=== PATIENT | male | born 1940 | race Caucasian/White ===

== ENCOUNTER 2020-07-05 12:16 | Outpatient (REF) | payer MEDICARE, SELFPAY ==
[2020-07-05 14:53] LABS: Blood Urea Nitrogen 12 mg/dL (9-16); Estimated Glomerular Filt Rate > 60
== END 2020-07-05 12:17 | disposition home or self-care (01) ==
LOC: HO.LNP 12:16
PROVIDERS: Visit Provider Internal Medicine
DX: Z01.812 Encounter for preprocedural laboratory examination (principal)
CPT/HCPCS: 82565; 84520

== ENCOUNTER 2020-07-15 07:58 | Outpatient (REF) | payer MEDICARE, SELFPAY ==
--- NOTE | ~2020-07-15 | CT_ITS ---
EXAMINATION: CT ABDOMEN AND PELVIS WITH CONTRAST CLINICAL INFORMATION: Mesenteric adenitis. COMPARISON: CT abdomen and pelvis with contrast 08/28/2018. TECHNIQUE: Multidetector volumetric images were obtained from the superior aspect of the liver through the pubic symphysis following administration 85 mL of Omnipaque 350 intravenous contrast. Sagittal and coronal reformatted images were obtained on the technologist's workstation. Oral Contrast: No. This CT examination was performed using dose optimization techniques as appropriate, variously including the following: *Automated exposure control. *Adjustment of mA and/or kV according to patient size (this includes techniques or standardized protocols for targeted exams where dose is matched to indication/reason for exam; i.e. extremities or head). *Use of iterative reconstruction technique. DLP: 487 mGy-cm FINDINGS: LUNG BASES: The visualized lung bases are unremarkable. LIVER, GALLBLADDER, AND BILIARY TREE: The liver is normal in size, shape, and attenuation. No focal hepatic lesion or biliary ductal dilatation is present. The gallbladder is unremarkable with no evidence of radiopaque gallstones, gallbladder wall thickening, or obvious pericholecystic inflammatory changes. PANCREAS: Unremarkable. SPLEEN: Unremarkable. ADRENAL GLANDS: Unremarkable. KIDNEYS AND URETERS: The kidneys are normal in size, shape, and attenuation. No hydronephrosis, hydroureter, or calculi seen. No perinephric stranding. There is a small scar and perinephric fat stranding from previous treatment along the right posterior cortex lower pole of right kidney. BLADDER: The bladder is nondistended with mild bladder wall thickening, nonspecific. GASTROINTESTINAL TRACT: There is scattered stool, diverticuli and oral contrast seen throughout the colon without any significant distention. The small bowel loops are normal caliber. Appendix is normal caliber. There is diffuse mesenteric stranding in the upper and mid abdomen, nonspecific mesenteritis. Few scattered small lymph nodes are seen in the mesentery. ABDOMINAL WALL: No significant hernia is appreciated. LYMPH NODES: A few scattered mesenteric lymph nodes are seen. VASCULAR: There is atherosclerotic calcification of the abdominal aorta without aneurysmal dilatation. PELVIC VISCERA: The prostate gland is mildly enlarged. OSSEOUS STRUCTURES: No lytic or sclerotic process seen. There are degenerative disc changes and ventral spondylosis in the lower dorsal spine. There are endplate Schmorl's node from L2 through L5 vertebra. CT/CT abdomen pelvis w con IMPRESSION: Diffuse mesenteric stranding in scattered lymph nodes likely mesenteric adenitis. Colonic diverticulosis but no suggestion for diverticulitis.
== END 2020-07-15 07:59 | disposition home or self-care (01) ==
LOC: HO.CT 07:58
PROVIDERS: PCP Internal Medicine; Visit Provider Internal Medicine
DX: I88.0 Nonspecific mesenteric lymphadenitis (principal)
CPT/HCPCS: 74177; Q9967

== ENCOUNTER 2020-07-26 11:05 | Outpatient (REF) | payer MEDICARE, SELFPAY ==
[2020-07-26 12:17] LABS: Alanine Aminotransferase 25 U/L (0-40); Albumin Level 4.3 g/dL (3.5-5.0); Alkaline Phosphatase 88 U/L (39-117); Aspartate Amino Transferase 24 U/L (5-37); Bilirubin Direct 0.2 mg/dL (0.0-0.5); Bilirubin Total 0.6 mg/dL (0.0-1.0); Cholesterol 167 mg/dL; HDL Cholesterol 53 mg/dL; LDL Cholesterol Calculated 90 mg/dl; Total Protein 6.5 g/dL (6.5-8.0); Triglycerides 124 mg/dL
[2020-07-26 12:37] LABS: Reflex LDLD? No
== END 2020-07-26 11:06 | disposition home or self-care (01) ==
LOC: HO.LNP 11:05
PROVIDERS: PCP Internal Medicine; Visit Provider Internal Medicine
DX: E78.00 Pure hypercholesterolemia, unspecified (principal)
CPT/HCPCS: 80061; 80076

== ENCOUNTER → 2020-09-13 08:36 | Outpatient (BNVA) | payer MEDICARE, SELFPAY | PROVIDERS: PCP Internal Medicine; Referring Provider Internal Medicine; Visit Provider Internal Medicine Cardiovascular Disease | DX: I35.0 Nonrheumatic aortic (valve) stenosis (principal); I45.2 Bifascicular block; I10 Essential (primary) hypertension | CPT/HCPCS: 93005; 99212 ==

== ENCOUNTER 2020-11-05 11:03 | Outpatient (REF) | payer MEDICARE, SELFPAY ==
--- NOTE | ~2020-11-05 | XR_ITS ---
EXAMINATION: BILATERAL HAND SERIES CLINICAL INFORMATION: Pain in right hand COMPARISON: X-ray the left wrist October 2018 TECHNIQUE: 3 views of each hand FINDINGS: Right hand: Radiocarpal compartment mild osteoarthritis with small subchondral cystic change on the radial side of the joint scaphoid radial articulation. First carpal metacarpal joint mild osteoarthritis manifested by marginal osteophytes and subchondral cystic change. Interphalangeal joints: Scattered mild osteoarthritis manifested by marginal osteophytes and cystic change involving primarily the DIP joints and IP joint of the thumb. Left hand: Mild osteoarthritis scattered about the interphalangeal joints manifested by small subchondral cysts and/or marginal osteophytes. Remaining bones joints and soft tissues unremarkable. XR/XR hand RT min 3V IMPRESSION: Right hand: Mild osteoarthritis. Left hand: Mild osteoarthritis
--- NOTE | ~2020-11-05 | XR_ITS ---
EXAMINATION: BILATERAL HAND SERIES CLINICAL INFORMATION: Pain in right hand COMPARISON: X-ray the left wrist October 2018 TECHNIQUE: 3 views of each hand FINDINGS: Right hand: Radiocarpal compartment mild osteoarthritis with small subchondral cystic change on the radial side of the joint scaphoid radial articulation. First carpal metacarpal joint mild osteoarthritis manifested by marginal osteophytes and subchondral cystic change. Interphalangeal joints: Scattered mild osteoarthritis manifested by marginal osteophytes and cystic change involving primarily the DIP joints and IP joint of the thumb. Left hand: Mild osteoarthritis scattered about the interphalangeal joints manifested by small subchondral cysts and/or marginal osteophytes. Remaining bones joints and soft tissues unremarkable. XR/XR hand LT min 3V IMPRESSION: Right hand: Mild osteoarthritis. Left hand: Mild osteoarthritis
[2020-11-05 12:36] LABS: MANUAL DIFF FLAG NO
[2020-11-05 12:46] LABS: Basophils Percent Auto 0.5 % (0-2); Eosinophils Absolute Auto 0.2 X10*3/uL (0.0-0.4); Eosinophils Percent Auto 2.5 % (0-4); Hematocrit 43.6 % (42-52); Imm Gran Abs Auto 0.02 X10*3/uL (0.00-0.03); Imm Gran Pct Auto 0.3 % (0.0-0.4); Lymphocytes Absolute Auto 1.3 X10*3/uL (1.2-4.9); Lymphocytes Percent Auto 20.9 % (20-40); Mean Corpuscular HGB Conc 32.1 g/dl (31.0-36.0); Mean Corpuscular Hemoglobin 29.7 pg (27.0-33.0); Mean Corpuscular Volume 92.4 fL (80-98); Mean Platelet Volume 11.1 fL (9.4-12.4); Monocytes Absolute Auto 0.6 X10*3/uL (0.1-1.2); Monocytes Percent Auto 9.7 % (2-11); Neutrophils Percent Auto 66.1 % (45-73); Platelet Count 199 X10*3/uL (160-400); Red Blood Count 4.72 X10*6/uL (4.60-5.80); Red Cell Distribution Width 13.8 % (11.0-16.0)
[2020-11-05 12:57] LABS: Alanine Aminotransferase 22 U/L (0-40); Albumin Level 4.4 g/dL (3.5-5.0); Alkaline Phosphatase 95 U/L (39-117); Anion Gap 13 (12-20); Aspartate Amino Transferase 22 U/L (5-37); Bilirubin Total 0.6 mg/dL (0.0-1.0); Blood Urea Nitrogen 10 mg/dL (9-16); C Reactive Protein 0.52 mg/dL (< or = 0.50); Calcium 9.9 mg/dL (8.4-10.2); Carbon Dioxide 33 mmol/L (22-29); Chloride 99 mmol/L (96-108); Estimated Glomerular Filt Rate > 60; Glucose Random 102 mg/dL (60-115); Potassium 4.3 mmol/L (3.3-5.1); Rheumatoid Factor 18.7 IU/mL (<15.0); Sodium 141 mmol/L (135-145); Total Protein 6.9 g/dL (6.5-8.0)
[2020-11-05 13:55] LABS: Erythrocyte Sedimentation Rate 3 MM/HR (0-15)
[2020-11-13 15:57] LABS: Cyclic Citrullinated Peptide <16 UNITS
== END 2020-11-05 11:04 | disposition home or self-care (01) ==
LOC: HO.XRAY 11:03
PROVIDERS: PCP Internal Medicine; Visit Provider Student in an Organized Health Care Education/Training Program
DX: M79.641 Pain in right hand (principal); M79.642 Pain in left hand; M19.042 Primary osteoarthritis, left hand; M19.041 Primary osteoarthritis, right hand
CPT/HCPCS: 36415; 73130; 80053; 85025; 85652; 86140; 86200; 86431; 99202

== ENCOUNTER → 2020-12-09 13:52 | Outpatient (BNVA) | payer MEDICARE, SELFPAY | PROVIDERS: PCP Internal Medicine; Visit Provider Student in an Organized Health Care Education/Training Program | DX: M79.641 Pain in right hand (principal); M79.642 Pain in left hand | CPT/HCPCS: 99212 ==

== ENCOUNTER 2020-12-30 08:05 | Outpatient (REF) | payer MEDICARE, SELFPAY ==
--- NOTE | ~2020-12-30 | XR_ITS ---
EXAMINATION: XR KNEE, LEFT CLINICAL INFORMATION: Pain. Immunological findings. COMPARISON: None TECHNIQUE: Four views of the left knee. FINDINGS: There is no evidence of acute fracture or dislocation of the left knee. There is prominent spurring of the patellofemoral joint. Spur on the patellar side of insertion of quadriceps tendon is seen. Medial and lateral joint space compartments are maintained. There is some narrowing of the lateral facet of the patellofemoral joint. Vascular calcifications are seen. There is a small effusion present. XR/XR knee LT 4V IMPRESSION: Small left knee effusion. Patellofemoral joint degenerative change.
== END 2020-12-30 08:06 | disposition home or self-care (01) ==
LOC: HO.XRAY 08:05
PROVIDERS: PCP Internal Medicine; Visit Provider Student in an Organized Health Care Education/Training Program
DX: M79.642 Pain in left hand (principal); M79.641 Pain in right hand
CPT/HCPCS: 20600; 73564; 99212

== ENCOUNTER 2021-01-25 10:28 | Outpatient (REF) | payer MEDICARE, SELFPAY ==
[2021-01-25 10:32] LABS: MANUAL DIFF FLAG NO
[2021-01-25 10:56] LABS: Basophils Percent Auto 0.4 % (0-2); Eosinophils Absolute Auto 0.1 X10*3/uL (0.0-0.4); Eosinophils Percent Auto 2.5 % (0-4); Hemoglobin 12.9 g/dl (14.0-18.0); Imm Gran Abs Auto 0.02 X10*3/uL (0.00-0.03); Imm Gran Pct Auto 0.4 % (0.0-0.4); Lymphocytes Absolute Auto 1.1 X10*3/uL (1.2-4.9); Lymphocytes Percent Auto 22.3 % (20-40); Mean Corpuscular HGB Conc 31.5 g/dl (31.0-36.0); Mean Corpuscular Hemoglobin 30.1 pg (27.0-33.0); Mean Corpuscular Volume 95.6 fL (80-98); Monocytes Absolute Auto 0.5 X10*3/uL (0.1-1.2); Neutrophils Absolute Auto 3.3 X10*3/uL (2.0-8.3); Neutrophils Percent Auto 64.4 % (45-73); Platelet Count 186 X10*3/uL (160-400); Red Blood Count 4.29 X10*6/uL (4.60-5.80); Red Cell Distribution Width 13.9 % (11.0-16.0); White Blood Count 5.1 X10*3/uL (4.8-10.8)
[2021-01-25 11:17] LABS: Appearance Urine CLEAR; Color Urine YELLOW; Glucose Urine UA NEG (NEG); Leukocyte Esterase Urine NEG (NEG); Nitrite Urine NEG (NEG); Specific Gravity - Urine 1.015 (1.005-1.025); Urine Blood NEG (NEG); Urine Ketones NEG (NEG); Urine Protein NEG (NEG-TRACE)
[2021-01-25 11:33] LABS: Alanine Aminotransferase 21 U/L (0-40); Alkaline Phosphatase 83 U/L (39-117); Anion Gap 11 (12-20); Aspartate Amino Transferase 18 U/L (5-37); Bilirubin Total 0.5 mg/dL (0.0-1.0); Blood Urea Nitrogen 7 mg/dL (9-16); Calcium 9.2 mg/dL (8.4-10.2); Carbon Dioxide 32 mmol/L (22-29); Chloride 104 mmol/L (96-108); Cholesterol 158 mg/dL; Estimated Glomerular Filt Rate > 60; Glucose Fasting 102 mg/dL (60-99); HDL Cholesterol 56 mg/dL; LDL Cholesterol Calculated 80 mg/dl; Potassium 3.8 mmol/L (3.3-5.1); Sodium 143 mmol/L (135-145); Triglycerides 110 mg/dL
[2021-01-25 11:48] LABS: Estimated Average Glucose 111 mg/dL; Hemoglobin A1c % 5.5 %
[2021-01-25 12:00] LABS: Creatinine Urine 101.19 mg/dL; Microalbum/Creatinine Ratio Ur 4.9 ug/mg cr
[2021-01-25 12:24] LABS: Reflex LDLD? No
[2021-01-25 12:42] LABS: PSA,Total (Free>4and<10) < 0.05 ng/mL (0.00-4.00)
== END 2021-01-25 10:29 | disposition home or self-care (01) ==
LOC: HO.LNP 10:28
PROVIDERS: Visit Provider Internal Medicine
DX: Z12.5 Encounter for screening for malignant neoplasm of prostate (principal); E78.00 Pure hypercholesterolemia, unspecified; R73.03 Prediabetes; I10 Essential (primary) hypertension
CPT/HCPCS: 80053; 80061; 81003; 82043; 83036; 84153; 85025

== ENCOUNTER 2021-01-31 10:38 | Outpatient (REF) | payer MEDICARE, SELFPAY ==
--- NOTE | ~2021-01-31 | XR_ITS ---
EXAMINATION: XR CHEST CLINICAL INFORMATION: Persistent cough. COMPARISON: None TECHNIQUE: 2 views of the chest were obtained. FINDINGS: No significant abnormality is noted involving the heart, lungs, mediastinum, bony thorax or soft tissues. XR/XR chest 2V IMPRESSION: Unremarkable chest examination.
== END 2021-01-31 10:39 | disposition home or self-care (01) ==
LOC: HO.XRAY 10:38
PROVIDERS: PCP Internal Medicine; Visit Provider Internal Medicine
DX: R05 Cough (principal)
CPT/HCPCS: 71046

== ENCOUNTER 2021-04-27 09:22 | Emergency (ER) | payer MEDICARE, SELFPAY ==
--- NOTE | ~2021-04-27 | CT_ITS ---
EXAMINATION: CT HEAD WITHOUT CONTRAST CLINICAL INFORMATION: Fell on ice COMPARISON: 03/12/2019 TECHNIQUE: Contiguous axial imaging was performed from the skull base to vertex without intravenous administration of contrast. This CT examination was performed using dose optimization techniques as appropriate, variously including the following: *Automated exposure control *Adjustment of mA and/or kV according to patient size (this includes techniques or standardized protocols for targeted exams where dose is matched to indication/reason for exam; i.e. extremities or head) *Use of iterative reconstruction technique DLP: 768 mGy-cm FINDINGS: There is no evidence of acute intracranial hemorrhage or territorial infarction. No abnormal mass effect or midline shift is seen. Arrieta to white matter differentiation is well preserved. No extra-axial fluid collections are identified. The ventricles are normal in size. There is no abnormal attenuation within the brain parenchyma. The osseous structures and soft tissues are notable for soft tissue swelling posteriorly superficially with skin tate noted. No underlying fracture. The mastoid air cells and visualized portions of the paranasal sinuses are well aerated. CT/CT head/brain wo con IMPRESSION: No acute intracranial pathology.
[2021-04-27 10:05] VITALS: PULSE 77; RESP 18; TEMP 37; O2SAT 97; BMI 31.0
[2021-04-27] MEDS: Lidocaine HCl 2%/Epi 1:100,000 20 ML VIAL 30 ML SUBCUT (10:08)
--- NOTE | 2021-04-27 10:16 | ED_ITS ---
HPI - Fall General Chief Complaint: Fall Stated Complaint: fall Time Seen by Provider: 04/27/21 09:49 Source: patient Mode of arrival: ambulatory Limitations: no limitations History of Present Illness HPI Narrative: 81-year-old male who presents emergency department for evaluation of head injury and laceration. Patient states that he slipped and fell on his icy driveway. His legs 1 out from under him and he fell backwards striking his head on the driveway. He sustained a laceration and states that since the fall he has had a [id number] headache located in occipital area where he has is laceration. He has had some mild nausea but no vomiting. He denies numbness or weakness. He denies being ill in any way prior to the fall. He believes this tetanus status is up-to-date he had 1 2 years prior. Related Data Home Medications Medication Instructions Recorded Confirmed amlodipine 5 mg tablet 5 mg PO DAILY 09/13/20 12/09/20 atorvastatin 20 mg tablet 20 mg PO DAILY 09/13/20 12/09/20 gabapentin 300 mg capsule 600 mg PO BID 09/13/20 12/09/20 hydrochlorothiazide 25 mg tablet 25 mg PO DAILY 09/13/20 12/09/20 tamsulosin 0.4 mg capsule 0.4 mg PO DAILY 09/13/20 12/09/20 timolol maleate 0.5 % eye drops 1 drp OPHTHALMIC (EYE) DAILY ml 09/13/20 12/09/20 diphenhydramine 25 2 tab PO BEDTIME PRN 11/05/20 12/09/20 mg-acetaminophen 500 mg tablet (Tylenol PM Extra Strength) Previous Rx's Medication Instructions Recorded diclofenac sodium 1 % topical gel 2 g TOPICAL QID #100 g 11/05/20 (Voltaren Arthritis Pain) Allergies Allergy/AdvReac Type Severity Reaction Status Date / Time No Known Allergies Allergy Verified 12/30/20 08:09 [No Known Allergies*] Review of Systems Review of Systems: Yes all other systems are reviewed and are negative [facility] Past Medical History Medical History Aortic stenosis Bifascicular block HTN (hypertension) Social History Social History Patient Tobacco Use Status: Never used Tobacco e-Cigarette/Vaping Use: Never Used Advance Directives: Yes Advance Directives Information Provided: No Advance Directives on File: No Physical Exam Vital Signs: Vital Signs: Last Vital Signs Temp 98.6 F 04/27/21 10:05 Pulse 77 04/27/21 10:05 Resp 18 04/27/21 10:05 Pulse Ox 97 04/27/21 10:05 BMI result Body Mass Index 31.0 Const: General: cooperative and no acute distress Orientation/consciousness: oriented to person and oriented to place Limitations: no limitations HENMT: Other: Patient has a 3.0 cm full skin thickness, irregular shaped laceration to mid occipital region of his scalp, there is a small hematoma to this area. The area is tender to palpation Ears: external ears normal General nose exam: Normal external nose present Face and sinus: Yes normal facial exam Mouth: Normal oral and palatal mucosa present Throat: Yes posterior oropharynx normal Eyes: General: appearance normal, both eyes and all related structures Pupils: Equal, round and reactive pupils present Neck: Neck: Yes normal visual inspection, Yes no lymphadenopathy, Yes trachea midline and Yes supple Chest: Chest palpation & inspection: normal inspection of the chest and normal palpation of entire chest wall Resp: Effort & Inspection: normal respiratory effort and able to speak in complete sentences Auscultation: clear to auscultation bilaterally Cardio: Rate: regular rate Rhythm: regular rhythm Heart sounds: S1 normal heart sound present, S2 normal heart sound present and no murmurs GI: Inspection: Yes normal to inspection Palpation (GI): Soft to palpation, nontender and no guarding Auscultation: normal bowel sounds : General: Yes no CVA tenderness Back/Spine/Pelvis: Back: no CVA tenderness Skin: General skin exam: no rashes or lesions noted Neuro: General: oriented to person and oriented to place Cranial nerves: Yes CN's II-XII intact bilaterally and Yes Equal, round and reactive pupils present Cognition (Neuro): normal cognition Motor exam (neuro): 5/5 motor strength present throughout Extrem: General: Yes normal to inspection Psych: Appearance: grossly normal Speech and movement: Normal speech and movement present Affect: normal affect Attitude: cooperative Thought process: Normal thought process present Thought content: Normal thought content present Course Course Course Narrative: 81-year-old male who presents emergency department for evaluat ion of a slip and fall on ice with a head strike on his driveway pavement. The patient did have a 3.0 cm laceration to the back of his head with a small hematoma around the area of the laceration. Patient has some mild symptoms including headache and nausea with no vomiting or weakness. Patient's laceration was cleaned and anesthetized with 2% lidocaine with epinephrine, the wound was explored no foreign bodies were found of the wound in the laceration was repaired with 6 tate. Given his mechanism injury, his age and the hematoma, I did order a CT scan of the head to rule out fracture, bleed. 1057: The CT scan of the patient's head without contrast revealed no acute skull fracture bleed I did discuss this with the patient. The patient was discharged home with printed and verbal instructions on head injury and wound care. Patient's tate need to be removed in 7-10 days by his PCP, urgent care, or he can return to the emergency department. Procedures Laceration Laceration 1: Site: scalp (mid occiput) Size (cm): 3.0 Description: irregular Depth: involves muscle layer Local Anesthetic: lidocaine 2% and with epi Amount of anesthesia used (mL): 5 Pre-repair: wound explored Size (cm): other (6 tate) Discharge Plan Discharge Clinical Impression: Contaminated simple laceration of scalp Head injury Qualifiers: Encounter type: initial encounter Qualified Code(s): S09.90XA - Unspecified injury of head, initial encounter Fall Qualifiers: Encounter type: initial encounter Qualified Code(s): W19.XXXA - Unspecified fall, initial encounter Patient Disposition: Home, Self-Care Instructions: Head Injury (ED), Staple Care (ED) Additional Instructions: You had a 3.0 cm laceration to the back of your head which was cleaned, anesthetized and stapled with 6 tate. The tate need to be removed in 10 days by your doctor, an urgent care clinic or you could return to the emergency department. Apply bacitracin twice a day to the wound. Bacitracin as an [id number]-kbxuvec antibiotic ointment that you can buy in any pharmacy. Watch for signs of infection which include redness, swelling, drainage of pus, increased pain, fever, chills or fatigue. Take Tylenol (acetaminophen) 500 mg pills, 2 pills every 4 to 6 hours as needed for pain. Follow-up with your doctor in 7-10 days. Please return to the emergency department if your symptoms get worse or if you develop any symptoms that are concerning to you. Prescriptions: No Action timolol maleate 0.5 % drops 1 drp ophthalmic (eye) DAILY RF: 0 gabapentin 300 mg capsule 600 mg PO BID RF: 0 tamsulosin 0.4 mg capsule 0.4 mg PO DAILY RF: 0 hydrochlorothiazide 25 mg tablet 25 mg PO DAILY RF: 0 amlodipine 5 mg tablet 5 mg PO DAILY RF: 0 atorvastatin 20 mg tablet 20 mg PO DAILY RF: 0 diphenhydramine-acetaminophen [Tylenol PM Extra Strength] 25-500 mg tablet 2 tab PO BEDTIME PRNRF: 0 diclofenac sodium [Voltaren Arthritis Pain] 1 % gel 2 g topical QID Qty: 100 RF: 1
== END 2021-04-27 11:23 | disposition home or self-care (01) ==
PROVIDERS: Emergency Provider Emergency Medicine Emergency Medical Services; PCP Internal Medicine
DX: S09.90XA Unspecified injury of head, initial encounter (principal); S01.01XA Laceration without foreign body of scalp, initial encounter; G44.309 Post-traumatic headache, unspecified, not intractable; W00.0XXA Fall on same level due to ice and snow, initial encounter; Y93.9 Activity, unspecified; Y92.9 Unspecified place or not applicable; Y99.9 Unspecified external cause status; Z79.899 Other long term (current) drug therapy
CPT/HCPCS: 12002; 70450; 99282; 99284

== ENCOUNTER 2021-05-31 10:20 | Outpatient (REF) | payer MEDICARE, SELFPAY ==
[2021-05-31 13:40] LABS: MANUAL DIFF FLAG NO
[2021-05-31 13:44] LABS: Basophils Percent Auto 0.5 % (0-2); Eosinophils Absolute Auto 0.1 X10*3/uL (0.0-0.4); Eosinophils Percent Auto 2.3 % (0-4); Hematocrit 43.2 % (42.0-52.0); Hemoglobin 13.7 g/dl (14.0-18.0); Imm Gran Abs Auto 0.03 X10*3/uL (0.00-0.03); Imm Gran Pct Auto 0.5 % (0.0-0.4); Lymphocytes Absolute Auto 1.1 X10*3/uL (1.2-4.9); Lymphocytes Percent Auto 19.4 % (20-40); Mean Corpuscular HGB Conc 31.7 g/dl (31.0-36.0); Mean Corpuscular Hemoglobin 30.2 pg (27.0-33.0); Mean Corpuscular Volume 95.2 fL (80.0-98.0); Mean Platelet Volume 11.2 fL (9.4-12.4); Monocytes Absolute Auto 0.4 X10*3/uL (0.1-1.2); Monocytes Percent Auto 7.6 % (2-11); Neutrophils Absolute Auto 3.9 x10*3/uL (2.0-8.3); Neutrophils Percent Auto 69.7 % (45-73); Platelet Count 190 X10*3/uL (160-400); Red Blood Count 4.54 X10*6/uL (4.60-5.80); Red Cell Distribution Width 13.5 % (11.0-16.0); White Blood Count 5.6 X10*3/uL (4.8-10.8)
[2021-05-31 14:12] LABS: Anion Gap 14 (12-20); Blood Urea Nitrogen 10 mg/dL (9-16); Calcium 9.6 mg/dL (8.4-10.2); Carbon Dioxide 30 mmol/L (22-29); Chloride 102 mmol/L (96-108); Estimated Glomerular Filt Rate > 60; Iron 80 mcg/dL (45-160); Percent Iron Saturation 24 % (15-50); Potassium 4.2 mmol/L (3.3-5.1); Sodium 142 mmol/L (135-145); Total Iron Binding Capacity 329 mcg/dL (228-428); Unsaturated Iron Binding 249 ug/dL
[2021-05-31 14:25] LABS: Ferritin 136 ng/mL (20-250)
[2021-05-31 15:25] LABS: Folate 19.2 ng/mL (> or = 4.0)
[2021-05-31 15:39] LABS: Vitamin B12 206 pg/mL (200-900)
== END 2021-05-31 10:21 | disposition home or self-care (01) ==
LOC: HO.10HDL 10:20
PROVIDERS: Visit Provider Internal Medicine
DX: I88.0 Nonspecific mesenteric lymphadenitis (principal)
CPT/HCPCS: 36415; 80051; 82310; 82565; 82607; 82728; 82746; 83540; 84520; 85025

== ENCOUNTER 2021-06-14 08:05 | Outpatient (REF) | payer MEDICARE, SELFPAY ==
--- NOTE | ~2021-06-14 | CT_ITS ---
EXAMINATION: CT ABDOMEN AND PELVIS WITH CONTRAST CLINICAL INFORMATION: Mesenteric adenitis. COMPARISON: CT abdomen/pelvis 07/15/2020. TECHNIQUE: Multidetector volumetric images were obtained from the superior aspect of the liver through the pubic symphysis following administration 85 mL of Omnipaque 350 intravenous contrast. Sagittal and coronal reformatted images were obtained on the technologist's workstation. Oral contrast: No. This CT examination was performed using dose optimization techniques as appropriate, variously including the following: *Automated exposure control *Adjustment of mA and/or kV according to patient size (this includes techniques or standardized protocols for targeted exams where dose is matched to indication/reason for exam; i.e. extremities or head) *Use of iterative reconstruction technique DLP: 495 mGy-cm FINDINGS: LUNG BASES: The visualized lung bases are unremarkable. LIVER, GALLBLADDER, AND BILIARY TREE: The liver is normal in size, shape, and attenuation. No focal hepatic lesion or biliary ductal dilatation is present. The gallbladder is slightly contracted with no radiopaque calculi. PANCREAS: Unremarkable. SPLEEN: Unremarkable. ADRENAL GLANDS: Unremarkable. KIDNEYS AND URETERS: The kidneys are normal in size, shape, and attenuation. No hydronephrosis, hydroureter, or calculi seen. No perinephric stranding. BLADDER: Unremarkable. GASTROINTESTINAL TRACT: There is scattered stool, oral contrast and gas seen throughout the colon. There is a large filling defect at the ileocecal junction and cecum, new since the previous study, question stool versus underlying lesion or mass. It is best visualized on coronal image 63/4. The small bowel loops are normal caliber. The appendix is normal caliber. Again visualized is diffuse mesenteric stranding in the upper and mid abdomen. A few scattered mesenteric lymph nodes are seen. ABDOMINAL WALL: No significant hernia is appreciated. LYMPH NODES: Small mesenteric and retroperitoneal lymph nodes are seen. VASCULAR: Unremarkable. PELVIC VISCERA: The prostate gland is mildly enlarged with metallic density adjacent to the left pelvis. There are scattered phleboliths in the pelvis. OSSEOUS STRUCTURES: There are degenerative disc changes L2-L3 through L4-L5 disc levels with ventral spondylosis. There is an inferior endplate Schmorl's node at L2 and L3 vertebrae. CT/CT abdomen pelvis w con IMPRESSION: New filling defect at the ileocecal junction and cecum. Colonic diverticulosis without diverticulitis. Focal mesenteric stranding in the upper abdomen with scattered small lymph nodes in the mesentery and retroperitoneum, similar to previous study. Fleischner guidelines were followed.
[2021-06-14] MEDS: Barium Sulfate Oral (Vanilla) 450 ML ORAL.SUSP 900 ML PO (09:19)
[2021-06-14] MEDS: iohexoL 350 MG/ML 100 ML INFUS..BTL 85 ML IV (11:18)
== END 2021-06-14 08:06 | disposition home or self-care (01) ==
LOC: HO.CT 08:05
PROVIDERS: Visit Provider Internal Medicine
DX: I88.0 Nonspecific mesenteric lymphadenitis (principal)
CPT/HCPCS: 74177; Q9967

== ENCOUNTER 2021-06-20 12:03 | Day surgery (SDC) | payer MEDICARE, SELFPAY ==
--- NOTE | 2021-06-17 13:46 | HO.ANESPROP2 ---
Documented by User: Estelle Harper NP 06/17/21 13:49 HPI - Anesthesia Eval Consult details Narrative: 81yo M for Colonoscopy PMFSH Active Problems Active Problems: All Active Problems (Updated 04/28/21 @ 00:03 by Jon Recinos) Rheumatoid factor positive (Acute) Bilateral hand pain (Acute) HTN (hypertension) (Acute) Bifascicular block (Acute) Aortic stenosis (Acute) Past Medical History Medical History (Updated 06/17/21 @ 13:47 by Estelle Harper NP) Aortic stenosis Bifascicular block HTN (hypertension) Social History Social History Patient Tobacco Use Status: Never used Tobacco Tobacco use type: Cigar e-Cigarette/Vaping Use: Never Used Use of substances other than those prescribed or required for medical reasons: No Are you DNR?: No Advance Directives: No Advance Directives Information Provided: Yes Recently lost weight without trying: No Nutrition Risks: No Nutritional Risk Meds Allergies Allergy/AdvReac Type Severity Reaction Status Date / Time No Known Allergies Allergy Verified 12/30/20 08:09 [No Known Allergies*] Home Medications Medication Instructions Recorded Confirmed Last Taken Type amlodipine 5 mg tablet 5 mg PO DAILY 09/13/20 12/09/20 Unknown History atorvastatin 20 mg tablet 20 mg PO DAILY 09/13/20 12/09/20 Unknown History gabapentin 300 mg capsule 600 mg PO BID 09/13/20 12/09/20 Unknown History hydrochlorothiazide 25 mg tablet 25 mg PO DAILY 09/13/20 12/09/20 Unknown History tamsulosin 0.4 mg capsule 0.4 mg PO DAILY 09/13/20 12/09/20 Unknown History timolol maleate 0.5 % eye drops 1 drp OPHTHALMIC (EYE) DAILY ml 09/13/20 12/09/20 Unknown History diphenhydramine 25 2 tab PO BEDTIME PRN 11/05/20 12/09/20 Unknown History mg-acetaminophen 500 mg tablet (Tylenol PM Extra Strength) Exam Exam Date and Time: June 17, 2021 1346 Pertinent Lab Results Pertinent Lab Results: Laboratory Tests 05/31/21 05/31/21 10:28 10:28 WBC 5.6 Hgb 13.7 L Hct 43.2 Plt Count 190 Sodium 142 Potassium 4.2 Chloride 102 Carbon Dioxide 30 H BUN 10 Creatinine 0.71 Narrative Narrative: EKG 09/2020 normal sinus rhythm low voltage with right bundle-branch block and left anterior fascicular block, unchanged from before ECHO 08/2019 LV systolic function is normal. EF 60-65% Aortic valve sclerosis but without any significant stenosis Assessment and Plan Assessment Anesthesia Assessment: Chart Reviewed Documented by User: Sigrid Reagan MD 06/20/21 15:11 [facility] Past Medical History Medical History (Updated 06/17/21 @ 13:47 by Estelle Harper NP) Aortic stenosis Bifascicular block HTN (hypertension) Family History Family history of problems with anesthesia: No Surgical History History of Problems with Anesthesia: No Social History Social History Patient Tobacco Use Status: Never used Tobacco Tobacco use type: Cigar e-Cigarette/Vaping Use: Never Used Use of substances other than those prescribed or required for medical reasons: No Are you DNR?: No Advance Directives: No Advance Directives Information Provided: Yes Recently lost weight without trying: No Nutrition Risks: No Nutritional Risk Meds Allergies Allergy/AdvReac Type Severity Reaction Status Date / Time No Known Allergies Allergy Verified 12/30/20 08:09 [No Known Allergies*] Home Medications Medication Instructions Recorded Confirmed Last Taken Type amlodipine 5 mg tablet 5 mg PO DAILY 09/13/20 12/09/20 Unknown History atorvastatin 20 mg tablet 20 mg PO DAILY 09/13/20 12/09/20 Unknown History gabapentin 300 mg capsule 600 mg PO BID 09/13/20 12/09/20 Unknown History hydrochlorothiazide 25 mg tablet 25 mg PO DAILY 09/13/20 12/09/20 Unknown History tamsulosin 0.4 mg capsule 0.4 mg PO DAILY 09/13/20 12/09/20 Unknown History timolol maleate 0.5 % eye drops 1 drp OPHTHALMIC (EYE) DAILY ml 09/13/20 12/09/20 Unknown History diphenhydramine 25 2 tab PO BEDTIME PRN 11/05/20 12/09/20 Unknown History mg-acetaminophen 500 mg tablet (Tylenol PM Extra Strength) Exam Height,Weight and Vital Signs: Height 5 ft 4 in Weight 82.554 kg Vital Signs Temp Pulse Resp BP Pulse Ox 06/20/21 14:42 97.7 F 77 16 144/72 H 97 Airway Mallampati Class: II TM Dist: >3cm Neck ROM: Full Heart: RRR+ murmur. ? gurgling sounds Lungs: ? gurgling sounds Assessment and Plan Assessment Anesthesia Assessment: Anesthesia Plan Discussed Final Anesthetic Review Family History of Problems with Anesthesia: No History of Problems with Anesthesia: No NPO: Yes ASA Class: III Final Preanesthetic Review: No Changes in Pt Med Stat, Meds/Allgs Chart Reviewed, Consent Obtained/Reviewed and Anes Risks/Benef Reviewed Patient Risk: Intermediate Procedure Risk: Low Assessment/Block/Sedation in SS: Assess/Block/Sedation-SS Anesthetic Plan Anesthetic Plan: MAC: Disposition: Standard PACU
[2021-06-20 14:32] VITALS: BMI 31.2
[2021-06-20 14:42] VITALS: BP 144/72; PULSE 77; RESP 16; TEMP 36.5; O2SAT 97; BMI 31.2
[2021-06-20] MEDS: Lactated Ringers 1,000 ML 100 ML IVCONT (14:50)
[2021-06-20 16:04] VITALS: BP 101/63; PULSE 72; RESP 12; TEMP 36.1; O2SAT 99
--- NOTE | 2021-06-20 16:05 | P.BOP_ITS ---
Brief Operative Note Date of Service: 06/20/21 Pre-op diagnosis: Abnormal CT of colon Post-op diagnosis: other (Colon polyp) Procedure: Colonoscopy to the cecum and TI with cold snare polypectomy of cecal polyp Surgeon: Mike Keller Anesthesia: MAC Was an Vocational Rehabilitation Supervisor used for this Procedure?: No Estimated blood loss (mL): 2.0 Pathology: other (A. Cecal polyp) Condition: stable Disposition: PACU
[2021-06-20 16:20] VITALS: BP 124/66; PULSE 75; RESP 16; TEMP 36.1; O2SAT 98
--- NOTE | 2021-06-21 01:56 | OP_ITS ---
SURGEON: Mike Keller MD INDICATIONS: The patient presents for evaluation of abnormal CT scan of colon. Full consent has been obtained from him for this, including risks of bleeding and perforation. PREOPERATIVE DIAGNOSIS: Abnormal CT scan of colon. POSTOPERATIVE DIAGNOSIS: Abnormal CT scan of colon, small colon polyp, diverticulosis, and internal hemorrhoids. PROCEDURE PERFORMED: Colonoscopy to cecum and terminal ileum with cold snare polypectomy. ESTIMATED BLOOD LOSS: COMPLICATIONS: ANESTHESIA: Medication used, monitored anesthesia care. ASSISTANTS: SPECIMENS: DESCRIPTION OF PROCEDURE: The patient was placed in left lateral decubitus position the digital rectal exam revealed no abnormalities. The Olympus video pediatric colonoscope was entered into the rectum and advanced easily to the cecum. Once in the cecum, I did identify normal-appearing ileocecal valve. The terminal ileum was cannulated and appeared normal. The scope was withdrawn back in the colon. The entire cecum was well visualized and appeared normal other than an approximately 5 mm polyp, which was removed with a cold snare polypectomy and recovered by suction. The polypectomy site appeared to be clean, without any sign of residual polyp nor any significant bleeding. The remainder of the cecum and ileocecal valve were carefully inspected and appeared normal without any sign of mass as had been suggested on the CT scan. The scope was then slowly withdrawn assessing all mucosal surfaces carefully. Preparation was excellent. I did not visualize any other polyps, colitis, nor angiodysplasia. There was a moderate amount of sigmoid diverticulosis. In the rectum, scope was retroflexed visualizing small internal hemorrhoids, but no other pathology. The rectal mucosa appeared normal. Scope was straightened and withdrawn from the patient. He tolerated the procedure well and was returned to the recovery area in stable condition. IMPRESSION: 1. Small colon polyp, status post cold snare polypectomy. 2. Diverticulosis. 3. Internal hemorrhoids. PLAN: The results of the pathology will be checked. Given his age and these findings, I do not think any further colonoscopies would be needed. He was advised to see me in 1 year for a followup visit. MD DEVANTE Swann/LASHELL / [phone]
== END 2021-06-20 16:35 | disposition home or self-care (01) ==
PROVIDERS: PCP Internal Medicine; Visit Provider Internal Medicine
PROC: 0DJD8ZZ Inspection of Lower Intestinal Tract, Via Natural or Artificial Opening Endoscopic (ICD-10-PCS; CPT 45378; principal; 2021-06-20 14:00)
DX: R93.3 Abnormal findings on diagnostic imaging of other parts of digestive tract (principal); D12.0 Benign neoplasm of cecum; K57.30 Diverticulosis of large intestine without perforation or abscess without bleeding; K64.8 Other hemorrhoids; I88.0 Nonspecific mesenteric lymphadenitis; I10 Essential (primary) hypertension; E78.5 Hyperlipidemia, unspecified; Z72.89 Other problems related to lifestyle; Z79.899 Other long term (current) drug therapy
CPT/HCPCS: 45385; 88305; J3010

== ENCOUNTER → 2021-06-29 11:03 | Outpatient (REF) | payer MEDICARE, SELFPAY ==
--- NOTE | ~2021-06-29 | NM_ITS ---
EXAMINATION: NM BONE SCAN OF THE WHOLE BODY CLINICAL INFORMATION: Acute bilateral low back pain without sciatic. COMPARISON: The previous bone scan dated 10/13/2014 is available for comparison. Radiographs of the chest dated 01/31/2021 are the most recent radiographs available for comparison. CT scan of the abdomen and pelvis dated 06/14/2021 is available for comparison. TECHNIQUE: Multiple gamma scintillation camera images of the whole body were performed 2.5 hours following the intravenous administration of 31 mCi Tc-99m MDP. FINDINGS: In the head, there is mildly increased activity in the molar region of the left side of the mandible, likely due to dental disease. In the thoracic cage and upper extremities, there is a focus of mildly increased activity present in the anterior aspect of the right fifth rib. In the spine, foci of mildly increased activity are present in the thoracic spine at the left side of T1, the right side of T4 and the left costovertebral junction of T10. Is also mildly increased activity in the left side of L3 and bilaterally in the posterior elements at L5/S1. In the pelvis, no significant abnormalities are present. In the lower extremities, there is a small faint focus of increased activity in the intertrochanteric region of the right femur. There is a mild diffuse increase in activity in both knees, most prominently in the patellar compartments. Faint foci of increased activity are present posteriorly in both feet but more prominently on the left, likely due to an Achilles enthesopathy. No other definite bony abnormalities are noted. The urinary bladder and faint visualization of both kidneys are noted. Compared to the previous bone scan dated 10/13/2014, the right rib lesion is new. In addition, the abnormalities in the posterior elements at L5-S1 and the mild abnormalities in the thoracic spine are also new. Minimal abnormality was present on the prior study in the left side L3 in the proximal right femur. The CT scan dated 06/14/2021 shows a sclerotic focus in the left side of the L3 vertebra that corresponds to the bone scan abnormality at this site. There is significant facet arthropathy bilaterally at L5/S1 at L5-S1 that corresponds to mild bone scan abnormalities described above at this site. There is also small sclerotic focus in the intertrochanteric region of the right femur that corresponds to the small bone scan abnormality at this site. The anterior right fifth rib lesion is outside the axial [id number] of the CT images and cannot be compared. NM/NM bone scan whole body IMPRESSION: 1. New abnormality in the right fifth rib and several small foci in the upper thoracic spine are present as described above and strongly suspicious for metastatic disease. 2. Abnormality in the left side of L3 appears stable and is likely metastatic in etiology, as is a small focus in the intertrochanteric region of the right femur. 3. Mild abnormalities in the posterior elements at L5/S1 are nonspecific but probably due to facet arthropathy. 4. Mild bilateral knee abnormalities are likely arthritic.
[2021-06-29 12:52] LABS: Prostate Specific Antigen < 0.05 ng/mL (<0.05-4.0)
== END ==
LOC: HO.NUCMED 11:03
PROVIDERS: Visit Provider Internal Medicine
DX: Z12.5 Encounter for screening for malignant neoplasm of prostate (principal); M54.50 Low back pain, unspecified
CPT/HCPCS: 36415; 78306; 84153; A9503

== ENCOUNTER → 2021-07-04 11:09 | Outpatient (BNVA) | payer MEDICARE, SELFPAY | PROVIDERS: PCP Internal Medicine; Visit Provider Internal Medicine | DX: M47.26 Other spondylosis with radiculopathy, lumbar region (principal); M54.51 Vertebrogenic low back pain | CPT/HCPCS: 99202 ==

== ENCOUNTER 2021-07-25 10:41 | Outpatient (REF) | payer MEDICARE, SELFPAY ==
[2021-07-25 11:11] LABS: Alanine Aminotransferase 16 U/L (0-40); Alkaline Phosphatase 87 U/L (39-117); Aspartate Amino Transferase 18 U/L (5-37); Bilirubin Direct 0.2 mg/dL (0.0-0.5); Bilirubin Total 0.6 mg/dL (0.0-1.0); Cholesterol 165 mg/dL; HDL Cholesterol 53 mg/dL; LDL Cholesterol Calculated 95 mg/dl; Total Protein 6.1 g/dL (6.5-8.0); Triglycerides 85 mg/dL
[2021-07-25 11:39] LABS: Reflex LDLD? No
== END 2021-07-25 10:42 | disposition home or self-care (01) ==
LOC: HO.LNP 10:41
PROVIDERS: Visit Provider Internal Medicine
DX: E78.00 Pure hypercholesterolemia, unspecified (principal)
CPT/HCPCS: 80061; 80076

== ENCOUNTER → 2021-08-05 10:40 | Outpatient (BNVA) | payer MEDICARE, SELFPAY | PROVIDERS: PCP Internal Medicine; Visit Provider Internal Medicine | DX: Z13.89 Encounter for screening for other disorder (principal) | CPT/HCPCS: Q3014 ==

== ENCOUNTER → 2021-08-26 08:12 | Outpatient (REF) | payer MEDICARE, SELFPAY ==
--- NOTE | 2021-08-26 08:47 | CA_ITS ---
Transthoracic Echocardiogram Patient (Last, First, Middle): Myla Hernandez, Gender: Male Date of : 1940 Age: 81 Procedure Date: 08/26/2021 Procedure Type: Transthoracic Echocardiogram Location: OP Height: 162.56 cm Weight: 89.81 kg BSA: 1.95 m2 Heart Rate: bpm BP: 130 / 75 mmHg Concrete Engineering Technician: YR/TO Referring MD: Anibal Haque MD Machine Or Machinery Mechanic: Anibal Haque MD Symptoms: I35.0 - Nonrheumatic aortic (valve) stenosis Study Quality: Fair ECG Rhythm: Sinus Conclusions: - 1. Normal LV systolic function with impaired relaxation filling pattern 2. Moderate calcified aortic valve with early mild aortic stenosis 3. Normal RV systolic pressure 4. No pericardial effusion Findings Left Ventricle Normal left ventricular size, thickness, and systolic function. The visually estimated ejection fraction is between 60-65%. Spectral Doppler is indicative of an impaired relaxation filling pattern. E/E prime ratio is between 8 and 15 consistent with indeterminate filling pressures. Right Ventricle Normal right ventricular cavity size and systolic function. Atria The left atrium is normal in size. There is no evidence of interatrial shunt. The right atrium is normal in size. Aortic Valve There is moderate calcification of the aortic valve. There is mild aortic valve stenosis. The peak aortic gradient is 20 mmHg.The mean gradient is 11 mmHg. The aortic valve area is 2.06 cm2. There is trace (trivial) aortic valve regurgitation. Mitral Valve There is mild anterior and posterior mitral leaflet thickening. There is mild mitral annular calcification. There is trace mitral valve regurgitation. There is no mitral valve stenosis. Pulmonic Valve The pulmonic valve was not well visualized. Tricuspid Valve Likely normal tricuspid valve structure and function. There is mild tricuspid valve regurgitation. The right ventricular systolic pressure is normal. The right ventricular systolic pressure is 35 mmHg. Normal right atrial pressure. There is no evidence of pulmonary hypertension. Great Vessels All visible segments of the aorta are normal in size. The pulmonary artery was not well visualized. Venous The inferior vena cava is normal in size and collapses greater than 50% with inspiration. Pericardium/Pleural There is no evidence of pericardial effusion. Prior Study Comparison No significant change compared to prior study dated: 08/27/2019. Measurements 2D Linear Measurements IVSd: 1.00 0.6-0.9/0.6-1.0 cm LVIDd: 3.92 3.9-5.3/4.2-5.9 cm LVIDd Index: 2.01 2.4-3.2/2.2-3.1 cm/m2 LVIDs: 2.46 2.0-3.6 cm LVPWd: 0.96 0.7-1.1 cm LA Diam: 3.50 2.7-3.8/3.0-4.0 cm LAIDs Index: 1.79 1.5-2.3 cm/m2 LV Mass: 148.68 67-162/88-224 g LV Mass Index: 76.24 43-95/49-115 g/m2 LVOT Diam: 2.20 3.0+(-)1.3 cm 2D Systolic Function EF 4C: 66.50 >55% EF 2C: 63.60 >55% EF BiP: 65.40 >55% Mitral Valve MV Pk E: 1.00 MV PK A: 1.14 MV Decel Time: 276.00 E/A: 0.90 E'Lateral: 6.53 E'Medial: 5.33 E/E' Med: 18.80 E/E' Lat: 15.30 PHT: 81.00 MVA PHT: 2.72 Decel Lassen: 3.63 Aortic Valve AoV Pk Chris: 2.25 AoV Mn Chris: 1.57 AoV VTI: 0.49 AoV Pk Grad: 20.00 Aov Mn Grad: 11.00 LOIS Cont.VTI: 2.06 LVOT LVOT Pk Chris: 1.19 LVOT Mn Chris: 0.82 LVOT VTI: 0.26 LVOT Pk Grad: 6.00 LVOT Mn Grad: 3.00 LVOT Diam: 2.20 LVOT Area: 3.80 Diastolic Function MV Pk E: 1.00 MV Pk A: 1.14 E/A: 0.90 E'Medial: 5.33 E/E' Med: 18.80 E' Laterial: 6.53 E/E' Lat: 15.30 Right Ventricle TAPSE (mm): 20.30 TVS' Chris: 13.30 Tricuspid Valve TR Pk Chris: 2.84 TR Pk Grad: 32.00 RA Press: 3.00 RVSP: 35.00 Great Vessels Aorta Sinus of Valsalva: 3.97 2.0-3.[address] Ridge: 2.79 1.7-3.4 cm Ao Asc: 3.70 2.1-3.4 cm Ao Arch: 3.40 Updated in Other Vendor System with Status of Final Anibal Hauqe MD electronically signed on 08/27/2021 2:30:05 PM with status of Final
== END ==
LOC: HO.CARD 08:12
PROVIDERS: Visit Provider Internal Medicine Cardiovascular Disease
DX: I35.0 Nonrheumatic aortic (valve) stenosis (principal)
CPT/HCPCS: 93306

== ENCOUNTER → 2021-10-20 15:30 | Outpatient (BNVA) | payer MEDICARE, SELFPAY | PROVIDERS: PCP Internal Medicine; Referring Provider Internal Medicine; Visit Provider Internal Medicine Cardiovascular Disease | DX: I35.0 Nonrheumatic aortic (valve) stenosis (principal); I45.2 Bifascicular block; I10 Essential (primary) hypertension; Z79.82 Long term (current) use of aspirin; Z79.899 Other long term (current) drug therapy | CPT/HCPCS: 93005; 99212 ==

== ENCOUNTER 2021-11-08 07:41 | Outpatient (REF) | payer MEDICARE, SELFPAY ==
--- NOTE | ~2021-11-08 | XR_ITS ---
EXAMINATION: XR RIBS, RIGHT CLINICAL INFORMATION: Rib fractures COMPARISON: Previous chest x-ray January 2021 TECHNIQUE: 3 views of the right ribs and one view of the chest were obtained. FINDINGS: Lungs are clear. No consolidation, pneumothorax, or pleural effusion. The cardiomediastinal silhouette and pulmonary vasculature are normal. There are degenerative changes of the spine. Ribs are intact. No fractures are identified. XR/XR ribs RT min 3V w CXR1V IMPRESSION: No evidence for acute disease in the chest. No rib fracture seen.
== END 2021-11-08 07:42 | disposition home or self-care (01) ==
LOC: HO.XRAY 07:41
PROVIDERS: PCP Internal Medicine; Visit Provider Internal Medicine
DX: S22.31XA Fracture of one rib, right side, initial encounter for closed fracture (principal)
CPT/HCPCS: 71101

== ENCOUNTER 2022-01-26 13:44 | Outpatient (REF) | payer MEDICARE, SELFPAY ==
[2022-01-26 13:49] LABS: MANUAL DIFF FLAG NO
[2022-01-26 14:11] LABS: Basophils Percent Auto 0.7 % (0-2); Eosinophils Absolute Auto 0.2 X10*3/uL (0.0-0.4); Eosinophils Percent Auto 2.7 % (0-4); Hematocrit 42.3 % (42.0-52.0); Hemoglobin 13.4 g/dl (14.0-18.0); Imm Gran Abs Auto 0.03 X10*3/uL (0.00-0.03); Imm Gran Pct Auto 0.5 % (0.0-0.4); Lymphocytes Absolute Auto 1.3 X10*3/uL (1.2-4.9); Lymphocytes Percent Auto 21.5 % (20-40); Mean Corpuscular HGB Conc 31.7 g/dl (31.0-36.0); Mean Corpuscular Hemoglobin 29.2 pg (27.0-33.0); Mean Corpuscular Volume 92.2 fL (80.0-98.0); Mean Platelet Volume 10.9 fL (9.4-12.4); Monocytes Absolute Auto 0.5 X10*3/uL (0.1-1.2); Monocytes Percent Auto 8.3 % (2-11); Neutrophils Percent Auto 66.3 % (45-73); Platelet Count 191 X10*3/uL (160-400); Red Blood Count 4.59 X10*6/uL (4.60-5.80); Red Cell Distribution Width 14.6 % (11.0-16.0)
[2022-01-26 14:14] LABS: Appearance Urine Clear; Color Urine Dark Yellow; Glucose Urine UA Negative (Negative); Leukocyte Esterase Urine Trace (Negative); Nitrite Urine Negative (Negative); PH 5.5 (5.0-9.0); UMIC TRIGGER UA YES; Urine Blood Negative (Negative); Urine Ketones Trace mg/dL (Negative); Urine Protein Negative (Neg-Trace)
[2022-01-26 14:16] LABS: Bacteria Urine None Seen (None Seen); Hyaline Casts Urine 0-2 /LPF (0-2); RBC Urine 0-2 /HPF (0-2); Squamous Epithelial Cell Urine 0-2 /HPF (0-2); WBC Urine 0-5 /HPF (0-5)
[2022-01-26 14:25] LABS: Alanine Aminotransferase 16 U/L (0-40); Albumin Level 4.1 g/dL (3.5-5.0); Alkaline Phosphatase 92 U/L (39-117); Anion Gap 14 (12-20); Aspartate Amino Transferase 20 U/L (5-37); Bilirubin Total 0.6 mg/dL (0.0-1.0); Blood Urea Nitrogen 9 mg/dL (9-16); Calcium 9.1 mg/dL (8.4-10.2); Carbon Dioxide 31 mmol/L (22-29); Chloride 101 mmol/L (96-108); Cholesterol 163 mg/dL; Estimated Glomerular Filt Rate > 60; Glucose Fasting 108 mg/dL (60-99); HDL Cholesterol 54 mg/dL; LDL Cholesterol Calculated 97 mg/dl; Potassium 3.6 mmol/L (3.3-5.1); Sodium 142 mmol/L (135-145); Total Protein 6.2 g/dL (6.5-8.0); Triglycerides 64 mg/dL
[2022-01-26 14:47] LABS: PSA,Total (Free>4and<10) < 0.05 ng/mL (0.00-4.00)
== END 2022-01-26 13:45 | disposition home or self-care (01) ==
LOC: HO.LNP 13:44
PROVIDERS: Visit Provider Internal Medicine
DX: Z12.5 Encounter for screening for malignant neoplasm of prostate (principal); I10 Essential (primary) hypertension; N40.0 Benign prostatic hyperplasia without lower urinary tract symptoms; E78.00 Pure hypercholesterolemia, unspecified
CPT/HCPCS: 80053; 80061; 81001; 81003; 84153; 85025

== ENCOUNTER 2022-02-20 10:17 | Outpatient (REF) | payer MEDICARE, SELFPAY ==
--- NOTE | ~2022-02-20 | US_ITS ---
EXAMINATION: US EXTRACRANIAL CAROTID DUPLEX, BILATERAL CLINICAL INFORMATION: Carotid stenosis COMPARISON: Carotid duplex on 03/25/2019 TECHNIQUE: Real-time ultrasound and Doppler techniques (integrating B-mode 2-D vascular images, Doppler spectral analysis and color-flow Doppler imaging) were utilized to interrogate the extracranial carotid arteries, the vertebral arteries and proximal subclavian arteries bilaterally. The degree of stenosis is determined by criteria similar to NASCET. FINDINGS: Right Side: 1. There is mild atherosclerotic plaque seen in the bifurcation/proximal ICA region. 2. The common carotid artery PSV proximally is 94 cm/s and distally 106 cm/s. 3. The proximal internal carotid artery velocities are 70 cm/s systolic and 16 cm/s diastolic. 4. The proximal external carotid artery PSV is 102 cm/s. 5. The vertebral artery shows antegrade flow. 6. The subclavian artery waveforms are normal. Left Side: 1. There is mild atherosclerotic plaque seen in the bifurcation/proximal ICA region. 2. The common carotid artery PSV proximally is 135 cm/s and distally 98 cm/s. 3. The proximal internal carotid artery velocities are 60 cm/s systolic and 12 cm/s diastolic. 4. The proximal external carotid artery PSV is 82 cm/s. 5. The vertebral artery shows antegrade flow. 6. The subclavian artery waveforms are normal. US/US carotid duplex BI IMPRESSION: 1. RIGHT: Minimal, non-hemodynamically significant stenosis of the proximal right internal carotid artery corresponding to a 0-49% stenosis by velocity criteria. 2. LEFT: Minimal, non-hemodynamically significant stenosis of the proximal left internal carotid artery corresponding to a 0-49% stenosis by velocity criteria. 3. There is no change in the category severity of disease when compared to the previous study dated 03/25/2019.
== END 2022-02-20 10:18 | disposition home or self-care (01) ==
LOC: HO.HMGCX 10:17
PROVIDERS: PCP Internal Medicine; Visit Provider Internal Medicine
DX: I65.23 Occlusion and stenosis of bilateral carotid arteries (principal)
CPT/HCPCS: 93880

== ENCOUNTER 2022-07-24 10:55 | Outpatient (REF) | payer MEDICARE, SELFPAY ==
[2022-07-24 11:36] LABS: Alanine Aminotransferase 15 U/L (0-40); Alkaline Phosphatase 69 U/L (39-117); Aspartate Amino Transferase 14 U/L (5-37); Bilirubin Direct 0.2 mg/dL (0.0-0.5); Bilirubin Total 0.7 mg/dL (0.0-1.0); Cholesterol 149 mg/dL; HDL Cholesterol 43 mg/dL; LDL Cholesterol Calculated 94 mg/dl; Triglycerides 64 mg/dL
[2022-07-24 14:22] LABS: Reflex LDLD? No
== END 2022-07-24 10:56 | disposition home or self-care (01) ==
LOC: HO.LNP 10:55
PROVIDERS: Visit Provider Internal Medicine
DX: E78.00 Pure hypercholesterolemia, unspecified (principal)
CPT/HCPCS: 80061; 80076

== ENCOUNTER → 2022-10-26 15:25 | Outpatient (BNVA) | payer MEDICARE, SELFPAY | PROVIDERS: PCP Internal Medicine; Referring Provider Internal Medicine; Visit Provider Internal Medicine Cardiovascular Disease | DX: I35.0 Nonrheumatic aortic (valve) stenosis (principal); I45.2 Bifascicular block; I10 Essential (primary) hypertension | CPT/HCPCS: 93005; 99212 ==

== ENCOUNTER 2022-12-27 09:27 | Outpatient (REF) | payer MEDICARE, SELFPAY ==
--- NOTE | ~2022-12-27 | US_ITS ---
EXAMINATION: US ABDOMEN LIMITED CLINICAL INFORMATION: Cirrhosis. Ascites check. COMPARISON: CT abdomen and pelvis 06/14/2021. TECHNIQUE: Real-time imaging of the abdomen. FINDINGS: The examination of the bilateral upper and lower quadrants shows no ascites. US/US abdomen limited IMPRESSION: No ascites is seen on 4 quadrant abdominal ultrasound examination.
== END 2022-12-27 09:28 | disposition home or self-care (01) ==
LOC: HO.HMGCX 09:27
PROVIDERS: PCP Internal Medicine; Visit Provider Internal Medicine
DX: K70.31 Alcoholic cirrhosis of liver with ascites (principal)
CPT/HCPCS: 76705

== ENCOUNTER 2023-01-05 10:16 | Outpatient (REF) | payer MEDICARE, SELFPAY ==
--- NOTE | ~2023-01-05 | MR_ITS ---
EXAMINATION: MR LUMBAR SPINE WITHOUT CONTRAST CLINICAL INFORMATION: Right-sided sciatica COMPARISON: MR lumbar spine 07/07/2016 TECHNIQUE: MRI of the lumbar spine was obtained using routine sequences without contrast. FINDINGS: Normal anatomic alignment. 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 No new suspicious marrow signal abnormality. Fatty marrow signal changes involving L5 the visualized sacrum, likely sequela of prior radiation therapy. Multilevel type I and type II endplate marrow signal changes with predominantly right-sided endplate edema at L3-L4. The vertebral body heights are maintained. Multilevel disc desiccation and height loss with several endplate Schmorl's nodes, largest involving the L2 and L3 inferior endplates, and degenerative endplate contour changes. The conus medullaris terminates at the level of L1-L2. The distal spinal cord is normal in appearance. The cauda equina nerve roots appear normal. No significant abnormalities of the paraspinal musculature. Limited evaluation of the intra-abdominal structures without significant abnormalities. The abdominal aorta is of normal contour and caliber. SPINAL LEVELS: L1-L2: No significant spinal canal or neuroforaminal narrowing. Mild to moderate facet arthropathy. L2-L3: No significant spinal canal or neuroforaminal narrowing. Mild to moderate facet arthropathy. L3-L4: No significant spinal canal or neuroforaminal narrowing. Shallow disc bulge and mild facet arthropathy. L4-L5: Moderate facet arthropathy with small right joint effusion. Ligamentum flavum thickening. Shallow disc bulge. No significant central spinal canal stenosis. Stable mild to moderate bilateral neural foraminal narrowing. L5-S1: No significant spinal canal or neuroforaminal narrowing. Moderate facet arthropathy with small bilateral joint effusions ' MR/MR lumbar spine wo con IMPRESSION: 1. Multilevel lumbar spondylosis as described above has not significantly progressed compared to MRI from 07/07/2016 without significant central spinal canal stenosis or high-grade neural foraminal narrowing. 2. 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 No new suspicious marrow signal abnormality.
== END 2023-01-05 10:17 | disposition home or self-care (01) ==
LOC: HO.MRI 10:16
PROVIDERS: PCP Internal Medicine; Visit Provider Internal Medicine
DX: M54.31 Sciatica, right side (principal)
CPT/HCPCS: 72148

== ENCOUNTER 2023-01-08 10:57 | Emergency (ER) | payer MEDICARE, SELFPAY ==
--- NOTE | ~2023-01-08 | XR_ITS ---
EXAMINATION: XR TIBIA AND FIBULA, LEFT CLINICAL INFORMATION: Pain and trauma COMPARISON: None available. TECHNIQUE: AP and lateral views of the left tibia and fibula were obtained. FINDINGS: Bone alignment is normal. No fracture or dislocation. The joint spaces are normal. There is a small cortical excrescence projecting off the lateral distal fibular shaft probably representing a small bony exostosis. There may be lateral soft tissue swelling. XR/XR tibia fibula LT 2V IMPRESSION: No fracture or dislocation.
--- NOTE | ~2023-01-08 | XR_ITS ---
EXAMINATION: XR CHEST CLINICAL INFORMATION: Chest pain COMPARISON: 11/08/2021 TECHNIQUE: 2 views of the chest were obtained. FINDINGS: Linear atelectasis at the left lung base. No consolidation, pneumothorax, or pleural effusion. Cardiac and mediastinal contours are normal. Calcific atherosclerosis is present in the thoracic aorta. Degenerative spondylosis is present in the thoracic spine. No acute osseous findings. Bones are osteopenic. XR/XR chest 2V IMPRESSION: Mild atelectasis at the left lung base. No acute pulmonary findings.
[2023-01-08 10:58] VITALS: BP 142/74; PULSE 71; RESP 16; TEMP 36.6; O2SAT 97; BMI 34.1
--- NOTE | 2023-01-08 10:58 | ECG_ITS ---
Test Reason : chest pain Blood Pressure : / mmHG Vent. Rate : 069 BPM Atrial Rate : 069 BPM P-R Int : 172 ms QRS Dur : 128 ms QT Int : 424 ms P-R-T Axes : 077 -39 013 degrees QTc Int : 454 ms Normal sinus rhythm Left axis deviation Right bundle branch block Abnormal ECG When compared with ECG of 13-AUG-2016 07:37, Vent. rate has decreased BY 36 BPM Right bundle branch block is now Present Referred By: Ynes Su Electronically Signed By:LETITIA TUCKER
--- NOTE | 2023-01-08 10:59 | ED.GENADULT ---
HPI - General Adult General Chief complaint: Chest Pain Stated complaint: chest pain into back Time Seen by Provider: 01/08/23 12:40 Source: patient and family ( spouse) Mode of arrival: ambulatory Limitations: no limitations History of Present Illness HPI narrative: 82-year-old male history of aortic stenosis came in for evaluation of chest pain. Pain started 3 days ago pain is confined to the left chest radiating to the left shoulder, pain is worse with taking a deep breath no relieving feature, no association with fever or chills Or coughing. No history of chest trauma, no recent travel, no lower extremity swelling or tenderness, patient was helping his son when piece of wood fell on his left leg complaining of lower leg pain. No SOB no PND. Related Data Home Medications Medication Instructions Recorded Confirmed amlodipine 5 mg tablet 5 mg PO DAILY 09/13/20 10/26/22 atorvastatin 20 mg tablet 20 mg PO DAILY 09/13/20 10/26/22 hydrochlorothiazide 25 mg tablet 25 mg PO DAILY 09/13/20 10/26/22 tamsulosin 0.4 mg capsule 0.4 mg PO DAILY 09/13/20 10/26/22 timolol maleate 0.5 % eye drops 1 drp ophthalmic (eye) DAILY 09/13/20 10/26/22 pregabalin 200 mg capsule 200 mg PO BID 10/26/22 10/26/22 Previous Rx's Medication Instructions Recorded diclofenac sodium 1 % topical gel 2 g topical QID #100 grams 11/05/20 (Voltaren Arthritis Pain) Allergies Allergy/AdvReac Type Severity Reaction Status Date / Time No Known Allergies Allergy Verified 08/05/21 10:41 [No Known Allergies*] Review of Systems Review of Systems: All other systems are reviewed and are negative Constitutional: Reports as per HPI and Reports no additional constitutional complaints Eyes: Reports as per HPI and Reports no additional eye complaints Reports system reviewed and no additional complaints, except as documented Cardiovascular: Reports as per HPI and Reports no additional cardiovascular complaints Respiratory: Reports as per HPI and Reports no additional respiratory complaints Gastrointestinal: Reports as per HPI and Reports no additional gastrointestinal complaints Genitourinary: Reports no additional female genitourinary complaints Musculoskeletal: Reports no additional musculoskeletal complaints Skin/Breast: Reports system reviewed and no additional complaints, except as docu Psychiatric: Reports no additional psychiatric complaints Endocrine: Reports no additional endocrine complaints Hematologic/Lymphatic: Reports no additional hematologic/lymphatic complaints Allergic/Immunologic: Reports no additional allergic/immunologic complaints Reports system reviewed and no additional complaints, except as documented and Reports Abnormal speech present [facility] Past Medical History Medical History Aortic stenosis Bifascicular block HTN (hypertension) Lumbar spondylosis Vertebrogenic low back pain Social History Social History Patient Tobacco Use Status: Never used Tobacco Tobacco use type: Cigar e-Cigarette/Vaping Use: Never Used Advance Directives: No Physical Exam ED Vital Signs: Vital Signs - 24 hr 01/08/23 10:58 01/08/23 12:35 Temperature 97.8 F Pulse Rate 71 66 Respiratory Rate 16 12 Blood Pressure 142/74 H 136/74 Pulse Oximetry 97 97 Oxygen Delivery Method Room Air Room Air BMI result Body Mass Index 34.1 vital signs have been reviewed as appeared to be correct. Blood pressure normal. Heart rate normal. Respiration rate normal. Temperature normal. Oxygen saturation normal. Appearance: Alert. Oriented X3. No acute distress. Head: Normal external exam. Normocephalic. Atraumatic. No Drummond signs noted. No raccoon eyes noted Eyes: PERRLA. EOMI. Conjunctiva and sclera normal. Eyelids normal. ENT: TM's Normal. Pharynx normal. Uvula midline. Moist mucous membranes. No trismus noted. No drooling noted. No muffled voice noted. Neck: Normal inspection. Neck supple. FROM. No adenopathy. Thyroid Normal. No meningeal signs. No neck mass noted. CVS: Normal heart rate and rhythm. Heart sound normal. No murmurs noted. Pulses normal throughout. Respiratory: No respiratory distress. Painless inspiration. Breath sounds normal. No wheezes/rales/rhonchi noted. Chest nontender. No accessory muscle usage noted or decreased air movement noted. Abdomen: Soft and nontender. Bowel sounds normal in all 4 quadrants. No distention noted. No organomegaly noted. No visible injury noted. Back: No CVA tenderness. Full range of motion noted. Skin: Skin warm and dry. Normal skin color. Normal skin turgor. No rashes/lesions/lacerations noted. Extremities: No lower extremity edema. Extremities exhibit normal range of motion. Extremities nontender. Neuro: Oriented X 3. Cranial nerve exam: II-XII are grossly intact No motor deficit. No sensory deficit. Reflexes normal. Course Course Course Narrative: This is a rapid medical exam: Additional HPI, ROS, PE not included below will be deferred to primary provider. Patient is an 82-year-old male with history of aortic stenosis, bifasicular block, HTN presenting to the emergency department with constant left anterior chest pain for the past 3 days. Pain radiating to left arm. Denies shortness of breath but states that taking a deep breath worsens his chest pain. Reports lower extremity edema. Denies cough, headaches, vision changes. Plan: EKG, CXR, labs Reevaluation(s) Reevaluation #1: 3 days of chest pain, unremarkable EKG, troponin, and D-dimer. Chest x-ray is unrevealing. No left leg fracture on the x-ray will discharge to follow-up with PCP Time: 13:42 Medical Decision Making Differential Diagnosis Differential Diagnoses: The differential diagnosis associated with the presentation includes ( ACS, pulmonary embolism, pneumonia, pneumothorax, pleural effusion, rib fracture, costochondritis, shoulder pain, severe anemia, electrolyte abnormality, left tib-fib fracture.) Admission/Observation Consideration of admission/observation: Escalation of care including admission/observation considered Lab Data MDM Lab Attestation statement: I reviewed the patient's lab results. 01/08/23 11:24 01/08/23 11:24 Labs: Lab Results 01/08/23 01/08/23 01/08/23 Range/Units 11:24 11:24 11:24 WBC 6.5 (4.8-10.8) X10*3/uL RBC 4.79 (4.60-5.80) X10*6/uL Hgb 13.9 L (14.0-18.0) g/dl Hct 43.0 (42.0-52.0) % MCV 89.8 (80.0-98.0) fL MCH 29.0 (27.0-33.0) pg MCHC 32.3 (31.0-36.0) g/dl RDW 13.4 (11.0-16.0) % Plt Count 194 (160-400) X10*3/uL MPV 10.9 (9.4-12.4) fL Immature Gran % (Auto) 0.3 (0.0-0.4) % Neut % (Auto) 69.3 (45-73) % Lymph % (Auto) 17.3 L (20-40) % [place] % (Auto) 9.4 (2-11) % Eos % (Auto) 3.1 (0-4) % Baso % (Auto) 0.6 (0-2) % Lymph # (Auto) 1.1 L (1.2-4.9) X10*3/uL [place] # (Auto) 0.6 (0.1-1.2) X10*3/uL Eos # (Auto) 0.2 (0.0-0.4) X10*3/uL Baso # (Auto) 0.0 (0.0-0.2) X10*3/uL Abs Immat Gran (auto) 0.02 (0.00-0.03) X10*3/uL Absolute Neuts (auto) 4.5 (2.0-8.3) x10*3/uL Absolute Nucleated RBC 0.000 (0.0-0.012) X10*3/uL Nucleated RBC % (auto) 0.0 (0.0-0.2) /100WBC PT (11.1-13.3) SEC INR (0.9-1.1) D-Dimer High Sensitivty NG/ML Sodium 142 (135-145) mmol/L Potassium 3.7 (3.3-5.1) mmol/L Chloride 103 (96-108) mmol/L Carbon Dioxide 31 H (22-29) mmol/L Anion Gap 12 (12-20) BUN 11 (9-16) mg/dL Creatinine 0.71 (0.5-1.4) mg/dL Estim Creat Clear Calc 83.9 Estimated GFR > 60 Random Glucose 107 (60-115) mg/dL Calcium 9.4 (8.4-10.2) mg/dL Total Bilirubin 0.5 (0.0-1.0) mg/dL AST 17 (5-37) U/L ALT 14 (0-40) U/L Alkaline Phosphatase 83 (39-117) U/L Troponin I High Sens < 2.7 (<3.5-35.0) ng/L B-Natriuretic Peptide (<100) pg/mL Total Protein 6.7 (6.5-8.0) g/dL Albumin 4.1 (3.5-5.0) g/dL 01/08/23 01/08/23 Range/Units 11:24 11:24 WBC (4.8-10.8) X10*3/uL RBC (4.60-5.80) X10*6/uL Hgb (14.0-18.0) g/dl Hct (42.0-52.0) % MCV (80.0-98.0) fL MCH (27.0-33.0) pg MCHC (31.0-36.0) g/dl RDW (11.0-16.0) % Plt Count (160-400) X10*3/uL MPV (9.4-12.4) fL Immature Gran % (Auto) (0.0-0.4) % Neut % (Auto) (45-73) % Lymph % (Auto) (20-40) % [place] % (Auto) (2-11) % Eos % (Auto) (0-4) % Baso % (Auto) (0-2) % Lymph # (Auto) (1.2-4.9) X10*3/uL [place] # (Auto) (0.1-1.2) X10*3/uL Eos # (Auto) (0.0-0.4) X10*3/uL Baso # (Auto) (0.0-0.2) X10*3/uL Abs Immat Gran (auto) (0.00-0.03) X10*3/uL Absolute Neuts (auto) (2.0-8.3) x10*3/uL Absolute Nucleated RBC (0.0-0.012) X10*3/uL Nucleated RBC % (auto) (0.0-0.2) /100WBC PT 12.0 (11.1-13.3) SEC INR 1.0 (0.9-1.1) D-Dimer High Sensitivty 206 NG/ML Sodium (135-145) mmol/L Potassium (3.3-5.1) mmol/L Chloride (96-108) mmol/L Carbon Dioxide (22-29) mmol/L Anion Gap (12-20) BUN (9-16) mg/dL Creatinine (0.5-1.4) mg/dL Estim Creat Clear Calc Estimated GFR Random Glucose (60-115) mg/dL Calcium (8.4-10.2) mg/dL Total Bilirubin (0.0-1.0) mg/dL AST (5-37) U/L ALT (0-40) U/L Alkaline Phosphatase (39-117) U/L Troponin I High Sens (<3.5-35.0) ng/L B-Natriuretic Peptide 44 (<100) pg/mL Total Protein (6.5-8.0) g/dL Albumin (3.5-5.0) g/dL Independent Interpretation I performed an independent interpretation of an: Plain X-Ray ( Chest /left tib-fib: No acute pulmonary findings, no tib-fib fracture.) Radiology Impression Discussion of test interpretation with radiology: I have reviewed the radiologist's reading. Discharge Plan Discharge Clinical Impression: Chest pain, Contusion of left leg Patient Disposition: Home, Self-Care Instructions: Chest Pain (ED) Prescriptions: No Action timolol maleate 0.5 % drops 1 drp ophthalmic (eye) DAILY tamsulosin 0.4 mg capsule 0.4 mg PO DAILY hydrochlorothiazide 25 mg tablet 25 mg PO DAILY amlodipine 5 mg tablet 5 mg PO DAILY atorvastatin 20 mg tablet 20 mg PO DAILY diclofenac sodium [Voltaren Arthritis Pain] 1 % gel 2 g topical QID Qty: 100 1RF Rx Instructions: apply to single elbow, wrist or hand; for hand includes palm/fingers/back of hand pregabalin 200 mg capsule 200 mg PO BID Referrals: Quinten Han MD [Primary Care Provider] -
[2023-01-08 11:29] LABS: MANUAL DIFF FLAG NO
[2023-01-08 11:30] LABS: Basophils Percent Auto 0.6 % (0-2); Eosinophils Absolute Auto 0.2 X10*3/uL (0.0-0.4); Eosinophils Percent Auto 3.1 % (0-4); Hemoglobin 13.9 g/dl (14.0-18.0); Imm Gran Abs Auto 0.02 X10*3/uL (0.00-0.03); Imm Gran Pct Auto 0.3 % (0.0-0.4); Lymphocytes Absolute Auto 1.1 X10*3/uL (1.2-4.9); Lymphocytes Percent Auto 17.3 % (20-40); Mean Corpuscular HGB Conc 32.3 g/dl (31.0-36.0); Mean Corpuscular Volume 89.8 fL (80.0-98.0); Mean Platelet Volume 10.9 fL (9.4-12.4); Monocytes Absolute Auto 0.6 X10*3/uL (0.1-1.2); Monocytes Percent Auto 9.4 % (2-11); Neutrophils Absolute Auto 4.5 x10*3/uL (2.0-8.3); Neutrophils Percent Auto 69.3 % (45-73); Platelet Count 194 X10*3/uL (160-400); Red Blood Count 4.79 X10*6/uL (4.60-5.80); Red Cell Distribution Width 13.4 % (11.0-16.0); White Blood Count 6.5 X10*3/uL (4.8-10.8)
[2023-01-08 11:46] LABS: Alanine Aminotransferase 14 U/L (0-40); Albumin Level 4.1 g/dL (3.5-5.0); Alkaline Phosphatase 83 U/L (39-117); Anion Gap 12 (12-20); Aspartate Amino Transferase 17 U/L (5-37); Bilirubin Total 0.5 mg/dL (0.0-1.0); Blood Urea Nitrogen 11 mg/dL (9-16); Calcium 9.4 mg/dL (8.4-10.2); Carbon Dioxide 31 mmol/L (22-29); Chloride 103 mmol/L (96-108); Creatinine Clr Calc Pharmacy 83.9; Estimated Glomerular Filt Rate > 60; Glucose Random 107 mg/dL (60-115); Potassium 3.7 mmol/L (3.3-5.1); Sodium 142 mmol/L (135-145); Total Protein 6.7 g/dL (6.5-8.0)
[2023-01-08 11:51] LABS: B Type Natriuretic Peptide 44 pg/mL (<100)
[2023-01-08 12:02] LABS: Troponin-I High Sensitivity < 2.7 ng/L (<3.5-35.0)
[2023-01-08 12:35] VITALS: BP 136/74; PULSE 66; RESP 12; O2SAT 97
--- NOTE | 2023-01-08 12:51 | ED.CHESTPAIN ---
HPI - Chest Pain General Chief Complaint: Chest Pain Stated Complaint: chest pain into back Time Seen by Provider: 01/08/23 12:40 Related Data Home Medications Medication Instructions Recorded Confirmed amlodipine 5 mg tablet 5 mg PO DAILY 09/13/20 10/26/22 atorvastatin 20 mg tablet 20 mg PO DAILY 09/13/20 10/26/22 hydrochlorothiazide 25 mg tablet 25 mg PO DAILY 09/13/20 10/26/22 tamsulosin 0.4 mg capsule 0.4 mg PO DAILY 09/13/20 10/26/22 timolol maleate 0.5 % eye drops 1 drp ophthalmic (eye) DAILY 09/13/20 10/26/22 pregabalin 200 mg capsule 200 mg PO BID 10/26/22 10/26/22 Previous Rx's Medication Instructions Recorded diclofenac sodium 1 % topical gel 2 g topical QID #100 grams 11/05/20 (Voltaren Arthritis Pain) Allergies Allergy/AdvReac Type Severity Reaction Status Date / Time No Known Allergies Allergy Verified 08/05/21 10:41 [No Known Allergies*] [facility] Past Medical History Medical History Aortic stenosis Bifascicular block HTN (hypertension) Lumbar spondylosis Vertebrogenic low back pain Social History Social History Alcohol intake: current Alcohol intake frequency: 0-2 drinks per day Alcohol type: wine Patient Tobacco Use Status: Never used Tobacco Tobacco use type: Cigar Smoked in Last 30 Days: No e-Cigarette/Vaping Use: Never Used Use of substances other than those prescribed or required for medical reasons: No Advance Directives: No Physical Exam Vital Signs: Vital Signs: Last Vital Signs Temp 97.8 F 01/08/23 10:58 Pulse 63 01/08/23 16:03 Resp 14 01/08/23 16:03 BP 151/78 H 01/08/23 16:03 Pulse Ox 96 01/08/23 16:03 O2 Del Method Room Air 01/08/23 16:03 BMI result Body Mass Index 34.1 Medical Decision Making Lab Data 01/08/23 11:24 01/08/23 11:24 Labs: Lab Results 01/08/23 01/08/23 Range/Units 11:24 15:00 WBC 6.5 (4.8-10.8) X10*3/uL RBC 4.79 (4.60-5.80) X10*6/uL Hgb 13.9 L (14.0-18.0) g/dl Hct 43.0 (42.0-52.0) % MCV 89.8 (80.0-98.0) fL MCH 29.0 (27.0-33.0) pg MCHC 32.3 (31.0-36.0) g/dl RDW 13.4 (11.0-16.0) % Plt Count 194 (160-400) X10*3/uL MPV 10.9 (9.4-12.4) fL Immature Gran % (Auto) 0.3 (0.0-0.4) % Neut % (Auto) 69.3 (45-73) % Lymph % (Auto) 17.3 L (20-40) % [place] % (Auto) 9.4 (2-11) % Eos % (Auto) 3.1 (0-4) % Baso % (Auto) 0.6 (0-2) % Lymph # (Auto) 1.1 L (1.2-4.9) X10*3/uL [place] # (Auto) 0.6 (0.1-1.2) X10*3/uL Eos # (Auto) 0.2 (0.0-0.4) X10*3/uL Baso # (Auto) 0.0 (0.0-0.2) X10*3/uL Abs Immat Gran (auto) 0.02 (0.00-0.03) X10*3/uL Absolute Neuts (auto) 4.5 (2.0-8.3) x10*3/uL Absolute Nucleated RBC 0.000 (0.0-0.012) X10*3/uL Nucleated RBC % (auto) 0.0 (0.0-0.2) /100WBC PT 12.0 (11.1-13.3) SEC INR 1.0 (0.9-1.1) D-Dimer High Sensitivty 206 NG/ML Sodium 142 (135-145) mmol/L Potassium 3.7 (3.3-5.1) mmol/L Chloride 103 (96-108) mmol/L Carbon Dioxide 31 H (22-29) mmol/L Anion Gap 12 (12-20) BUN 11 (9-16) mg/dL Creatinine 0.71 (0.5-1.4) mg/dL Estim Creat Clear Calc 83.9 Estimated GFR > 60 Random Glucose 107 (60-115) mg/dL Calcium 9.4 (8.4-10.2) mg/dL Total Bilirubin 0.5 (0.0-1.0) mg/dL AST 17 (5-37) U/L ALT 14 (0-40) U/L Alkaline Phosphatase 83 (39-117) U/L Troponin I High Sens < 2.7 < 2.7 (<3.5-35.0) ng/L B-Natriuretic Peptide 44 (<100) pg/mL Total Protein 6.7 (6.5-8.0) g/dL Albumin 4.1 (3.5-5.0) g/dL Discharge Plan Discharge Clinical Impression: Chest pain, Contusion of left leg Patient Disposition: Home, Self-Care Instructions: Chest Pain (ED) Prescriptions: No Action timolol maleate 0.5 % drops 1 drp ophthalmic (eye) DAILY tamsulosin 0.4 mg capsule 0.4 mg PO DAILY hydrochlorothiazide 25 mg tablet 25 mg PO DAILY amlodipine 5 mg tablet 5 mg PO DAILY atorvastatin 20 mg tablet 20 mg PO DAILY diclofenac sodium [Voltaren Arthritis Pain] 1 % gel 2 g topical QID Qty: 100 1RF Rx Instructions: apply to single elbow, wrist or hand; for hand includes palm/fingers/back of hand pregabalin 200 mg capsule 200 mg PO BID Referrals: Quinten Han MD [Primary Care Provider] - Interventions: ED Discharge Assessment Last Done: 01/08/23 16:27 Discharge Date/Time: 01/08/23 16:28
[2023-01-08 12:52] LABS: D Dimer High Sensitivity 206 NG/ML
[2023-01-08 15:17] VITALS: BP 142/68; PULSE 66; RESP 15; O2SAT 97
[2023-01-08 15:59] LABS: Troponin-I High Sensitivity < 2.7 ng/L (<3.5-35.0)
[2023-01-08 16:03] VITALS: BP 151/78; PULSE 63; RESP 14; O2SAT 96
--- NOTE | 2023-01-08 16:27 | PC.NURSE ---
pt resting quietly, vss, reporting 4/10 left sided chest pain, worsens with arm movement.
== END 2023-01-08 16:28 | disposition home or self-care (01) ==
PROVIDERS: Registered Nurse Emergency; Emergency Provider Emergency Medicine; PCP Internal Medicine
DX: R07.89 Other chest pain (principal); M79.605 Pain in left leg; M54.50 Low back pain, unspecified; R06.02 Shortness of breath; Z79.899 Other long term (current) drug therapy
CPT/HCPCS: 36415; 71046; 73590; 80053; 83880; 84484; 85025; 85379; 85610; 93005; 99283; 99284

== ENCOUNTER 2023-03-20 10:44 | Outpatient (REF) | payer MEDICARE, SELFPAY ==
[2023-03-20 10:48] LABS: MANUAL DIFF FLAG NO
[2023-03-20 12:17] LABS: Appearance Urine Clear; Color Urine Dark Yellow; Glucose Urine UA Negative (Negative); Leukocyte Esterase Urine Trace (Negative); Nitrite Urine Negative (Negative); Specific Gravity - Urine 1.025 (1.005-1.025); UMIC TRIGGER UACC YES; Urine Blood Negative (Negative); Urine Ketones Negative (Negative); Urine Protein Negative (Neg-Trace)
[2023-03-20 12:19] LABS: Basophils Absolute Auto 0.1 X10*3/uL (0.0-0.2); Eosinophils Absolute Auto 0.2 X10*3/uL (0.0-0.4); Eosinophils Percent Auto 3.1 % (0-4); Hematocrit 43.6 % (42.0-52.0); Hemoglobin 13.6 g/dl (14.0-18.0); Imm Gran Abs Auto 0.03 X10*3/uL (0.00-0.03); Imm Gran Pct Auto 0.6 % (0.0-0.4); Lymphocytes Absolute Auto 1.1 X10*3/uL (1.2-4.9); Lymphocytes Percent Auto 22.4 % (20-40); Mean Corpuscular HGB Conc 31.2 g/dl (31.0-36.0); Mean Platelet Volume 10.9 fL (9.4-12.4); Monocytes Absolute Auto 0.4 X10*3/uL (0.1-1.2); Neutrophils Absolute Auto 3.1 x10*3/uL (2.0-8.3); Neutrophils Percent Auto 63.9 % (45-73); Platelet Count 184 X10*3/uL (160-400); Red Blood Count 4.69 X10*6/uL (4.60-5.80); Red Cell Distribution Width 15.1 % (11.0-16.0); White Blood Count 4.9 X10*3/uL (4.8-10.8)
[2023-03-20 12:23] LABS: Bacteria Urine None Seen (None Seen); Hyaline Casts Urine 0-2 /LPF (0-2); RBC Urine 0-2 /HPF (0-2); Squamous Epithelial Cell Urine 0-2 /HPF (0-2); WBC Urine 0-5 /HPF (0-5)
[2023-03-20 12:31] LABS: Alanine Aminotransferase 13 U/L (0-40); Albumin Level 3.9 g/dL (3.5-5.0); Alkaline Phosphatase 79 U/L (39-117); Anion Gap 9 (12-20); Aspartate Amino Transferase 18 U/L (5-37); Bilirubin Total 0.5 mg/dL (0.0-1.0); Blood Urea Nitrogen 10 mg/dL (9-16); Calcium 8.8 mg/dL (8.4-10.2); Carbon Dioxide 35 mmol/L (22-29); Chloride 101 mmol/L (96-108); Cholesterol 158 mg/dL (<200); Estimated Glomerular Filt Rate > 60; Glucose Fasting 95 mg/dL (60-99); HDL Cholesterol 50 mg/dL (>40); LDL Cholesterol Calculated 91 mg/dL (<100); Potassium 3.6 mmol/L (3.3-5.1); Sodium 141 mmol/L (135-145); Total Protein 6.2 g/dL (6.5-8.0); Triglycerides 88 mg/dL (<150)
[2023-03-20 12:48] LABS: PSA,Total (Free>4and<10) < 0.10 ng/mL (0.00-4.00)
== END 2023-03-20 10:45 | disposition home or self-care (01) ==
LOC: HO.LNP 10:44
PROVIDERS: Visit Provider Internal Medicine
DX: Z12.5 Encounter for screening for malignant neoplasm of prostate (principal); I10 Essential (primary) hypertension; E78.00 Pure hypercholesterolemia, unspecified
CPT/HCPCS: 80053; 80061; 81001; 81003; 84153; 85025

== ENCOUNTER 2023-05-30 10:25 | Outpatient (AMB) | payer MEDICARE, SELFPAY ==
[2023-05-30 10:28] VITALS: BMI 34.0
--- NOTE | 2023-05-30 10:28 | MHC.OFFVIS ---
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 States he is experiencing burning sensation and tingling in bilateral legs and feet, mostly his right leg. States his symptoms started about 3-4 years and has not improved. No injury. Patient referred by his PCP. Allergies No Known Allergies [No Known Allergies*] Allergy (Verified 05/30/23 10:34) Medication List - Last Reconciled 05/30/23 by Rosemary Hernandez MD amlodipine 5 mg PO DAILY atorvastatin 20 mg PO DAILY diclofenac sodium 1% (Voltaren Arthritis Pain) 2 grams topical QID hydrochlorothiazide 25 mg PO DAILY pregabalin 200 mg PO BID tamsulosin 0.4 mg PO DAILY timolol maleate 0.5% 1 drp ophthalmic (eye) DAILY HPI HPI Comments History of Present Illness Details 4-5 years of burning sensation, starts on ankle, goes up proximally. Feels ants in the morning, especially on the thigh. Socks are very uncomfortable. Right worse than left. He did see Dr. Whalen, vascular, 4 years ago, feels that the burning worsened after. He thinks he had an angiogram done, no blockage seen. Had seen Dr. Whalen after for follow up. Also saw another vascular surgeon, less than a year ago. Maybe had EMG long time ago, does not remember the results, probably normal. Denies claudication. The sensation is worse when he is seated. Back pain towards end of the day. Does not worsen gait. Improved with walking. MRI 2022 did not show any significant spinal stenosis. He is already on lyrica 150mg daily. He has history of aortic stenosis, on ASA and statin. He did see Rheumatology in the past for hand pain, mildly positive RF. 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 Patient was appropriately conversant and oriented. Good historian. MSK: No specific abnormalities found on inspection of the spine and all extremities. No pain with palpation over the lumbar area. Lumbar ROM was full. Bilateral hip, knee and ankle ROM WNL. No ligamentous laxity or crepitance. No increased effusion. Straight-leg raising test negative. FABERE test negative. Gillet test is negative. Strength is 5/5 in all muscle groups tested. No increased tone noted. Neurological: Neurologic examination of the upper and lower extremities was nonfocal with intact sensation, muscle stretch reflexes and without focal motor deficits . Jeong?s negative bilaterally. Babinski was down going bilaterally. Clonus was negative. Gait is non-antalgic without loss of balance. No footdrop. Results Reviewed Results Reviewed: Ordering Physician: Quinten Han MD Date of Service: 01/05/23 Procedure(s): MR lumbar spine wo con Accession Number(s): [id number] cc: Quinten Han MD~ EXAMINATION: MR LUMBAR SPINE WITHOUT CONTRAST CLINICAL INFORMATION: Right-sided sciatica COMPARISON: MR lumbar spine 07/07/2016 TECHNIQUE: MRI of the lumbar spine was obtained using routine sequences without contrast. FINDINGS: Normal anatomic alignment. 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 No new suspicious marrow signal abnormality. Fatty marrow signal changes involving L5 the visualized sacrum, likely sequela of prior radiation therapy. Multilevel type I and type II endplate marrow signal changes with predominantly right-sided endplate edema at L3-L4. The vertebral body heights are maintained. Multilevel disc desiccation and height loss with several endplate Schmorl's nodes, largest involving the L2 and L3 inferior endplates, and degenerative endplate contour changes. The conus medullaris terminates at the level of L1-L2. The distal spinal cord is normal in appearance. The cauda equina nerve roots appear normal. No significant abnormalities of the paraspinal musculature. Limited evaluation of the intra-abdominal structures without significant abnormalities. The abdominal aorta is of normal contour and caliber. SPINAL LEVELS: L1-L2: No significant spinal canal or neuroforaminal narrowing. Mild to moderate facet arthropathy. L2-L3: No significant spinal canal or neuroforaminal narrowing. Mild to moderate facet arthropathy. L3-L4: No significant spinal canal or neuroforaminal narrowing. Shallow disc bulge and mild facet arthropathy. L4-L5: Moderate facet arthropathy with small right joint effusion. Ligamentum flavum thickening. Shallow disc bulge. No significant central spinal canal stenosis. Stable mild to moderate bilateral neural foraminal narrowing. L5-S1: No significant spinal canal or neuroforaminal narrowing. Moderate facet arthropathy with small bilateral joint effusions ' MR/MR lumbar spine wo con IMPRESSION: 1. Multilevel lumbar spondylosis as described above has not significantly progressed compared to MRI from 07/07/2016 without significant central spinal canal stenosis or high-grade neural foraminal narrowing. 2. 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 No new suspicious marrow signal abnormality. I reviewed records from the following: Cardiology, Rheumatology Assessment & Plan Assessment & Plan (1) Peroneal neuropathy: Code(s): G57.30 - Lesion of lateral popliteal nerve, unspecified lower limb Qualifiers: Laterality: right Qualified Code(s): G57.31 - Lesion of lateral popliteal nerve, right lower limb (2) Burning sensation of lower extremity: Code(s): R20.8 - Other disturbances of skin sensation Plan Chronic burning sensation, mostly right ankle area. He has been seen by vascular before, told no blockage. He does not show that this is related to lumbar spine. I wonder if he has peroneal neuropathy. He does have hardware near right knee that could cause compression? We will schedule him for EMG to rule out. He was wondering about topical medication. He has tried OTC with temporary relief only. We can trial compounded cream, with diclofenac and gabapentin, from a specialty pharmacy. Assessment and plan discussed with patient, and patient was agreeable. All questions were answered thoroughly. I will see him during the EMG. Rosemary Hernandez MD, RAO Board Certified, [place] [employer] and [employer] (ABPMR) Board Certified, [place] [employer] Electro[employer] (ABEM) Orders: Orders NE nerve conduction velocity Today G57.30 - Lesion of lateral popliteal nerve, unspecified lower limb, R20.8 - Other disturbances of skin sensation NE electromyogram (EMG) Today G57.30 - Lesion of lateral popliteal nerve, unspecified lower limb, R20.8 - Other disturbances of skin sensation Coding Level of Care Code New Pt Level 4 (64748) Diagnoses Neuropathy of right peroneal nerve G57.31 Laterality: right Burning sensation of lower extremity R20.8
== END 2023-05-30 10:57 | disposition home or self-care (01) ==
PROVIDERS: PCP Internal Medicine; Visit Provider Physical Medicine & Rehabilitation
DX: G57.31 Lesion of lateral popliteal nerve, right lower limb (principal); R20.8 Other disturbances of skin sensation
CPT/HCPCS: 99204

== ENCOUNTER → 2023-05-30 10:25 | Outpatient (BNVA) | payer MEDICARE, SELFPAY | PROVIDERS: PCP Internal Medicine; Visit Provider Physical Medicine & Rehabilitation | DX: G57.31 Lesion of lateral popliteal nerve, right lower limb (principal); R20.8 Other disturbances of skin sensation | CPT/HCPCS: 99202 ==

== ENCOUNTER 2023-07-04 15:05 | Outpatient (REF) | payer MEDICARE, SELFPAY ==
--- NOTE | 2023-07-04 15:11 | EMG_ITS ---
Chief complaint: Chronic burning sensation, mostly right knee and ankle area. In 2017, he had right-sided ?sciatica?. Has tried multiple medications without relief. Milder symptoms on left. Reason for referral: Evaluate for peroneal neuropathy versus radiculopathy Procedure done: Bilateral lower extremity NCS/EMG Precautions and/or limitations: None The limb temperature was monitored continuously and remained between 32-36 degrees C during the performance of the NCS. Nerve Conduction Studies Anti Sensory Summary Table ?Stim Site NR Onset (ms) Norm Onset (ms) Peak (ms) Norm Peak (ms) O-P Amp (?V) Norm O-P Amp Site1 Site2 Delta-0 (ms) Dist (cm) Chris (m/s) Norm Chris (m/s) Left Sural Anti Sensory (Lat Mall) Calf ? 2.1 3.6 <4.0 5.2 >5.0 Calf Lat Mall 2.1 14.0 67 Site 2 ? 2.0 3.4 6.6 Right Sural Anti Sensory (Lat Mall) Calf ? 1.8 4.0 <4.0 4.4 >5.0 Calf Lat Mall 1.8 14.0 78 Site 2 ? 2.8 3.9 6.9 Motor Summary Table ?Stim Site NR Onset (ms) Norm Onset (ms) O-P Amp (mV) Norm O-P Amp iAmp (mV) Amp (1st) (%) Site1 Site2 Delta-0 (ms) Dist (cm) Chris (m/s) Norm Chris (m/s) Left Peroneal Motor (Ext Dig Brev) Ankle ? 3.5 <4.0 4.5 >2.5 5.1 100.0 Ankle Ext Dig Brev 3.5 0.0 B Fib ? 9.8 3.5 4.0 77.8 B Fib Ankle 6.3 29.0 46 >40 Poplt ? 10.8 3.4 3.9 75.6 Poplt B Fib 1.0 4.0 40 >40 Right Peroneal Motor (Ext Dig Brev) Ankle ? 3.4 <4.0 1.3 >2.5 1.6 100.0 Ankle Ext Dig Brev 3.4 0.0 B Fib ? 11.1 0.9 1.2 69.2 B Fib Ankle 7.7 28.0 36 >40 Poplt ? 11.6 1.1 1.3 84.6 Poplt B Fib 0.5 7.0 140 >40 Left Tibial Motor (Abd Jaime Brev) Ankle ? 3.2 <5 5.1 >2.5 6.7 100.0 Ankle Abd Jaime Brev 3.2 0.0 Knee ? 10.2 3.9 5.1 76.5 Knee Ankle 7.0 37.0 53 >40 Right Tibial Motor (Abd Jaime Brev) Ankle ? 2.8 <5 3.6 >2.5 4.7 100.0 Ankle Abd Jaime Brev 2.8 0.0 Knee ? 10.7 1.5 2.0 41.7 Knee Ankle 7.9 37.0 47 >40 EMG ?Side Muscle Nerve Root Ins Act Fibs Psw Amp Dur Poly Recrt Int Pat Comment Right AbdHallucis MedPlantar S1-2 Nml Nml Nml Nml Nml 0 Nml Complete Right AntTibialis Dp Br Peron L4-5 Nml Nml Nml Nml Nml 0 Nml Complete Right PostTibialis Tibial L5, S1 Nml Nml Nml Nml Nml 0 Nml Complete Right MedGastroc Tibial S1-2 Nml Nml Nml Incr Incr 0 Nml Complete Right VastusMed Femoral L2-4 Nml Nml Nml Nml Nml 0 Nml Complete Left AbdHallucis MedPlantar S1-2 Nml Nml Nml Nml Nml 0 Nml Complete Left AntTibialis Dp Br Peron L4-5 Nml Nml Nml Nml Nml 0 Nml Complete Left PostTibialis Tibial L5, S1 Nml Nml Nml Nml Nml 0 Nml Complete Left MedGastroc Tibial S1-2 Nml Nml Nml Nml Nml 0 Nml Complete Left VastusMed Femoral L2-4 Nml Nml Nml Nml Nml 0 Nml Complete Paraspinal EMG ?Side Muscle Nerve Root Ins Act Fibs Psw Comment Right Lumbar Upper Rami Nml Nml Nml Right Lumbar Mid Rami Nml Nml Nml Right Lumbar Lower Rami Nml Nml Nml Left Lumbar Upper Rami Nml Nml Nml Left Lumbar Mid Rami Nml Nml Nml Left Lumbar Lower Rami Nml Nml Nml FINDINGS: Right peroneal nerve showed normal distal latency, very small amplitude and slowed distal conduction velocity. No conduction block across fibular neck. Right tibial nerve although normal, showed smaller amplitude compared to left. Surals were present and symmetric. Concentric needle EMG was performed in selected muscles of the bilateral lower extremity and lumbar paraspinals. Study revealed Signs of electric abnormalities as shown in the table below. Right mg showed increased duration and amplitude. IMPRESSION: 1. This is an abnormal study. 2. There is electrodiagnostic findings suggestive for right chronic L5-S1 radiculopathy. 3. There is no electrodiagnostic evidence for focal entrapment neuropathy, lumbosacral plexopathy, or peripheral neuropathy. CLINICAL COMMENT: Would be reasonable to obtain lumbar MRI to further evaluate lumbar spine. Patient has undergone conservative management without relief. Considering lumbar epidural injection after MRI. Thank you for your kind referral. Rosemary Hernandez MD, RAO Board Certified, [place] [employer] and [employer] (ABPMR) Board Certified, [place] [employer] (ABEM) CODIN 33502 x 2 MTDD
== END 2023-07-04 15:06 | disposition home or self-care (01) ==
LOC: HO.NEURO 15:05
PROVIDERS: Visit Provider Physical Medicine & Rehabilitation
DX: G57.30 Lesion of lateral popliteal nerve, unspecified lower limb (principal); R20.8 Other disturbances of skin sensation
CPT/HCPCS: 95886; 95909

== ENCOUNTER → 2023-07-04 15:11 | Outpatient (BNV) | payer MEDICARE, SELFPAY | PROVIDERS: Visit Provider Physical Medicine & Rehabilitation | DX: M70.51 Other bursitis of knee, right knee (principal); M70.52 Other bursitis of knee, left knee; M54.16 Radiculopathy, lumbar region | CPT/HCPCS: 95886; 95909 ==

== ENCOUNTER 2023-07-30 08:50 | Outpatient (REF) | payer MEDICARE, SELFPAY ==
--- NOTE | ~2023-07-30 | MR_ITS ---
EXAMINATION: MR LUMBAR SPINE WITHOUT CONTRAST CLINICAL INFORMATION: 83-year-old with radiculopathy, lumbar region. Evaluate right L5-S1 disc herniation. Self-reported low back pain with burning sensation in legs bilaterally. COMPARISON: 01/05/2023 MRI TECHNIQUE: MRI of the lumbar spine was obtained using routine sequences without contrast. FINDINGS: CORONAL ALIGNMENT: Slight lower lumbar dextrocurvature at L4-L5 and trace thoracolumbar levocurvature stable in appearance. SAGITTAL ALIGNMENT: Slight retrolisthesis at L4-L5 stable in appearance. Trace anterolisthesis at L5-S1 stable in appearance. No spondylolysis. Trace retrolisthesis at L3-L4 is stable. Otherwise normal lumbar alignment. LUMBOSACRAL JUNCTION: Normal. There are 5 [id number]-[id number] lumbar-type vertebral bodies. VERTEBRAL BODIES: Stable vertebral body heights. No interval compression fractures. DISC SPACES AND ENDPLATES: Multilevel central Schmorl's nodes between L3-L4 and L4-L5 inclusive similar in appearance to the previous exam with mild to moderate disc volume loss at L4-L5 and intradiscal degenerative signal changes at multiple levels with xbkk-sf-mgcfkyii degrees of anterior marginal spondylosis stable in appearance, most apparent at L4-L5 asymmetric to the left. Schmorl's nodes along the inferior endplates of T12 and T11 are unchanged. Anterior marginal spondylosis at T10-T11, T11-T12 and T12-L1 are stable. SPINAL CANAL: No abnormal developmental findings. BONE MARROW: There are mixed type I and type II degenerative marrow signal changes along the endplates at L3-L4 stable in appearance. There are type II degenerative marrow signal changes seen along the endplates at the levels between L3-L4 and L4-L5 inclusive stable in appearance. Note is made of a 2.8 cm irregularly marginated zone of T1 signal loss on the left side of the L3 vertebral body partially encroaching on the left L3 pedicle stable in appearance from the previous study, consistent with stable metastatic disease from prostate CA. No other suspicious marrow replacing foci are seen. CONUS MEDULLARIS: Terminates at L1-L2. Morphology and signal is normal. INTRADURAL NERVE ROOTS: Within normal limits. L5-S1: Trace anterolisthesis with minor annular bulging stable in appearance. Moderate to severe bilateral facet joint arthrosis with ligamentum flavum thickening is similar to the previous exam. Probable 4 mm synovial cyst arising along the medial aspect of the left facet joint, probably increased in size from previous exam, impinging on the traversing left S1 nerve root on current study. No central canal stenosis. There is moderate left and mild right-sided craniocaudal neural foraminal stenosis, stable in appearance with mild encroachment on the exiting left L5 nerve root unchanged. L4-L5: Mild retrolisthesis, with disc bulging asymmetric to the left and endplate spurring stable in appearance with mild encroachment on the ventral dural sac. Mild to moderate bilateral facet joint arthrosis is stable with ligamentum flavum thickening without significant central spinal canal stenosis. There is narrowing of the left subarticular zone stable in appearance and there is wfxs-[id number]-arfzgcnl bilateral neural foraminal stenosis stable in appearance, with disc bulging abutting the extraforaminal L4 nerve roots bilaterally unchanged. L3-L4: Minor annular bulging stable in appearance. Ufwx-es-ihewvhlj bilateral facet joint arthrosis stable in appearance. No significant canal or neural foraminal stenosis. L2-L3: No significant disc bulge or herniation stable in appearance. Mbkz-af-lpnszrsu facet joint arthropathy right more than left is stable with no significant central canal stenosis. Slight narrowing of the right subarticular recess is stable. Minor foraminal narrowing on the right is stable without neural impingement. L1-L2: Normal annular contour. Mild bilateral facet joint arthrosis stable in appearance. No canal or foraminal stenosis. T12-L1: Normal annular contour. No facet arthrosis, canal or neural foraminal stenosis. PARAVERTEBRAL AND INCLUDED EXTRASPINAL SOFT TISSUES: There is posterior paraspinal and psoas muscle sarcopenia. Otherwise unremarkable. MR/MR lumbar spine wo con IMPRESSION: 1. Stable 2.8 cm zone of marrow replacement involving the left side of the L3 vertebral body consistent with a stable metastatic lesion from prostate CA. 2. Multilevel DDD and spondylosis, largely unchanged in appearance with stable mild degrees of retrolisthesis at L3-L4 and L4-L5 and trace anterolisthesis at L5-S1. 3. Multilevel bilateral facet joint arthrosis largely unchanged in appearance, with disc bulging at L5-S1 and L4-L5 and a probable 4 mm synovial cyst arising along the medial aspect of the left L5-S1 facet joint, increased in size from previous exam, impinging on the traversing left S1 nerve root in the subarticular zone. 4. Aamo-mv-rrlgxtpb bilateral neural foraminal stenosis at L4-L5 and mild left L5 nerve root impingement unchanged in appearance. Moderate narrowing of the left subarticular zone at L4-L5, stable in appearance and mild narrowing of the right subarticular zone at L2-L3 stable in appearance. 5. Posterior paraspinal and psoas muscle sarcopenia stable in appearance.
== END 2023-07-30 08:51 | disposition home or self-care (01) ==
LOC: HO.MRI 08:50
PROVIDERS: Visit Provider Physical Medicine & Rehabilitation
DX: M54.16 Radiculopathy, lumbar region (principal); M51.26 Other intervertebral disc displacement, lumbar region; R20.8 Other disturbances of skin sensation
CPT/HCPCS: 72148

== ENCOUNTER 2023-08-30 06:22 | Outpatient (REF) | payer MEDICARE, SELFPAY ==
--- NOTE | ~2023-08-30 | FL_ITS ---
EXAMINATION: XR FLUOROSCOPY WITH IMAGES CLINICAL INFORMATION: Lumbar pain. Radiculopathy. COMPARISON: 07/30/2023 TECHNIQUE: Fluoroscopy Supervised By: Physician Fluoroscopy Time: 0.1 minutes. Cumulative Dose: 3.36 mGy. DAP: 0.0239 Gycm2. Images: 2. FINDINGS: The needle tip overlies the midline posterior L5 level. Small amount of contrast is then injected. FL/FL guidance in treatment room IMPRESSION: Fluoroscopy as described.
== END 2023-08-30 06:23 | disposition home or self-care (01) ==
LOC: CF 06:22
PROVIDERS: Visit Provider Internal Medicine
DX: M54.16 Radiculopathy, lumbar region (principal)
CPT/HCPCS: 62323; J3301; Q9967

== ENCOUNTER 2023-08-30 14:08 | Outpatient (AMB) | payer MEDICARE, SELFPAY ==
--- NOTE | 2023-08-30 14:39 | MHC.OFFVIS ---
Vital Signs 08/30/23 15:12 08/30/23 15:12 Height 5 ft 4 in 5 ft 4 in Weight 198 lb 198 lb BMI 34.0 34.0 BP 124/58 L 118/60 Blood Pressure Location Lt brachial Lt brachial Position Sitting Sitting Respiration 12 12 Pulse 80 87 Pulse Source Pulse Oximeter Pulse Oximeter Pulse Oximetry (%) 95 95 Oxygen Delivery Method Room Air Room Air Comment pre-op post-op Intake Visit Reasons: L5-S1 interlaminar JANNIE Allergies No Known Allergies [No Known Allergies*] Allergy (Verified 08/30/23 15:13) HPI HPI L5-S1 interlaminar JANNIE: Details: Patient presents for scheduled procedure. Denies any recent cough, cold, infection, fever or other significant changes in medical history since last office visit. 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 The patient was placed in the prone position. The lumbosacral area was widely prepped with chloraprep and draped in sterile fashion. Fluoroscopic guidance was used to identify the desired interlaminar space and for needle placement. Subcutaneous 0.5% lidocaine was used to anesthetize the skin overlying the target. A 20-gauge Keller needle was advanced to the epidural space using loss of resistance to contrast technique under fluoroscopic AP and contralateral oblique views. There was no evidence of heme or CSF and no paresthesias were elicited with needle placement. Confirmation of epidural needle placement was performed with 1cc of omnipaque 180. Next 3 ml 0.5% lidocaine mixed with 80 mg triamcinolone was administered epidurally with no pain elicited on injection. The needle tract tubing was then cleared with 1 ml of 0.5% lidocaine. The needle was removed, skin cleansed and a sterile bandage was applied. The patient tolerated the procedure well and no complications were encountered. Following the procedure the patient's vital signs were stable. The patient was discharged home in good condition with post-procedural instructions. Time Out: Immediately prior to the procedure, the following was verbally confirmed that there is a signed consent form and that the correct patient, planned procedure, site and side are consistent with documentation and that necessary equipment and/or blood products are available prior to the start of the case. Complications: none EBL: <5 cc Coding 32354 - Caudal/Lumbar Epidural/Interlaminar with fluoroscopy Procedure code (CPT) selection complete Assessment & Plan Assessment & Plan (1) Lumbar radiculitis: Code(s): M54.16 - Radiculopathy, lumbar region Category: Medical Plan Patient is status post right parasagittal interlaminar L5-S1 JANNIE. Patient tolerated procedure well and was discharged home in stable condition with discharge instructions. All questions were answered. We will follow-up via telephone or in clinic to assess response to therapy. A follow-up appointment was made during today's visit. Orders: Orders FL guidance in treatment room Today M54.16 - Radiculopathy, lumbar region Coding Level of Care Code Procedure Only Diagnoses Lumbar radiculitis M54.16 CPT Codes Coding - Joint 11: 73325 - Caudal/Lumbar Epidural/Interlaminar with fluoroscopy ([id number])
[2023-08-30 15:12] VITALS: BP 118/60; BP 124/58; PULSE 80; PULSE 87; RESP 12; O2SAT 95; BMI 34.0
== END 2023-08-30 15:01 | disposition home or self-care (01) ==
LOC: HO.PMCPRC 14:08
PROVIDERS: Visit Provider Internal Medicine
DX: M54.16 Radiculopathy, lumbar region (principal)
CPT/HCPCS: 62323

== ENCOUNTER 2023-09-17 10:39 | Outpatient (REF) | payer MEDICARE, SELFPAY ==
[2023-09-17 11:41] LABS: Alanine Aminotransferase 36 U/L (0-40); Alkaline Phosphatase 91 U/L (39-117); Aspartate Amino Transferase 27 U/L (5-37); Bilirubin Direct 0.2 mg/dL (0.0-0.5); Bilirubin Total 0.5 mg/dL (0.0-1.0); Cholesterol 174 mg/dL (<200); HDL Cholesterol 61 mg/dL (>40); LDL Cholesterol Calculated 101 mg/dL (<100); Total Protein 6.4 g/dL (6.5-8.0); Triglycerides 61 mg/dL (<150)
[2023-09-17 11:53] LABS: Reflex LDLD? No
== END 2023-09-17 10:40 | disposition home or self-care (01) ==
LOC: HO.LNP 10:39
PROVIDERS: Visit Provider Internal Medicine
DX: E78.00 Pure hypercholesterolemia, unspecified (principal)
CPT/HCPCS: 80061; 80076

== ENCOUNTER 2023-09-26 09:18 | Outpatient (AMB) | payer MEDICARE, SELFPAY ==
[2023-09-26 09:20] VITALS: BMI 34.0
--- NOTE | 2023-09-26 09:20 | A.OFFVIS_ITS ---
Vital Signs 09/26/23 09:20 Height 5 ft 4 in Weight 198 lb BMI 34.0 Intake Visit Reasons: O/V lumbar pain S/P injection w/ Pain mgmt Intake Note: Myla is an 83 year old male who presents today for a follow up of his lower back pain. L5-S1 interlaminar epidural injection, done with Pain Mgmt on 08/30/23. Patient reports that this injection was not helpful at all. Allergies No Known Allergies [No Known Allergies*] Allergy (Verified 09/26/23 09:26) HPI Comments Details: 4-5 years of burning sensation, starts on ankle, goes up proximally. Feels ants in the morning, especially on the thigh. Socks are very uncomfortable. Right worse than left. He did see Dr. Whalen, vascular, 4 years ago, feels that the burning worsened after. He thinks he had an angiogram done, no blockage seen. Had seen Dr. Whalen after for follow up. Also saw another vascular surgeon, less than a year ago. Maybe had EMG long time ago, does not remember the results, probably normal. Denies claudication. The sensation is worse when he is seated. Back pain towards end of the day. Does not worsen gait. Improved with walking. MRI 2022 did not show any significant spinal stenosis. He is already on lyrica 200mg BID. He has history of aortic stenosis, on ASA and statin. He did see Rheumatology in the past for hand pain, mildly positive RF. EMG and MRI as below. He confirms that he has history of prostate CA. He says he's been checked this year oncology at [facility]. He confirms that there was a spot in his back and that was checked before . We agreed to trial an L5-S1 interlaminar epidural injection, which was done by Dr. Ordonez Pain Management on 08/30/23. Unfortunately patient does not think it helped much. He continues to have burning in sides of both hips, but not tender to touch. He has numbness on side of right knee and right foot. He has to wear a sock on right foot when he sleeps to be comfortable. He denies symptoms when he is walking though. 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 Patient was appropriately conversant and oriented. Good historian. MSK: No specific abnormalities found on inspection of the spine and all extremities. No pain with palpation over the lumbar area, SI or GT. Lumbar ROM was full. Bilateral hip, knee and ankle ROM WNL. No ligamentous laxity or crepitance. No increased effusion. Straight-leg raising test negative. FABERE test negative. Gillet test is negative. Strength is 5/5 in all muscle groups tested. No increased tone noted. Neurological: Neurologic examination of the upper and lower extremities was nonfocal with intact sensation, muscle stretch reflexes and without focal motor deficits . Jeong?s negative bilaterally. Babinski was down going bilaterally. Clonus was negative. Gait is non-antalgic without loss of balance. No footdrop. Results Reviewed Results Reviewed: EMG by me 07/04/23 FINDINGS: Right peroneal nerve showed normal distal latency, very small amplitude and slowed distal conduction velocity. No conduction block across fibular neck. Right tibial nerve although normal, showed smaller amplitude compared to left. Surals were present and symmetric. Concentric needle EMG was performed in selected muscles of the bilateral lower extremity and lumbar paraspinals. Study revealed Signs of electric abnormalities as shown in the table below. Right mg showed increased duration and amplitude. IMPRESSION: 1. This is an abnormal study. 2. There is electrodiagnostic findings suggestive for right chronic L5-S1 radiculopathy. 3. There is no electrodiagnostic evidence for focal entrapment neuropathy, lumbosacral plexopathy, or peripheral neuropathy. MRI 07/30/23 EXAMINATION: MR LUMBAR SPINE WITHOUT CONTRAST CLINICAL INFORMATION: 83-year-old with radiculopathy, lumbar region. Evaluate right L5-S1 disc herniation. Self-reported low back pain with burning sensation in legs bilaterally. COMPARISON: 01/05/2023 MRI TECHNIQUE: MRI of the lumbar spine was obtained using routine sequences without contrast. FINDINGS: CORONAL ALIGNMENT: Slight lower lumbar dextrocurvature at L4-L5 and trace thoracolumbar levocurvature stable in appearance. SAGITTAL ALIGNMENT: Slight retrolisthesis at L4-L5 stable in appearance. Trace anterolisthesis at L5-S1 stable in appearance. No spondylolysis. Trace retrolisthesis at L3-L4 is stable. Otherwise normal lumbar alignment. LUMBOSACRAL JUNCTION: Normal. There are 5 bxa-cqu-jhqqegl lumbar-type vertebral bodies. VERTEBRAL BODIES: Stable vertebral body heights. No interval compression fractures. DISC SPACES AND ENDPLATES: Multilevel central Schmorl's nodes between L3-L4 and L4-L5 inclusive similar in appearance to the previous exam with mild to moderate disc volume loss at L4-L5 and intradiscal degenerative signal changes at multiple levels with ctsz-wd-euoubggw degrees of anterior marginal spondylosis stable in appearance, most apparent at L4-L5 asymmetric to the left. Schmorl's nodes along the inferior endplates of T12 and T11 are unchanged. Anterior marginal spondylosis at T10-T11, T11-T12 and T12-L1 are stable. SPINAL CANAL: No abnormal developmental findings. BONE MARROW: There are mixed type I and type II degenerative marrow signal changes along the endplates at L3-L4 stable in appearance. There are type II degenerative marrow signal changes seen along the endplates at the levels between L3-L4 and L4-L5 inclusive stable in appearance. Note is made of a 2.8 cm irregularly marginated zone of T1 signal loss on the left side of the L3 vertebral body partially encroaching on the left L3 pedicle stable in appearance from the previous study, consistent with stable metastatic disease from prostate CA. No other suspicious marrow replacing foci are seen. CONUS MEDULLARIS: Terminates at L1-L2. Morphology and signal is normal. INTRADURAL NERVE ROOTS: Within normal limits. L5-S1: Trace anterolisthesis with minor annular bulging stable in appearance. Moderate to severe bilateral facet joint arthrosis with ligamentum flavum thickening is similar to the previous exam. Probable 4 mm synovial cyst arising along the medial aspect of the left facet joint, probably increased in size from previous exam, impinging on the traversing left S1 nerve root on current study. No central canal stenosis. There is moderate left and mild right-sided craniocaudal neural foraminal stenosis, stable in appearance with mild encroachment on the exiting left L5 nerve root unchanged. L4-L5: Mild retrolisthesis, with disc bulging asymmetric to the left and endplate spurring stable in appearance with mild encroachment on the ventral dural sac. Mild to moderate bilateral facet joint arthrosis is stable with ligamentum flavum thickening without significant central spinal canal stenosis. There is narrowing of the left subarticular zone stable in appearance and there is mdmv-xo-kpefcklz bilateral neural foraminal stenosis stable in appearance, with disc bulging abutting the extraforaminal L4 nerve roots bilaterally unchanged. L3-L4: Minor annular bulging stable in appearance. Tkbg-vi-aegrarij bilateral facet joint arthrosis stable in appearance. No significant canal or neural foraminal stenosis. L2-L3: No significant disc bulge or herniation stable in appearance. Gpgw-fy-dweswazs facet joint arthropathy right more than left is stable with no significant central canal stenosis. Slight narrowing of the right subarticular recess is stable. Minor foraminal narrowing on the right is stable without neural impingement. L1-L2: Normal annular contour. Mild bilateral facet joint arthrosis stable in appearance. No canal or foraminal stenosis. T12-L1: Normal annular contour. No facet arthrosis, canal or neural foraminal stenosis. PARAVERTEBRAL AND INCLUDED EXTRASPINAL SOFT TISSUES: There is posterior paraspinal and psoas muscle sarcopenia. Otherwise unremarkable. MR/MR lumbar spine wo con IMPRESSION: 1. Stable 2.8 cm zone of marrow replacement involving the left side of the L3 vertebral body consistent with a stable metastatic lesion from prostate CA. 2. Multilevel DDD and spondylosis, largely unchanged in appearance with stable mild degrees of retrolisthesis at L3-L4 and L4-L5 and trace anterolisthesis at L5-S1. 3. Multilevel bilateral facet joint arthrosis largely unchanged in appearance, with disc bulging at L5-S1 and L4-L5 and a probable 4 mm synovial cyst arising along the medial aspect of the left L5-S1 facet joint, increased in size from previous exam, impinging on the traversing left S1 nerve root in the subarticular zone. 4. Zgjo-vd-uqrgxxyd bilateral neural foraminal stenosis at L4-L5 and mild left L5 nerve root impingement unchanged in appearance. Moderate narrowing of the left subarticular zone at L4-L5, stable in appearance and mild narrowing of the right subarticular zone at L2-L3 stable in appearance. 5. Posterior paraspinal and psoas muscle sarcopenia stable in appearance. Assessment & Plan Assessment & Plan (1) Burning sensation of lower extremity: Code(s): R20.8 - Other disturbances of skin sensation Category: Medical (2) Lumbar radiculitis: Code(s): M54.16 - Radiculopathy, lumbar region Category: Medical (3) Lumbar disc herniation: Code(s): M51.26 - Other intervertebral disc displacement, lumbar region Category: Medical (4) Lumbar spondylosis: Code(s): M47.816 - Spondylosis without myelopathy or radiculopathy, lumbar region Category: Medical Plan Chronic burning sensation on legs, right worse than left. EMG surprisingly did not show neuropathy, but rather possible radiculopathy. He had undergone L5-S1 epidural injection without much relief yet. He is going to follow up with Dr. Ordonez to see if possible or candidate for other interventions, perhaps consider peripheral nerve block or stimulator? He is already maximum dose of lyrica. Using topical cream. Assessment and plan discussed with patient, and patient was agreeable. All questions were answered thoroughly. Rosemary Hernandez MD, RAO Board Certified, [place] [employer] and Rehabilitation (ABPMR) Board Certified, [place] Board [employer] Electrodiagnostic [employer] (ABEM) Coding Level of Care Code Est Pt Level 3 (90460) Diagnoses Burning sensation of lower extremity R20.8 Lumbar radiculitis M54.16 Lumbar disc herniation M51.26 Lumbar spondylosis M47.816
== END 2023-09-26 09:39 | disposition home or self-care (01) ==
PROVIDERS: Visit Provider Physical Medicine & Rehabilitation
DX: R20.8 Other disturbances of skin sensation (principal); M54.16 Radiculopathy, lumbar region; M51.26 Other intervertebral disc displacement, lumbar region; M47.816 Spondylosis without myelopathy or radiculopathy, lumbar region
CPT/HCPCS: 99213

== ENCOUNTER → 2023-09-26 09:18 | Outpatient (BNVA) | payer MEDICARE, SELFPAY | PROVIDERS: Visit Provider Physical Medicine & Rehabilitation | DX: R20.8 Other disturbances of skin sensation (principal); M47.816 Spondylosis without myelopathy or radiculopathy, lumbar region; M54.16 Radiculopathy, lumbar region; M51.26 Other intervertebral disc displacement, lumbar region | CPT/HCPCS: 99212 ==

== ENCOUNTER 2023-09-28 10:38 | Outpatient (AMB) | payer MEDICARE, SELFPAY ==
--- NOTE | 2023-09-28 10:40 | A.OFFVIS_ITS ---
Vital Signs 09/28/23 10:41 Height 5 ft 4 in Weight 188 lb BMI 32.3 BP 143/67 H Blood Pressure Location Lt brachial Position Sitting Respiration 14 Pulse 98 Pulse Source Pulse Oximeter Pulse Oximetry (%) 96 Oxygen Delivery Method Room Air Intake Visit Reasons: S/p L5-S1 interlaminar JANNIE Allergies No Known Allergies [No Known Allergies*] Allergy (Verified 09/28/23 10:42) Medication List - Last Reconciled 09/28/23 by Nena Vicente LPN amlodipine 5 mg PO DAILY atorvastatin 20 mg PO DAILY diclofenac sodium 1% (Voltaren Arthritis Pain) 2 grams topical QID hydrochlorothiazide 25 mg PO DAILY pregabalin 200 mg PO BID tamsulosin 0.4 mg PO DAILY timolol maleate 0.5% 1 drp ophthalmic (eye) DAILY HPI HPI S/p L5-S1 interlaminar JANNIE: Details: 83-year-old male who presents today to the office for a status post L5-S1 interlaminar JANNIE. He reports no significant relief from the procedure. He reports burning sensations and itchiness in his bilateral legs. He has been walking around the house. Sitting or resting worsens the pain. He has a history of scaitic pain since 2017. He has been using topical cream. He wears a sock during the night for some relief. He is not wearing socks in the morning due to walking. The pain is present on both sides, but the right leg is worse. He is taking Tylenol and pregabalin. Past procedures 08/30/23: Interlaminar epidural steroid injection, L5-S1, right parasaggital: No relief. 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 Alert and oriented. Mood and affect appropriate. Follows and participates in conversation appropriately. Respiratory effort is unlabored. Able to transition from sit to stand unassisted. Ambulates with bilaterally normal heel strike and toe off. Results Reviewed Results Reviewed: Chronic right lumbar radiculopathy on EMG study. Assessment & Plan Assessment & Plan (1) Lumbar radiculitis: Code(s): M54.16 - Radiculopathy, lumbar region Category: Medical Plan We will schedule him for a right L5 TFESI for chronic lumbar radiculopathy. He did not have much response from the interlaminar injection. Discussed the risks and benefits of the procedure with the patient in detail. All questions were answered. The patient is on board with the plan. If the TFESI is not helpful either, then we will have to consider neuromodulation strategies. Justification for interventional therapy: ? Patient with average pain > 6/10 ? Patient has exhausted conservative therapy . Patient has a good understanding of their pain condition and has appropriate mental and social support Scribed for Dr. Ordonez by Meet Hutchinson, medical radiation therapist, on 09/28/2023. I, Dr. Ordonez, have personally reviewed and agree with the information entered by the scribe. Coding Level of Care Code Est Pt Level 3 (81556) Diagnoses Lumbar radiculitis M54.16
[2023-09-28 10:41] VITALS: BP 143/67; PULSE 98; RESP 14; O2SAT 96; BMI 32.3
== END 2023-09-28 10:50 | disposition home or self-care (01) ==
PROVIDERS: Visit Provider Internal Medicine
DX: M54.16 Radiculopathy, lumbar region (principal)
CPT/HCPCS: 99213

== ENCOUNTER → 2023-09-28 10:38 | Outpatient (BNVA) | payer MEDICARE, SELFPAY | PROVIDERS: Visit Provider Internal Medicine | DX: M54.16 Radiculopathy, lumbar region (principal) | CPT/HCPCS: 99212 ==

== ENCOUNTER 2023-10-11 06:10 | Outpatient (REF) | payer MEDICARE, SELFPAY | END 2023-10-11 06:11 | disposition home or self-care (01) | LOC: CF 06:10 | PROVIDERS: Visit Provider Internal Medicine | DX: Z13.89 Encounter for screening for other disorder (principal) ==

== ENCOUNTER 2023-10-22 13:37 | Outpatient (AMB) | payer MEDICARE, SELFPAY ==
[2023-10-22 13:46] VITALS: BP 120/80; PULSE 93; BMI 33.3
--- NOTE | 2023-10-22 13:46 | A.OFFVIS_ITS ---
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 He denies any new cardiac symptoms. Remains active for his age. Denies any exertional chest pain or shortness of breath. Denies any orthopnea, PND, leg edema. No prolonged palpitation irregular heartbeat. Takes all his medications. No lightheadedness, syncope. 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 Review of Systems Const Denies chills, Denies fatigue, Denies fever(s), Denies frequent falls, Denies weakness, Denies weight gain and Denies weight loss ENT Denies dizziness Card Denies chest pain, Denies leg edema, Denies lightheadedness, Denies palpitations, Denies dyspnea, Denies dyspnea on exertion, Denies orthopnea and Denies other (loss of consciousness) Resp Denies cough, Denies dyspnea and Denies dyspnea on exertion GI Denies hematochezia and Denies change in stool character Musc Denies abnormal gait, Denies muscle weakness, Denies numbness, Denies radiating pain into limb and Denies tingling Neuro Denies abnormal gait, Denies dizziness, Denies frequent falls, Denies numbness, Denies tingling and Denies weakness Endo Denies fatigue and Denies palpitations Physical Exam Vital Signs: Last Vital Signs Pulse 93 10/22/23 13:46 BP 120/80 10/22/23 13:46 BMI result Body Mass Index 33.3 Const General: cooperative, comfortable, alert and well groomed Nutritional Appearance: obese Orientation/consciousness: patient oriented x3 Limitations: no limitations Neck Neck: Yes trachea midline, Yes supple and Yes no JVD Chest Chest palpation & inspection: normal inspection of the chest Resp Effort & Inspection: normal respiratory effort Auscultation: clear to auscultation bilaterally Cardio Jugular venous distension: no JVD Palpation: normal PMI Rate: regular rate Rhythm: regular rhythm Heart sounds: S1 normal heart sound present, S2 normal heart sound present and Murmur heart sound present systolic early GI Auscultation: normal bowel sounds Skin General skin exam: no rashes or lesions noted Neuro General: patient oriented x3 and no focal motor deficits Extrem General: Yes no clubbing, cyanosis or edema Psych Appearance: grossly normal Office Procedures EKG Details: EKG shows normal sinus rhythm with 90 beats per minute with right bundle-branch block and left anterior fascicular block, unchanged from before [id number], Complete Assessment & Plan Assessment & Plan (1) Aortic stenosis: Comment: mild Code(s): I35.0 - Nonrheumatic aortic (valve) stenosis Category: Medical Plan: Known mild aortic stenosis which is unchanged from before. Continue monitor clinically. Follow-up echocardiogram in 1 year's time. Continue low-dose aspirin therapy. Continue aggressive vascular risk factor modification with aggressive blood pressure control, see below. Target goal LDL less than 100 mg/dL. No other interventions required. (2) Bifascicular block: Code(s): I45.2 - Bifascicular block Category: Medical Plan: Bifascicular block most likely due calcific aortic valve disease. No interventions required. Advised to call me with any worsening symptoms lightheadedness or syncope. Followed by EKG annually (3) HTN (hypertension): Code(s): I10 - Essential (primary) hypertension Category: Medical Plan: Hypertension which is currently well optimized advised to monitor blood pressure at home and maintain a log. Goal blood pressure less than 130/84. Low-salt diet was advised. Continue to participate in physical activity as tolerated. Will follow up in the clinic 1 year's time, sooner p.r.n.. Thank you for allo wing me to partake in his care Orders: Orders CA echo transthoracic complete 1 Year I35.0 - Nonrheumatic aortic (valve) stenosis Coding Level of Care Code Est Pt Level 4 (76554) Diagnoses Aortic stenosis I35.0 Bifascicular block I45.2 HTN (hypertension) I10 CPT Codes EKG - CPT: 83112-[id number], Complete ([id number])
== END 2023-10-22 14:29 | disposition home or self-care (01) ==
PROVIDERS: Visit Provider Internal Medicine Cardiovascular Disease
DX: I35.0 Nonrheumatic aortic (valve) stenosis (principal); I45.2 Bifascicular block; I10 Essential (primary) hypertension
CPT/HCPCS: 93010; 99214

== ENCOUNTER → 2023-10-22 13:37 | Outpatient (BNVA) | payer MEDICARE, SELFPAY | PROVIDERS: Visit Provider Internal Medicine Cardiovascular Disease | DX: I35.0 Nonrheumatic aortic (valve) stenosis (principal); I45.2 Bifascicular block; I10 Essential (primary) hypertension | CPT/HCPCS: 93005; 99212 ==

== ENCOUNTER 2023-10-25 06:05 | Outpatient (REF) | payer MEDICARE, SELFPAY ==
--- NOTE | ~2023-10-25 | FL_ITS ---
EXAMINATION: XR FLUOROSCOPY WITH IMAGES CLINICAL INFORMATION: Lumbar radiculopathy. COMPARISON: None available. TECHNIQUE: Fluoroscopy Supervised By: Dr. Mak Ordonez. Fluoroscopy Time: 0.1 minute. Cumulative Dose: 4.88 mGy. DAP: 0.444 Gycm2. Images: 2. FINDINGS: Intraoperative fluoroscopy and spot films were performed during a procedure in the OR. A needle for transforaminal approach L5 epidural is seen on the right with contrast media in the epidural space. Please correlate with Dr. Mak Ordonez's report for complete details. FL/FL guidance in treatment room IMPRESSION: Intraoperative fluoroscopy and spot films were obtained. Please see Dr. Mak Ordonez's report for complete details.
== END 2023-10-25 06:06 | disposition home or self-care (01) ==
LOC: CF 06:05
PROVIDERS: Visit Provider Internal Medicine
DX: M54.16 Radiculopathy, lumbar region (principal)
CPT/HCPCS: 64483; J1100; Q9967

== ENCOUNTER 2023-10-25 10:18 | Outpatient (AMB) | payer MEDICARE, SELFPAY ==
--- NOTE | 2023-10-25 14:48 | A.OFFVIS_ITS ---
Intake Visit Reasons: Right L5 TFESI Allergies No Known Allergies [No Known Allergies*] Allergy (Verified 09/28/23 10:42) HPI HPI Right L5 TFESI: Details: Patient presents for scheduled procedure. Denies any recent cough, cold, infe ction, fever or other significant changes in medical history since last office visit. 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 The patient was placed in the prone position on the fluoroscopy table. The lumbosacral area was prepped with chloraprep, allowed to dry and draped in sterile fashion. Using fluoroscopy, the skin overlying our target was anesthetized with 0.5% lidocaine. A 22 gauge 3.5 inch spinal needle was advanced to the safe triangle in the upper pole of the right L5 foramen. No paresthesias were elicited with needle placement and aspiration was negative for blood and CSF. Correct needle position was confirmed with approximately 1 ml contrast dye (Omnipaque 180 mg/ml) injected under real-time fluoroscopy. No evidence of vascular or intrathecal uptake was seen and there was both epidural and peripheral spread of the contrast agent. 10 mg dexamethasone plus 1 ml containing 0.5% lidocaine was slowly injected. The needle was flushed and removed. the same procedure was repeated for the remaining levels. The skin was cleansed and a sterile bandages were applied. The patient tolerated the procedure well and no complications were encountered. Following the procedure the patient's vital signs were stable. The patient was discharged home in good condition with post-procedural instructions. Time Out: Immediately prior to the procedure, the following was verbally confirmed that there is a signed consent form and that the correct patient, planned procedure, site and side are consistent with documentation and that necessary equipment and/or blood products are available prior to the start of the case. Complications: none EBL: <5 cc 40475 - Lumbar/Sacral Procedure code (CPT) selection complete Assessment & Plan Assessment & Plan (1) Lumbar radiculitis: Code(s): M54.16 - Radiculopathy, lumbar region Category: Medical Plan Patient is status post right L5 TFESI. Patient tolerated procedure well and was discharged home in stable condition with discharge instructions. All questions were answered. We will follow-up via telephone or in clinic to assess response to therapy. A follow-up appointment was made during today's visit. Orders: Orders FL guidance in treatment room Today M54.16 - Radiculopathy, lumbar region Coding Level of Care Code Procedure Only Diagnoses Lumbar radiculitis M54.16 CPT Codes Transforaminal Epidural Steroid Inj - TESI 3: 58475 - Lumbar/Sacral ([id number])
== END 2023-10-25 12:00 | disposition home or self-care (01) ==
LOC: HO.PMCPRC 10:18
PROVIDERS: Visit Provider Internal Medicine
DX: M54.16 Radiculopathy, lumbar region (principal)
CPT/HCPCS: 64483

== ENCOUNTER 2023-11-21 09:29 | Outpatient (AMB) | payer MEDICARE, SELFPAY ==
[2023-11-21 09:33] VITALS: BP 134/68; PULSE 85; RESP 14; O2SAT 96; BMI 33.5
--- NOTE | 2023-11-21 09:33 | MHC.OFFVIS ---
Vital Signs 11/21/23 09:33 Height 5 ft 4 in Weight 195 lb BMI 33.5 BP 134/68 Blood Pressure Location Lt brachial Position Sitting Respiration 14 Pulse 85 Pulse Source Pulse Oximeter Pulse Oximetry (%) 96 Oxygen Delivery Method Room Air Intake Visit Reasons: s/p right L5 TFESI Allergies No Known Allergies [No Known Allergies*] Allergy (Verified 11/21/23 09:34) Medication List - Last Reconciled 11/21/23 by Nena Vicente LPN amlodipine 5 mg PO DAILY aspirin (Adult Aspirin Regimen) 81 mg PO DAILY atorvastatin 20 mg PO DAILY diclofenac sodium 1% (Voltaren Arthritis Pain) 2 grams topical QID hydrochlorothiazide 25 mg PO DAILY pregabalin 200 mg PO BID sennosides (senna) 8.6 mg PO BEDTIME tamsulosin 0.4 mg PO DAILY timolol maleate 0.5% 1 drp ophthalmic (eye) DAILY HPI HPI s/p right L5 TFESI: Details: 83-year-old male who presents to the office for status post right L5 TFESI The patient reports no significant relief following the procedure. He is still having pain on the both sides. He describes the pain as a burning sensation, which starts from the bottom right side, which travels up to the calves. He is unable to sleep because of the pain. He uses topical cream on the area, which only provides relief for a couple of hours. Pregabalin has not been helpful. 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 Alert and oriented. Mood and affect appropriate. Follows and participates in conversation appropriately. Respiratory effort is unlabored. Able to transition from sit to stand unassisted. Results Reviewed Results Reviewed: No imaging is available for review Assessment & Plan Assessment & Plan (1) Burning sensation of lower extremity: Code(s): R20.8 - Other disturbances of skin sensation Category: Medical (2) Lumbar radiculitis: Code(s): M54.16 - Radiculopathy, lumbar region Category: Medical Plan Discussed SCS as a possible treatment option for burning neuropathic pain of the lower extremities, likely secondary to lumbar radiculopathy. A peripheral neuropathic process is also possible. We discussed SCS as a potential treatment option. I offered him an SCS trial and if he finds significantly helpful, we can proceed with the permanent implant. The patient is interested in the procedure. A device brochure was provided to the patient today in the office. I placed a referral for psychology clearance. Once we receive the psychology clearance, we will schedule them for trial with a [employer] non-rechargeable IPG device. Scribed for Dr. Ordonez by Marcela Frank, medical pathology teacher, on 11/21/2023. I, Dr. Ordonez, have personally reviewed and agree with the information entered by the scribe. Coding Level of Care Code Est Pt Level 3 (14622) Diagnoses Burning sensation of lower extremity R20.8 Lumbar radiculitis M54.16
== END 2023-11-21 09:46 | disposition home or self-care (01) ==
PROVIDERS: Visit Provider Internal Medicine
DX: R20.8 Other disturbances of skin sensation (principal); M54.16 Radiculopathy, lumbar region
CPT/HCPCS: 99213

== ENCOUNTER → 2023-11-21 09:29 | Outpatient (BNVA) | payer MEDICARE, SELFPAY | PROVIDERS: Visit Provider Internal Medicine | DX: M54.16 Radiculopathy, lumbar region (principal); R20.8 Other disturbances of skin sensation | CPT/HCPCS: 99212 ==

== ENCOUNTER → 2023-12-12 10:38 | Outpatient (BNVA) | payer MEDICARE, SELFPAY | PROVIDERS: Visit Provider Internal Medicine ==

== ENCOUNTER → 2023-12-20 12:49 | Outpatient (BNVA) | payer MEDICARE, SELFPAY | PROVIDERS: Visit Provider Internal Medicine ==

== ENCOUNTER 2024-03-24 11:04 | Outpatient (REF) | payer MEDICARE, SELFPAY ==
[2024-03-24 11:08] LABS: MANUAL DIFF FLAG NO
[2024-03-24 11:31] LABS: Appearance Urine Clear; Color Urine Yellow; Glucose Urine UA Negative (Negative); Leukocyte Esterase Urine Trace (Negative); Nitrite Urine Negative (Negative); Specific Gravity - Urine 1.015 (1.005-1.025); UMIC TRIGGER UACC YES; Urine Blood Negative (Negative); Urine Ketones Negative (Negative); Urine Protein Negative (Neg-Trace)
[2024-03-24 11:35] LABS: Basophils Percent Auto 0.6 % (0-2); Eosinophils Absolute Auto 0.2 X10*3/uL (0.0-0.4); Eosinophils Percent Auto 2.4 % (0-4); Hematocrit 43.4 % (42.0-52.0); Hemoglobin 13.7 g/dl (14.0-18.0); Imm Gran Abs Auto 0.02 X10*3/uL (0.00-0.03); Imm Gran Pct Auto 0.3 % (0.0-0.4); Lymphocytes Absolute Auto 1.5 X10*3/uL (1.2-4.9); Lymphocytes Percent Auto 24.4 % (20-40); Mean Corpuscular HGB Conc 31.6 g/dl (31.0-36.0); Mean Corpuscular Hemoglobin 29.1 pg (27.0-33.0); Mean Corpuscular Volume 92.1 fL (80.0-98.0); Mean Platelet Volume 11.2 fL (9.4-12.4); Monocytes Absolute Auto 0.5 X10*3/uL (0.1-1.2); Monocytes Percent Auto 8.1 % (2-11); Neutrophils Absolute Auto 4.1 x10*3/uL (2.0-8.3); Neutrophils Percent Auto 64.2 % (45-73); Platelet Count 197 X10*3/uL (160-400); Red Blood Count 4.71 X10*6/uL (4.60-5.80); Red Cell Distribution Width 14.2 % (11.0-16.0); White Blood Count 6.3 X10*3/uL (4.8-10.8)
[2024-03-24 11:37] LABS: Bacteria Urine None Seen (None Seen); Hyaline Casts Urine 0-2 /LPF (0-2); RBC Urine 0-2 /HPF (0-2); Squamous Epithelial Cell Urine 0-2 /HPF (0-2); WBC Urine 0-5 /HPF (0-5)
[2024-03-24 11:44] LABS: Alanine Aminotransferase 16 U/L (0-40); Albumin Level 3.9 g/dL (3.5-5.0); Alkaline Phosphatase 83 U/L (39-117); Anion Gap 10 (12-20); Aspartate Amino Transferase 24 U/L (5-37); Bilirubin Total 0.6 mg/dL (0.0-1.0); Blood Urea Nitrogen 8 mg/dL (9-16); Calcium 8.9 mg/dL (8.4-10.2); Carbon Dioxide 36 mmol/L (22-29); Chloride 100 mmol/L (96-108); Cholesterol 144 mg/dL (<200); Estimated Glomerular Filt Rate > 60; Glucose Fasting 125 mg/dL (60-99); HDL Cholesterol 50 mg/dL (>40); LDL Cholesterol Calculated 78 mg/dL (<100); Potassium 3.4 mmol/L (3.3-5.1); Sodium 143 mmol/L (135-145); Total Protein 6.2 g/dL (6.5-8.0); Triglycerides 82 mg/dL (<150)
[2024-03-24 12:07] LABS: PSA,Total (Free>4and<10) < 0.10 ng/mL (0.00-4.00)
== END 2024-03-24 11:05 | disposition home or self-care (01) ==
LOC: HO.LNP 11:04
PROVIDERS: Visit Provider Internal Medicine
DX: I10 Essential (primary) hypertension (principal); N40.0 Benign prostatic hyperplasia without lower urinary tract symptoms; E78.00 Pure hypercholesterolemia, unspecified; Z12.5 Encounter for screening for malignant neoplasm of prostate
CPT/HCPCS: 80053; 80061; 81001; 84153; 85025

== ENCOUNTER 2024-09-15 10:57 | Outpatient (AMB) | payer MEDICARE, SELFPAY ==
--- NOTE | 2024-09-15 10:58 | A.OFFVIS_ITS ---
Vital Signs 09/15/24 11:20 Height 5 ft 4 in Weight 195 lb BMI 33.5 Intake Visit Reasons: Newprob-B/L knee pain Intake Note: Myla is an 84 year old male who presents today as a new patient for a evaluation of his bilateral knee pain. Patient reports his condition is more of a nerve situation. He was previously seen by pain management and was given spinal injections with no relief. He reports a tingling sensation on the lateral aspect of legs with his right leg being the worse. He has a constant burning sensation in his legs that is worse at night. He uses aspercreme to help with his discomfort. Patient was previously seen by a vein specialist. Hx of right leg fracture at age 47, which required surgery. Allergies No Known Allergies [No Known Allergies*] Allergy (Verified 09/15/24 11:25) Medication List - Last Reconciled 09/15/24 by Artur Cunningham PA-C amlodipine 5 mg PO DAILY aspirin (Adult Aspirin Regimen) 81 mg PO DAILY atorvastatin 20 mg PO DAILY diclofenac sodium 1% (Voltaren Arthritis Pain) 2 grams topical QID hydrochlorothiazide 25 mg PO DAILY pregabalin 200 mg PO BID sennosides (senna) 8.6 mg PO BEDTIME tamsulosin 0.4 mg PO DAILY timolol maleate 0.5% 1 drp ophthalmic (eye) DAILY HPI HPI Newprob-B/L knee pain: Details: 84-year-old gentleman presents to the office today for right leg pain. He is referred by Dr. America linares. He was seen by Dr. Ordonez and had an injection in the low back which did not seem to help. He was scheduled to meet with his office again to discuss spinal stimulator however there was a conflict with this appointment and they canceled his appointment and he did not reschedule. He denies right knee pain he denies difficulty with ambulation other than what is caused by the numbness that goes down the leg into the foot and ankle. 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 He has full range of motion of the knee without pain. He does describe decreased sensation along the lateral aspect of the knee which extends down the tibia. Pulses intact. Results Reviewed Results Reviewed: X-rays of the knee obtained in the office today and reviewed by me show severe degenerative changes right greater than left. Assessment & Plan Assessment & Plan (1) Lumbar spondylosis: Code(s): M47.816 - Spondylosis without myelopathy or radiculopathy, lumbar region Category: Medical (2) Burning sensation of lower extremity: Code(s): R20.8 - Other disturbances of skin sensation Category: Medical (3) Lumbar disc herniation: Code(s): M51.26 - Other intervertebral disc displacement, lumbar region Category: Medical (4) Lumbar radiculitis: Code(s): M54.16 - Radiculopathy, lumbar region Category: Medical Plan The patient claims that he does not have any right knee pain. His primary concern is the burning and numbness that goes down the right side of his back down to the leg. He does not want to return to see pain management as he is not comfortable with their office given the last experience he had. I did offer him to see our neuro spine department which she is in agreement with. He did have an MRI of his back which did show some spondylosis. I will put in a referral and they will reach out to him to discuss further. Orders: Orders XR Knee Rajesh 3V Today M25.561 - Pain in right knee, M25.562 - Pain in left knee Referrals Neuro Spine Referral M47.816 - Spondylosis without myelopathy or radiculopathy, lumbar region, M51.26 - Other intervertebral disc displacement, lumbar region, M54.16 - Radiculopathy, lumbar region, R20.8 - Other disturbances of skin sensation Coding Level of Care Code New Pt Level 3 (95648) Complex EM visit Add On G2211 Diagnoses Lumbar spondylosis M47.816 Burning sensation of lower extremity R20.8 Lumbar disc herniation M51.26 Lumbar radiculitis M54.16
[2024-09-15 11:20] VITALS: BMI 33.5
--- OUTSIDE RECORDS SUMMARY | 2024-09-15 11:42 | XMS_ITS ---
Author Organization [facility] Address [address] [place] [id number] Care Team Providers Care Dynamometer Tester Name Role Phone Quinten Han MD Primary Care Provider Mike Wallace Unavailable [phone] Allergies No Known Allergies REASON FOR VISIT Patient presents today for rectum pain Medications Medication SIG (Take, Route, Frequency, Duration) Notes Start Date End Date Status Omeprazole 20 MG 1 capsule Orally Once a day for 90 days Active hydroCHLOROthiazide 25 MG TAKE ONE TABLE T BY MOUTH EVERY DAY Oral for 90 Active Amoxicillin 500 MG 2 tablets Orally BID for 10 days 12/30/2013 Not-Taking Biaxin 500 MG 1 tablet Orally BID for 10 days 12/30/2013 Not-Taking Gabapentin 300 MG Oral for 30 Active Tamsulosin HCl 0.4 MG 1 capsule 30 minut es after the same meal each day Orally Once a day Active Clobetasol Propionate 0.05 % 1 applicati on to affected area Externally Twice a day Active Atorvastatin Calcium 10 MG 1 tablet Oral ly Once a day Active Amlodipine & Diet Manage Prod 5mg Active Tylenol PM Extra Strength Active Aspirin 81 81 MG 1 tablet Orally Once a day for 30 day(s) 01/03/2024 Active Vitamin E Blend 400 UNIT 1 capsule Orall y Once a day for 30 day(s) 01/03/2024 Active Fish Oil 1000 MG 1 capsule Orally Three times a day for 30 day(s) 01/03/2024 Active Pregabalin 150 MG TAKE ONE CAPSULE BY MOUTH TWICE A DAY Oral for 90 Active Timolol Maleate 0.5 % INSTILL ONE DROP I N EACH EYE TWO TIMES A DAY Ophthalmic for 60 Active Immunizations Vaccine Route Administration Date Status Comme nts Influenza Unknown 01/03/2024 Refused Problems Problem Type SNOMED Code ICD Code Onset Dates Problem Status W/U Status Risk Notes Problem Rectal discomfort (K62.89) Active confirmed Vital Signs Temperature 97.5 degrees Fahrenheit 01/03/20 24 Blood pressure systolic 000 mm Hg 01/03/20 24 Blood pressure diastolic 00 mm Hg 024 Height 64 in 01/03/2024 Weight 194 lbs 01/03/2024 BMI 33.30 kg/m2 01/03/2024 Encounters Encounter Location Date Provider Diagnosis [facility] [address] [place] [address] 01/03/2024 Miek Keller Rectal discomfort K62.89 Assessments Encounter Date Diagnosis (ICD Code) Assessment Notes Treatment Notes Treatment Clinical Notes Section Notes 01/03/2024 Rectal discomfort (ICD-10 - K62.89) Observe the rectal symptoms. Avoid straining and constipation. Eat fruits and vegetables with your pasta and bread!! Drink alot of water during the day. Overall, Mr. Hernandez appears quite well. I did review with him that his symptoms do not seem worrisome. I advised him that the negative colonoscopy 2 years ago and a normal rectal exam he had with you just 3 months ago is all very reassuring. I advised him that this sounds like some mild rectal spasm. I also advised him that this could be reflective of perhaps a small fissure that develops when he is straining and he is having some residual discomfort from that. However, I advised him that I do not think he needs any type of testing nor specific treatment for this at this time. I did review with him that he should definitely avoid constipation and straining. He should continue his senna, but also add fruits and vegetables to his diet along with plenty of water to help avoid constipation. If things remain stable I advised him to see me on a p.r.n. basis. I did advise him to certainly call if he has any problems or questions I can be of assistance with. Mr. Hernandez and Kimberly were very comfortable with this plan. Thank you again for allowing me to participate in Mr. Hernandez's care. I shall continue to keep you advised of his progress as needed. Please do not hesitate to contact me if I can be of any further assistance in the future. Plan Of Treatment Treatment Notes Assessment Notes Rectal discomfort Observe the rectal s ymptoms. Avoid straining and constipation. Eat fruits and vegetables with your pasta and bread!! Drink alot of water during the day. Next Appt Details Follow Up: prn, Reason: Progress Notes * RITO HERNANDEZOB:1940 (83 yo M)Acc No.[id number]:01/03/2024 Progress Notes Patient:?RUSS HERNANDEZ Provider:?Mike Keller MD :1940???Age:83 Y???Sex:Male Roman e:01/03/2024 Address:[address] [place] [address] [place], [id number] Pcp:Quinten Han MD Subjective: * Chief Complaints: * ???Patient presents today fo r rectum pain * HPI: ???incontinence:? I saw Mr. Hernandez in the office today for evaluation of some intermittent rectal discomfort. He was accompanied by Kimberly. ?I last saw Mr. Hernandez in June of 2021, at which time he underwent a colonoscopy with removal of a small tubular adenoma. He was also noted to have some internal hemorrhoids but the exam was otherwise negative. He reports that his bowel movements are fairly regular but he does have some intermittent constipation with straining. He does take daily senna which helps. He has not noticed any hematochezia nor melena. He enjoys a very good appetite and loves his pasta and bread . He denies abdominal pain, jaundice, nor weight loss. He denies any significant heartburn, dysphagia, early satiety, nausea, nor vomiting. ?His only recent issue is that of some intermittent rectal discomfort that he notices when he is sitting. This is intermittent and the last time he noticed it was about 2 weeks ago. He reports that it is not particularly painful, but it is really just a sensation that makes him notice it and had him a little concerned. In reviewing his records he did have an exam with you in September that describes a completely normal rectal exam in your office. ?Of note, he does describe a lot of urinary symptoms consistent with an enlarged prostate with frequent urination and urinating only small amounts. He reports that he does see a urologist for that. * ROS:?General/Constitutional:?Change in appetite?denies.?Chills?denies.?Fatigue?denies.?Ophthalmologic:?Patient denies? Negative..?ENT:?Patient denies?Negative..?Respiratory:?Patient denies?No coughing/hemoptysis..?Cardiovascular:?Patient denies? No chest pain/orthopnea..?Gastrointestinal:?Comments?See HPI for details.?Genitourinary:?Patient denies? No dysuria/hematuria..?Musculoskeletal:?Patient denies?Back pain.?Skin:?Patient denies?No rash/pruritus..?Neurologic:?Patient denies? No headaches/seizures..?Psychiatric:?Patient denies?Negative..? * Medical History:? * Surgical History:?Broken leg with pins -right Kidney biopsy * Hospitalization/Major Diagno stic Procedure:?No Hospitalization History. * Family History:?Father: dece ased, diagnosed with HTN (hypertension).?Mother: .? No family history of colon cancer or liver cancer. * Social History:?Tobacco Use:?Tobacco Use/Smoking?Are you a: nonsmoker.?Drugs/Alcohol:?Alcohol Screen?Points: 9, Interpretation: Positive.?Miscellaneous:?Marital status: . Occupation: Retired, but works at [employer] from August-February.. ???Smokes a cigar occasionally; 2 glasses of wine QD, and 2-3 [employer] at the [employer] a few times a week He was born in [place] and came here when he was 19 years old. 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 * Medications:?TakingTylenol P M Extra Strength Amlodipine & Diet Manage Prod 5mg Atorvastatin Calcium 10 MG Tablet 1 tablet Orally Once a dayClobetasol Propionate 0.05 % Gel 1 application to affected area Externally Twice a dayTamsulosin HCl 0.4 MG Capsule 1 capsule 30 minutes after the same meal each day Orally Once a dayOmeprazole 20 MG Capsule Delayed Release 1 capsule Orally Once a dayGabapentin 300 MG Capsule Oral hydroCHLOROthiazide 25 MG Tablet TAKE ONE TABLET BY MOUTH EVERY DAY Oral Timolol Maleate 0.5 % Solution INSTILL ONE DROP IN EACH EYE TWO TIMES A DAY Ophthalmic Pregabalin 150 MG Capsule TAKE ONE CAPSULE BY MOUTH TWICE A DAY Oral Fish Oil 1000 MG Capsule 1 capsule Orally Three times a dayVitamin E Blend 400 UNIT Capsule 1 capsule Orally Once a dayAspirin 81 81 MG Tablet Delayed Release 1 tablet Orally Once a dayTaking Tylenol PM Extra Strength Taking Amlodipine & Diet Manage Prod 5mg Taking Atorvastatin Calcium 10 MG Tablet 1 tablet Orally Once a dayTaking Clobetasol Propionate 0.05 % Gel 1 application to affected area Externally Twice a dayTaking Tamsulosin HCl 0.4 MG Capsule 1 capsule 30 minutes after the same meal each day Orally Once a dayTaking Omeprazole 20 MG Capsule Delayed Release 1 capsule Orally Once a dayTaking Gabapentin 300 MG Capsule Oral Taking hydroCHLOROthiazide 25 MG Tablet TAKE ONE TABLET BY MOUTH EVERY DAY Oral Taking Timolol Maleate 0.5 % Solution INSTILL ONE DROP IN EACH EYE TWO TIMES A DAY Ophthalmic Taking Pregabalin 150 MG Capsule TAKE ONE CAPSULE BY MOUTH TWICE A DAY Oral Taking Fish Oil 1000 MG Capsule 1 capsule Orally Three times a dayTaking Vitamin E Blend 400 UNIT Capsule 1 capsule Orally Once a dayTaking Aspirin 81 81 MG Tablet Delayed Release 1 tablet Orally Once a dayNot-Taking/PRNBiaxin 500 MG Tablet 1 tablet Orally BIDAmoxicillin 500 MG Tablet 2 tablets Orally BIDMedication List reviewed and reconciled with the patientNot-Taking/PRN Biaxin 500 MG Tablet 1 tablet Orally BIDNot-Taking/PRN Amoxicillin 500 MG Tablet 2 tablets Orally BIDMedication List reviewed and reconciled with the patient * Allergies:?N.K.D.A.yes[Aller gies Verified] Objective: * Vitals:?Wt: 194 lbs, Ht: 64 in, BMI:33.30 Index, BP: 000/00 mm Hg, Temp: 97.5. * Examination: ???General Examination: ?GENERAL APPEARANCE:?pleasant, well nourished, well developed, in no acute distress.?EYES:?sclera non-icteric.?ORAL CAVITY:?mucosa moist.?NECK/THYROID:?no cervical lymphadenopathy, neck supple.?SKIN:?nonjaundiced, no spider angiomata..?HEART:?S1, S2 normal.?LUNGS:?clear to auscultation bilaterally.?ABDOMEN:?normal bowel sounds, no guarding or rigidity, no hepatosplenomegaly, no masses palpable, soft, nontender, nondistended..?EXTREMITIES:?no edema.?NEUROLOGIC:?alert and oriented.? Assessment: * Assessment: 1.?Rectal discomfort - K62.8 9 (Primary)? Overall, Mr. Hernandez appears q uite well. I did review with him that his symptoms do not seem worrisome. I advised him that the negative colonoscopy 2 years ago and a normal rectal exam he had with you just 3 months ago is all very reassuring. I advised him that this sounds like some mild rectal spasm. I also advised him that this could be reflective of perhaps a small fissure that develops when he is straining and he is having some residual discomfort from that. However, I advised him that I do not think he needs any type of testing nor specific treatment for this at this time. I did review with him that he should definitely avoid constipation and straining. He should continue his senna, but also add fruits and vegetables to his diet along with plenty of water to help avoid constipation. If things remain stable I advised him to see me on a p.r.n. basis. I did advise him to certainly call if he has any problems or questions I can be of assistance with. Mr. Hernandez and Kimberly were very comfortable with this plan. Thank you again for allowing me to participate in Mr. Hernandez's care. I shall continue to keep you advised of his progress as needed. Please do not hesitate to contact me if I can be of any further assistance in the future. Plan: * Treatment: * Immunizations:? Influenza (Not administered - Refused: Patient decision) * Procedure Codes:?1036F TOBAC CO NON-CREXN9074 BP SCR NOT PRFRM REC REASON NOS * Preventive Medicine:? ??Counseling:?Care goal follow-up plan:?Above Normal BMI Follow-up?Giving encouragement to exercise,?BMI management provided?Yes.? ??Screenings:?Fall Risk Screening?Fall Risk Assessment:?No falls in the past year.? * Follow Up:?prn * * Sign off status: Completed true * Provider:?Mike Keller MD Date:? 024 Generated for Katelyn buchanan/Elida/Dariosmitting on:?09/15/2024 11:41 AM EDT History and Physical Notes * HPI (History of Present Illness) Category Sub-Category Detail Notes Category Not es incontinence I saw Mr. Hernandez in the office today for evaluation of some intermittent rectal discomfort. He was accompanied by Kimberly. I last saw Mr. Hernandez in June of 2021, at which time he underwent a colonoscopy with removal of a small tubular adenoma. He was also noted to have some internal hemorrhoids but the exam was otherwise negative. He reports that his bowel movements are fairly regular but he does have some intermittent constipation with straining. He does take daily senna which helps. He has not noticed any hematochezia nor melena. He enjoys a very good appetite and loves his pasta and bread . He denies abdominal pain, jaundice, nor weight loss. He denies any significant heartburn, dysphagia, early satiety, nausea, nor vomiting. His only recent issue is that of some intermittent rectal discomfort that he notices when he is sitting. This is intermittent and the last time he noticed it was about 2 weeks ago. He reports that it is not particularly painful, but it is really just a sensation that makes him notice it and had him a little concerned. In reviewing his records he did have an exam with you in September that describes a completely normal rectal exam in your office. Of note, he does describe a lot of urinary symptoms consistent with an enlarged prostate with frequent urination and urinating only small amounts. He reports that he does see a urologist for that. Examination Category Sub-Category Detail Notes Category Not es General Examination GENERAL APPEARANCE: pleasant , well nourished, well developed, in no acute distress EYES: sclera non-icteric NECK/THYROID: no cervical lymphade nopathy, neck supple HEART: S1, S2 normal LUNGS: clear to auscultatio n bilaterally ABDOMEN: normal bowel sounds, no guarding or rigidity, no hepatosplenomegaly, no masses palpable, soft, nontender, nondistended. NEUROLOGIC: alert and oriented SKIN: nonjaundiced, no spi ulises angiomata. EXTREMITIES: no edema ORAL CAVITY: mucosa moist
--- OUTSIDE RECORDS SUMMARY | 2024-09-15 11:42 | XMS_ITS ---
Author Organization Quinten Han MD Address [address] [place] [phone] Care Team Providers Care [employer] Teacher Name Role Phone Quinten Han Primary Care Provider REASON FOR VISIT HDF Immunizations Vaccine Route Administration Date Status Comme nts Influenza High Dose IM Intramuscular 01/28/2024 Administer ed Encounters Encounter Location Date Provider Diagnosis Quinten Han MD [address] [place] [phone] 01/28/2024 Quinten Han Encounter for immunization Z23 Assessments Encounter Date Diagnosis (ICD Code) Assessment Notes Treatment Notes Treatment Clinical Notes Section Notes 01/28/2024 Encounter for immunization (ICD-10 - Z23) Plan Of Treatment Next Appt Details Provider Name:Quinten rocha, 09/18/2024 07:30:00 AM, [address], [address] [place] [address], [phone], Provider Name:Quinten Marcos ier, 09/25/2024 09:00:00 AM, [address], [address], [place], [phone], Provider Name:Quinten Marcos ier, 03/23/2025 07:30:00 AM, [address], [address], [place], [phone], Provider Name:Quinten Marcos ier, 03/30/2025 09:30:00 AM, [address], [address], [place], [phone], Progress Notes * RUSS CASTREJON MDOB: 2 (84 yo M)Acc No.[id number]:01/28/2024 Progress Note Patient:?NYDIA CASTREJONLORENZA Lion Provider:?Quinten Han MD :1940???Age:83 Y???Sex:Male Roman e:01/28/2024 Address:[address] [place] [address] [place], [phone] Subjective: * Chief Complaints: * ???1. HDF. * Medical History:? Objective: * Vitals:? Assessment: * Assessment: 1.?Encounter for immunizatio n - Z23 (Primary)??? Plan: * Treatment: * Immunizations:? Influenza High Dose : 0.5 mL (Dose No:1) (Route: Intramuscular) given by Cassidy Ramos , Office Staff on Left Deltoid * Procedure Codes:?36719 FLU V ACC PRSV FREE INC ANTIG, G0008 ADMN FLU VAC NO FEE SCHED SAME DAY * * The named appointment provid er may or may not be the originator of this progress note, and it is not deemed complete until electronically signed by the appointment provider. Sign off status: Pending * Provider:?Quinten Han MD Date:?0 01/28/2024 Generated for [place] ng/Aliag/eTransmitting on:?09/15/2024 11:41 AM EDT
--- OUTSIDE RECORDS SUMMARY | 2024-09-15 11:42 | XMS_ITS | Patient Health Record ---
Author Organization Quinten Han MD Address [address] [place], [place] [id number] Care Team Providers Care Mannequin Mold Maker Name Role Phone Quinten Han Primary Care Provider [phone] Allergies Allergen (clinical drug ingredient) Drug/Non Drug Allergy documented on EMR Reaction Allergy Type Onset Date Status ibuprofen Ibuprofen hallucinating Drug Allergy Act eddie Results Component Value Reference Range Notes Liver Panel Reviewed date:09/17/2023 12:39:04 PM Interpretation: Performing Lab:[facility], [address] [place] [phone] Notes/Report: Bilirubin Total 0.5 0.0-1.0 mg/dL Bilirubin Direct 0.2 0.0-0.5 mg/dL Aspartate Amino Transferase 27 5-37 U/L Alanine Aminotransferase 36 0-40 U/L Total Protein 6.4 6.5-8.0 g/dL Albumin Level 4.0 3.5-5.0 g/dL Alkaline Phosphatase 91 39-117 U/L Lipid Panel with Reflex Reviewed date:09/17/2023 12:44:51 PM Interpretation: Performing Lab:[facility], [address] [place] [phone] Notes/Report: Triglycerides 61 <150 mg/dL Desirable Triglyceride: less than 150 mg/dL Borderline High Triglyceride 150-199 mg/dL High Triglyceride: 200-499 mg/dL Very High Triglyceride: greater than or equal to 5OO mg/dL Cholesterol 174 <200 mg/dL Desirable Cholesterol: less than 200 mg/dL Borderline High Cholesterol: 200-239 mg/dL High Cholesterol: greater than 239 mg/dL LDL Cholesterol Calculated 101 <100 mg/dL Desirable LDL: less than 100 mg/dL Near Optimal/Above Optimal LDL: 110-129 mg/dL Borderline High LDL: 130-159 mg/dL High LDL: 160-189 mg/dL Very High LDL: greater than or equal to 190 mg/dL HDL Cholesterol 61 >40 mg/dL Desirable HDL: greater than 40 mg/dL Note: This HDL assay may give artificially low results in patients with liver disease. Complete Blood Count Auto Di ff Reviewed date:03/24/2024 12:32:57 PM Interpretation: Performing Lab:[facility], [address] [place] [phone] Notes/Report: White Blood Count 6.3 4.8-10.8 X10*3/uL [...] NRBC Abs Auto 0.000 0.0-0.012 X10*3/uL Comprehensive [place]. Panel Fa Reviewed date:03/24/2024 12:32:05 PM Interpretation: Performing Lab:[address] [phone] Notes/Report: Sodium 143 135-145 mmol/L Potassium 3.4 [...] Panel Reviewed date:03/24/2024 12:32:29 PM Interpretation: Performing Lab:[facility], [address] [place] [phone] Notes/Report: Triglycerides 82 <150 mg/dL Desirable Triglyceride: [...] (Free>4and<10) Reviewed date:03/24/2024 12:31:46 PM Interpretation: Performing Lab:[address] [phone] Notes/Report: PSA,Total (Free>4and<10) < 0.10 0.00-4.00 ng/mL [...] t Reviewed date:03/24/2024 12:47:18 PM Interpretation: Performing Lab:[address] [phone] Notes/Report: [id number] Urine, Clean Catch Color Urine Yellow Appearance Urine Clear PH 8.0 5.0-9.0 Glucose Urine UA Negative Negative mg/dL Urine Blood Negative Negative Specific [place] - Urine 1.015 1.005-1.025 Urine Protein Negative Neg-Trace mg/dL Urine Ketones Negative Negative mg/dL Nitrite Urine Negative Negative Leukocyte Esterase Urine Trace Negative RBC Urine 0-2 0-2 /HPF WBC Urine 0-5 0-5 /HPF Squamous Epithelial Cell Urine 0-2 0-2 /HPF Bacteria Urine None Seen None Seen Hyaline Casts Urine 0-2 0-2 /LPF Occult Blood, Stool, Guaiac Reviewed date:03/28/2024 10:26:17 AM Interpretation:Negative Performing Lab: Notes/Report: Negative Occult Blood, Stool, Guaiac Neg Hold Red Reviewed date:09/17/2023 12:41:58 PM Interpretation: Performing Lab:[facility], [address] [place] [phone] Notes/Report: Hold Red See Note Specimen held untested for 24 hours; Call to request Chemistry testing. Reason For Referral Reason Rectum pain Diagnosis 1 Rectum pain (K62.89) Referral Organization Quinten Han MD Referring Provider First Name Quinten Referring Provider Last Name Guille Referring Provider Speciality Internal M edicine Referred Provider Mike Monge Referred Provider Specialty Gastroentero logy General Notes Kamilah Hugo 01:24:13 PM EDT > info faxed Oanh Annette 10/09/2023 02:17:15 PM EDT > info mailed to patient Referral Priority Routine Referral Appointment Date 01/03/2024 Reason Sciatica of right si de Diagnosis 1 Sciatica of right si de (M54.31) Referral Organization Quinten Han MD Referring Provider First Name Quinten Referring Provider Last Name Guille Referring Provider Speciality Internal M edicine Referred Provider Mak Ordonez Referred Provider Specialty Pain Medicin e General Notes Kamilah Hugo 10:15:15 AM EST > [place] office [phone] Annette 04/01/2024 02:23:45 PM EST > info faxed [phone] Annette 04/15/2024 10:37:45 AM EST > called pain med patient [facility] needs to call for his assesment then he needs to call with his appt. Patient will be calling to make his own appt , Beth Hugoette 04/24/2024 12:59:18 PM EST > spoke with office patient still has not called info refaxed to , Kamilah Hugo 06/06/2024 02:47:45 PM > spoke with patient he no longer wishes to go there Referral Priority Routine Medications Medication SIG (Take, Route, Frequency, Duration) Notes Start Date End Date Status Aspir-Low 81 MG 1 tablet Orally Once a day for 30 day(s) Active Senna 30 MG Orally Active Finasteride 5 1 tablet Orally Once a [...] BY MOUTH TWICE A DAY for 90 08/01/2024 Active amLODIPine Besylate 5 MG TAKE ONE TABLET BY MOUTH EVERY DAY for 90 Active Atorvastatin Calcium 20 MG TAKE ONE TABL ET BY MOUTH EVERY DAY for 90 Active Tamsulosin HCl 0.4 MG TAKE 1 CAPSULE ONC E DAILY 30 MINUTES AFTER THE SAME MEAL EACH DAY Active hydroCHLOROthiazide 25 MG TAKE ONE TABLE T BY MOUTH ONCE DAILY for 90 Active Immunizations Vaccine Route Administration Date Status Comme nts DECLINED, FLU Unknown 03/10/2013 Administered Fluarix Quadrivalent IM Intramuscular 03/08/2017 Administe red PPSV23 (Pnemovax) IM Intramuscular 04/12/2017 Administered Shingrix IM Intramuscular 07/26/2017 Administered pt was given the vaccine at [facility] in [place]. Influenza High Dose IM Intramuscular 03/07/2018 Administer ed Prevnar 13 IM Intramuscular 08/12/2018 Administered Shingrix IM Intramuscular 09/24/2017 Administered pt was given the vaccine at [facility] in [place]. Shingles Unknown 09/24/2017 Administered Influenza High Dose IM Intramuscular 03/14/2019 Administer ed Influenza High Dose Unknown 02/07/[address] [facility] SARS-COV-2 Pfizer Unknown 07/07/2020 Administered SARS-COV-2 Pfizer Unknown 08/08/2020 Administered Influenza High Dose IM Intramuscular 01/31/2021 Administer ed SARS-COV-2 Pfizer Unknown 04/07/2021 Administered Influenza High Dose IM Intramuscular 02/02/2022 Administer ed PPSV23 (Pnemovax) IM Intramuscular 08/03/2022 Administered Influenza High Dose IM Intramuscular 01/12/2023 Administer ed Influenza High Dose IM Intramuscular 01/28/2024 Administer ed Flu Vaccine Unknown 03/02/2014 Refused PPSV23 (Pnemovax) Unknown 03/02/2014 Refused PPSV23 (Pnemovax) Unknown 06/25/2014 Refused Flu Vaccine Unknown 01/21/2015 Refused Fluarix Quadrivalent Unknown 01/06/2016 Refused Fluarix Quadrivalent Unknown 02/15/2017 Refused Social History Tobacco Use: Social History Observation [...] 1 Interpretation Negative Section Notes: Cigar occasionally Cigar occasionally Cigar occasionally Cigar occasionally Cigar occasionally Cigar occasionally Cigar occasionally Cigar occasionally Cigar occasionally Cigar occasionally Cigar occasionally Cigar occasionally Cigar occasionally Cigar occasionally Cigar occasionally Cigar occasionally Cigar occasionally Cigar occasionally Cigar occasionally Cigar occasionally Problems Problem Type SNOMED Code ICD Code Onset Dates Problem Status W/U Status Risk Notes Problem Lesion of vertebra (02406579194648) Lesion of vertebra (733.90) Active confirmed Problem 373909351 Neuropathy (G62.9) Active confirmed Problem 94745252 Prostatism (N40.0) Active confirmed Problem 10817785 Carpal tunnel syndrome, right upper limb (G56.01) Active confirmed Problem 25904703 Essential hypert ension (I10) Active confirmed Problem 638398815 Prostate cancer (C61) Active confirme d Problem 664835045 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) Active confirmed Problem 910553941 Mild aortic sten osis (I35.0) Active confirmed Problem 704417192 Renal cancer, unspecified laterality (C64.9) Active confirmed Problem 16213893 Carpal tunnel sy ndrome of right wrist (G56.01) Active confirmed Problem 22493343 Oropharyngeal dysphagia (R13.12) Active confirmed Problem 37521088 Meralgia paraesthetica, 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) Active confirmed Problem 98450994 Sciatica of righ t side (M54.31) Active confirmed Problem 114869368 Pure hypercholesterolemia (E78.00) Active confirmed Problem 741975478 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) Active confirmed Problem 72943944 Hypercholesterol emia (E78.00) Active confirmed Problem 6211893360438098 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) Active confirmed Problem 920288304 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) Active confirmed Problem Computed tomography result abnormal (082903494) Abnormal CAT scan (R93.89) Active confirmed Vital Signs Blood pressure diastolic 74 mm Hg 03/28/2024 Height 64 in 03/28/2024 Blood pressure systolic 110 mm Hg 03/28/2024 Weight 197 lbs 03/28/2024 BMI 33.81 kg/m2 03/28/2024 Encounters Encounter Location Date Provider Diagnosis Quinten Han MD [address] [place] [id number] 09/17/2023 Quinten Han Pure hypercholestero lemia E78.00 Quinten Han MD [address] [place] [id number] 01/28/2024 Quinten Han Encounter for immuni zation Z23 Quinten Han MD [address] [place] [id number] 03/24/2024 Quinten Han Essential hypertensi on I10 ; Prostatism N40.0 ; Pure hypercholesterolemia E78.00 and Hypercholesterolemia E78.00 Quinten Han MD [address] [place] [id number] 09/25/2023 Quinten Han Neuropathy G62.9 and Rectum pain K62.89 Quinten Han MD [address] [place] [id number] 03/28/2024 Quinten Han Prostate cancer C61 ; Sciatica of right side M54.31 ; Mild aortic stenosis I35.0 ; Essential hypertension I10 ; Pure hypercholesterolemia E78.00 ; Depression screening Z13.31 and Colon cancer screening Z12.11 Quinten Han MD [address] [place], [place] [id number] 11/01/2023 Quinten Han Pure hypercholestero lemia E78.00 Assessments Encounter Date Diagnosis (ICD Code) Assessment Notes Treatment Notes Treatment Clinical Notes Section Notes 09/17/2023 Pure hypercholesterolemia (ICD-10 - E78.00) 01/28/2024 Encounter for immunization (ICD-10 - Z23) 03/24/2024 Essential hypertensi on (ICD-10 - I10) 03/24/2024 Prostatism (ICD-10 - N40.0) 09/25/2023 Neuropathy (ICD-10 - G62.9) gets discomfort in feet and lateral thighs.will continue to monitor 09/25/2023 Rectum pain (ICD-10 - K62.89) referral to dr monge 03/28/2024 Prostate cancer (ICD -10 - C61) no sign of recurrence, will continue to monitor 03/28/2024 Sciatica of right si de (ICD-10 - M54.31) needs to go back to dr walter. got frustrated with waiting and left his appointment 11/01/2023 Pure hypercholesterolemia (ICD-10 - E78.00) 03/24/2024 Pure hypercholesterolemia (ICD-10 - E78.00) 03/28/2024 Mild aortic stenosis (ICD-10 - I35.0) followed by dr haque. is mild 03/24/2024 Hypercholesterolemia (ICD-10 - E78.00) 03/28/2024 Essential hypertensi on (ICD-10 - I10) stable, will continue current regiment 03/28/2024 Pure hypercholesterolemia (ICD-10 - E78.00) stable, will continue current regiment 03/28/2024 Depression screening (ICD-10 - Z13.31) negative screen 03/28/2024 Colon cancer screeni ng (ICD-10 - Z12.11) guaiac negative Plan Of Treatment Pending Test Test Name Order Date HEPATIC FUNCTION PANEL 11/23/2011 BUN/CREATININE RATIO 11/23/2011 CREATININE 11/23/2011 MRI LUMBAR SPINE NO CONTRAST 12/12/2022 XR CHEST 2 VIEW PA & LAT 01/31/2021 US ABD 12/12/2022 ECHO 12/05/2012 NM bone scan whole body 06/20/2021 NM bone scan whole body 05/30/2021 US carotid duplex BI 02/02/2022 Future Test Test Name Order Date CT ABD & PELVIS WWO CONTRAST 07/26/2020 Next Appt Details Provider Name:Quinten Marcos ier, 09/18/2024 07:30:00 AM, [address] [place] [address], [address], [place], [place], [id number], Provider Name:Quinten Marcos ier, 09/25/2024 09:00:00 AM, [address] [place] [address], [address], [place], [place], [phone], Provider Name:Quinten Marcos ier, 03/23/2025 07:30:00 AM, [address] [place] [address], [address], [place], [place], [phone], Provider Name:Quinten Marcos ier, 03/30/2025 09:30:00 AM, [address] [place] [address], [address], [place], [place], [phone], Insurance Providers Payer Name Payer Address Payer Phone Subscriber Number Group Number Insured Name Patient Relationship to Insured Coverage Start Date Coverage End Date [employer] [address] [place] [address] [id number] LUCÍA NYDIALORENZA Self - patient is the insured [address] [facility] [address] [place], [place] [id number] LUCÍA NYDIALORENZA Self - patient is the insured Medical (General) History Medical History History ICD Code biopsy of prostate over 5 years on bical utamide which is cassodex colonoscopy in past. Colonos copy done 03/24/2013 - no further testing required per Dr. Monge. Colonoscopy 06/20/21 no more
--- OUTSIDE RECORDS SUMMARY | 2024-09-15 11:43 | XMS_ITS | Clinical Summary ---
Author Organization [facility] Address [address] [id number] Care Team Providers Care Archivist Military History Name Role Phone Quinten Han MD Primary Care Provider [phone] Allergies No known active allergies Medications Medication Sig Dispensed Refills Start Date End Date Status tamsulosin (FLOMAX) 0.4 MG CAPS Take 1 capsule (0.4 mg total) by mouth daily. 0 Active senna (SENOKOT) 8.6 MG tablet Take 1 tablet by mouth daily. 0 Active amLODIPine (NORVASC) tablet 5 mg Take 1 tablet (5 mg total) by mouth daily. 0 Active hydroCHLOROthiazide (HYDRODIURIL) tablet 25 mg Take 1 tablet (25 mg total) by mouth daily. 0 Active aspirin EC 81 MG tablet Take 1 tablet (81 mg total) by mouth daily. 0 Active pregabalin (LYRICA) capsule 150 mg Take 1 capsule (150 mg total) by mouth 2 (two) times a day. 0 Active atorvastatin (LIPITOR) tablet 20 mg Take 1 tablet (20 mg total) by mouth daily. 0 Active [place]-3 Fatty Acids (FISH OIL PO) Take by mouth. 0 Active VITAMIN E PO Take by mouth. 0 Active Active Problems Problem Noted Date Diagnosed Date Prostate cancer 12/18/2021 Abnormal radionuclide bone scan 08/01/2021 Family History Medical History Relation Name Comments Cancer Father Relation Name Status Comments Father Mother Social History Tobacco Use Types Packs/Day Years Used Date Smoking Tobacco: Never Smokeless Tobacco: Never Alcohol Use Standard Drinks/Week Comments Yes 1 (1 standard drink = 0.6 oz pur e alcohol) Sex and Gender Information Value Date Recorded Sex Assigned at Not on file Gender Identity Not on file Sexual Orientation Not on file Job Start Date Occupation Industry Not on file Not on file Not on file Last Filed Vital Signs Vital Sign Reading Time Taken Comments Blood Pressure 131/57 02/08/2024 10:09 AM EDT Pulse 87 02/08/2024 10:09 AM EDT Temperature 36.3 ??C (97.4 ??F) 02/08/2024 10:09 AM E DT Respiratory Rate - - Oxygen Saturation 99% 02/08/2024 10:09 AM EDT Inhaled Oxygen Concentration - - Weight 88.5 kg (195 lb) 02/08/2024 10:09 AM EDT Height 162.6 cm (5' 4 ) 02/08/2024 10:09 AM EDT Body Mass Index 33.47 02/08/2024 10:09 AM EDT Plan of Treatment Health Maintenance Due Date Last Done Comments COVID-19 Vaccine (#1) 1945 Pneumococcal Vaccine (1 of 2 - PCV) 02/12/1948 Depression Screening 1954 BMI Counseling 02/12/1960 Preventative Health Evaluation 02/12/1960 DTap / Tdap / Td (1 - Tdap) 1961 Shingrix-Zoster Vaccine (1 of 2) 1961 Fall Risk Assessment 2007 RSV Adult > 60+ Yrs or Pregn ant (1 - 1-dose 75+ series) 2017 Influenza Vaccine Completed 01/28/2024 Hepatitis B Vaccines Aged Out No long er eligible based on patient's age to complete this topic RSV Ped < 20 months Aged Out No longe r eligible based on patient's age to complete this topic Care Teams Archivist Military History Relationship Specialty Start Date End Date Quinten Han MD [address] [place] [address] Drive [address] [place] [address] PCP - General Internal Medicine 10/19/16
--- OUTSIDE RECORDS SUMMARY | 2024-09-15 11:43 | XMS_ITS | Patient Health Record ---
Author Organization [facility] Address [address] [place] [address] Care Team Providers Care Overcoiler Name Role Phone Quinten Han MD Primary Care Provider Mike Wallace Unavailable [phone] Allergies No Known Allergies Reason For Referral No Information Medications Medication SIG (Take, Route, Frequency, Duration) Notes Start Date End Date Status Omeprazole 20 MG 1 capsule Orally Once a day for 90 days Active Tamsulosin HCl 0.4 MG 1 capsule 30 minut es after the same meal each day Orally Once a day Active Clobetasol Propionate 0.05 % 1 applicati on to affected area Externally Twice a day Active Aspirin 81 81 MG 1 tablet Orally Once a day for 30 day(s) 01/03/2024 Active Atorvastatin Calcium 10 MG 1 tablet Oral ly Once a day Active Vitamin E Blend 400 UNIT 1 capsule Orall y Once a day for 30 day(s) 01/03/2024 Active Amlodipine & Diet Manage Prod 5mg Active Fish Oil 1000 MG 1 capsule Orally Three times a day for 30 day(s) 01/03/2024 Active Tylenol PM Extra Strength Active Pregabalin 150 MG TAKE ONE CAPSULE BY MOUTH TWICE A DAY Oral for 90 Active Timolol Maleate 0.5 % INSTILL ONE DROP I N EACH EYE TWO TIMES A DAY Ophthalmic for 60 Active hydroCHLOROthiazide 25 MG TAKE ONE TABLE T BY MOUTH EVERY DAY Oral for 90 Active Amoxicillin 500 MG 2 tablets Orally BID for 10 days 12/30/2013 Not-Taking Biaxin 500 MG 1 tablet Orally BID for 10 days 12/30/2013 Not-Taking Gabapentin 300 MG Oral for 30 Active Immunizations Vaccine Route Administration Date Status Comme nts Influenza Unknown 11/30/2020 Refused Influenza Unknown 01/03/2024 Refused Problems Problem Type SNOMED Code ICD Code Onset Dates Problem Status W/U Status Risk Notes Problem 2031651 Helicobacter pylori (H. 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) Active confirmed Problem Rectal discomfor t (K62.89) Active confirmed Problem Diverticulosis of colon (590093125) Diverticulosis of colon (K57.30) Active confirmed Vital Signs Temperature 97.5 degrees Fahrenheit 01/03/2024 Blood pressure diastolic 00 mm Hg 01/03/2024 Height 64 in 01/03/2024 Blood pressure systolic 000 mm Hg 01/03/2024 Weight 194 lbs 01/03/2024 BMI 33.30 kg/m2 01/03/2024 Encounters Encounter Location Date Provider Diagnosis [facility] [address] [place] [address] 01/03/2024 Mike Keller Rectal discomfort K62.89 Assessments Encounter Date [...] assistance in the future. Plan Of Treatment Pending Test Test Name Order Date CHEM 7 PROFILE 05/31/2021 IRON + IBC (FE) 05/31/2021 VITAMIN B12 AND FOLATE 05/31/2021 CBC w DIFF 05/31/2021 CT ABD & PELVIS WITH CONTRAST 05/31/2021 Future Test Test Name Order Date UPPER GI ENDOSCOPY 03/04/2015 COLONOSCOPY 06/14/2021 Insurance Providers Payer Name Payer Address Payer Phone Subscriber Number Group Number Insured Name Patient Relationship to Insured Coverage Start Date Coverage End Date MEDICARE OF [place] [address] [place] [address] [phone] [id number] RUSS HERNANDEZ Self - patient is the insured [facility] [address] [place] [address] [id number] RUSS HERNANDEZ Self - patient is the insured Medical (General) History Medical History History ICD Code HTN Denies [place],DM,CVA,Lung disease,renal dise ase BPH--he describes a possible prostate bi opsy in the past Hyperlipidemia Right 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 Raman Caballero() and Dr. Ku(Oncology)-- he has apparently had a negative workup for metastatic disease, including a PET-CT scan--he had cryosurgery with IR at [facility] in 04/2014--describes a CT scan in 12/2014 as looking OK --abnormal bone scan in the spine--had a negative biopsy after that Negative colonoscopy in 03/2013 for eval . of Heme + stool EGD in 12/2013--small hiatal hernia, gastric ulcer, gastritis, H.pylori--treated with Omeprazole, Biaxin, and Amoxicillen A F/U EGD in 2014 was negative for ulcer and H.pylori Mesenteric adenitis describe d on CAT scans in 2016, 2018, and 2020--- but there were no pathologically enlarged lymph nodes and no changes on the serial CT scans Colonoscopy in 06/2021 reveal ed only a small tubular adenoma and internal hemorrhoids Surgical History Surgery Date(Month/Year) Broken leg with pins -right Kidney biopsy
--- OUTSIDE RECORDS SUMMARY | 2024-09-15 11:43 | XMS_ITS ---
Author Organization Quinten Han MD Address [address] [place], [place] [id number] Care Team Providers Care Painter Helper Name Role Phone Quinten Han Primary Care [...] General Notes Oanh,Kamilah 10:15:15 AM EST > [place] office [phone] Kamilah Hugo 04/01/2024 02:23:45 PM EST > info faxed [phone] Annette 04/15/2024 10:37:45 AM EST > called [...] Problem Status W/U Status Risk Notes Problem [id number] Mild aortic stenosis (I35.0) Active confirmed Vital Signs Blood pressure systolic 110 mm Hg 03/28/20 24 Blood pressure diastolic 74 mm Hg 024 Height 64 in 03/28/2024 Weight 197 lbs 03/28/2024 BMI 33.81 kg/m2 03/28/2024 Encounters Encounter Location Date Provider Diagnosis Quinten Han MD [address] [facility] [address] [place], [place] [phone] 03/28/2024 Quinten Han Prostate cancer C61 ; [...] 6 Months, Reason: Provider Name:Quinten Marcos ier, 09/18/2024 07:30:00 AM, [address] [place] [address], [address] [place] [address], [phone], Provider Name:Quinten Marcos ier, 09/25/2024 09:00:00 AM, [address] [place] [address], Suite [facility], [place], [place], [phone], Provider Name:Quinten Marcos ier, 03/23/2025 07:30:00 AM, [address] [place] [address], [place] [address], [place], [place], [phone], Provider Name:Quinten Marcos ier, 03/30/2025 09:30:00 AM, [address] [place] [address], [place] [address], [place], [place], [phone], Progress Notes * RUSS CASTREJON MDOB: 2 (84 yo M)Acc No.[id number]:03/28/2024 Patient:?RUSS CASTREJON Provider:?Quinten Han MD :1940???Age:84 Y???Sex:Male Roman e:03/28/2024 Address:[address] [id number] Subjective: * Chief Complaints: * ???Comp visit * HPI: ???Depression Screening:?PHQ-9?Little interest or pleasure in doing things?Not at all,?Feeling down, depressed, or hopeless?Not at all,?Trouble falling or staying asleep, or sleeping too much?Not at all,?Feeling tired or having little energy?Not at all,?Poor appetite or overeating?Not at all,?Feeling bad about yourself or that you are a failure, or have let yourself or your family down?Not at all,?Trouble concentrating on things, such as reading the newspaper or watching television?Not at all,?Moving or speaking so slowly that other people could have noticed; or the opposite, being so fidgety or restless that you have been moving around a lot more than usual?Not at all,?Thoughts that you would be better off or of hurting yourself in some way?Not at all,?Total Score?0.?Interpretation and Intervention?Depression Screening Findings?Negative,?Follow-Up for Depression?: review of PHQ-9 found negative result, no follow-up needed.? patient is a 84 yo male here for review of recent labs and follow up pf chronic issues, has burning sensation in legs and had injections with no help. ???Communication Needs:?Communication Needs?Does the patient have a hearing impairment?No,?Does the patient have a vision impairment??Yes,?If yes, what is the vision impairment??Glasses,?Does the patient have a cognition impairment??No.?Fall Risk:?History?Have you had any falls with injury in the past year??No,?Have you had two or more falls in the past year??No.?SDOH Questions:?SDOH Questions?In the past year have you been worried about losing housing??No,?In the past year have you or any family members you live with been unable to get any of the following when it was really needed? Check all that apply:?None.? * ROS:?General/Constitutional:?Patient denies?chills , fatigue , fever , headache.?Change in appetite?denies.?Chills?denies.?Fever?denies.?Ophthalmologic:?Blurred vision?denies.?Discharge?denies.?Pain?denies.?ENT:?Patient denies?decreased sense of smell , any loss of taste , sore throat.?Decreased hearing?denies.?Sore throat?denies.?Swollen glands?denies.?Endocrine:?Cold intolerance?denies.?Excessive thirst?denies.?Heat intolerance?denies.?Weight loss?denies.?Respiratory:?Cough?denies.?Shortness of breath at rest?denies.?Shortness of breath with exertion?denies.?Wheezing?denies.?Cardiovascular:?Chest pain at rest?denies.?Chest pain with exertion?denies.?Irregular heartbeat?denies.?Shortness of breath?denies.?Gastrointestinal:?Abdominal pain?denies.?Change in bowel habits?denies.?Diarrhea?denies.?Nausea?denies.?Rectal bleeding?denies.?Vomiting?denies .?Genitourinary:?Blood in urine?denies.?Difficulty urinating?denies.?Frequent urination?denies.?Musculoskeletal:?Patient denies?muscle aches.?Painful joints?denies.?Weakness?denies.?Peripheral Vascular:?Patient denies?red and blue toes.?Skin:?Dry skin?denies.?Itching?denies.?Denies?Mole(s),? changes in moles, new moles or any lesions of concern.?Denies?Photosensitivity.?Rash?denies.?Neurologic:?Dizziness?denies.?Fainting?denies.?Headache?denies.? * Medical History:? * Surgical History:? * Hospitalization/Major Diagno stic Procedure:? * Family History:?Father: dece ased 68 yrs.?Mother: 81 yrs.?5 brother(s) , 2 sister(s) . .? Father- lung cancer Mother-Natural causes 1 brother-48- Cancer, Denies mental health/substance abuse family history, No pertinent family medical history, No pertinent family medical history. * Social History:?Tobacco Use:?Tobacco Use/Smoking?Patient is a?nonsmoker,?Additional Findings: Tobacco Non-User?Current non-smoker, currently using no form of tobacco.?Drugs/Alcohol:?Alcohol Screen?Did you have a drink containing alcohol in the past year??Yes,?How often did you have a drink containing alcohol in the past year??Monthly or less (1 point),?How many drinks did you have on a typical day when you were drinking in the past year??1 or 2 drinks (0 point),?How often did you have 6 or more drinks on one occasion in the past year??Never (0 point),?Points?1,?Interpretation?Negative.?Miscellaneous:?Caffeine: yes, frequency:, 1-2 cups per day. Children: yes. Exercise: yes, walks a couple times a week, 2 miles. Home smoke detector use: yes. Housing: renting. Living with: significant other. Marital status: single. Pets: none. no Travel outside of the [place]. ???Cigar occasionally. * Medications:?TakingAspir-Low 81 MG Tablet Delayed Release 1 tablet [...] reviewed and reconciled with the patient * Allergies:?Ibuprofen: halluc inatingyes[Allergies Verified] Objective: * Vitals:?Ht: 64, Wt:197, BMI: 33.81, BP:110/74, Wt-k.36. * ???Past Orders: ???Lab:Lipid Panel (Order Da te - 03/24/2024) (Collection Date - 03/24/2024) ? Value Reference Range ?Triglycerides 82 <150 - mg/dL ?Cholesterol 144 <200 - m g/dL ?LDL Cholesterol Calculated 78 <100 - mg/dL ?HDL Cholesterol 50 >40 - mg/dL ???Lab:PSA,Total (Free>4and< 10) (Order Date - 03/24/2024) (Collection Date - 03/24/2024) ? Value Reference Range ?PSA,Total (Free>4and<10) < 0.10 0.00-4.00 - ng/mL ???Lab:UA ClnCatch+Micro w/r flx Cult (Order Date - 03/24/2024) (Collection Date - 03/24/2024) ? Value Reference Range ?Color Urine Yellow - ?Appearance Urine Clear - ?PH 8.0 5.0-9.0 - ?Glucose Urine UA Negative Neg ative - mg/dL ?Urine Blood Negative Negative - ?Specific [place] - Urine 1.015 1.005-1.025 - ?Urine Protein Negative Neg-Tr elias - mg/dL ?Urine Ketones Negative Negati ve - mg/dL ?Nitrite Urine Negative Negati ve - ?Leukocyte Esterase Urine Trace A Negative - ?RBC Urine 0-2 0-2 - /HPF ?WBC Urine 0-5 0-5 - /HPF ?Squamous Epithelial Cell Urine 0-2 0-2 - /HPF ?Bacteria Urine None Seen None Seen - ?Hyaline Casts Urine 0-2 0-2 - /LPF ???Lab:Complete Blood Count Auto Diff (Order Date - 03/24/2024) (Collection Date - 03/24/2024) ? Value Reference Range ?White Blood Count 6.3 4. 8-10.8 - X10*3/uL ?Red Blood Count 4.71 4.60 -5.80 - X10*6/uL ?Hemoglobin 13.7 L 14.0-18.0 - g/dl ?Hematocrit 43.4 42.0-52.0 - % ?Mean Corpuscular Volume 92.1 80.0-98.0 - fL ?Mean Corpuscular Hemoglobin 29.1 27.0-33.0 - pg ?Mean Corpuscular HGB Conc 31.6 31.0-36.0 - g/dl ?Red Cell Distribution Width 14.2 11.0-16.0 - % ?Platelet Count 197 160-4 00 - X10*3/uL ?Mean Platelet Volume 11.2 9.4-12.4 - fL ?Neutrophils Percent Auto 64.2 45-73 - % ?Imm Gran Pct Auto 0.3 0. 0-0.4 - % ?Lymphocytes Percent Auto 24.4 20-40 - % ?Monocytes Percent Auto 8.1 2-11 - % ?Eosinophils Percent Auto 2.4 0-4 - % ?Basophils Percent Auto 0.6 0-2 - % ?NRBC Pct Auto 0.0 0.0-0. 2 - /100WBC ?Neutrophils Absolute Auto 4.1 2.0-8.3 - x10*3/uL ?Imm Gran Abs Auto 0.02 0. 00-0.03 - X10*3/uL ?Lymphocytes Absolute Auto 1.5 1.2-4.9 - X10*3/uL ?Monocytes Absolute Auto 0.5 0.1-1.2 - X10*3/uL ?Eosinophils Absolute Auto 0.2 0.0-0.4 - X10*3/uL ?Basophils Absolute Auto 0.0 0.0-0.2 - X10*3/uL ?NRBC Abs Auto 0.000 0.0-0. 012 - X10*3/uL ???Lab:Comprehensive [place]. [place] Fast (Order Date - 03/24/2024) (Collection Date - 03/24/2024) ? Value Reference Range ?Sodium 143 135-145 - mmo l/L ?Bilirubin Total 0.6 0.0- 1.0 - mg/dL ?Aspartate Amino Transferase 24 5-37 - U/L ?Alanine Aminotransferase 16 0-40 - U/L ?Total Protein 6.2 L 6.5-8. 0 - g/dL ?Albumin Level 3.9 3.5-5. 0 - g/dL ?Alkaline Phosphatase 83 39-117 - U/L ?Potassium 3.4 3.3-5.1 - mmol/L ?Chloride 100 96-108 - mm ol/L ?Carbon Dioxide 36 H 22-29 - mmol/L ?Anion Gap 10 L 12-20 - ?Blood Urea Nitrogen 8 L 9-16 - mg/dL ?Creatinine 0.73 0.5-1.4 - mg/dL ?Estimated Glomerular Filt Rate > 60 - ?Glucose Fasting 125 H 60-9 9 - mg/dL ?Calcium 8.9 8.4-10.2 - m g/dL * Examination: ???General Examination: ?GENERAL APPEARANCE:?well developed, well nourished, in no acute distress.?HEAD:?normocephalic, atraumatic.?EYES:?pupils equal, round, reactive to light and accommodation, sclera non-icteric.?EARS:?normal.?ORAL CAVITY:?mucosa moist.?THROAT:?clear.?NECK/THYROID:?neck supple, full range of motion, no cervical lymphadenopathy, no bruits.?SKIN:?warm and dry, no suspicious lesions.?HEART:?regular rate and rhythm, S1, S2 normal, no murmurs.?LUNGS:?clear to auscultation bilaterally.?ABDOMEN:?soft, nontender, nondistended, bowel sounds present, normal, no organomegaly , no masses palpable.?RECTAL EXAM:?normal tone, no external hemorrhoids, no masses palpable, prostate normal, stool guaiac negative.?MALE GENITOURINARY:?uncircumcised , no testicular mass , testes descended bilaterally.?EXTREMITIES:?no clubbing, cyanosis, or edema.?NEUROLOGIC:?nonfocal, motor strength normal upper and lower extremities, sensory exam intact.? Assessment: * Assessment: 1.?Prostate cancer - C61 (Pr imary)?2.?Sciatica of right side - M54.31?3.?Mild aortic stenosis - I35.0?4.?Essential hypertension - I10?5.?Pure hypercholesterolemia - E78.00?6.?Depression screening - Z13.31?7.?Colon cancer screening - Z12.11? Plan: * Treatment: 2.?Sciatica of right side? Notes: needs to go back to dr walter. got frustrated with waiting and left his appointment? Referral To:Mak Ordonez??Pain Medicine ?Reason:Sciatica of right side 3.?Mild aortic stenosis? Notes: followed by dr carpenter. is mild?? 4.?Essential hypertension? Notes: stable, will continue current regiment?? 5.?Pure hypercholesterolemia ? Notes: stable, will continue current regiment?? 6.?Depression screening? Notes: negative screen?? 7.?Colon cancer screening?LAB: Occult Blood, Stool, Guaiac?Negative ? Value Reference Range ?Occult Blood, Stool, Guaiac Neg Notes: guaiac negative?? * Procedure Codes:?96874 TEST FOR BLOOD, FECES * Preventive Medicine:? ??Counseling:?Care goal follow-up plan:?Counseling for abnormal BMI provided?Yes,?Above Normal BMI Follow-up?Giving encouragement to exercise.? * Follow Up:?6 Months * * Sign off status: Completed true * Provider:?Quinten Han MD Date:?1 05/28/2023 Generated for Katelyn buchanan/Elida/Jakeitting on:?09/15/2024 11:42 AM EDT History and Physical Notes * [...] patient have a vision impairmen t?: Yes ?If yes, what is the vision impairment?: Glasses Does the patient have a cognition impair ment?: No Examination Category Sub-Category Detail Notes Category Not es General Examination GENERAL APPEARANCE: well dev eloped, well nourished, in no acute distress HEAD: normocephalic, atrau matic EYES: pupils equal, round, reactive to light and accommodation, sclera non- icteric EARS: normal THROAT: clear NECK/THYROID: neck supple, [...]
--- OUTSIDE RECORDS SUMMARY | 2024-09-15 11:43 | XMS_ITS ---
Author Organization Quinten Han MD Address [address] [place], [place] [phone] Care Team Providers Care Automatic Spreader Operator Name Role Phone Quinten Han Primary Care Provider Results Component Value Reference Range Notes Complete Blood Count Auto Di ff Reviewed date:03/24/2024 12:32:57 PM Interpretation: Performing Lab:[facility], [address] [place] [phone] Notes/Report: White Blood Count 6.3 4.8-10.8 X10*3/uL [...] NRBC Abs Auto 0.000 0.0-0.012 X10*3/uL Comprehensive [place]. Panel Fa st Reviewed date:03/24/2024 12:32:05 PM Interpretation: Performing Lab:[facility], [address] [place] [phone] Notes/Report: Sodium 143 135-145 mmol/L Potassium 3.4 [...] Panel Reviewed date:03/24/2024 12:32:29 PM Interpretation: Performing Lab:[facility], [address] [place] [phone] Notes/Report: Triglycerides 82 <150 mg/dL Desirable Triglyceride: [...] (Free>4and<10) Reviewed date:03/24/2024 12:31:46 PM Interpretation: Performing Lab:[facility], [address] [place] [phone] Notes/Report: PSA,Total (Free>4and<10) < 0.10 0.00-4.00 ng/mL [...] t Reviewed date:03/24/2024 12:47:18 PM Interpretation: Performing Lab:[facility], [address] [facility] [place] [phone] Notes/Report: [id number] Urine, Clean Catch Color Urine Yellow Appearance Urine Clear PH 8.0 5.0-9.0 Glucose Urine UA Negative Negative mg/dL Urine Blood Negative Negative Specific [place] - Urine 1.015 1.005-1.025 Urine Protein Negative [...] Location Date Provider Diagnosis Quinten Han MD [address] [place] [phone] 03/24/2024 Quinten Han Essential hypertensi on I10 [...] Details Provider Name:Quinten rocha, 09/18/2024 07:30:00 AM, [address] [place] [address], [address], [phone], Provider Name:Quinten rocha, 09/25/2024 09:00:00 AM, [address] [place] [address], [address], [phone], Provider Name:Quinten rocha, 03/23/2025 07:30:00 AM, [address] [place] [address], [phone], Provider Name:Quinten montaguer, 03/30/2025 09:30:00 AM, [address], [address], [place], [phone], Progress Notes * RUSS CASTREJON MDOB: 2 (84 yo M)Acc No.[id number]:03/24/2024 Progress Note Patient:?RUSS CASTREJON Provider:?Quinten Han MD :1940???Age:84 Y???Sex:Male Roman e:03/24/2024 Address:[address] [place] [address] [place], [id number] Subjective: * Chief Complaints: * ???1. Yearly fasting labs. * Medical History:? Objective: * Vitals:? Assessment: * Assessment: 1.?Essential hypertension - I10 (Primary)???2.?Prostatism - N40.0???3.?Pure hypercholesterolemia - E78.00???4.?Hypercholesterolemia - E78.00??? Plan: * Treatment: 2.?Prostatism?LAB: Complete Blood Count Auto Diff (Collection Date & Time - 03/24/2024 07:45 AM) ?LAB: Comprehensive [place]. Panel Fast (Collection Date & Time - 03/24/2024 07:45 AM) ?LAB: Lipid Panel (Collection Date & Time - 03/24/2024 07:45 AM) ?LAB: PSA,Total (Free>4and<10) (Collection Date & Time - 03/24/2024 07:45 AM) ?LAB: UA ClnCatch+Micro w/rflx Cult (Collection Date & Time - 03/24/2024 07:45 AM) 3.?Pure hypercholesterolemia ?LAB: Complete Blood Count Auto Diff (Collection Date & Time - 03/24/2024 07:45 AM) ?LAB: Comprehensive [place]. Panel Fast (Collection Date & Time - 03/24/2024 07:45 AM) ?LAB: Lipid Panel (Collection Date & Time - 03/24/2024 07:45 AM) ?LAB: PSA,Total (Free>4and<10) (Collection Date & Time - 03/24/2024 07:45 AM) ?LAB: UA ClnCatch+Micro w/rflx Cult (Collection Date & Time - 03/24/2024 07:45 AM) 4.?Hypercholesterolemia?LAB: Complete Blood Count Auto Diff (Collection Date & Time - 03/24/2024 07:45 AM) ?LAB: Comprehensive [place]. Panel Fast (Collection Date & Time - 03/24/2024 07:45 AM) * Procedure Codes:?92185 VENIP UNCT, ROUTINE* * * The named appointment provid er may or may not be the originator of this progress note, and it is not deemed complete until electronically signed by the appointment provider. Sign off status: Pending * Provider:?Quinten Han MD Date:?1 05/24/2023 Generated for Katelyn buchanan/Elida/Jakeitting on:?09/15/2024 11:42 AM EDT
== END 2024-09-15 13:27 | disposition home or self-care (01) ==
LOC: HO.HOS 10:57
PROVIDERS: Visit Provider Physician Assistant
DX: M47.816 Spondylosis without myelopathy or radiculopathy, lumbar region (principal); R20.8 Other disturbances of skin sensation; M51.26 Other intervertebral disc displacement, lumbar region; M54.16 Radiculopathy, lumbar region
CPT/HCPCS: 99203; G2211

== ENCOUNTER 2024-09-15 11:01 | Outpatient (REF) | payer MEDICARE, SELFPAY ==
--- NOTE | ~2024-09-15 | XR_ITS ---
EXAMINATION: XR KNEE 3 VIEWS BILATERAL HISTORY: knee pain COMPARISON: There are no prior studies available for comparison. FINDINGS: Standing AP views of both knees and additional lateral and sunrise patellar views of the both knees are submitted. Osseous mineralization is normal. There is an old fracture deformity of the right tibial metaphysis. There is no acute fracture or dislocation. There is severe tricompartmental osteoarthritis of the right hip with joint space narrowing and osteophyte formation. There is mild osteoarthritis of the medial and patellofemoral compartments of the left knee. There is no joint effusion. There are vascular calcifications. 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 Mild osteoarthritis of the medial and patellofemoral compartments of the left knee. Electronically signed by: Mike Quinonez MD 09/15/2024 12:35 PM EDT
--- OUTSIDE RECORDS SUMMARY | 2024-09-15 11:50 | XMS_ITS | Clinical Summary ---
Author Organization [facility] Address [address] [place] [address] Phone Care Team Providers Care Core Sucker Name Role Phone Quinten Han MD Primary Care Provider [phone] Medications amLODIPine (NORVASC) 5 mg tablet Take 1 tablet (5 mg total) by mouth 1 (one) time each day. Active aspirin 81 mg EC tablet Take 1 tablet (81 mg total) by mouth 1 (one) time each day. Active atorvastatin (LIPITOR) 20 mg tablet Take 1 tablet (20 mg total) by mouth 1 (one) time each day. Active hydroCHLOROthia zide (HYDRODIURIL) 25 mg tablet Take 1 tablet (25 mg total) by mouth 1 (one) time each day. Active omega-3 acid ethyl esters (LOVAZA) 1 gram capsule Take by mouth. Active pregabalin (LYRICA) 150 mg capsule Take 1 capsule (150 mg total) by mouth 2 (two) times a day. Max Daily Amount: 300 mg Active senna (SENOKOT) 8.6 mg tablet Take by mouth. Active tamsulosin (FLOMAX) 0.4 mg 24 hr capsule Take 1 Capsule by mouth daily. Take 30 mins after same meal every day. Active timolol/brimoni din/dorzolam/PF (TIMOLOL-BRIMON IDI-DORZOLAM,PF , OPHT) apply to the eye. Active vitamin E acetate (VITAMIN E ORAL) Take by mouth. Active Active Problems Problem Noted Date Diagnosed Date Malignant neoplasm of prostate ([facility] V24, [facility] V28) 08/08/2024 Lumbar spondylosis 12/20/2023 Overview (04/16/2024): Last Assessment & Plan: Patient describes a constant daily burning sensation in the lateral legs bilaterally, primarily from the knees down to the feet, sometimes the sensation of ants crawling in the lateral hips and thighs. He feels the burning sensation in the lower legs is worse when he is resting, has been getting worse over time. He also has some low back pain, that very is worse in the morning, approximately 7/10, gets better as the day goes on, is better with walking. He stays active. He thinks he recalls an EMG/NCS study about 20 years ago, does not recall hearing diagnosis of neuropathy. He feels symptoms in the legs started after his vascular surgery in the lower legs bilaterally 2017, Dr. Whalen. He saw Dr. Campa years ago, she prescribed gabapentin but he states it did not help him. His PCP switched him to Lyrica, he is currently at 150 mg twice daily, states if he does not take the Lyrica he does see a difference with worsened symptoms. He states Dr. Tucker rx'd a cream to put on his legs but it did not help, he puts a lidocaine cream on his legs every morning. He has been seen at [facility] pain management, is s/p right L5 TFE, L5-S1 JANNIE, but did not see relief with either injection. He states they are talking to him about spinal cord stimulator trial, he is not sure if he wants to try it. Patient had MRI lumbar spine 07/30/2023 at [facility] that showed multilevel degenerative changes, I did not see severe central or foraminal stenosis. Report mentions multilevel facet joint arthrosis mostly unchanged compared to prior MRI 01/05/2023. Disc bulging L4-5, L5-S1, possible small synovial cyst left L5-S1. Radiologist stated he had stable metastatic lesion from prostate cancer left L3 vertebral body encroaching on left L3 pedicle, this was a noncontrasted study. I reviewed imaging with the patient. Mr. Hernandez has bilateral lower leg burning pain, I ordered LE EMG/NCS study to rule out neuropathy. He has 7/10 morning back pain, but overall his back is not his main issue, he is more concerned about the constant daily pain in the legs. I will review his MRI and EMG results with Dr. Campa and call him with an update. Encounters Date Type Department Care Team Description 08/13/2024 Telephone [facility] Hematology Oncology [address] [place] [address] Karma De La Vega [place] 08/08/2024 10:00 AM EDT Office Visit [facility] Hematology Oncology [address] [place] [address] Pia Quinones, Prostate cancer ([facility] V24, [facility] V28) (Primary Dx) from Last 3 Months Medical History Medical History Date Comments Arthritis DX:Arthritis HTN (hypertension) DX:HTN (hyper tension) Heart murmur DX:Heart murmur Leg pain DX:Leg pain Shortness of breath DX:Shortness of breath Joint pain DX:Joint pain History of prostate cancer DX:Hi story of prostate cancer; COMMENT: Treated at [facility], L3 stable met lesion Mixed hyperlipidemia DX:Mixed hy perlipidemia Aortic stenosis DX:Aortic stenos is Hypertension DX:Hypertension Family History Medical History Relation Name Comments Cancer Father Relation Name Status Comments Father Mother Social History Tobacco Use Types Packs/Day Years Used Date Smoking Tobacco: Never Smokeless Tobacco: Never Alcohol Use Standard Drinks/Week Comments Yes 1 (1 standard drink = 0.6 oz pur e alcohol) Sex and Gender Information Value Date Recorded Sex Assigned at Not on file Legal Sex Male 2:16 PM EST Gender Identity Not on file Sexual Orientation Not on file Obstetrics History Last Filed Vital Signs Vital Sign Reading Time Taken Comments Blood Pressure 144/60 08/08/2024 10:15 AM EDT Pulse 83 08/08/2024 10:15 AM EDT Temperature 36.6 ??C (97.9 ??F) 08/08/2024 10:15 AM E DT Respiratory Rate - - Oxygen Saturation 99% 08/08/2024 10:15 AM EDT Inhaled Oxygen Concentration - - Weight 89.4 kg (197 lb) 08/08/2024 10:15 AM EDT Height 162.6 cm (5' 4 ) 08/08/2024 10:15 AM EDT Body Mass Index 33.81 08/08/2024 10:15 AM EDT Plan of Treatment Upcoming Encounters Date Type Department Care Team (Late st Contact Info) Description 02/09/2025 10:00 AM EDT Office Visit [facility] Hematology Oncology [address] [place] [address] Pia Quinones, DO [address] [place] [address] Health Maintenance Due Date Last Done Comments DTaP,Tdap,and Td Vaccines (1 - Tdap) 1961 RSV Immunization Adult Patients (1 - 1-dose 75+ series) 2017 Cholesterol Screening (Lipid Panel) 04/14/2022 Depression Screening 04/14/2022 Falls Risk Assessment 04/14/2022 Medicare Annual Wellness Visit 04/14/2022 Social Influencers of Health Screening 04/14/2022 COVID-19 Vaccine ( season) 2024 04/07/2021, 08/26/2020, 08/04/2020, Additional history exists Zoster Vaccines Completed 09/24/2017, 07/26/2017 Pneumococcal Vaccine: 50+ Years Completed 08/03/2022, 08/12/2018, 04/12/2017 Influenza Vaccine Completed 01/28/2024, , 02/02/2022, Additional history exists HIB Vaccines Aged Out No longer eligi ble based on patient's age to complete this topic HPV Vaccines Aged Out No longer eligi ble based on patient's age to complete this topic Hepatitis A Vaccines Aged Out No long er eligible based on patient's age to complete this topic Hepatitis B Vaccines Aged Out No long er eligible based on patient's age to complete this topic IPV Vaccines Aged Out No longer eligi ble based on patient's age to complete this topic MMR Vaccines Aged Out No longer eligi ble based on patient's age to complete this topic Meningococcal ACWY Vaccine Aged Out N o longer eligible based on patient's age to complete this topic Meningococcal B Vaccine Aged Out No l onger eligible based on patient's age to complete this topic RSV Immunization Patients Under 20 months Aged Out No longer eligible based on patient's age to complete this topic Varicella Vaccines Aged Out No longer eligible based on patient's age to complete this topic Procedures Procedure Name Priority Date/Time Associated Diagnosis Comments CBC WITH AUTO DIFFERENTIAL Routine 08/08/2024 10:58 AM EDT Prostate cancer ([facility] V24, [facility] V28) PROSTATE SPECIFIC ANTIGEN DIAGNOSTIC Routine 08/08/2024 10:58 AM EDT Prostate cancer ([facility] V24, [facility] V28) COMPREHENSIVE METABOLIC PANEL Routine 08/08/2024 10:58 AM EDT Prostate cancer ([facility] V24, [facility] V28) CBC AND DIFFERENTIAL Routine 08/08/2024 10:58 AM EDT Prostate cancer ([facility] V24, [facility] V28) from Last 3 Months Results * Prostate specific antigen diagnostic (08/08/2024 10:58 AM EDT) PSA <0.06 0.00 - 4.00 ng/mL LAB CHEMISTRY METHOD 08/08/2024 1:35 PM EDT [facility] Blood Venous blood specimen / Unknown Venipuncture / Unknown 08/08/2024 10:58 AM EDT 08/08/2024 11:40 AM EDT Narrative [facility] - 08/08/2024 1:35 PM EDT The Siemens Advia Centaur Chemiluminescent Immunoassay is used. Results obtained with different assay methods or kits cannot be used interchangeably. Results cannot be interpreted as absolute evidence of the presence or absence of malignant disease. us Pia Quinones DO LAB BLOOD ORDERABLES Final Result [facility] [address] [place] [address], * (ABNORMAL) CBC auto differential (08/08/2024 10:58 AM EDT) WBC 6.6 4.8 - 10.8 K/mcL LAB HEMETOLOGY METHOD 08/08/2024 11:45 AM [facility] RBC 4.80 4.50 - 5.50 M/mcL LAB HEMETOLOGY METHOD 08/08/2024 11:45 AM [facility] Hemoglobin 13.8 13.5 - 17.5 g/dL LAB HEMETOLOGY METHOD 08/08/2024 11:45 AM [facility] Hematocrit 43.4 42.0 - 54.0 % LAB HEMETOLOGY METHOD 08/08/2024 11:45 AM [facility] MCV 91.0 79.0 - 98.0 FL LAB HEMETOLOGY METHOD 08/08/2024 11:45 AM [facility] MCH 28.9 27.0 - 32.0 pcg LAB HEMETOLOGY METHOD 08/08/2024 11:45 AM [facility] MCHC 31.8(L) 32.0 - 37.0 g/dL LAB HEMETOLOGY METHOD 08/08/2024 11:45 AM [facility] RDW 14.2 11.0 - 15.0 % LAB HEMETOLOGY METHOD 08/08/2024 11:45 AM [facility] Platelets 192 130 - 400 K/mcL LAB HEMETOLOGY METHOD 08/08/2024 11:45 AM [facility] MPV 11.3(H) 7.0 - 11.0 FL LAB HEMETOLOGY METHOD 08/08/2024 11:45 AM [facility] NRBC 0.0 <1.0 % LAB HEMETOLOGY METHOD 08/08/2024 11:45 AM [facility] NRBC Absolute 0.00 <0.10 K/mcL LAB HEMETOLOGY METHOD 08/08/2024 11:45 AM [facility] Neutrophils Relative 64.3 % LAB HEMETOLOGY METHOD 08/08/2024 11:45 AM [facility] Lymphocytes Relative 21.7 % LAB HEMETOLOGY METHOD 08/08/2024 11:45 AM [facility] Monocytes Relative 9.0 % LAB HEMETOLOGY METHOD 08/08/2024 11:45 AM [facility] Eosinophils Relative 2.6 % LAB HEMETOLOGY METHOD 08/08/2024 11:45 AM [facility] Basophils Relative 0.9 % LAB HEMETOLOGY METHOD 08/08/2024 11:45 AM [facility] Immature Granulocytes Relative 1.5 % LAB HEMETOLOGY METHOD 08/08/2024 11:45 AM [facility] Neutrophils Absolute 4.21 1.50 - 7.00 K/mcL LAB HEMETOLOGY METHOD 08/08/2024 11:45 AM [facility] Lymphocytes Absolute 1.42 1.00 - 5.00 K/mcL LAB HEMETOLOGY METHOD 08/08/2024 11:45 AM [facility] Monocytes Absolute 0.59 0.20 - 1.00 K/mcL LAB HEMETOLOGY METHOD 08/08/2024 11:45 AM [facility] Eosinophils Absolute 0.17 0.00 - 0.50 K/mcL LAB HEMETOLOGY METHOD 08/08/2024 11:45 AM [facility] Basophils Absolute 0.06 0.00 - 0.20 K/mcL LAB HEMETOLOGY METHOD 08/08/2024 11:45 AM [facility] Immature Granulocytes Absolute 0.10(H) 0.00 - 0.03 K/mcL LAB HEMETOLOGY METHOD 08/08/2024 11:45 AM [facility] Blood Venous blood specimen / Unknown Venipuncture / Unknown 08/08/2024 10:58 AM EDT 08/08/2024 11:44 AM EDT us Pia Yates Stacie DO LAB BLOOD ORDERABLES Final Result [facility] [address] [place] [address], * (ABNORMAL) Comprehensive metabolic panel (08/08/2024 10:58 AM EDT) Sodium 138 133 - 145 mmol/L LAB CHEMISTRY METHOD 08/08/2024 1:04 PM [facility] Potassium 3.7 3.5 - 5.5 mmol/L LAB CHEMISTRY METHOD 08/08/2024 1:04 PM [facility] Chloride 98 96 - 110 mmol/L LAB CHEMISTRY METHOD 08/08/2024 1:04 PM [facility] CO2 33(H) 21 - 32 mmol/L LAB CHEMISTRY METHOD 08/08/2024 1:04 PM [facility] Anion Gap 7 3 - 11 LAB CHEMISTRY METHOD 08/08/2024 1:04 PM [facility] Glucose 88 70 - 100 mg/dL LAB CHEMISTRY METHOD 08/08/2024 1:04 PM [facility] BUN 11 5 - 25 mg/dL LAB CHEMISTRY METHOD 08/08/2024 1:04 PM [facility] Creatinine 0.70 0.70 - 1.30 mg/dL LAB CHEMISTRY METHOD 08/08/2024 1:04 PM [facility] eGFR 92 >=60 mL/min/1. 73m2 LAB CHEMISTRY METHOD 08/08/2024 1:04 PM [facility] Comment:Calculation based on the??Chronic Kidney Disease Epidemiology Collaboration (CKD-EPI) equation refit??without adjustment for race. BUN/Creatinine Ratio 15.7 LAB CHEMISTRY METHOD 08/08/2024 1:04 PM [facility] Calcium 9.0 8.5 - 10.5 mg/dL LAB CHEMISTRY METHOD 08/08/2024 1:04 PM EDT [facility] AST (SGOT) 15 10 - 42 unit/L LAB CHEMISTRY METHOD 08/08/2024 1:04 PM EDT [facility] ALT (SGPT) 22 10 - 60 unit/L LAB CHEMISTRY METHOD 08/08/2024 1:04 PM EDT [facility] Alkaline Phosphatase 102 42 - 121 unit/L LAB CHEMISTRY METHOD 08/08/2024 1:04 PM EDT [facility] Total Protein 6.5 6.0 - 8.0 g/dL LAB CHEMISTRY METHOD 08/08/2024 1:04 PM EDT [facility] Albumin 3.7 3.2 - 5.0 g/dL LAB CHEMISTR[facility] METHOD [facility] Total Bilirubin 0.6 0.0 - 1.4 mg/dL LAB CHEMISTRY METHOD 08/08/2024 1:04 PM EDT [facility] Blood Venous blood specimen / Unknown Venipuncture / Unknown 08/08/2024 10:58 AM EDT 08/08/2024 11:40 AM EDT us Pia Quinones DO LAB BLOOD ORDERABLES Final Result [facility] [address] [place] [address], from Last 3 Months Insurance MEDICARE [facility] Care Teams Core Sucker Relationship Specialty Start Date End Date Quinten Han MD [address] [facility] [address] [place] [phone] PCP - General Internal Medicine 10/19/16
== END 2024-09-15 11:02 | disposition home or self-care (01) ==
LOC: HO.HOSX 11:01
PROVIDERS: Visit Provider Physician Assistant
DX: M47.26 Other spondylosis with radiculopathy, lumbar region (principal); R20.8 Other disturbances of skin sensation; M51.26 Other intervertebral disc displacement, lumbar region
CPT/HCPCS: 73562; 99202

== ENCOUNTER → 2024-09-15 11:05 | Outpatient (BNV) | payer MEDICARE, SELFPAY | PROVIDERS: Visit Provider Radiology Diagnostic Radiology | DX: M25.561 Pain in right knee (principal); M25.562 Pain in left knee | CPT/HCPCS: 73562 ==

== ENCOUNTER 2024-09-18 13:29 | Outpatient (REF) | payer MEDICARE, SELFPAY ==
[2024-09-18 13:57] LABS: Alanine Aminotransferase 21 U/L (0-40); Albumin Level 4.2 g/dL (3.5-5.0); Alkaline Phosphatase 85 U/L (39-117); Aspartate Amino Transferase 26 U/L (5-37); Bilirubin Direct 0.2 mg/dL (0.0-0.5); Bilirubin Total 0.6 mg/dL (0.0-1.0); Cholesterol 163 mg/dL (<200); HDL Cholesterol 56 mg/dL (>40); LDL Cholesterol Calculated 94 mg/dL (<100); Total Protein 6.5 g/dL (6.5-8.0); Triglycerides 66 mg/dL (<150)
--- OUTSIDE RECORDS SUMMARY | 2024-09-18 14:04 | XMS_ITS | Patient Health Record ---
Author Organization Quinten Han MD Address [address] [place], [place] [id number] Care Team Providers Care Yarn Texture Machine Operator Name Role Phone Quinten Han Primary Care Provider [phone] Allergies Allergen (clinical drug ingredient) Drug/Non Drug Allergy documented on EMR Reaction Allergy Type Onset Date Status ibuprofen Ibuprofen hallucinating Drug Allergy Act eddie Results Component Value Reference Range Notes Complete Blood Count Auto Di ff Reviewed date:03/24/2024 12:32:57 PM Interpretation: Performing Lab:[facility], [address] [place] [phone] Notes/Report: White Blood Count 6.3 4.8-10.8 X10*3/uL [...] NRBC Abs Auto 0.000 0.0-0.012 X10*3/uL Comprehensive [place]. Panel Fa st Reviewed date:03/24/2024 12:32:05 PM Interpretation: Performing Lab:[facility], [address] [place] [phone] Notes/Report: Sodium 143 135-145 mmol/L Potassium 3.4 [...] Panel Reviewed date:03/24/2024 12:32:29 PM Interpretation: Performing Lab:[address] [phone] Notes/Report: Triglycerides 82 <150 mg/dL Desirable Triglyceride: [...] (Free>4and<10) Reviewed date:03/24/2024 12:31:46 PM Interpretation: Performing Lab:[address] [phone] Notes/Report: PSA,Total (Free>4and<10) < 0.10 0.00-4.00 ng/mL [...] between 4.0 and 10.0 ng/mL. PSA methodology: [facility] Alinity i Chemiluminescent Microparticle Immunoassay (CMIA) UA ClnCatch+Micro w/rflx Cul t Reviewed date:03/24/2024 12:47:18 PM Interpretation: Performing Lab:[facility], [address] [place] [phone] Notes/Report: [id number] Urine, Clean Catch Color Urine Yellow Appearance Urine Clear PH 8.0 5.0-9.0 Glucose Urine UA Negative Negative mg/dL Urine Blood Negative Negative Specific [place] - Urine 1.015 1.005-1.025 Urine Protein Negative [...] Negative Occult Blood, Stool, Guaiac Neg Hold Gold (Not yet reviewed by provider) Interpretation: Performing Lab:[facility], [address] [place] [phone] Notes/Report: Hold Gold See Note Specimen held untested for 24 [...] Hugo 01:24:13 PM EDT > info faxed , Kamilah Hugo 10/09/2023 02:17:15 PM EDT > info mailed [...] Notes Kamilah Hugo 10:15:15 AM EST > [place] office [phone] Kamilah Hugo 04/01/2024 02:23:45 PM EST > info faxed [phone] Kamilah Hugo 04/15/2024 10:37:45 AM EST > called pain [...] Administered pt was given the vaccine at [facility] in [place]. Influenza High Dose IM Intramuscular 03/07/2018 Administer ed Prevnar 13 IM Intramuscular 08/12/2018 Administered Shingrix IM Intramuscular 09/24/2017 Administered pt was given the vaccine at [facility] in [place]. 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) Active confirmed Problem 290873651 Mild aortic sten osis (I35.0) Active confirmed Problem 611264003 Renal cancer, unspecified laterality (C64.9) Active confirmed Problem 41286342 Carpal tunnel sy ndrome of right wrist (G56.01) Active confirmed Problem 21513354 Oropharyngeal dysphagia (R13.12) Active confirmed Problem 21484203 Meralgia paraesthetica, 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) Active confirmed Problem 09772337 Sciatica of righ t side (M54.31) Active confirmed Problem 223351793 Pure hypercholesterolemia (E78.00) Active confirmed Problem 960538511 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) Active confirmed Problem 41454642 Hypercholesterol emia (E78.00) Active confirmed Problem 3275253294994845 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) Active confirmed Problem 433377586 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) Active confirmed Problem Abnormal CAT sca n (R93.89) Active confirmed Vital Signs Blood pressure diastolic 74 mm Hg 03/28/2024 Height 64 in 03/28/2024 Blood pressure systolic 110 mm Hg 03/28/2024 Weight 197 lbs 03/28/2024 BMI 33.81 kg/m2 03/28/2024 Encounters Encounter Location Date Provider Diagnosis Quinten Han MD [address] [place] [id number] 01/28/2024 Quinten Han Encounter for immuni zation Z23 Quinten Han MD [address] [place] [id number] 03/24/2024 Quinten Han Essential hypertensi on I10 ; Prostatism N40.0 ; Pure hypercholesterolemia E78.00 and Hypercholesterolemia E78.00 Quinten Han MD [address] [place] [id number] 09/18/2024 Quinten Han Pure hypercholestero lemia E78.00 Quinten Han MD [address] [place] [id number] 09/25/2023 Quinten Han Neuropathy G62.9 and Rectum pain K62.89 Quinten Han MD [address] [place] [id number] 03/28/2024 Quinten Han Prostate cancer C61 ; Sciatica of right side M54.31 ; Mild aortic stenosis I35.0 ; Essential hypertension I10 ; Pure hypercholesterolemia E78.00 ; Depression screening Z13.31 and Colon cancer screening Z12.11 Quinten Han MD [address] [place] [id number] 11/01/2023 Quinten Han Pure hypercholestero lemia E78.00 Assessments Encounter Date Diagnosis (ICD Code) Assessment Notes Treatment Notes Treatment Clinical Notes Section Notes 01/28/2024 Encounter for immunization (ICD-10 - Z23) 03/24/2024 Essential hypertensi on (ICD-10 - I10) 03/24/2024 Prostatism (ICD-10 - N40.0) 09/18/2024 Pure hypercholesterolemia (ICD-10 - E78.00) 09/25/2023 Neuropathy (ICD-10 - G62.9) gets discomfort [...] LAT 01/31/2021 US ABD 12/12/2022 ECHO 12/05/2012 Liver Panel 09/18/2024 Lipid Panel with Reflex 09/18/2024 Hold Gold 09/18/2024 NM bone scan whole body 06/20/2021 NM bone scan whole body 05/30/2021 US carotid duplex BI 02/02/2022 Future Test Test Name Order Date CT ABD & PELVIS WWO CONTRAST 07/26/2020 Next Appt Details Provider Name:Quinten Marcos ier, 09/25/2024 09:00:00 AM, [address] [place] [address], [address], [phone], Provider Name:Quinten Marcos ier, 03/23/2025 07:30:00 AM, [address] [place] [address], [place] [address], [place], [place], [phone], Provider Name:Quinten Marcos ier, 03/30/2025 09:30:00 AM, [address] [place] [address], [address], [phone], Insurance Providers Payer Name Payer Address Payer Phone Subscriber Number Group Number Insured Name Patient Relationship to Insured Coverage Start Date Coverage End Date MEDICARE NHIC [employer] [place] [address] [id number] RUSS CASTREJON Self - patient is the insured 7 [facility] [address] [place], [place] [phone] [id number] RUSS CASTREJON Self - patient is the insured Medical (General) History Medical History History ICD Code biopsy of prostate over 5 years on bical utamide which is cassodex colonoscopy in past. Colonos copy done 03/24/2013 - no further testing required per Dr. Monge. Colonoscopy 06/20/21 no more
--- OUTSIDE RECORDS SUMMARY | 2024-09-18 14:04 | XMS_ITS ---
Author Organization Quinten Han MD Address [address] [place], [place] [phone] Care Team Providers Care Citizenship Instructor Name Role Phone Quinten Han Primary Care Provider [phone] Results Component Value Reference Range Notes Complete Blood Count Auto Di ff Reviewed date:03/24/2024 12:32:57 PM Interpretation: Performing Lab:[facility], [address] [place] [phone] Notes/Report: White Blood Count 6.3 4.8-10.8 X10*3/uL [...] NRBC Abs Auto 0.000 0.0-0.012 X10*3/uL Comprehensive [place]. Panel Fa st Reviewed date:03/24/2024 12:32:05 PM Interpretation: Performing Lab:[facility], [address] [place] [phone] Notes/Report: Sodium 143 135-145 mmol/L Potassium 3.4 [...] Panel Reviewed date:03/24/2024 12:32:29 PM Interpretation: Performing Lab:[facility], [address] [place] [phone] Notes/Report: Triglycerides 82 <150 mg/dL Desirable Triglyceride: [...] (Free>4and<10) Reviewed date:03/24/2024 12:31:46 PM Interpretation: Performing Lab:[facility], [address] [place] [phone] Notes/Report: PSA,Total (Free>4and<10) < 0.10 0.00-4.00 ng/mL [...] t Reviewed date:03/24/2024 12:47:18 PM Interpretation: Performing Lab:[facility], [address] [facility], [place] [address] Notes/Report: [id number] Urine, Clean Catch Color Urine Yellow Appearance Urine Clear PH 8.0 5.0-9.0 Glucose Urine UA Negative Negative mg/dL Urine Blood Negative Negative Specific [place] - Urine 1.015 1.005-1.025 Urine Protein Negative [...] Location Date Provider Diagnosis Quinten Han MD [address] [place] [phone] 03/24/2024 Quinten Han Essential hypertensi on I10 [...] Treatment Next Appt Details Provider Name:Quinten rocha, 09/25/2024 09:00:00 AM, [address] [place] [address], [address], [phone], Provider Name:Quinten rocha, 03/23/2025 07:30:00 AM, [address] [place] [address], [address], [phone], Provider Name:Quinten rocha, 03/30/2025 09:30:00 AM, [address] [place] [address], [phone], Progress Notes * RUSS CASTREJON MDOB: 2 (84 yo M)Acc No.[id number]:03/24/2024 Progress Note Patient:?RUSS CASTREJON Provider:?Quinten Han MD :1940???Age:84 Y???Sex:Male Roman e:03/24/2024 Address:[address] [place] [address] [id number] Subjective: * Chief Complaints: * ???1. Yearly fasting labs. * Medical History:? Objective: * Vitals:? Assessment: * Assessment: 1.?Essential hypertension - I10 (Primary)???2.?Prostatism - N40.0???3.?Pure hypercholesterolemia - E78.00???4.?Hypercholesterolemia - E78.00??? Plan: * Treatment: 2.?Prostatism?LAB: Complete Blood Count Auto Diff (Collection Date & Time - 03/24/2024 07:45 AM) ?LAB: Comprehensive [place]. Panel Fast (Collection Date & Time - 03/24/2024 07:45 AM) ?LAB: Lipid Panel (Collection Date & Time - 03/24/2024 07:45 AM) ?LAB: PSA,Total (Free>4and<10) (Collection Date & Time - 03/24/2024 07:45 AM) ?LAB: UA ClnCatch+Micro w/rflx Cult (Collection Date & Time - 03/24/2024 07:45 AM) 3.?Pure hypercholesterolemia ?LAB: Complete Blood Count Auto Diff (Collection Date & Time - 03/24/2024 07:45 AM) ?LAB: Comprehensive [place]. Panel Fast (Collection Date & Time - 03/24/2024 07:45 AM) ?LAB: Lipid Panel (Collection Date & Time - 03/24/2024 07:45 AM) ?LAB: PSA,Total (Free>4and<10) (Collection Date & Time - 03/24/2024 07:45 AM) ?LAB: UA ClnCatch+Micro w/rflx Cult (Collection Date & Time - 03/24/2024 07:45 AM) 4.?Hypercholesterolemia?LAB: Complete Blood Count Auto Diff (Collection Date & Time - 03/24/2024 07:45 AM) ?LAB: Comprehensive [place]. Panel Fast (Collection Date & Time - 03/24/2024 07:45 AM) * Procedure Codes:?71412 VENIP UNCT, ROUTINE* * * The named appointment provid er may or may not be the originator of this progress note, and it is not deemed complete until electronically signed by the appointment provider. Sign off status: Pending * Provider:?Quinten Han MD Date:?1 05/24/2023 Generated for Katelyn buchanan/Elida/Jakeitting on:?09/18/2024 02:03 PM EDT
--- OUTSIDE RECORDS SUMMARY | 2024-09-18 14:04 | XMS_ITS ---
Author Organization Quinten Han MD Address [address] [place], [place] [phone] Care Team Providers Care Halver Machine Operator Name Role Phone Quinten Han [...] Provider Speciality Internal M edicine Referred Provider Mka Ordonez am Referred Provider Specialty Pain Medicin e General Notes Oanh,Kamilah 10:15:15 AM EST > [place] office [phone] Kamilah Hugo 04/01/2024 02:23:45 PM EST > info faxed [phone] Annette 04/15/2024 10:37:45 AM EST > called [...] Problem Status W/U Status Risk Notes Problem 300817140 Mild aortic stenosis (I35.0) Active confirmed Vital Signs Blood pressure systolic 110 mm Hg 03/28/20 24 Blood pressure diastolic 74 mm Hg 024 Height 64 in 03/28/2024 Weight 197 lbs 03/28/2024 BMI 33.81 kg/m2 03/28/2024 Encounters Encounter Location Date Provider Diagnosis Quinten Han MD [address] [facility] [address] [place], [place] [phone] 03/28/2024 Quinten Han Prostate cancer C61 ; [...] 6 Months, Reason: Provider Name:Quinten Marcos ier, 09/25/2024 09:00:00 AM, [address] [place] [address], Suite [facility], [place], [place], [phone], Provider Name:Quinten Marcos ier, 03/23/2025 07:30:00 AM, [address] [place] [address], Suite [facility], [place], [place], [phone], Provider Name:Quinten Marcos ier, 03/30/2025 09:30:00 AM, [address] [place] [address], Suite [facility], [place], [place], [phone], Progress Notes * RUSS CASTREJON MDOB: 2 (84 yo M)Acc No.[id number]:03/28/2024 Patient:?RUSS CASTREJON Provider:?Quinten Han MD :1940???Age:84 Y???Sex:Male Roman e:03/28/2024 Address:[address] [place], [place] [address]Swathi [id number] Subjective: * Chief Complaints: * ???Comp visit [...] Pets: none. no Travel outside of the [place]. ???Cigar occasionally. * Medications:?TakingAspir-Low 81 MG [...] ???Past Orders: ???Lab:Lipid Panel (Order Da te 03/24/2024) (Collection Date - 03/24/2024) ? Value [...] mg/dL ?Urine Blood Negative Negative - ?Specific [place] - Urine 1.015 1.005-1.025 - ?Urine Protein [...] Auto 0.000 0.0-0. 012 - X10*3/uL ???Lab:Comprehensive [place]. P [place] Fast (Order Date - 03/24/2024) [...] with waiting and left his appointment? Referral To:Mka Ordonez??Pain Medicine ?Reason:Sciatica of right side 3.?Mild aortic stenosis? Notes: followed by dr carpenter. is mild?? 4.?Essential hypertension? Notes: stable, will continue current regiment?? 5.?Pure hypercholesterolemia ? Notes: stable, will continue current regiment?? 6.?Depression screening? Notes: negative screen?? 7.?Colon cancer screening?LAB: Occult Blood, Stool, Guaiac?Negative ? Value Reference Range ?Occult Blood, Stool, Guaiac Neg Notes: guaiac negative?? * Procedure Codes:?63308 TEST FOR BLOOD, FECES * Preventive Medicine:? ??Counseling:?Care goal follow-up plan:?Counseling for abnormal BMI provided?Yes,?Above Normal BMI Follow-up?Giving encouragement to exercise.? * Follow Up:?6 Months * * Sign off status: Completed true * Provider:?Quinten Han MD Date:?05/28/2023 Generated for Katelyn buchanan/Elida/eTransmitting on:?09/18/2024 02:03 PM EDT History and Physical Notes * HPI [...]
--- OUTSIDE RECORDS SUMMARY | 2024-09-18 14:04 | XMS_ITS | Clinical Summary ---
Author Organization [facility] Address [address] [place] [address] Phone Care Team Providers Care Assistant Professor Of Criminal Justice Name Role Phone Quinten Han MD Primary Care Provider [phone] Medications amLODIPine (NORVASC) 5 mg tablet Take [...] Date Diagnosed Date Malignant neoplasm of prostate ([facility] V24, [facility] V28) 08/08/2024 Lumbar spondylosis 12/20/2023 Overview (04/16/2024): [...] every morning. He has been seen [place] [facility] [place], is s/p right L5 TFE, L5-S1 JANNIE, but did not see relief with either injection. He states they are talking to him about spinal cord stimulator trial, he is not sure if he wants to try it. Patient had MRI lumbar spine 07/30/2023 at [facility] that showed multilevel degenerative changes, I did [...] Type Department Care Team Description 08/13/2024 Telephone [facility] Hematology Oncology [address] [place] [address] Karma De La Vega [place] 08/08/2024 10:00 AM EDT Office Visit [facility] Hematology Oncology [address] [place] [address] Pia Quinones, Prostate cancer ([facility] V24, [facility] V28) (Primary Dx) from Last 3 Months [...] Description 02/09/2025 10:00 AM EDT Office Visit [facility] Hematology Oncology [address] [place] [address] Pia Quinones, DO [address] [place] [address] Health Maintenance Due Date Last Done Comments [...] Routine 08/08/2024 10:58 AM EDT Prostate cancer ([facility] V24, [facility] V28) PROSTATE SPECIFIC ANTIGEN DIAGNOSTIC Routine 08/08/2024 10:58 AM EDT Prostate cancer ([facility] V24, [facility] V28) COMPREHENSIVE METABOLIC PANEL Routine 08/08/2024 10:58 AM EDT Prostate cancer ([facility] V24, [facility] V28) CBC AND DIFFERENTIAL Routine 08/08/2024 10:58 AM EDT Prostate cancer ([facility] V24, [facility] V28) from Last 3 Months Results * Prostate specific antigen diagnostic (08/08/2024 10:58 AM EDT) PSA <0.06 0.00 - 4.00 ng/mL LAB CHEMISTRY METHOD 08/08/2024 1:35 PM EDT [facility] Blood Venous blood specimen / Unknown Venipuncture / Unknown 08/08/2024 10:58 AM EDT 08/08/2024 11:40 AM EDT Narrative [facility] - 08/08/2024 1:35 PM EDT The Siemens Advia Centaur Chemiluminescent Immunoassay is used. Results obtained with different assay methods or kits cannot be used interchangeably. Results cannot be interpreted as absolute evidence of the presence or absence of malignant disease. us Pia Quinones DO LAB BLOOD ORDERABLES Final Result [facility] [address] [place] [address], * (ABNORMAL) CBC auto differential (08/08/2024 10:58 AM EDT) WBC 6.6 4.8 - 10.8 K/mcL LAB HEMETOLOGY METHOD 08/08/2024 11:45 AM [facility] RBC 4.80 4.50 - 5.50 M/mcL LAB HEMETOLOGY METHOD 08/08/2024 11:45 AM [facility] Hemoglobin 13.8 13.5 - 17.5 g/dL LAB HEMETOLOGY METHOD 08/08/2024 11:45 AM [facility] Hematocrit 43.4 42.0 - 54.0 % LAB HEMETOLOGY METHOD 08/08/2024 11:45 AM [facility] MCV 91.0 79.0 - 98.0 FL LAB HEMETOLOGY METHOD 08/08/2024 11:45 AM [facility] MCH 28.9 27.0 - 32.0 pcg LAB HEMETOLOGY METHOD 08/08/2024 11:45 AM [facility] MCHC 31.8(L) 32.0 - 37.0 g/dL LAB HEMETOLOGY METHOD 08/08/2024 11:45 AM [facility] RDW 14.2 11.0 - 15.0 % LAB HEMETOLOGY METHOD 08/08/2024 11:45 AM [facility] Platelets 192 130 - 400 K/mcL LAB HEMETOLOGY METHOD 08/08/2024 11:45 AM [facility] MPV 11.3(H) 7.0 - 11.0 FL LAB HEMETOLOGY METHOD 08/08/2024 11:45 AM [facility] NRBC 0.0 <1.0 % LAB HEMETOLOGY METHOD 08/08/2024 11:45 AM [facility] NRBC Absolute 0.00 <0.10 K/mcL LAB HEMETOLOGY METHOD 08/08/2024 11:45 AM [facility] Neutrophils Relative 64.3 % LAB HEMETOLOGY METHOD 08/08/2024 11:45 AM [facility] Lymphocytes Relative 21.7 % LAB HEMETOLOGY METHOD 08/08/2024 11:45 AM [facility] Monocytes Relative 9.0 % LAB HEMETOLOGY METHOD 08/08/2024 11:45 AM [facility] Eosinophils Relative 2.6 % LAB HEMETOLOGY METHOD 08/08/2024 11:45 AM [facility] Basophils Relative 0.9 % LAB HEMETOLOGY METHOD 08/08/2024 11:45 AM [facility] Immature Granulocytes Relative 1.5 % LAB HEMETOLOGY METHOD 08/08/2024 11:45 AM [facility] Neutrophils Absolute 4.21 1.50 - 7.00 K/mcL LAB HEMETOLOGY METHOD 08/08/2024 11:45 AM [facility] Lymphocytes Absolute 1.42 1.00 - 5.00 K/mcL LAB HEMETOLOGY METHOD 08/08/2024 11:45 AM [facility] Monocytes Absolute 0.59 0.20 - 1.00 K/mcL LAB HEMETOLOGY METHOD 08/08/2024 11:45 AM [facility] Eosinophils Absolute 0.17 0.00 - 0.50 K/mcL LAB HEMETOLOGY METHOD 08/08/2024 11:45 AM [facility] Basophils Absolute 0.06 0.00 - 0.20 K/mcL LAB HEMETOLOGY METHOD 08/08/2024 11:45 AM [facility] Immature Granulocytes Absolute 0.10(H) 0.00 - 0.03 K/mcL LAB HEMETOLOGY METHOD 08/08/2024 11:45 AM [facility] Blood Venous blood specimen / Unknown Venipuncture / Unknown 08/08/2024 10:58 AM EDT 08/08/2024 11:44 AM EDT us Pia Yates Stacie DO LAB BLOOD ORDERABLES Final Result [facility] [address] [place] [address], * (ABNORMAL) Comprehensive metabolic panel (08/08/2024 10:58 AM EDT) Sodium 138 133 - 145 mmol/L LAB CHEMISTRY METHOD 08/08/2024 1:04 PM [facility] Potassium 3.7 3.5 - 5.5 mmol/L LAB CHEMISTRY METHOD 08/08/2024 1:04 PM [facility] Chloride 98 96 - 110 mmol/L LAB CHEMISTRY METHOD 08/08/2024 1:04 PM [facility] CO2 33(H) 21 - 32 mmol/L LAB CHEMISTRY METHOD 08/08/2024 1:04 PM [facility] Anion Gap 7 3 - 11 LAB CHEMISTRY METHOD 08/08/2024 1:04 PM [facility] Glucose 88 70 - 100 mg/dL LAB CHEMISTRY METHOD 08/08/2024 1:04 PM [facility] BUN 11 5 - 25 mg/dL LAB CHEMISTRY METHOD 08/08/2024 1:04 PM [facility] Creatinine 0.70 0.70 - 1.30 mg/dL LAB CHEMISTRY METHOD 08/08/2024 1:04 PM [facility] eGFR 92 >=60 mL/min/1. 73m2 LAB CHEMISTRY METHOD 08/08/2024 1:04 PM [facility] Comment:Calculation based on the??Chronic Kidney Disease Epidemiology Collaboration (CKD-EPI) equation refit??without adjustment for race. BUN/Creatinine Ratio 15.7 LAB CHEMISTRY METHOD 08/08/2024 1:04 PM [facility] Calcium 9.0 8.5 - 10.5 mg/dL LAB CHEMISTRY METHOD 08/08/2024 1:04 PM EDT [facility] AST (SGOT) 15 10 - 42 unit/L LAB CHEMISTRY METHOD 08/08/2024 1:04 PM EDT [facility] ALT (SGPT) 22 10 - 60 unit/L LAB CHEMISTRY METHOD 08/08/2024 1:04 PM EDT [facility] Alkaline Phosphatase 102 42 - 121 unit/L LAB CHEMISTRY METHOD 08/08/2024 1:04 PM EDT [facility] Total Protein 6.5 6.0 - 8.0 g/dL LAB CHEMISTRY METHOD 08/08/2024 1:04 PM EDT [facility] Albumin 3.7 3.2 - 5.0 g/dL LAB CHEMISTRY METHOD 08/08/[facility]24 [facility] Total Bilirubin 0.6 0.0 - 1.4 mg/dL LAB CHEMISTRY METHOD 08/08/2024 1:04 PM EDT [facility] Blood Venous blood specimen / Unknown Venipuncture / Unknown 08/08/2024 10:58 AM EDT 08/08/2024 11:40 AM EDT us Pia Quinones DO LAB BLOOD ORDERABLES Final Result [facility] [address] [place] [address], from Last 3 Months Insurance MEDICARE [facility] Care Teams Assistant Professor Of Criminal Justice Relationship Specialty Start Date End Date Quinten Han MD [address] [facility] [address] [place] [address] [phone] PCP - General Internal Medicine 10/19/16
--- OUTSIDE RECORDS SUMMARY | 2024-09-18 14:04 | XMS_ITS | Patient Health Record ---
Author Organization [facility] Address [address] [place] [address] Care Team Providers Care Parts Runner Name Role Phone Quinten Han MD Primary Care Provider Mike Wallace Unavailable [phone] Allergies No Known Allergies Reason For Referral [...] Problem Status W/U Status Risk Notes Problem 7534200 Helicobacter pylori (H. pylori) infection (A04.8) Active confirmed Problem 564592430 Abnormal CT scan , colon (R93.3) Active confirmed Problem 82230058 Chronic gastric ulcer (K25.7) Active confirmed Problem 939286145 Fullness of abdomen (R19.8) Active confirmed Problem 79683094 Mesenteric adenitis (I88.0) Active confirmed Problem Rectal discomfor t (K62.89) Active confirmed Problem Diverticulosis of colon (573084415) Diverticulosis of colon (K57.30) Active confirmed Vital Signs Temperature 97.5 degrees Fahrenheit 01/03/2024 Blood pressure diastolic 00 mm Hg 01/03/2024 Height 64 in 01/03/2024 Blood pressure systolic 000 mm Hg 01/03/2024 Weight 194 lbs 01/03/2024 BMI 33.30 kg/m2 01/03/2024 Encounters Encounter Location Date Provider Diagnosis [facility] [address] [place] [address] 01/03/2024 Mike Keller Rectal discomfort K62.89 Assessments [...] Date MEDICARE OF [place] [address] [place] [address] [phone] [id number] RUSS HERNANDEZ Self - patient is the insured [facility] [address] [place] [address] [phone] [id number] RUSS HERNANDEZ Self - patient is the [...] PET-CT scan--he had cryosurgery with IR at [facility] in 04/2014--describes a CT scan [...]
--- OUTSIDE RECORDS SUMMARY | 2024-09-18 14:04 | XMS_ITS ---
Author Organization [facility] Address [address] [place] [address] Care Team Providers Care Credit Intern Name Role Phone Quinten Han MD Primary Care Provider Mike Wallace Unavailable [phone] Allergies No Known Allergies REASON FOR VISIT [...] 01/03/2024 Encounters Encounter Location Date Provider Diagnosis [facility] [address] [place] [address] 01/03/2024 Mike Keller Rectal discomfort K62.89 Assessments [...] Notes * RITO HERNANDEZOB:1940 (83 yo M)Acc No.[id number]:01/03/2024 Progress Notes Patient:?RUSS HERNANDEZ Provider:?Mike Keller MD :1940???Age:83 Y???Sex:Male Roman e:01/03/2024 Address:[address] [place] [address] [place], [id number] Pcp:Quinten Han MD Subjective: * Chief Complaints: [...] status: . Occupation: Retired, but works at [employer] from August-February.. ???Smokes a cigar occasionally; 2 glasses of wine QD, and 2-3 [employer] at the [employer] a few times a week He was born in [place] and came here when he was 19 years old. 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 * Medications:?TakingTylenol P M Extra Strength Amlodipine [...] Patient decision) * Procedure Codes:?1036F TOBAC CO [id number]-[id number] BP SCR NOT PRFRM REC REASON NOS * Preventive Medicine:? ??Counseling:?Care goal follow-up plan:?Above Normal BMI Follow-up?Giving encouragement to exercise,?BMI management provided?Yes.? ??Screenings:?Fall Risk Screening?Fall Risk Assessment:?No falls in the past year.? * Follow Up:?prn * * Sign off status: Completed true * Provider:?Mike Keller MD Date:? 024 Generated for Katelyn buchanan/Elida/Dariosmpebbles on:?09/18/2024 02:02 PM EDT History and Physical Notes * [...]
--- OUTSIDE RECORDS SUMMARY | 2024-09-18 14:04 | XMS_ITS ---
Author Organization Quinten Han MD Address [address] [place] [phone] Care Team Providers Care Merchandise Flow Team Leader Name Role Phone Quinten Han Primary Care Provider REASON FOR VISIT fasting lipids Encounters Encounter Location Date Provider Diagnosis Quinten Han MD [address] [place] [phone] 09/18/2024 Quinten Han Pure hypercholestero lemia E78.00 Assessments Encounter Date Diagnosis (ICD Code) Assessment Notes Treatment Notes Treatment Clinical Notes Section Notes 09/18/2024 Pure hypercholesterolemia (ICD-10 - E78.00) Plan Of Treatment Pending Test Test Name Order Date Liver Panel 09/18/2024 Lipid Panel with Reflex 09/18/2024 Next Appt Details Provider Name:Quinten rocha, 09/25/2024 09:00:00 AM, [address], [address] [place] [address] [place], [phone], Provider Name:Quinten Marcos ier, 03/23/2025 07:30:00 AM, [address], [address], [place], [phone], Provider Name:Quinten Marcos ier, 03/30/2025 09:30:00 AM, [address] [facility], [address], [place], [id number], Progress Notes * RUSS CASTREJON MDOB: 2 (84 yo M)Acc No.[id number]:09/18/2024 Progress Note Patient:?LUCÍA RUSS Lion Provider:?Quinten Han MD :1940???Age:84 Y???Sex:Male Roman e:09/18/2024 Address:[address] [place] [id number] Subjective: * Chief Complaints: * ???1. Fasting lipids. * Medical History:? Objective: * Vitals:? Assessment: * Assessment: 1.?Pure hypercholesterolemia - E78.00 (Primary)??? Plan: * Treatment: * Procedure Codes:?33186 VENIP UNCT, ROUTINE* * * The named appointment provid er may or may not be the originator of this progress note, and it is not deemed complete until electronically signed by the appointment provider. Sign off status: Pending * Provider:?Quinten Han MD Date:?0 09/18/2024 Generated for Katelyn buchanan/Elida/eTransmitting on:?09/18/2024 02:03 PM EDT
--- OUTSIDE RECORDS SUMMARY | 2024-09-18 14:04 | XMS_ITS | Clinical Summary ---
Author Organization [facility] Address [address] [id number] Care Team Providers Care Apartment Rental Clerk Name Role Phone Quinten Han MD Primary Care Provider [phone] Allergies No known active allergies Medications Medication [...] mg total) by mouth daily. 0 Active Leland-3 Fatty Acids (FISH OIL PO) Take by [...] age to complete this topic Care Teams Apartment Rental Clerk Relationship Specialty Start Date End Date Quinten Han MD [address] [place] [address] Drive [address] [place] [address] PCP - General Internal Medicine 10/19/16
[2024-09-18 15:59] LABS: Reflex LDLD? No
== END 2024-09-18 13:30 | disposition home or self-care (01) ==
LOC: HO.LNP 13:29
PROVIDERS: Visit Provider Internal Medicine
DX: E78.00 Pure hypercholesterolemia, unspecified (principal)
CPT/HCPCS: 80061; 80076

== ENCOUNTER 2024-09-22 09:53 | Outpatient (AMB) | payer MEDICARE, SELFPAY ==
--- OUTSIDE RECORDS SUMMARY | 2024-09-22 10:13 | XMS_ITS | Patient Health Record ---
Author Organization Quinten Han MD Address [address] [place], [place] [address] Care Team Providers Care Client Services Analyst Name Role Phone Quinten Han Primary Care Provider [phone] Allergies Allergen (clinical drug ingredient) Drug/Non Drug Allergy documented on EMR Reaction Allergy Type Onset Date Status ibuprofen Ibuprofen hallucinating Drug Allergy Act eddie Results Component Value Reference Range Notes Complete Blood Count Auto Di ff Reviewed date:03/24/2024 12:32:57 PM Interpretation: Performing Lab:[facility], [address] [place] [phone] Notes/Report: White Blood Count 6.3 4.8-10.8 X10*3/uL [...] NRBC Abs Auto 0.000 0.0-0.012 X10*3/uL Comprehensive [place]cl[place]. Panel Fa st Reviewed date:03/24/2024 12:32:05 PM Interpretation: Performing Lab:[facility], [address] [place] [address] Notes/Report: Sodium 143 135-145 mmol/L Potassium 3.4 [...] Panel Reviewed date:03/24/2024 12:32:29 PM Interpretation: Performing Lab:[address] [address] Notes/Report: Triglycerides 82 <150 mg/dL Desirable Triglyceride: [...] (Free>4and<10) Reviewed date:03/24/2024 12:31:46 PM Interpretation: Performing Lab:[address] [address] Notes/Report: PSA,Total (Free>4and<10) < 0.10 0.00-4.00 ng/mL [...] between 4.0 and 10.0 ng/mL. PSA methodology: [employer] Alinity i Chemiluminescent Microparticle Immunoassay (CMIA) UA ClnCatch+Micro w/rflx Cul t Reviewed date:03/24/2024 12:47:18 PM Interpretation: Performing Lab:[address] [address] Notes/Report: [id number] Urine, Clean Catch Color Urine Yellow Appearance Urine Clear PH 8.0 5.0-9.0 Glucose Urine UA Negative Negative mg/dL Urine Blood Negative Negative Specific [place] - Urine 1.015 1.005-1.025 Urine Protein Negative Neg-Trace mg/dL Urine Ketones Negative Negative mg/dL Nitrite Urine Negative Negative Leukocyte Esterase Urine Trace Negative RBC Urine 0-2 0-2 /HPF WBC Urine 0-5 0-5 /HPF Squamous Epithelial Cell Urine 0-2 0-2 /HPF Bacteria Urine None Seen None Seen Hyaline Casts Urine 0-2 0-2 /LPF Liver Panel Reviewed date:09/18/2024 04:25:13 PM Interpretation: Performing Lab:[facility], [address] [place] [phone] Notes/Report: Bilirubin Total 0.6 0.0-1.0 mg/dL Bilirubin Direct 0.2 0.0-0.5 mg/dL Aspartate Amino Transferase 26 5-37 U/L Alanine Aminotransferase 21 0-40 U/L Total Protein 6.5 6.5-8.0 g/dL Albumin Level 4.2 3.5-5.0 g/dL Alkaline Phosphatase 85 39-117 U/L Lipid Panel with Reflex Reviewed date:09/18/2024 04:39:57 PM Interpretation: Performing Lab:[address] [address] Notes/Report: Triglycerides 66 <150 mg/dL Desirable Triglyceride: [...] low results in patients with liver disease. Occult Blood, Stool, Guaiac Reviewed date:03/28/2024 10:26:17 AM Interpretation:Negative Performing Lab: Notes/Report: Negative Occult Blood, Stool, Guaiac Neg Hold Gold Reviewed date:09/18/2024 02:27:00 PM Interpretation: Performing Lab:[facility], [address] [place] [address], [place] [address] Notes/Report: Hold Gold See Note Specimen held [...] Notes Kamilah Hugo 10:15:15 AM EST > [place] office [phone] Annette 04/01/2024 02:23:45 PM EST > info faxed [phone] Annette 04/15/2024 10:37:45 AM EST > called [...] Administered pt was given the vaccine at [facility] in [place]. Influenza High Dose IM Intramuscular 03/07/2018 Administer ed Prevnar 13 IM Intramuscular 08/12/2018 Administered Shingrix IM Intramuscular 09/24/2017 Administered pt was given the vaccine at [facility] in [place]. 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) Active confirmed Problem 158386640 Mild aortic sten osis (I35.0) Active confirmed Problem 930174897 Renal cancer, unspecified laterality (C64.9) Active confirmed Problem 39500647 Carpal tunnel sy ndrome of right wrist (G56.01) Active confirmed Problem 84856238 Oropharyngeal dysphagia (R13.12) Active confirmed Problem 66049857 Meralgia paraesthetica, 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) Active confirmed Problem 75321974 Sciatica of righ t side (M54.31) Active confirmed Problem 422538290 Pure hypercholesterolemia (E78.00) Active confirmed Problem 832954802 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) Active confirmed Problem 86251956 Hypercholesterol emia (E78.00) Active confirmed Problem 6928864314000187 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) Active confirmed Problem 104632504 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) Active confirmed Problem Computed tomography result abnormal (942235150) Abnormal CAT scan (R93.89) Active confirmed Vital Signs Blood pressure diastolic 74 mm Hg 03/28/2024 Height 64 in 03/28/2024 Blood pressure systolic 110 mm Hg 03/28/2024 Weight 197 lbs 03/28/2024 BMI 33.81 kg/m2 03/28/2024 Encounters Encounter Location Date Provider Diagnosis Quinten Han MD [address] [place] [id number] 01/28/2024 Quinten Han Encounter for immuni zation Z23 Quinten Han MD [address] [place] [id number] 03/24/2024 Quinten Han Essential hypertensi on I10 ; Prostatism N40.0 ; Pure hypercholesterolemia E78.00 and Hypercholesterolemia E78.00 Quinten Han MD [address] [place] [id number] 09/18/2024 Quinten Han Pure hypercholestero lemia E78.00 Quinten Han MD [address] [place] [id number] 09/25/2023 Quinten Han Neuropathy G62.9 and Rectum pain K62.89 Quinten Han MD [address] [place] [id number] 03/28/2024 Quinten Han Prostate cancer C61 ; Sciatica of right side M54.31 ; Mild aortic stenosis I35.0 ; Essential hypertension I10 ; Pure hypercholesterolemia E78.00 ; Depression screening Z13.31 and Colon cancer screening Z12.11 Quinten Han MD [address] [place], [place] [phone] 11/01/2023 Quinten Han Pure hypercholestero lemia E78.00 [...] ECHO 12/05/2012 NM bone scan whole body 05/30/2021 NM bone scan whole body 06/20/2021 US carotid duplex BI 02/02/2022 Future Test Test Name Order Date CT ABD & PELVIS WWO CONTRAST 07/26/2020 Next Appt Details Provider Name:Quinten Marcos ier, 09/25/2024 09:00:00 AM, [address] [place] [address], [address], [place], [place], [phone], Provider Name:Quinten Marcos ier, 03/23/2025 07:30:00 AM, [address] [place] [address], [address], [place], [place], [phone], Provider Name:Quinten Marcos ier, 03/30/2025 09:30:00 AM, [address] [place] [address], [address], [place], [place], [phone], Insurance Providers Payer Name Payer Address Payer Phone Subscriber Number Group Number Insured Name Patient Relationship to Insured Coverage Start Date Coverage End Date MEDICARE [facility] [address] [place] [address] [id number] LUCÍA NYDIALORENZA Self - patient is the insured [address] [place] [address] [address] [place], [place] [id number] [phone] [id number] LUCÍA NYDIALORENZA Self - patient is the insured Medical (General) History Medical History History ICD Code biopsy of prostate over 5 years on bical utamide which is cassodex colonoscopy in past. Colonos copy done 03/24/2013 - no further testing required per Dr. Monge. Colonoscopy 06/20/21 no more
--- OUTSIDE RECORDS SUMMARY | 2024-09-22 10:13 | XMS_ITS ---
Author Organization [facility] Address [address] [place] [address] Care Team Providers Care Seo Assistant Name Role Phone Quinten Han MD Primary Care Provider Mike Wallace Unavailable [phone] Allergies No Known Allergies REASON FOR VISIT [...] 01/03/2024 Encounters Encounter Location Date Provider Diagnosis [facility] [address] [place] [address] 01/03/2024 Mike Keller Rectal discomfort K62.89 Assessments [...] Notes * RITO HERNANDEZOB:1940 (83 yo M)Acc No.[id number]:01/03/2024 Progress Notes Patient:?RUSS HERNANDEZ Provider:?Mike Keller MD :1940???Age:83 Y???Sex:Male Roman e:01/03/2024 Address:[address] [place] [address] Swathi LERMA, [id number] Pcp:Quinten Han MD Subjective: * Chief Complaints: [...] status: . Occupation: Retired, but works at [employer] from August-February.. ???Smokes a cigar occasionally; 2 glasses of wine QD, and 2-3 [place] at the [employer] a few times a week He was born in [place] and came here when he was 19 years old. 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 * Medications:?TakingTylenol P M Extra Strength Amlodipine [...] Patient decision) * Procedure Codes:?1036F TOBAC CO [id number] BP SCR NOT PRFRM REC REASON NOS * Preventive Medicine:? ??Counseling:?Care goal follow-up plan:?Above Normal BMI Follow-up?Giving encouragement to exercise,?BMI management provided?Yes.? ??Screenings:?Fall Risk Screening?Fall Risk Assessment:?No falls in the past year.? * Follow Up:?prn * * Sign off status: Completed true * Provider:?Mike Keller MD Date:? 024 Generated for Katelyn buchanan/Elida/eTyusufsmitting on:?09/22/2024 10:13 AM EDT History and Physical Notes * [...]
--- OUTSIDE RECORDS SUMMARY | 2024-09-22 10:13 | XMS_ITS ---
Author Organization Quinten Han MD Address [address] [place], [place] [phone] Care Team Providers Care Photo Mask Processor Name Role Phone Quinten Han Primary Care Provider Results Component Value Reference Range Notes Liver Panel Reviewed date:09/18/2024 04:25:13 PM Interpretation: Performing Lab:[facility], [address] [place] [phone] Notes/Report: Bilirubin Total 0.6 0.0-1.0 mg/dL Bilirubin Direct 0.2 0.0-0.5 mg/dL Aspartate Amino Transferase 26 5-37 U/L Alanine Aminotransferase 21 0-40 U/L Total Protein 6.5 6.5-8.0 g/dL Albumin Level 4.2 3.5-5.0 g/dL Alkaline Phosphatase 85 39-117 U/L Lipid Panel with Reflex Reviewed date:09/18/2024 04:39:57 PM Interpretation: Performing Lab:[facility], [address] [place] [address] Notes/Report: Triglycerides 66 <150 mg/dL Desirable Triglyceride: [...] Location Date Provider Diagnosis Quinten Han MD [address] [place] [address] [place] [phone] 09/18/2024 Quinten Han Pure hypercholestero lemia E78.00 Assessments Encounter Date Diagnosis (ICD Code) Assessment Notes Treatment Notes Treatment Clinical Notes Section Notes 09/18/2024 Pure hypercholesterolemia (ICD-10 - E78.00) Plan Of Treatment Next Appt Details Provider Name:Quinten rocha, 09/25/2024 09:00:00 AM, [address] [place] [address], [address], [phone], Provider Name:Quinten rocha, 03/23/2025 07:30:00 AM, [address] [place] [address], [address], [phone], Provider Name:Quinten rocha, 03/30/2025 09:30:00 AM, [address] [place] [address], [address], [phone], Progress Notes * RUSS CASTREJON MDOB: 2 (84 yo M)Acc No.[id number]:09/18/2024 Progress Note Patient:?RUSS CASTREJON Provider:?Quinten Han MD :1940???Age:84 Y???Sex:Male Roman e:09/18/2024 Address:Swathi [place], [place]-[id number] Subjective: * Chief Complaints: * ???1. Fasting lipids. * Medical History:? Objective: * Vitals:? Assessment: * Assessment: 1.?Pure hypercholesterolemia - E78.00 (Primary)??? Plan: * Treatment: * Procedure Codes:?83066 VENIP UNCT, ROUTINE* * * The named appointment provid er may or may not be the originator of this progress note, and it is not deemed complete until electronically signed by the appointment provider. Sign off status: Pending * Provider:?Quinten Han MD Date:?0 09/18/2024 Generated for Katelyn buchanan/Elida/Jakeitting on:?09/22/2024 10:13 AM EDT
--- OUTSIDE RECORDS SUMMARY | 2024-09-22 10:13 | XMS_ITS | Clinical Summary ---
Author Organization [facility] Address [address] [place] [address] Phone Care Team Providers Care Fish Fryer Name Role Phone Quinten Han MD Primary Care Provider [phone] Medications amLODIPine (NORVASC) 5 mg tablet Take [...] Date Diagnosed Date Malignant neoplasm of prostate ([facility] V24, [facility] V28) 08/08/2024 Lumbar spondylosis 12/20/2023 Overview (04/16/2024): [...] every morning. He has been seen at [facility] pain management, is s/p right L5 TFE, L5-S1 JANNIE, but did not see relief with either injection. He states they are talking to him about spinal cord stimulator trial, he is not sure if he wants to try it. Patient had MRI lumbar spine 07/30/2023 at [facility] that showed multilevel degenerative changes, I did [...] Type Department Care Team Description 08/13/2024 Telephone [facility] Hematology Oncology [address] [place] [address] Karma De La Vega [place] 08/08/2024 10:00 AM EDT Office Visit [facility] Hematology Oncology [address] [place] [address] Pia Quinones, Prostate cancer ([facility] V24, [facility] V28) (Primary Dx) from Last 3 Months [...] Description 02/09/2025 10:00 AM EDT Office Visit [facility] Hematology Oncology [address] [place] [address] Pia Quinones, DO [address] [place] [address] Health Maintenance Due Date Last Done Comments [...] Routine 08/08/2024 10:58 AM EDT Prostate cancer ([facility] V24, [facility] V28) PROSTATE SPECIFIC ANTIGEN DIAGNOSTIC Routine 08/08/2024 10:58 AM EDT Prostate cancer ([facility] V24, [facility] V28) COMPREHENSIVE METABOLIC PANEL Routine 08/08/2024 10:58 AM EDT Prostate cancer ([facility] V24, [facility] V28) CBC AND DIFFERENTIAL Routine 08/08/2024 10:58 AM EDT Prostate cancer ([facility] V24, [facility] V28) from Last 3 Months Results * Prostate specific antigen diagnostic (08/08/2024 10:58 AM EDT) PSA <0.06 0.00 - 4.00 ng/mL LAB CHEMISTRY METHOD 08/08/2024 1:35 PM EDT [facility] Blood Venous blood specimen / Unknown Venipuncture / Unknown 08/08/2024 10:58 AM EDT 08/08/2024 11:40 AM EDT Narrative [facility] - 08/08/2024 1:35 PM EDT The Siemens Advia Centaur Chemiluminescent Immunoassay is used. Results obtained with different assay methods or kits cannot be used interchangeably. Results cannot be interpreted as absolute evidence of the presence or absence of malignant disease. us Pia Quinones DO LAB BLOOD ORDERABLES Final Result [facility] [address] [place] [address], * (ABNORMAL) CBC auto differential (08/08/2024 10:58 AM EDT) WBC 6.6 4.8 - 10.8 K/mcL LAB HEMETOLOGY METHOD 08/08/2024 11:45 AM [facility] RBC 4.80 4.50 - 5.50 M/mcL LAB HEMETOLOGY METHOD 08/08/2024 11:45 AM [facility] Hemoglobin 13.8 13.5 - 17.5 g/dL LAB HEMETOLOGY METHOD 08/08/2024 11:45 AM [facility] Hematocrit 43.4 42.0 - 54.0 % LAB HEMETOLOGY METHOD 08/08/2024 11:45 AM [facility] MCV 91.0 79.0 - 98.0 FL LAB HEMETOLOGY METHOD 08/08/2024 11:45 AM [facility] MCH 28.9 27.0 - 32.0 pcg LAB HEMETOLOGY METHOD 08/08/2024 11:45 AM [facility] MCHC 31.8(L) 32.0 - 37.0 g/dL LAB HEMETOLOGY METHOD 08/08/2024 11:45 AM [facility] RDW 14.2 11.0 - 15.0 % LAB HEMETOLOGY METHOD 08/08/2024 11:45 AM [facility] Platelets 192 130 - 400 K/mcL LAB HEMETOLOGY METHOD 08/08/2024 11:45 AM [facility] MPV 11.3(H) 7.0 - 11.0 FL LAB HEMETOLOGY METHOD 08/08/2024 11:45 AM [facility] NRBC 0.0 <1.0 % LAB HEMETOLOGY METHOD 08/08/2024 11:45 AM [facility] NRBC Absolute 0.00 <0.10 K/mcL LAB HEMETOLOGY METHOD 08/08/2024 11:45 AM [facility] Neutrophils Relative 64.3 % LAB HEMETOLOGY METHOD 08/08/2024 11:45 AM [facility] Lymphocytes Relative 21.7 % LAB HEMETOLOGY METHOD 08/08/2024 11:45 AM [facility] Monocytes Relative 9.0 % LAB HEMETOLOGY METHOD 08/08/2024 11:45 AM [facility] Eosinophils Relative 2.6 % LAB HEMETOLOGY METHOD 08/08/2024 11:45 AM [facility] Basophils Relative 0.9 % LAB HEMETOLOGY METHOD 08/08/2024 11:45 AM [facility] Immature Granulocytes Relative 1.5 % LAB HEMETOLOGY METHOD 08/08/2024 11:45 AM [facility] Neutrophils Absolute 4.21 1.50 - 7.00 K/mcL LAB HEMETOLOGY METHOD 08/08/2024 11:45 AM [facility] Lymphocytes Absolute 1.42 1.00 - 5.00 K/mcL LAB HEMETOLOGY METHOD 08/08/2024 11:45 AM [facility] Monocytes Absolute 0.59 0.20 - 1.00 K/mcL LAB HEMETOLOGY METHOD 08/08/2024 11:45 AM [facility] Eosinophils Absolute 0.17 0.00 - 0.50 K/mcL LAB HEMETOLOGY METHOD 08/08/2024 11:45 AM [facility] Basophils Absolute 0.06 0.00 - 0.20 K/mcL LAB HEMETOLOGY METHOD 08/08/2024 11:45 AM [facility] Immature Granulocytes Absolute 0.10(H) 0.00 - 0.03 K/mcL LAB HEMETOLOGY METHOD 08/08/2024 11:45 AM [facility] Blood Venous blood specimen / Unknown Venipuncture / Unknown 08/08/2024 10:58 AM EDT 08/08/2024 11:44 AM EDT us Pia Yates Stacie DO LAB BLOOD ORDERABLES Final Result [facility] [address] [place] [address], * (ABNORMAL) Comprehensive metabolic panel (08/08/2024 10:58 AM EDT) Sodium 138 133 - 145 mmol/L LAB CHEMISTRY METHOD 08/08/2024 1:04 PM [facility] Potassium 3.7 3.5 - 5.5 mmol/L LAB CHEMISTRY METHOD 08/08/2024 1:04 PM [facility] Chloride 98 96 - 110 mmol/L LAB CHEMISTRY METHOD 08/08/2024 1:04 PM [facility] CO2 33(H) 21 - 32 mmol/L LAB CHEMISTRY METHOD 08/08/2024 1:04 PM [facility] Anion Gap 7 3 - 11 LAB CHEMISTRY METHOD 08/08/2024 1:04 PM [facility] Glucose 88 70 - 100 mg/dL LAB CHEMISTRY METHOD 08/08/2024 1:04 PM [facility] BUN 11 5 - 25 mg/dL LAB CHEMISTRY METHOD 08/08/2024 1:04 PM [facility] Creatinine 0.70 0.70 - 1.30 mg/dL LAB CHEMISTRY METHOD 08/08/2024 1:04 PM [facility] eGFR 92 >=60 mL/min/1. 73m2 LAB CHEMISTRY METHOD 08/08/2024 1:04 PM [facility] Comment:Calculation based on the??Chronic Kidney Disease Epidemiology Collaboration (CKD-EPI) equation refit??without adjustment for race. BUN/Creatinine Ratio 15.7 LAB CHEMISTRY METHOD 08/08/2024 1:04 PM [facility] Calcium 9.0 8.5 - 10.5 mg/dL LAB CHEMISTRY METHOD 08/08/2024 1:04 PM EDT [facility] AST (SGOT) 15 10 - 42 unit/L LAB CHEMISTRY METHOD 08/08/2024 1:04 PM EDT [facility] ALT (SGPT) 22 10 - 60 unit/L LAB CHEMISTRY METHOD 08/08/2024 1:04 PM EDT [facility] Alkaline Phosphatase 102 42 - 121 unit/L LAB CHEMISTRY METHOD 08/08/2024 1:04 PM EDT [facility] Total Protein 6.5 6.0 - 8.0 g/dL LAB CHEMISTRY METHOD 08/08/2024 1:04 PM EDT [facility] Albumin 3.7 3.2 - 5.0 g/dL LAB CHEMISTRY METHOD 08/[facility] Total Bilirubin 0.6 0.0 - 1.4 mg/dL LAB CHEMISTRY METHOD 08/08/2024 1:04 PM EDT [facility] Blood Venous blood specimen / Unknown Venipuncture / Unknown 08/08/2024 10:58 AM EDT 08/08/2024 11:40 AM EDT us Pia Quinones DO LAB BLOOD ORDERABLES Final Result [facility] [address] [place] [address], from Last 3 Months Insurance MEDICARE [facility] Care Teams Fish Fryer Relationship Specialty Start Date End Date Quinten Han MD [address] [facility] [address] [place] [phone] PCP - General Internal Medicine 10/19/16
--- OUTSIDE RECORDS SUMMARY | 2024-09-22 10:14 | XMS_ITS | Clinical Summary ---
Author Organization [facility] Address [address] [id number] Care Team Providers Care Fiberglass Boat Maker Name Role Phone Quinten Han MD Primary Care Provider [phone] Allergies No known active allergies Medications Medication [...] mg total) by mouth daily. 0 Active [place]-3 Fatty Acids (FISH OIL PO) Take by [...] age to complete this topic Care Teams Fiberglass Boat Maker Relationship Specialty Start Date End Date Quinten Han MD [address] [place] [address] Drive [address] [place] [address] PCP - General Internal Medicine 10/19/16
--- OUTSIDE RECORDS SUMMARY | 2024-09-22 10:14 | XMS_ITS | Patient Health Record ---
Author Organization [facility] Address [address] [place] [address] Care Team Providers Care Black Top Spreader Machine Operator Name Role Phone Quinten Han MD Primary Care Provider Mike Wallace Unavailable [phone] Allergies No Known Allergies Reason For Referral [...] Problem Status W/U Status Risk Notes Problem 9636447 Helicobacter pylori (H. 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.0) Active confirmed Problem Rectal discomfor t (K62.89) Active confirmed Problem Diverticulosis of colon (579104632) Diverticulosis of colon (K57.30) Active confirmed Vital Signs Temperature 97.5 degrees Fahrenheit 01/03/2024 Blood pressure diastolic 00 mm Hg 01/03/2024 Height 64 in 01/03/2024 Blood pressure systolic 000 mm Hg 01/03/2024 Weight 194 lbs 01/03/2024 BMI 33.30 kg/m2 01/03/2024 Encounters Encounter Location Date Provider Diagnosis [facility] [address] [place] [address] 01/03/2024 Mike Keller Rectal discomfort K62.89 Assessments [...] Date MEDICARE OF [place] [address] [place] [address] [id number] RUSS HERNANDEZ Self - patient is the insured [facility] [address] [place] [address] [id number] RUSS HERNANDEZ Self - patient is the insured Medical (General) History Medical History History ICD Code HTN Denies DE,DM,CVA,Lung disease,renal dise ase BPH--he describes a possible prostate bi opsy in the past Hyperlipidemia Right 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 Raman Caballero() and Dr. Ku(Oncology)-- he has apparently had a negative workup for metastatic disease, including a PET-CT scan--he had cryosurgery with IR at [facility] in 04/2014--describes a CT scan [...]
--- OUTSIDE RECORDS SUMMARY | 2024-09-22 10:14 | XMS_ITS ---
Author Organization Quinten Han MD Address [address] [place], [place] [phone] Care Team Providers Care Course Instructor Name Role Phone Quinten Han Primary Care Provider [phone] Allergies Allergen (clinical drug ingredient) Drug/Non Drug [...] General Notes Oanh,Kamilah 10:15:15 AM EST > [place] office [phone] Kamilah Hugo 04/01/2024 02:23:45 PM EST > info faxed [phone] Annette 04/15/2024 10:37:45 AM EST > called [...] Problem Status W/U Status Risk Notes Problem 236307856 Mild aortic stenosis (I35.0) Active confirmed Vital Signs Blood pressure systolic 110 mm Hg 03/28/20 24 Blood pressure diastolic 74 mm Hg 024 Height 64 in 03/28/2024 Weight 197 lbs 03/28/2024 BMI 33.81 kg/m2 03/28/2024 Encounters Encounter Location Date Provider Diagnosis Quinten Han MD 10 [facility] [address] [place], [place] [phone] 03/28/2024 Quinten Han Prostate cancer C61 ; [...] Provider Name:Quinten Marcos ier, 09/25/2024 09:00:00 AM, [address] [place] [address], Suite [facility], [place], [place], [phone], Provider Name:Quinten Marcos ier, 03/23/2025 07:30:00 AM, [address] [place] [address], Suite [facility], [place], [place], [phone], Provider Name:Quinten Marcos ier, 03/30/2025 09:30:00 AM, [address] [place] [address], Suite [facility], [place], [place], [phone], Progress Notes * RUSS CASTREJON MDOB: 2 (84 yo M)Acc No.[id number]:03/28/2024 Patient:?RUSS CASTREJON Provider:?Quinten Han MD :1940???Age:84 Y???Sex:Male Roman e:03/28/2024 Address:[address] [place], [place] [address]Swathi [id number] Subjective: * Chief Complaints: * ???Comp visit [...] Pets: none. no Travel outside of the [place]. ???Cigar occasionally. * Medications:?TakingAspir-Low 81 MG [...] mg/dL ?Urine Blood Negative Negative - ?Specific [place] - Urine 1.015 1.005-1.025 - ?Urine Protein [...] Auto 0.000 0.0-0. 012 - X10*3/uL ???Lab:Comprehensive [place]. P roland Fast (Order Date - 03/24/2024) [...] Guaiac Neg Notes: guaiac negative?? * Procedure Codes:?48907 TEST FOR BLOOD, FECES * Preventive Medicine:? ??Counseling:?Care goal follow-up plan:?Counseling for abnormal BMI provided?Yes,?Above Normal BMI Follow-up?Giving encouragement to exercise.? * Follow Up:?6 Months * * Sign off status: Completed true * Provider:?Quinten Han MD Date:?05/28/2023 Generated for Katelyn buchanan/Elida/eTransmitting on:?09/22/2024 10:13 AM EDT History and Physical [...]
--- OUTSIDE RECORDS SUMMARY | 2024-09-22 10:14 | XMS_ITS ---
Author Organization Quinten Han MD Address [address] [place], [place] [phone] Care Team Providers Care Roulette Dealer Name Role Phone Quinten Han Primary Care Provider Results Component Value Reference Range Notes Complete Blood Count Auto Di ff Reviewed date:03/24/2024 12:32:57 PM Interpretation: Performing Lab:[facility], [address] [place] [phone] Notes/Report: White Blood Count 6.3 4.8-10.8 X10*3/uL [...] NRBC Abs Auto 0.000 0.0-0.012 X10*3/uL Comprehensive [place]. Panel Fa st Reviewed date:03/24/2024 12:32:05 PM Interpretation: Performing Lab:[facility], [address] [place] [phone] Notes/Report: Sodium 143 135-145 mmol/L Potassium 3.4 [...] Panel Reviewed date:03/24/2024 12:32:29 PM Interpretation: Performing Lab:[facility], [address] [place] [phone] Notes/Report: Triglycerides 82 <150 mg/dL Desirable Triglyceride: [...] (Free>4and<10) Reviewed date:03/24/2024 12:31:46 PM Interpretation: Performing Lab:[facility], [address] [place] [phone] Notes/Report: PSA,Total (Free>4and<10) < 0.10 0.00-4.00 ng/mL [...] t Reviewed date:03/24/2024 12:47:18 PM Interpretation: Performing Lab:[facility], [address] [facility], [place] [address] Notes/Report: [id number] Urine, Clean Catch Color Urine Yellow Appearance Urine Clear PH 8.0 5.0-9.0 Glucose Urine UA Negative Negative mg/dL Urine Blood Negative Negative Specific [place] - Urine 1.015 1.005-1.025 Urine Protein Negative [...] Location Date Provider Diagnosis Quinten Han MD [address] [place] [phone] 03/24/2024 Quinten Han Essential hypertensi on I10 [...] Details Provider Name:Quinten rocha, 09/25/2024 09:00:00 AM, [address] [place] [address], [address], [phone], Provider Name:Quinten rocha, 03/23/2025 07:30:00 AM, [address] [place] [address], [address], [phone], Provider Name:Quinten rocha, 03/30/2025 09:30:00 AM, [address] [place] [address], [phone], Progress Notes * RUSS CASTREJON MDOB: 2 (84 yo M)Acc No.[id number]:03/24/2024 Progress Note Patient:?RUSS CASTREJON Provider:?Quinten Han MD :1940???Age:84 Y???Sex:Male Roman e:03/24/2024 Address:[address] [place] [address] [id number] Subjective: * Chief Complaints: * ???1. Yearly fasting labs. * Medical History:? Objective: * Vitals:? Assessment: * Assessment: 1.?Essential hypertension - I10 (Primary)???2.?Prostatism - N40.0???3.?Pure hypercholesterolemia - E78.00???4.?Hypercholesterolemia - E78.00??? Plan: * Treatment: 2.?Prostatism?LAB: Complete Blood Count Auto Diff (Collection Date & Time - 03/24/2024 07:45 AM) ?LAB: Comprehensive [place]. Panel Fast (Collection Date & Time - 03/24/2024 07:45 AM) ?LAB: Lipid Panel (Collection Date & Time - 03/24/2024 07:45 AM) ?LAB: PSA,Total (Free>4and<10) (Collection Date & Time - 03/24/2024 07:45 AM) ?LAB: UA ClnCatch+Micro w/rflx Cult (Collection Date & Time - 03/24/2024 07:45 AM) 3.?Pure hypercholesterolemia ?LAB: Complete Blood Count Auto Diff (Collection Date & Time - 03/24/2024 07:45 AM) ?LAB: Comprehensive [place]. Panel Fast (Collection Date & Time - 03/24/2024 07:45 AM) ?LAB: Lipid Panel (Collection Date & Time - 03/24/2024 07:45 AM) ?LAB: PSA,Total (Free>4and<10) (Collection Date & Time - 03/24/2024 07:45 AM) ?LAB: UA ClnCatch+Micro w/rflx Cult (Collection Date & Time - 03/24/2024 07:45 AM) 4.?Hypercholesterolemia?LAB: Complete Blood Count Auto Diff (Collection Date & Time - 03/24/2024 07:45 AM) ?LAB: Comprehensive [place]. Panel Fast (Collection Date & Time - 03/24/2024 07:45 AM) * Procedure Codes:?52707 VENIP UNCT, ROUTINE* * * The named appointment provid er may or may not be the originator of this progress note, and it is not deemed complete until electronically signed by the appointment provider. Sign off status: Pending * Provider:?Quinten Han MD Date:?1 05/24/2023 Generated for Katelyn buchanan/Elida/Jakeitting on:?09/22/2024 10:14 AM EDT
--- NOTE | 2024-09-22 10:24 | A.SPINEOV_ITS ---
Intake Visit Reasons: LBP Intake Note: Mr. Hernandez is here today c/o Rt. leg an d back pain. [place] [facility] [place] Process Specialist Required: No Allergies No Known Allergies [No Known Allergies*] Allergy (Verified 09/15/24 11:25) Assessment & Plan Assessment & Plan (1) Burning sensation of lower extremity: Code(s): R20.8 - Other disturbances of skin sensation Category: Medical Plan Dear Artur, Thank you for referring Mr Hernandez to our office today. He is a very nice 84-year-old gentleman who presents for evaluation of pain in his distal right lower extremity. It started many many years ago, he can not exactly be sure when, it may have started after he had a bunch of procedures on veins in his lower extremities. It is present generally only at rest and will get better if he gets up and moves around. He has undergone a number of different workups on this and seems to be that he can not quite figure out what is causing it. He did undergo some injections with Dr. Ordonez which did not help. They were considering a spinal cord stimulator but he was not sure if he wanted to proceed with this. He comes in today for evaluation to see if this could be coming from his lumbar spine. He does have on and off back pain but this is not generally related to the current symptoms in the right leg. The discomfort in the right leg is down in the toes in the top of the foot and works its way upward to about his proximal tibial region. He does not have any weakness. He does get a little tingling on the outside of his thighs at times. PMH: Hypertension, high cholesterol, BPH, he had an ORIF of some kind of fracture injury to his right knee many many years ago. Social hx: He does not smoke, drink use any recreational drugs Medications: Atorvastatin, amlodipine, Flomax, hydrochlorothiazide, baby aspirin, senna, Lyrica, timolol Allergies: None Physical exam: He is awake alert oriented no acute distress, strength and reflexes are normal, he has a well healed scar in the lateral aspect of his right knee. No loss of sensation. Imaging review: Lumbar MRI at [place] shows degenerative disc disease at multiple levels, no significant central canal or foraminal stenosis. Impression: 84-year-old male presents with pain in his distal right lower extremity that starts more in his foot and works its way up to the tibial region. It is primarily present at night or when he is at rest and will get better when he gets up and moves around. It is a burning-type sensation and can be very uncomfortable. In order to a leave it he will put aspirate cream on it. He feels as though it may have been coinciding with some kind of venous procedure that he had done many years ago. It also ends right around the area where he has a scar on the outer aspect of his right knee and tibial region. His MRI shows some degenerative disc disease of his back which might explain some back pain but he does not have any nerve compression to explain the current symptoms. I am not sure exactly what it is. It sounds like it could be some kind of peripheral neuropathy in that it mostly comes on at night and when he is seated. It does localize itself very well to the scar that goes just over the area near where the peroneal nerve would be. I am going to order an EMG, and can call him with the results. Thank you for allowing us to care for your patient. The total time spent with this visit with this patient was 40 minutes reviewing history, physical exam, lumbar imaging review, and implementation of treatment plan or further diagnostic testing Juan Manuel Randall MD,PhD [facility] Orders: Orders NE electromyogram (EMG) Today R20.8 - Other disturbances of skin sensation Coding Level of Care Code New Pt Level 4 (47691) Diagnoses Burning sensation of lower extremity R20.8
== END 2024-09-22 11:30 | disposition home or self-care (01) ==
LOC: HO.HNS 09:54
PROVIDERS: Referring Provider Physician Assistant; Visit Provider Physician Assistant
DX: R20.8 Other disturbances of skin sensation (principal)
CPT/HCPCS: 99204

== ENCOUNTER → 2024-09-22 09:53 | Outpatient (BNVA) | payer MEDICARE, SELFPAY | PROVIDERS: Referring Provider Physician Assistant; Visit Provider Physician Assistant | DX: R20.8 Other disturbances of skin sensation (principal) | CPT/HCPCS: 99202 ==

== ENCOUNTER 2024-10-20 13:28 | Outpatient (REF) | payer MEDICARE, SELFPAY ==
[2024-10-20 14:09] LABS: Blood Urea Nitrogen 11 mg/dL (9-16); Estimated Glomerular Filt Rate > 60
--- OUTSIDE RECORDS SUMMARY | 2024-10-20 14:55 | XMS_ITS ---
Author Organization Quinten Han MD Address [address] [place], [place] [phone] Care Team Providers Care Social Work Job Titles Name Role Phone Quinten Han Primary Care Provider Results Component Value Reference Range Notes Blood Urea Nitrogen (Not yet reviewed by provider) Interpretation: Performing Lab:[address] [phone] Notes/Report: Blood Urea Nitrogen 11 9-16 mg/dL Creatinine (Not yet reviewe d by provider) Interpretation: Performing Lab:[address] [phone] Notes/Report: Creatinine 0.58 0.5-1.4 mg/dL Estimated Glomerular Filt Rate > 60 Chronic Kidney Disease: Estimated GFR < 60 mL/min/1.73m2 Severe Kidney Disease: Estimated GFR < 15 mL/min/1.73m2 REASON FOR VISIT BUN and Creatinine for Ct scan abd booked at [facility] [place] 10-30-24 at 2pm Encounters Encounter Location Date Provider Diagnosis Quinten Han MD [address] [place], [place] [phone] 10/20/2024 Quinten Han Essential hypertension I10 Assessments Encounter Date Diagnosis (ICD Code) Assessment Notes Treatment Notes Treatment Clinical Notes Section Notes 10/20/2024 Essential hypertension (ICD-10 - I10) Plan Of Treatment Pending Test Test Name Order Date Blood Urea Nitrogen 10/20/2024 Creatinine 10/20/2024 Next Appt Details Provider Name:Quinten Marcos ieetta, 03/23/2025 07:30:00 AM, [address], [address], [place], [place], [phone], Provider Name:Quinten rocha, 03/30/2025 09:30:00 AM, [address] [place] [address], Suite [facility], [place], [place], [phone], Progress Notes * RUSS CASTREJON MDOB: 2 (84 yo M)Acc No.[id number]:10/20/2024 Progress Note Patient:?RUSS CASTREJON Provider:?Quinten Han MD :1940???Age:84 Y???Sex:Male Roman e:10/20/2024 Address:[address] [place] [id number] Subjective: * Chief Complaints: * ???1. BUN and Creatinine for Ct scan abd booked at [facility] 10-30-24 at 2pm. * Medical History:? Objective: * Vitals:? Assessment: * Assessment: 1.?Essential hypertension - I10 (Primary)??? Plan: * Treatment: * Procedure Codes:?56267 VENIP UNCT, ROUTINE* * * The named appointment provid er may or may not be the originator of this progress note, and it is not deemed complete until electronically signed by the appointment provider. Sign off status: Pending * Provider:?Quinten Han MD Date:?0 10/20/2024 Generated for Katelyn buchanan/Elida/Chang on:?10/20/2024 02:55 PM EDT
== END 2024-10-20 13:29 | disposition home or self-care (01) ==
LOC: HO.LNP 13:28
PROVIDERS: Visit Provider Internal Medicine
DX: I10 Essential (primary) hypertension (principal)
CPT/HCPCS: 82565; 84520

== ENCOUNTER → 2024-10-23 09:56 | Outpatient (REF) | payer MEDICARE, SELFPAY ==
--- OUTSIDE RECORDS SUMMARY | 2024-10-20 03:45 | XMS_ITS ---
Author Organization Quinten Han MD Address [address] [place], [place] [phone] Care Team Providers Care Paraffin Machine Operator Name Role Phone Quinten Han Primary Care Provider [phone] Results Component Value Reference Range Notes Blood Urea Nitrogen Reviewed date:10/20/2024 04:32:38 PM Interpretation: Performing Lab:[facility], [address] [place] [phone] Notes/Report: Blood Urea Nitrogen 11 9-16 mg/dL Creatinine Reviewed date:10/20/2024 04:32:46 PM Interpretation: Performing Lab:[facility], [address] [place] [phone] Notes/Report: Creatinine 0.58 0.5-1.4 mg/dL Estimated Glomerular Filt Rate > 60 Chronic Kidney Disease: Estimated GFR < 60 mL/min/1.73m2 Severe Kidney Disease: Estimated GFR < 15 mL/min/1.73m2 REASON FOR VISIT BUN and Creatinine for Ct scan abd booked at [facility] 10-30-24 at 2pm Encounters Encounter Location Date Provider Diagnosis Quinten Han MD [address] [place], [place] [phone] 10/20/2024 Quinten Han Essential hypertension I10 Assessments Encounter Date Diagnosis (ICD Code) Assessment Notes Treatment Notes Treatment Clinical Notes Section Notes 10/20/2024 Essential hypertension (ICD-10 - I10) Plan Of Treatment Next Appt Details Provider Name:Quinten rocha, 03/23/2025 07:30:00 AM, [address], [address], [place], [place], [phone], Provider Name:Quinten rocha, 03/30/2025 09:30:00 AM, [address] [place] [address], [address], [place], [place], [phone], Progress Notes * RUSS CASTREJON MDOB: 2 (84 yo M)Acc No.[id number]:10/20/2024 Progress Note Patient: RUSS DIXON Provider: Rachel Han MD :1940 A ge:84 Y S ex:Male Date:10/20/2024 Address:[address] [place], [place] [address]Sw[place]ANBURY, [id number] Subjective: * Chief Complaints: * 1 . BUN and Creatinine for Ct scan abd booked at [facility] 10-30-24 at 2pm. * Medical History: Objective: [...] Han MD Date: 0 10/20/2024 Generated for Mercedesi ng/Elida/eTransmitting on: 0 10/23/2024 11:03 AM EDT
--- NOTE | 2024-10-23 09:58 | CA_ITS ---
Transthoracic Echocardiogram Patient (Last, First, Middle): Myla Hernandez, Gender: Male Date of : 1940 Age: 84 Procedure Date: 10/23/2024 Procedure Type: Transthoracic Echocardiogram Location: OP Height: 162.56 cm Weight: 88.45 kg BSA: 1.94 m2 Heart Rate: 67 bpm BP: 134 / 62 mmHg Signal Repairer: BECCA Referring MD: Anibal Haque MD Symptoms: I35.0 - Nonrheumatic aortic (valve) stenosis Study Quality: Adequate ECG Rhythm: Sinus Conclusions: - Normal left ventricular size, thickness, systolic function, and wall motion. The visually estimated ejection fraction is between 60-65%. - E/E prime ratio is >15, consistent with elevated filling pressures. - Normal right ventricular cavity size and systolic function. - There is mild aortic valve stenosis. Findings Left Ventricle Normal left ventricular size, thickness, systolic function, and wall motion. The visually estimated ejection fraction is between 60-65%. Abnormal diastolic function is noted. Spectral Doppler is indicative of an impaired relaxation filling pattern. E/E prime ratio is >15, consistent with elevated filling pressures. Right Ventricle Normal right ventricular cavity size and systolic function. Atria The left atrium is normal in size. The right atrium is likely dilated. Aortic Valve There is a normal trileaflet aortic valve. There is mild calcification of the aortic valve. There is mild aortic valve stenosis. The peak aortic velocity is 2.37 m/s. The mean gradient is 12 mmHg. The aortic valve area is 2.00 cm2. There is no aortic valve regurgitation. Mitral Valve The mitral valve appears normal. There is no mitral valve regurgitation. There is no mitral valve stenosis. Pulmonic Valve The pulmonic valve is likely normal. Tricuspid Valve Normal tricuspid valve structure. There is trace tricuspid valve regurgitation. Normal right atrial pressure. There is no evidence of pulmonary hypertension. Great Vessels All visible segments of the aorta are normal in size. The visualized portions of the pulmonary artery and branches are normal. Venous The inferior vena cava is normal in size and collapses greater than 50% with inspiration. Pericardium/Pleural Prominent epicardial adipose tissue noted. There is no evidence of pericardial effusion. Prior Study Comparison Changes noted compared to prior study dated: 08/26/2021. Elevated filling pressures. Mild aortic stenosis. Measurements 2D Linear Measurements IVSd: 0.84 0.6-0.9/0.6-1.0 cm LVIDd: 4.35 3.9-5.3/4.2-5.9 cm LVIDd Index: 2.24 2.4-3.2/2.2-3.1 cm/m2 LVIDs: 3.12 2.0-3.6 cm LVPWd: 0.88 0.7-1.1 cm LA Diam: 4.30 2.7-3.8/3.0-4.0 cm LAIDs Index: 2.22 1.5-2.3 cm/m2 LV Mass: 146.99 67-162/88-224 g LV Mass Index: 75.77 43-95/49-115 g/m2 LVOT Diam: 2.30 3.0+(-)1.3 cm 2D Systolic Function EF 4C: 68.70 >55% EF 2C: 66.30 >55% EF BiP: 67.70 >55% Mitral Valve MV Pk E: 1.20 MV PK A: 1.47 MV Decel Time: 294.00 E/A: 0.80 E'Lateral: 4.57 E'Medial: 4.57 E/E' Med: 26.30 E/E' Lat: 26.30 PHT: 86.00 MVA PHT: 2.56 Decel Cooper: 4.09 Aortic Valve AoV Pk Chris: 2.37 AoV Mn Chris: 1.57 AoV VTI: 0.53 AoV Pk Grad: 22.00 Aov Mn Grad: 12.00 LOIS Cont.VTI: 2.00 LVOT LVOT Pk Chris: 1.17 LVOT Mn Chris: 0.80 LVOT VTI: 0.25 LVOT Pk Grad: 5.00 LVOT Mn Grad: 3.00 LVOT Diam: 2.30 LVOT Area: 4.15 Diastolic Function MV Pk E: 1.20 MV Pk A: 1.47 E/A: 0.80 E'Medial: 4.57 E/E' Med: 26.30 E' Laterial: 4.57 E/E' Lat: 26.30 Right Ventricle TAPSE (mm): 22.90 TVS' Chris: 11.70 Tricuspid Valve TR Pk Chris: 2.71 TR Pk Grad: 29.00 RA Press: 3.00 RVSP: 32.00 Great Vessels Aorta Sinus of Valsalva: 3.60 2.0-3.5 cm Ao Asc: 3.60 2.1-3.4 cm Pulmonary Veins Pulm Vein S/D 1.20 Pulmonary Valve PV Pk Chris: 0.87 Peak PV Grad: 3.00 Updated in Other Vendor System with Status of Final Jagdish Pratt MD electronically signed on 10/26/2024 2:06:38 PM with status of Final
== END ==
LOC: HO.CARD 09:56
PROVIDERS: PCP Internal Medicine; Visit Provider Internal Medicine Cardiovascular Disease
DX: I35.0 Nonrheumatic aortic (valve) stenosis (principal); I10 Essential (primary) hypertension; I45.2 Bifascicular block
CPT/HCPCS: 93306

== ENCOUNTER → 2024-10-23 09:58 | Outpatient (BNV) | payer MEDICARE, SELFPAY | PROVIDERS: PCP Internal Medicine; Visit Provider Internal Medicine Cardiovascular Disease | DX: I35.0 Nonrheumatic aortic (valve) stenosis (principal); I51.89 Other ill-defined heart diseases | CPT/HCPCS: 93306 ==

== ENCOUNTER 2024-10-24 13:56 | Outpatient (REF) | payer MEDICARE, SELFPAY ==
--- NOTE | 2024-10-24 13:59 | EMG_ITS ---
Chief complaint: Patient continues to have burning sensation on both legs, right worse than left. Last EMG done by me 07/04/2023 showed signs of possible chronic L5-S1 radiculopathy without signs of peripheral neuropathy. Reason for referral: Evaluate for neuropathy versus radiculopathy Referred by: Juan Manuel DOBSON Procedure done: Bilateral lower extremity NCS/EMG Precautions and/or limitations: None The limb temperature was monitored continuously and remained between 32-36 degrees C during the performance of the NCS. Nerve Conduction Studies Anti Sensory Summary Table ?Stim Site NR Onset (ms) Norm Onset (ms) Peak (ms) Norm Peak (ms) O-P Amp (?V) Norm O-P Amp Site1 Site2 Delta-0 (ms) Dist (cm) Chris (m/s) Norm Chris (m/s) Left Sural Anti Sensory (Lat Mall) Calf NR <4.0 >5.0 Calf Lat Mall 14.0 Right Sural Anti Sensory (Lat Mall) Calf NR <4.0 >5.0 Calf Lat Mall 14.0 Motor Summary Table ?Stim Site NR Onset (ms) Norm Onset (ms) O-P Amp (mV) Norm O-P Amp iAmp (mV) Amp (1st) (%) Site1 Site2 Delta-0 (ms) Dist (cm) Chris (m/s) Norm Chris (m/s) Right Peroneal Motor (Ext Dig Brev) Ankle ? 4.9 <4.0 0.9 >2.5 1.0 100.0 Ankle Ext Dig Brev 4.9 0.0 B Fib ? 11.5 0.6 0.7 66.7 B Fib Ankle 6.6 29.0 44 >40 Poplt ? 12.3 0.7 0.9 77.8 Poplt B Fib 0.8 4.0 50 >40 Left Tibial Motor (Abd Jaime Brev) Ankle ? 3.6 <5 3.4 >2.5 4.4 100.0 Ankle Abd Jaime Brev 3.6 0.0 Knee ? 11.8 1.1 1.3 32.4 Knee Ankle 8.2 35.0 43 >40 Right Tibial Motor (Abd Jaime Brev) Ankle ? 2.7 <5 2.3 >2.5 2.9 100.0 Ankle Abd Jaime Brev 2.7 0.0 Knee ? 12.8 0.9 1.0 39.1 Knee Ankle 10.1 36.0 36 >40 EMG ?Side Muscle Nerve Root Ins Act Fibs Psw Amp Dur Poly Recrt Int Pat Comment Right AbdHallucis MedPlantar S1-2 Nml Nml Nml Nml Nml 0 Nml Complete Right AntTibialis Dp Br Peron L4-5 Nml Nml Nml Nml Nml 0 Nml Complete Right PostTibialis Tibial L5, S1 Nml Nml Nml Nml Nml 0 Nml Complete Right MedGastroc Tibial S1-2 Nml Nml Nml Nml Nml 0 Nml Complete Right VastusMed Femoral L2-4 Nml Nml Nml Nml Nml 0 Nml Complete Left AbdHallucis MedPlantar S1-2 Nml Nml Nml Nml Nml 0 Nml Complete Left AntTibialis Dp Br Peron L4-5 Nml Nml Nml Nml Nml 0 Nml Complete Left PostTibialis Tibial L5, S1 Nml Nml Nml Nml Nml 0 Nml Complete Left MedGastroc Tibial S1-2 Nml Nml Nml Nml Nml 0 Nml Complete Left VastusMed Femoral L2-4 Nml Nml Nml Nml Nml 0 Nml Complete Paraspinal EMG ?Side Muscle Nerve Root Ins Act Fibs Psw Comment Right Lumbar Upper Rami Nml Nml Nml Right Lumbar Mid Rami Nml Nml Nml Right Lumbar Lower Rami Nml Nml Nml Left Lumbar Upper Rami Nml Nml Nml Left Lumbar Mid Rami Nml Nml Nml Left Lumbar Lower Rami Nml Nml Nml FINDINGS: Right peroneal nerve showed normal distal latency, very small amplitudes and normal conduction velocity. No conduction block across fibular neck. Right tibial nerve showed normal distal latency, small amplitudes and slow conduction velocity. Left tibial nerve showed normal amplitude but on the small side. Normal distal latency and conduction velocity. Bilateral sural nerves showed absent response. Concentric needle EMG was performed in selected muscles of the bilateral lower extremity and lumbar paraspinals. Study did not reveal signs of electric abnormalities as shown in the table above. IMPRESSION: 1. This is an abnormal study. 2. 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 3. There is no electrodiagnostic evidence for lumbosacral plexopathy or lumbar radiculopathy. CLINICAL COMMENT: As compared to last year, results today suggestive of peripheral neuropathy. Without any signs of chronic or acute lumbar radiculopathy. Discussed with patient. Thank you for your kind referral. Rosemary Hernandez MD, RAO Board Certified, [place] Board of Physical Medicine and Rehabilitation (ABPMR) Board Certified, [place] Board of Electrodiagnostic Medicine (ABEM) CODIN 94227 x 2 MTDD
== END 2024-10-24 13:57 | disposition home or self-care (01) ==
LOC: HO.NEURO 13:56
PROVIDERS: PCP Internal Medicine; Visit Provider Physician Assistant
DX: R20.8 Other disturbances of skin sensation (principal); M79.604 Pain in right leg; R94.131 Abnormal electromyogram [EMG]
CPT/HCPCS: 95886; 95909

== ENCOUNTER → 2024-10-24 13:59 | Outpatient (BNV) | payer MEDICARE, SELFPAY | PROVIDERS: PCP Internal Medicine; Visit Provider Physical Medicine & Rehabilitation | DX: G60.0 Hereditary motor and sensory neuropathy (principal) | CPT/HCPCS: 95886; 95909 ==

== ENCOUNTER 2024-10-30 12:28 | Outpatient (REF) | payer MEDICARE, SELFPAY ==
--- OUTSIDE RECORDS SUMMARY | 2024-10-20 03:45 | XMS_ITS ---
Author Organization Quinten Han MD Address [address] [place], [place] [phone] Care Team Providers Care Nurse Technician Name Role Phone Quinten Han Primary Care Provider [phone] Results Component Value Reference Range Notes Blood Urea Nitrogen Reviewed date:10/20/2024 04:32:38 PM Interpretation: Performing Lab:[facility], [address] [place] [phone] Notes/Report: Blood Urea Nitrogen 11 9-16 mg/dL Creatinine Reviewed date:10/20/2024 04:32:46 PM Interpretation: Performing Lab:[facility], [address] [place] [phone] Notes/Report: Creatinine 0.58 0.5-1.4 mg/dL Estimated Glomerular Filt Rate > 60 Chronic Kidney Disease: Estimated GFR < 60 mL/min/1.73m2 Severe Kidney Disease: Estimated GFR < 15 mL/min/1.73m2 REASON FOR VISIT BUN and Creatinine for Ct scan abd [place] [facility] [place]-24 at 2pm Encounters Encounter Location Date Provider Diagnosis Quinten Han MD [address] [place], [place] [phone] 10/20/2024 Quinten Han Essential hypertension I10 Assessments Encounter Date Diagnosis (ICD Code) Assessment Notes Treatment Notes Treatment Clinical Notes Section Notes 10/20/2024 Essential hypertension (ICD-10 - I10) Plan Of Treatment Next Appt Details Provider Name:Quinten rocha, 03/23/2025 07:30:00 AM, [address], [address], [place], [place], [phone], Provider Name:Quinten rocha, 03/30/2025 09:30:00 AM, [address] [place] [address], [address], [place], [place], [phone], Progress Notes * RUSS CASTREJON MDOB: 2 (84 yo M)Acc No.[id number]:10/20/2024 Progress Note Patient: RUSS DIXON Provider: Rachel Han MD :1940 A ge:84 Y S ex:Male Date:10/20/2024 Address:[address] [place], [place] [address]Swathi[place], [id number] Subjective: * Chief Complaints: * 1 . BUN and Creatinine for Ct scan abd booked at [facility] 10-30-24 at 2pm. * Medical History: Objective: [...] MD Date: 0 10/20/2024 Generated for Mercedesi chanel/Elida/eTransmitting on: 10/30/2024 02:48 PM EDT
--- NOTE | ~2024-10-30 | CT_ITS ---
EXAMINATION: CT ABDOMEN AND PELVIS WITH CONTRAST CLINICAL INFORMATION: Nonspecific mesenteric adenitis COMPARISON: June 2021 TECHNIQUE: Multidetector volumetric images were obtained from the superior aspect of the liver through the pubic symphysis following administration 85 mL of Omnipaque 350 intravenous contrast. Sagittal and coronal reformatted images were obtained on the technologist's workstation. Oral contrast: [address] examination was performed using dose optimization techniques as appropriate, variously including the following: *Automated exposure control *Adjustment of mA and/or kV according to patient size (this includes techniques or standardized protocols for targeted exams where dose is matched to indication/reason for exam; i.e. extremities or head) *Use of iterative reconstruction technique DLP: 646 mGY*cm FINDINGS: LUNG BASES: The visualized lung bases are unremarkable. LIVER, GALLBLADDER, AND BILIARY TREE: The liver is normal in size, shape, and attenuation. No focal hepatic lesion or biliary ductal dilatation is present. The gallbladder is unremarkable with no evidence of radiopaque gallstones, gallbladder wall thickening, or obvious pericholecystic inflammatory changes. PANCREAS: Unremarkable. SPLEEN: Unremarkable. ADRENAL GLANDS: Unremarkable. KIDNEYS AND URETERS: Renal cortical thinning is present in the posterior lower right kidney with adjacent fat stranding. The cortical thinning is stable in the fat stranding is slightly decreased. There are new linear calcifications within the fat stranding likely related to a remote percutaneous procedure. Focal scarring and fat stranding has been present since at least 2018. BLADDER: Unremarkable. GASTROINTESTINAL TRACT: There is a 5 cm focal outpouching along the lateral margin of the proximal descending duodenum consistent with a duodenal diverticulum. Pseudodiverticula are present in the descending and sigmoid colon. The appendix is within normal limits. Again noted are changes consistent with a missing mesentery through the central. The region associated with the SMA vascular territory. There are a few shoddy lymph nodes. This has been present since CT performed August 13, 2016. The degree of fat stranding is slightly increased. There is also trace ascites which is increased. ABDOMINAL WALL: No significant hernia is appreciated. LYMPH NODES: No adenopathy. VASCULAR: Moderate atherosclerotic desiccation are present in the aorta and iliac arteries as well as mesenteric arteries, most pronounced in the SMA PELVIC VISCERA: Metallic beads are present superficial to the prostate, possibly related to prior radiation treatment. OSSEOUS STRUCTURES: Moderate degenerative disc disease and facet arthropathy is noted in the lower thoracic and lumbar spine. Sclerotic lesion in the posterior left L3 vertebral body and pedicle is stable. Coarsened trabeculation in the central and left L5 vertebral body likely represents a vertebral hemangioma. CT/CT abdomen pelvis w IV con IMPRESSION: Katt mesentery: Nonspecific stranding in the mesentery along the SMA distribution appears slightly increased since CT in 2017. There is also increased trace ascites. The etiology of the abnormality and interval change is of uncertain significance. 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 Stable sclerotic lesion in the L3 vertebral body. Stable cortical scarring in the lower right kidney with adjacent perinephric fat stranding suggestive of a prior procedure. Fleischner guidelines were followed. Electronically signed by: Domingo Whittington MD 10/30/2024 05:42 PM EDT
[2024-10-30] MEDS: iohexoL 350 MG/ML 100 ML INFUS..BTL 85 ML IV (16:49)
[2024-10-30] MEDS: Barium Sulfate Oral (Mocha) 450 ML ORAL.SUSP 900 ML PO (16:49)
== END 2024-10-30 12:29 | disposition home or self-care (01) ==
LOC: HO.CT 12:28
PROVIDERS: PCP Internal Medicine; Visit Provider Internal Medicine
DX: I88.0 Nonspecific mesenteric lymphadenitis (principal)
CPT/HCPCS: 74177; Q9967

== ENCOUNTER → 2024-10-30 12:31 | Outpatient (BNV) | payer MEDICARE, SELFPAY | PROVIDERS: PCP Internal Medicine; Visit Provider Radiology Diagnostic Radiology | DX: I88.0 Nonspecific mesenteric lymphadenitis (principal) | CPT/HCPCS: 74177 ==

== ENCOUNTER 2024-11-10 09:31 | Outpatient (AMB) | payer MEDICARE, SELFPAY ==
--- OUTSIDE RECORDS SUMMARY | 2024-10-20 03:45 | XMS_ITS ---
Author Organization Quinten Han MD Address [address] [place], [place] [phone] Care Team Providers Care Small Piece Cutter Name Role Phone Quinten Han Primary Care Provider Results Component Value Reference Range Notes Blood Urea Nitrogen Reviewed date:10/20/2024 04:32:38 PM Interpretation: Performing Lab:[facility], [address] [place] [phone] Notes/Report: Blood Urea Nitrogen 11 9-16 mg/dL Creatinine Reviewed date:10/20/2024 04:32:46 PM Interpretation: Performing Lab:[facility], [address] [place] [phone] Notes/Report: Creatinine 0.58 0.5-1.4 mg/dL Estimated Glomerular Filt Rate > 60 Chronic Kidney Disease: Estimated GFR < 60 mL/min/1.73m2 Severe Kidney Disease: Estimated GFR < 15 mL/min/1.73m2 REASON FOR VISIT BUN and Creatinine for Ct scan abd booked at [facility] 10-30-24 at 2pm Encounters Encounter Location Date Provider Diagnosis Quinten Han MD [address] [place], [place] [phone] 10/20/2024 Quinten Han Essential hypertension I10 Assessments Encounter Date Diagnosis (ICD Code) Assessment Notes Treatment Notes Treatment Clinical Notes Section Notes 10/20/2024 Essential hypertension (ICD-10 - I10) Plan Of Treatment Next Appt Details Provider Name:Quinten rocha, 03/23/2025 07:30:00 AM, [address], [address], [place], [place], [phone], Provider Name:Quinten rocha, 03/30/2025 09:30:00 AM, [address] [place] [address], [address], [place], [place], [phone], Progress Notes * RUSS CASTREJON MDOB: 2 (84 yo M)Acc No.[id number]:10/20/2024 Progress Note Patient: RUSS DIXON Provider: Rachel Han MD :1940 A ge:84 Y S ex:Male Date:10/20/2024 Address:[address] [place], [place] [address]SwathiBELCOURT, [id number] Subjective: * Chief Complaints: * 1 . BUN and Creatinine for Ct scan abd booked at [facility] 10-30-24 at 2pm. * Medical History: Objective: [...] 0 10/20/2024 Generated for Katelyn buchanan/Elida/eTransmitting on: 0 11/10/2024 10:02 AM EDT
[2024-11-10 09:35] VITALS: BP 120/66; PULSE 79; BMI 32.5
--- NOTE | 2024-11-10 09:35 | A.OFFVIS_ITS ---
Vital Signs 11/10/24 09:35 Height 5 ft 4 in Weight 189 lb 9.561 oz BMI 32.5 BP 120/66 Blood Pressure Location Lt brachial Position Sitting Pulse 79 Intake Visit Reasons: 1 yr followup w/ekg after echo dx: aortic stenosis Intake Note: 1 year follow-up with ekg after echo feeling good Executive Personal Assistant Required: No Allergies No Known Allergies (No Known Allergies*) Allergy (Verified 09/15/24 11:25) Medication List - Last Reconciled 11/10/24 by Anibal Haque MD amlodipine 5 mg PO DAILY aspirin (Adult Aspirin Regimen) 81 mg PO DAILY atorvastatin 20 mg PO DAILY diclofenac sodium 1% (Voltaren Arthritis Pain) 2 grams topical QID hydrochlorothiazide 25 mg PO DAILY pregabalin 150 mg PO BID sennosides (senna) 8.6 mg PO BEDTIME tamsulosin 0.4 mg PO DAILY timolol maleate 0.5% 1 drp ophthalmic (eye) DAILY HPI Comments Details: Myla comes for follow-up. He has been doing very well from cardiac perspective. Denies any exertional symptoms. 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 Denies any orthopnea, PND, leg edema. Denies any exertional chest pain. No lightheadedness, syncope. Recent echocardiogram shows normal LV ejection fraction with elevated filling pressures with mild aortic stenosis which is unchanged. He denies any symptoms of claudication. 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 Review of Systems Const Denies chills, Denies fatigue, Denies fever(s), Denies frequent falls, Denies weakness, Denies weight gain and Denies weight loss ENT Denies dizziness Card Denies chest pain, Denies leg edema, Denies lightheadedness, Denies palpitations, Denies dyspnea, Denies dyspnea on exertion, Denies orthopnea and Denies other (loss of consciousness) Resp Denies cough, Denies dyspnea and Denies dyspnea on exertion GI Denies hematochezia and Denies change in stool character Musc Denies abnormal gait, Denies muscle weakness, Denies numbness, Denies radiating pain into limb and Denies tingling Neuro Denies abnormal gait, Denies dizziness, Denies frequent falls, Denies numbness, Denies tingling and Denies weakness Endo Denies fatigue and Denies palpitations Physical Exam Vital Signs: Last Vital Signs Pulse 79 11/10/24 09:35 BP 120/66 11/10/24 09:35 BMI result Body Mass Index 32.5 Const General: cooperative, comfortable, alert and well groomed Nutritional Appearance: obese Orientation/consciousness: patient oriented x3 Limitations: no limitations Neck Neck: Yes trachea midline, Yes supple and Yes no JVD Chest Chest palpation & inspection: normal inspection of the chest Resp Effort & Inspection: normal respiratory effort Auscultation: clear to auscultation bilaterally Cardio Jugular venous distension: no JVD Palpation: normal PMI Rate: regular rate Rhythm: regular rhythm Heart sounds: S1 normal heart sound present, S2 normal heart sound present and Murmur heart sound present systolic early GI Auscultation: normal bowel sounds Skin General skin exam: no rashes or lesions noted Neuro General: patient oriented x3 and no focal motor deficits Extrem General: Yes no clubbing, cyanosis or edema Psych Appearance: grossly normal Office Procedures EKG Details: EKG shows normal sinus rhythm with right bundle-branch block and left anterior fascicular block consistent with bifascicular block, unchanged with inferior Q- waves which could be related to left anterior fascicular block. [id number], Complete Assessment & Plan Assessment & Plan (1) Aortic stenosis: Comment: mild Code(s): I35.0 - Nonrheumatic aortic (valve) stenosis Category: Medical Plan: Aortic stenosis which has remained stable and mi for many years. Continue monitor echocardiogram every 2 years. Will follow up clinically every 6 months on his request. Continue aspirin. Continue aggressive risk factor modification. Continue statin therapy with target goal LDL less than 70 mg/dL. Continue aggressive blood pressure control. No interventions required per se from surgical perspective. (2) Diastolic dysfunction: Code(s): I51.89 - Other ill-defined heart diseases Category: Medical Plan: Diastolic dysfunction without overt signs of congestive heart failure. Signs and symptoms of heart failure were discussed advised to call me with any new symptoms. Continue aggressive blood pressure control which is currently well optimized on current therapy. (3) Bifascicular block: Code(s): I45.2 - Bifascicular block Category: Medical Plan: Chronic bifascicular block which is unchanged. Continue monitor EKG on a yearly basis. No interventions required. Will follow up in the clinic in 6 months time, sooner p.r.n.. Thank you for allowing me to partake in his care Coding Level of Care Code Est Pt Level 4 (23604) Complex EM visit Add On G2211 Diagnoses Aortic stenosis I35.0 Diastolic dysfunction I51.89 Bifascicular block I45.2 CPT Codes EKG - CPT: 03544-[id number], Complete ([id number])
--- OUTSIDE RECORDS SUMMARY | 2024-11-10 10:03 | XMS_ITS | Clinical Summary ---
Author Organization [facility] Address [address] [place] [address] Phone Care Team Providers Care Process Engineer Name Role Phone Quinten Han MD Primary Care Provider [phone] Medications amLODIPine (NORVASC) 5 mg tablet Take [...] Date Diagnosed Date Malignant neoplasm of prostate ([facility] V24, CMS /[facility] V28) 08/08/2024 Lumbar spondylosis 12/20/2023 Overview (04/16/2024): [...] every morning. He has been seen at [facility] pain management, is s/p right L5 TFE, L5-S1 JANNIE, but did not see relief with either injection. He states they are talking to him about spinal cord stimulator trial, he is not sure if he wants to try it. Patient had MRI lumbar spine 07/30/2023 at [facility] that showed multilevel degenerative [...] Type Department Care Team Description 08/13/2024 Telephone [facility] Hematology Oncology [address] [place] [phone] Karma De La Vega MA from Last 3 Months Medical History Medical [...] 83 08/08/2024 10:15 AM EDT Temperature 36.6 C (97.9 F) 08/08/2024 10:15 AM EDT Respiratory Rate - - Oxygen Saturation 99% [...] Description 02/09/2025 10:00 AM EDT Office Visit [facility] Hematology Oncology [address] [place] [phone] Pia Quinones DO [address] [place], [place] [phone] Health Maintenance Due Date Last Done Comments DTaP,Tdap,and Td Vaccines (1 - Tdap) 1959 RSV Immunization Adult Patients (1 - 1-dose 75+ series) 2017 Cholesterol Screening (Lipid Panel) 04/14/2022 Depression Screening 04/14/2022 Falls Risk Assessment 04/14/2022 Medicare Annual Wellness Visit 04/14/2022 Social Influencers of Health Screening 04/14/2022 COVID-19 Vaccine ( season) 2024 04/07/2021, 08/26/2020, 08/04/2020, Additional history exists Influenza Vaccine (#1) 2025 , 01/12/2023, 02/02/2022, Additional history exists Zoster Vaccines Completed 09/24/2017, 07/26/2017 Pneumococcal Vaccine: 50+ Years Completed 08/03/2022, 08/12/2018, 04/12/2017 HIB Vaccines Aged Out No longer eligi [...] on patient's age to complete this topic Insurance MEDICARE [facility] Care Teams Process Engineer Relationship Specialty Start Date End Date Quinten Han MD [address] [facility] [address] [place] [id number] PCP - General Internal Medicine 10/19/16
--- OUTSIDE RECORDS SUMMARY | 2024-11-10 10:03 | XMS_ITS | Clinical Summary ---
Author Organization [facility] Address [address] [id number] Care Team Providers Care Photo Lab Specialist Name Role Phone Quinten Han MD Primary Care Provider [phone] Allergies No known active allergies Medications Medication [...] mg total) by mouth daily. 0 Active [place]-3 Fatty Acids (FISH OIL PO) Take by [...] 87 02/08/2024 10:09 AM EDT Temperature 36.3 C (97.4 F) 02/08/2024 10:09 AM EDT Respiratory Rate - - Oxygen [...] - 1-dose 75+ series) 2017 Influenza Vaccine (#1) 2025 01/28/2024 Hepatitis B Vaccines Aged Out No long er eligible based on patient's age to complete this topic RSV Ped < 20 months Aged Out No longe r eligible based on patient's age to complete this topic Care Teams Photo Lab Specialist Relationship Specialty Start Date End Date Quinten Han MD [address] [place] [address] Drive [address] [place] [address] PCP - General Internal Medicine 10/19/16
== END 2024-11-10 10:00 | disposition home or self-care (01) ==
LOC: HO.HCS 09:32
PROVIDERS: Visit Provider Internal Medicine Cardiovascular Disease
DX: I35.0 Nonrheumatic aortic (valve) stenosis (principal); I51.89 Other ill-defined heart diseases; I45.2 Bifascicular block
CPT/HCPCS: 93010; 99214; G2211

== ENCOUNTER → 2024-11-10 09:31 | Outpatient (BNVA) | payer MEDICARE, SELFPAY | PROVIDERS: Visit Provider Internal Medicine Cardiovascular Disease | DX: I35.0 Nonrheumatic aortic (valve) stenosis (principal); I51.89 Other ill-defined heart diseases; I45.2 Bifascicular block; Z79.82 Long term (current) use of aspirin; Z79.899 Other long term (current) drug therapy; R94.31 Abnormal electrocardiogram [ECG] [EKG] | CPT/HCPCS: 93005; 99212 ==

== ENCOUNTER 2024-11-11 09:48 | Outpatient (AMB) | payer MEDICARE, SELFPAY ==
--- OUTSIDE RECORDS SUMMARY | 2024-10-20 03:45 | XMS_ITS ---
Author Organization Quinten Han MD Address [address] [place], [place] [phone] Care Team Providers Care Mill Crane Operator Name Role Phone Quinten Han Primary Care Provider Results Component Value Reference Range Notes Blood Urea Nitrogen Reviewed date:10/20/2024 04:32:38 PM Interpretation: Performing Lab:[facility], [address] [place] [phone] Notes/Report: Blood Urea Nitrogen 11 9-16 mg/dL Creatinine Reviewed date:10/20/2024 04:32:46 PM Interpretation: Performing Lab:[facility], [address] [place] [phone] Notes/Report: Creatinine 0.58 0.5-1.4 mg/dL Estimated Glomerular Filt Rate > 60 Chronic Kidney Disease: Estimated GFR < 60 mL/min/1.73m2 Severe Kidney Disease: Estimated GFR < 15 mL/min/1.73m2 REASON FOR VISIT BUN and Creatinine for Ct scan abd booked at [facility] 10-30-24 at 2pm Encounters Encounter Location Date Provider Diagnosis Quinten Han MD [address] [place], [place] [phone] 10/20/2024 Quinten Han Essential hypertension I10 Assessments Encounter Date Diagnosis (ICD Code) Assessment Notes Treatment Notes Treatment Clinical Notes Section Notes 10/20/2024 Essential hypertension (ICD-10 - I10) Plan Of Treatment Next Appt Details Provider Name:Quinten rocha, 03/23/2025 07:30:00 AM, [address], [address], [place], [place], [phone], Provider Name:Quinten rocha, 03/30/2025 09:30:00 AM, [address] [place] [address], [address], [place], [place], [phone], Progress Notes * RUSS CASTREJON MDOB: 2 (84 yo M)Acc No.[id number]:10/20/2024 Progress Note Patient: RUSS DIXON Provider: Rachel Han MD :1940 A ge:84 Y S ex:Male Date:10/20/2024 Address:[address] [place], [place] [address]Sw[place]LEY, [id number] Subjective: * Chief Complaints: * 1 . BUN and Creatinine for Ct scan abd booked at [facility] 10-30-24 at 2pm. * Medical History: Objective: [...] 0 10/20/2024 Generated for Mercedesi chanel/Elida/eTransmitting on: 0 11/11/2024 10:24 AM EDT
--- OUTSIDE RECORDS SUMMARY | 2024-11-11 10:25 | XMS_ITS | Clinical Summary ---
Author Organization [facility] Address [address] [place] [address] Phone Care Team Providers Care Police Investigator Name Role Phone Quinten Han MD Primary Care Provider [phone] Medications amLODIPine (NORVASC) 5 mg tablet Take [...] Date Diagnosed Date Malignant neoplasm of prostate ([facility] V24, CMS /[facility] V28) 08/08/2024 Lumbar spondylosis 12/20/2023 [...] every morning. He has been seen at [facility] pain management, is s/p right L5 TFE, L5-S1 JANNIE, but did not see relief with either injection. He states they are talking to him about spinal cord stimulator trial, he is not sure if he wants to try it. Patient had MRI lumbar spine 07/30/2023 at [facility] that showed multilevel degenerative changes, I did [...] Type Department Care Team Description 08/13/2024 Telephone [facility] Hematology Oncology [address] [place] [phone] Karma De La Vega MA from [...] Description 02/09/2025 10:00 AM EDT Office Visit [facility] Hematology Oncology [address] [place] [phone] Pia Quinones DO [address] [place], [place] [phone] Health Maintenance Due Date Last Done Comments [...] age to complete this topic Insurance MEDICARE [facility] Care Teams Police Investigator Relationship Specialty Start Date End Date Quinten Han MD 10 [facility] [address] [place] [id number] PCP - General Internal Medicine 10/19/16
--- OUTSIDE RECORDS SUMMARY | 2024-11-11 10:25 | XMS_ITS | Patient Health Record ---
Author Organization [facility] Address [address] [place] [address] Care Team Providers Care Credit Authorizer Name Role Phone Quinten Han MD Primary Care Provider Mike Wallace Unavailable [phone] Allergies No Known Allergies Reason For Referral [...] Problem Status W/U Status Risk Notes Problem 8030989 Helicobacter pylori (H. 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) Active confirmed Problem Rectal discomfor t (K62.89) Active confirmed Problem Diverticulosis of colon (637742831) Diverticulosis of colon (K57.30) Active confirmed Vital Signs Temperature 97.5 degrees Fahrenheit 01/03/2024 Blood pressure diastolic 00 mm Hg 01/03/2024 Height 64 in 01/03/2024 Blood pressure systolic 000 mm Hg 01/03/2024 Weight 194 lbs 01/03/2024 BMI 33.30 kg/m2 01/03/2024 Encounters Encounter Location Date Provider Diagnosis [facility] [address] [place] [address] 01/03/2024 Mike Keller Rectal discomfort K62.89 Assessments [...] Date MEDICARE OF [place] [address] [place] [address] [phone] [id number] RUSS HERNANDEZ Self - patient is the insured [facility] [address] [place] [address] [id number] RUSS HERNANDEZ Self - patient is the insured Medical (General) History Medical History History ICD Code HTN Denies MD,DM,CVA,Lung disease,renal dise ase BPH--he describes a possible prostate bi opsy in the past Hyperlipidemia Right 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 Raman Caballero() and Dr. Ku(Oncology)-- he has apparently had a negative workup for metastatic disease, including a PET-CT scan--he had cryosurgery with IR at [facility] in 04/2014--describes a CT scan in 12/2014 [...]
--- OUTSIDE RECORDS SUMMARY | 2024-11-11 10:25 | XMS_ITS | Clinical Summary ---
Author Organization [facility] Address [address] [phone] Care Team Providers Care Cna Ltc Name Role Phone Quinten Han MD Primary Care Provider [phone] Allergies No known active allergies Medications Medication [...] mg total) by mouth daily. 0 Active [place]-3 Fatty Acids (FISH OIL PO) Take by [...] age to complete this topic Care Teams Cna Ltc Relationship Specialty Start Date End Date Quinten Han MD [address] [place] [address] Drive [address] [place] [address] PCP - General Internal Medicine 10/19/16
--- NOTE | 2024-11-11 10:28 | AM.OFFWIN_ITS ---
Intake Vital Signs 11/11/24 10:29 Height 5 ft 4 in Weight 189 lb BMI 32.4 BP 132/60 Blood Pressure Location Lt brachial Position Sitting Pulse 63 Pulse Source Pulse Oximeter Temp 98.1 F Temp Source Oral Pulse Oximetry (%) 95 Oxygen Delivery Method Room Air Intake Visit Reasons: EP RT hand/wrist pain Intake Note: presents with right hand and right wrist pain & swelling for 2 days Patient Tobacco Use Status: Never used Tobacco Allergies No Known Allergies (No Known Allergies*) Allergy (Verified 11/11/24 10:31) Medication List - Last Reconciled 11/11/24 by Nadine Maria PA-C amlodipine 5 mg PO DAILY aspirin (Adult Aspirin Regimen) 81 mg PO DAILY atorvastatin 20 mg PO DAILY diclofenac sodium 1% (Voltaren Arthritis Pain) 2 grams topical QID hydrochlorothiazide 25 mg PO DAILY pregabalin 150 mg PO BID sennosides (senna) 8.6 mg PO BEDTIME tamsulosin 0.4 mg PO DAILY timolol maleate 0.5% 1 drp ophthalmic (eye) DAILY Do you need a note to return to daycare/school/sports/work: No HPI HPI Comments History of Present Illness Details History of Present Illness - The patient is an 84-year-old male pre senting with right hand pain due to trauma. - The injury occurred while working in [employer], involving a vacuum hose impacting the hand at the base of the right thumb. - Initially, the pain was mild but worse nadiya after further activity, including gardening. - He has pain and swelling now of the ri ght thumb. - The patient applied a cream which prov ided temporary relief. - The patient denies numbness or tinglin g but reports significant pain in the thumb area, impacting movement. - There is a history of arthritis, which may contribute to the discomfort. - He denies wrist pain, arm pain, or elb ow pain. - He is right hand dominant. Physical Exam General: Cooperative, healthy appearing, comfortable, no acute distress and well developed Respiratory: Normal respiratory effort and able to speak in complete sentences. Clear to auscultation bilaterally Cardiovascular: Regular rate and rhythm. Normal S1 and S2 Skin: No rashes or lesions noted. No bruising noted. No abrasions noted. Neuro: Patient oriented x3. Sensation is intact on the right hand. Extremities: Swelling noted on the right hand. Decrease ROM of the right thumb due to pain. TTP of the base of the right thumb at the MCP joint. Snuffbox tenderness noted on the right. FROM of the digits on the right hand. Full ROM of right wrist. No TTP of the medial or lateral wrist. Negative Finklestein. Negative Tinel's and Phalen's on the right. 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 Patient was informed and verbally consented to the use of an ambient scribe for clinic note documentation during this visit. 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 Assessment & Plan Assessment & Plan (1) Right hand pain: Code(s): M79.641 - Pain in right hand Plan Most likely contusion vs fracture vs sprain vs tendonitis vs tenosynovitis Plan - An x-ray of the right hand will be performed to rule out fractures. - A Thumb spica splint will be provided to immobilize the hand and alleviate pain. - Rest, ice, and elevation - Tylenol as needed for pain. Orders: Orders XR hand RT min 3V Today M79.641 - Pain in right hand Coding Level of Care Code Est Pt Level 4 (89431) Diagnoses Right hand pain M79.641
[2024-11-11 10:29] VITALS: BP 132/60; PULSE 63; TEMP 36.7; O2SAT 95; BMI 32.4
== END 2024-11-11 12:10 | disposition home or self-care (01) ==
PROVIDERS: Visit Provider Physician Assistant Medical
DX: M79.641 Pain in right hand (principal)

== ENCOUNTER 2024-11-11 09:48 | Outpatient (REF) | payer MEDICARE, SELFPAY ==
--- NOTE | ~2024-11-11 | XR_ITS ---
EXAMINATION: XR HAND 3 OR MORE VIEWS RIGHT HISTORY: M79.641 - Pain in right hand COMPARISON: Comparison is made with the prior examination dated 11/05/2020. FINDINGS: Three views of the right hand are submitted. The bones are osteopenic. There is no fracture or dislocation. There is osteoarthritis of the interphalangeal joint of the thumb, the DIP joints of the remaining fingers, and the 1st carpometacarpal joint, with joint space narrowing and osteophyte formation. The soft tissues are unremarkable. XR/XR hand RT min 3V IMPRESSION: Osteopenia. 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 Electronically signed by: Mike Quinonez MD 11/11/2024 11:26 AM EDT
== END 2024-11-11 09:49 | disposition home or self-care (01) ==
LOC: HO.HMGCX 09:48
PROVIDERS: PCP Internal Medicine; Visit Provider Physician Assistant Medical
DX: M79.641 Pain in right hand (principal)
CPT/HCPCS: 73130; 99212

== ENCOUNTER → 2024-11-11 11:13 | Outpatient (BNV) | payer MEDICARE, SELFPAY | PROVIDERS: PCP Internal Medicine; Visit Provider Radiology Diagnostic Radiology | DX: M19.041 Primary osteoarthritis, right hand (principal) | CPT/HCPCS: 73130 ==

== ENCOUNTER 2024-12-31 12:13 | Outpatient (AMB) | payer MEDICARE, SELFPAY ==
--- OUTSIDE RECORDS SUMMARY | 2024-10-20 03:45 | XMS_ITS ---
Author Organization Quinten Han MD Address [address] [place], [place] [phone] Care Team Providers Care Plastic Production Machine Setter Name Role Phone Quinten Han Primary Care Provider [phone] Results Component Value Reference Range Notes Blood Urea Nitrogen Reviewed date:10/20/2024 04:32:38 PM Interpretation: Performing Lab:[facility] [place], [address] [place] [phone] Notes/Report: Blood Urea Nitrogen 11 9-16 mg/dL Creatinine Reviewed date:10/20/2024 04:32:46 PM Interpretation: Performing Lab:[facility] [place], [address] [place] [phone] Notes/Report: Creatinine 0.58 0.5-1.4 mg/dL Estimated Glomerular Filt Rate > 60 Chronic Kidney Disease: Estimated GFR < 60 mL/min/1.73m2 Severe Kidney Disease: Estimated GFR < 15 mL/min/1.73m2 REASON FOR VISIT BUN and Creatinine for Ct scan abd [place] [facility] [place]30-24 at 2pm Encounters Encounter Location Date Provider Diagnosis Quinten Han MD [address] [place] [address] [place] [phone] 10/20/2024 Quinten Han Essential hypertension I10 Assessments Encounter Date Diagnosis (ICD Code) Assessment Notes Treatment Notes Treatment Clinical Notes Section Notes 10/20/2024 Essential hypertension (ICD-10 - I10) Plan Of Treatment Next Appt Details Provider Name:Quinten rocha, 01/13/2025 02:00:00 PM, [address] [place] [address], Suite [facility], [place], [place], [phone], Provider Name:Quinten rocha, 03/23/2025 07:30:00 AM, [address] [place] [address], Suite [facility], [place], [place], [phone], Provider Name:Quinten rocha, 03/30/2025 09:30:00 AM, [address] [place] [address], Suite [facility], [place], [place], [phone], Progress Notes * RUSS CASTREJON MDOB: 2 (84 yo M)Acc No.[id number]:10/20/2024 Progress Note Patient: RUSS DIXON Provider: Rachel Han MD :1940 A ge:84 Y S ex:Male Date:10/20/2024 Address:[address] [place] [address] Swathi BENTLEY [id number] Subjective: * Chief Complaints: * 1 . BUN and Creatinine for Ct scan abd booked [place] [facility] [place]-30-24 at 2pm. * Medical History: Objective: [...] 10/20/2024 Generated for Katelyn buchanan/Elida/Chang on: 0 12/31/2024 12:55 PM EDT
--- OUTSIDE RECORDS SUMMARY | 2024-11-03 06:43 | XMS_ITS ---
Author Organization Quinten Han MD Address [address] [place] [phone] Care Team Providers Care Postal Inspector Name Role Phone Quinten Han Primary Care Provider [phone] Encounters Encounter Location Date Provider Diagnosis Quinten Han MD 10 [facility] [address] [place] [phone] 11/03/2024 Quinten Han Plan Of Treatment Next Appt Details Provider Name:Quinten rocha, 01/13/2025 02:00:00 PM, [address] [place] [address], [address], [phone], Provider Name:Quinten rocha, 03/23/2025 07:30:00 AM, [address] [place] [address], [address] [place] [address] [place], [phone], Provider Name:Quinten rocha, 03/30/2025 09:30:00 AM, [address] [facility] [address], [address], [place], [place], [phone], Progress Notes * RUSS CASTREJON MDOB: 2 (84 yo M)Acc No.[id number]:11/03/2024 Patient: NYDIA DIXONLORENZA Lion :1940 A ge:84 Y S ex:Male Address:[address] [place], [place] [address], [phone] * true * Date: Generated for Katelyn buchanan/Elida/Dariosmitting on: 0 12/31/2024 12:55 PM EDT
--- OUTSIDE RECORDS SUMMARY | 2024-11-06 06:30 | XMS_ITS ---
Author Organization Quinten Han MD Address [address] [place], [place] [phone] Care Team Providers Care Bone Drier Operator Name Role Phone Quinten Han Primary [...] kg/m2 11/06/2024 weight is down 6 pounds [facility] e 09-25-24 Encounters Encounter Location Date Provider Diagnosis Quinten Han MD [address] [place] [address] [place] [phone] 11/06/2024 Quinten Han Essential hypertension I10 and [...] Provider Name:Quinten Marcos ier, 01/13/2025 02:00:00 PM, [address] [place] [address], [address] [place] [address], [id number], Provider Name:Quinten Marcos ier, 03/23/2025 07:30:00 AM, [address] [place] [address], [address] [place] [address], [id number], Provider Name:Quinten Marcos ier, 03/30/2025 09:30:00 AM, [address] [place] [address], [address] [place] [address], [phone], Progress Notes * RUSS CASTREJON MDOB: 2 (84 yo M)Acc No.[id number]:11/06/2024 Patient: RUSS DIXON Provider: Rachel Han MD :1940 A ge:84 Y S ex:Male Date:11/06/2024 Address:[address] [place] [address] Swathi BENTLEY [id number] Subjective: * Chief Complaints: * C BACK [...] 0 11/06/2024 Generated for Katelyn buchanan/Elida/Jakeitting on: 0 12/31/2024 12:55 PM EDT History and Physical Notes * [...]
--- NOTE | 2024-12-31 12:16 | MHC.OFFVIS ---
Intake Visit Reasons: seen for ncv / Neuropathy Allergies No Known Allergies (No Known Allergies*) Allergy (Verified 11/11/24 10:31) Medication List - Last Reconciled 12/31/24 by Alba Parra MD amlodipine 5 mg PO DAILY aspirin (Adult Aspirin Regimen) 81 mg PO DAILY atorvastatin 20 mg PO DAILY diclofenac sodium 1% (Voltaren Arthritis Pain) 2 grams topical QID hydrochlorothiazide 25 mg PO DAILY pregabalin 150 mg PO BID sennosides (senna) 8.6 mg PO BEDTIME tamsulosin 0.4 mg PO DAILY timolol maleate 0.5% 1 drp ophthalmic (eye) DAILY HPI Comments Details: ?84-year-old man with a history peripheral neuropathy in the last year with burning in right leg and left lateral thigh, on Pregabalin 150mg bid. Had tried Gabapentin before at 900mg bid without help. He has of prostate cancer who completed radiation therapy in April of 2016. On 06/30/16, he developed fairly sudden onset of right lateral leg pain and paresthesia. Is not aware of any weakness. He has a prickling crawling sensation in the lateral last up to the right leg with itching and numbness. On 08/13/16 he had a cortisone injection which did not help much. He's had an MRI of the lumbar spine which I have reviewed, which showed neural foramina encroachment at L4-5 and L5-S1 from mostly osteophytic impingement and a possible L4-5 right minor disc herniation. prednisone did not help much. He previously had a lumbar radiculopathy. He is active in walking and gardening. . 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 Difficulty getting to sleep?admits.? Difficulty maintaining sleep?denies?.? Urge to move legs?admits.? Teeth grinding?denies.? Shouting or Kicking during sleep?denies.? Abnormal behavior during sleep?denies.? Excessive sleep?denies.? Snoring?denies.? Daytime sleepiness?denies.? ?? General/Constitutional:? Change in appetite?denies.? Chills?denies.? Fatigue?denies.? Fever?denies.? Weight gain?denies.? Weight loss?admits.? ?? Ophthalmologic:? Blurred vision?denies.? Diminished visual acuity?denies.? ?? ENT:? Stuffiness?denies.? Decreased hearing?denies.? Dry mouth?denies.? Ear pain?denies.? Nosebleed?denies.? Ringing in the ears?denies.? Sinus pain?denies.? Sore throat?denies.? Swollen glands?denies.? ?? Endocrine:? Cold intolerance?denies.? Excessive thirst?denies.? Frequent urination?denies.? Heat intolerance?denies.? ?? Respiratory:? Shortness of breath?denies.? Chest pain?denies.? Cough?denies.? ?? Breast:? Breast lump?denies.? Nipple discharge?denies.? ?? Cardiovascular:? Chest pain at rest?denies.? Chest pain with exertion?denies.? Claudication?denies.? Dizziness?denies.? Fluid accumulation in the legs?denies.? Irregular heartbeat?denies.? Palpitations?denies.? ?? Gastrointestinal:? Abdominal pain?denies.? Constipation?denies.? Diarrhea?denies.? Difficulty swallowing?denies.? Heartburn?denies.? Nausea?denies.? Rectal bleeding?denies.? ?? Hematology:? Easy bruising?denies.? Prolonged bleeding?denies.? ?? Genitourinary:? Frequent urination?denies.? Urgency?denies.? Incontinence?denies.? Erectile Dysfunction?denies.? ?? Musculoskeletal:? Neck pain?denies.? Back pain?admits.? Muscle aches?admits.? Painful joints?admits.? Sciatica?denies.? Weakness?denies.? ?? Podiatric:? Difficulty walking?denies.? Foot numbness?denies.? ?? Neurologic:? Difficulty swallowing?denies.? Balance difficulty?denies.? Coordination?normal.? Difficulty speaking?denies.? Dizziness?denies.? Fainting?denies.? Gait abnormality?denies.? Headache?denies.? Loss of strength?denies.? Loss of use of extremity?denies.? Low back pain?denies.? Memory loss?denies.? Seizures?denies.? Tics?denies.? Tingling/Numbness?right leg.? Transient loss of vision?denies.? Tremor?denies.? ?? Psychiatric:? Anxiety?admits.? Auditory/visual hallucinations?denies.? Delusions?denies.? Depressed mood?denies.? Stressors?denies.? Substance abuse?denies.? Suicidal thoughts?denies.? ?? Physical Exam Neuro Other: Mini Mental Status Exam: ? Level of Consciousness:?Alert.? Orientation:?Knows correct year, month, date, day and season,?Knows correct city, county and state. Knows correct location and floor.? Registration:?Able to register 3 objects.? Attention:?Serial 7's performed accurately.? Recall:?Able to recall 3 out of 3 objects.? Language:?Normal spontaneous speech, fluency, repetition,naming, comprehension, reading and writing.? Total Score ?30/30.? General Examination: ? GENERAL APPEARANCE:?normal,?in no acute distress.? HEAD:?normocephalic,?atraumatic.? EYES:?sclera non-icteric,?conjunctiva clear.? EARS:?auditory canal clear,?tympanic membrane intact, clear.? NOSE:?no lesions.? ORAL CAVITY:?gums normal,?mucosa moist,?no lesions.? THROAT:?clear.? NECK/THYROID:?no cervical lymphadenopathy,?thyroid normal,?neck supple, full range of motion,?no carotid bruit.? SKIN:?no rashes,?no significant birthmarks.? HEART:?S1, S2 normal,?no murmurs.? LUNGS:?clear anteriorly and posteriorly.? CHEST:?no gross rib deformity,?clear to auscultation.? BACK:?normal exam of spine.? EXTREMITIES:?no edema.? PERIPHERAL PULSES:?normal.? PSYCH:?alert, oriented,?cognitive function intact,?cooperative with exam.? Neurological: ? Abnormal neurological findings:?right tib ant , evertors, EDB, EHL are 4/ 5.? Mental Status:?alert and oriented X 3,?Normal attention, orientation, memory and affect.? Cranial Nerves:?Pupils are equal, round and reactive to light. Fundoscopy shows normal disc bilaterally. External occular muscles are intact. Visual escalante are full, no ptosis. Face is symmetrical, no facial weakness or droop. Facial sensations are normal. Tongue protrudes in midline. Palate elevates symmetrically. Shoulder shrugging is normal..? Motor Examination:?Normal muscle tone, bulk and strength,?No atrophy or fasciculations,?No drift of the extended upper extremities,?Deep tendon reflexes are 2+ with absent AJs?,?Plantars are flexor?.? Straight Leg Raising:?90 degrees.? Sensory Exam:?Normal light touch, temperature, pinprick, vibration and joint-position sensations?,?Minimal impairment of vibration in right big toe.Rhomberg sign is absent.? Coordination:?no ataxia,?no titubation,?ojeldp-to-xzof, dorq-dwnc-jfer test and rapid alternating movements were normal.? Gait Exam:?Within normal limits.? Cerebellar Signs:?Qnwmma-ab-bwqk and owdl-rp-tidh is normal,?no dysdiadochokinesia?.? Extrapyramidal System:?No tremor, rigidity with normal facial expressions,?No bradykinesia, no bradyphrenia. Normal arm swing and posture. No propulsion or retropulsion.? Speech:?Normal,?no dysphasia or dysarthria..? Assessment & Plan Assessment & Plan (1) Lumbar radiculitis: Comment: L4-5 radiculopathy 09/14/16 NCV/ EMG shows motor and sensory axonal loss in right peroneal nerve. EMG shows active denervation in the right L4-5 innervated muscles. 01/22/24 NCV/EMG: Axonal neuropathy in the lower extremities, slightly worse compared to the study of 2017. EMG of the right L4-S1 innervated muscles showed chronic neuropathic changes distally Code(s): M54.16 - Radiculopathy, lumbar region Category: Medical (2) Peripheral neuropathy: Code(s): G62.9 - Polyneuropathy, unspecified Category: Medical (3) Meralgia paresthetica of left side: Code(s): G57.12 - Meralgia paresthetica, left lower limb Category: Medical Plan Increase Pregabalin 450mg a day ( 150 in am and 300mg hs) Medications: Changed From pregabalin 150 mg PO BID To pregabalin 150 mg PO TID 90 caps 5RF 30 days Coding Level of Care Code New Pt Level 5 (49240) Diagnoses Lumbar radiculitis M54.16 Peripheral neuropathy G62.9 Meralgia paresthetica of left side G57.12
--- OUTSIDE RECORDS SUMMARY | 2024-12-31 12:55 | XMS_ITS | Clinical Summary ---
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 He has been seen at [facility] [place] management, is s/p right L5 TFE, L5-S1 JANNIE, but did not see relief with either injection. He states they are talking to him about spinal cord stimulator trial, he is not sure if he wants to try it. Patient had MRI lumbar spine 07/30/2023 at [facility] that showed multilevel degenerative [...] I reviewed imaging with the patient. Mr. Hernadnez has bilateral lower leg burning pain, I ordered LE EMG/NCS study to rule out neuropathy. He has 7/10 morning back pain, but overall his back is not his main issue, he is more concerned about the constant daily pain in the legs. I will review his MRI and EMG results with Dr. Campa and call him with an update. Medical History Medical History Date Comments Arthritis [...] Description 02/09/2025 10:00 AM EDT Office Visit [facility] H[facility]ology Oncology [address] [place] [address] Pia Quinones, DO [address] [place] [address] Health Maintenance Due Date Last Done Comments DTaP,Tdap,and Td Vaccines (1 - Tdap) 1959 RSV Immunization Adult Patients (1 - 1-dose 75+ series) 2017 Cholesterol Screening (Lipid Panel) 04/14/2022 Falls Risk Assessment 04/14/2022 Medicare Annual Wellness Visit 04/14/2022 Social Influencers of Health Screening 04/14/2022 COVID-19 Vaccine ( season) 2024 04/07/2021, 08/26/2020, 08/04/2020, Additional history exists Depression Screening 05/07/2024 Influenza Vaccine (#1) 2025 , 01/12/2023, 02/02/2022, [...] age to complete this topic Insurance MEDICARE [facility] Care Teams Last Remodeler Repairer Relationship Specialty Start Date End Date Quinten Han MD [address] [place] [address] [address] [place], [place] [id number] PCP - General Internal Medicine 10/19/16
--- OUTSIDE RECORDS SUMMARY | 2024-12-31 12:55 | XMS_ITS | Patient Health Record ---
Author Organization Quinten Han MD Address [address] [place], [place] [id number] Care Team Providers Care Dampener Name Role Phone Quinten Han Primary Care Provider Allergies Allergen (clinical drug ingredient) Drug/Non Drug Allergy documented on EMR Reaction Allergy Type Onset Date Status ibuprofen Ibuprofen hallucinating Drug Allergy Act eddie Results Component Value Reference Range Notes Complete Blood Count Auto Di ff Reviewed date:03/24/2024 12:32:57 PM Interpretation: Performing Lab:[facility], [address] [place] [phone] Notes/Report: White Blood Count 6.3 4.8-10.8 X10*3/uL [...] 0.0-0.2 /100WBC Neutrophils Absolute Auto 4.1 2.0-8.3 x10*3/uL Imm Gran Abs Auto 0.02 0.00-0.03 X10*3/uL Lymphocytes Absolute Auto 1.5 1.2-4.9 X10*3/uL Monocytes Absolute Auto 0.5 0.1-1.2 X10*3/uL Eosinophils Absolute Auto 0.2 0.0-0.4 X10*3/uL Basophils Absolute Auto 0.0 0.0-0.2 X10*3/uL NRBC Abs Auto 0.000 0.0-0.012 X10*3/uL Comprehensive [place]. Panel Fa st Reviewed date:03/24/2024 12:32:05 PM Interpretation: Performing Lab:[facility], [address] [place] [phone] Notes/Report: Sodium 143 135-145 mmol/L Potassium 3.4 [...] Panel Reviewed date:03/24/2024 12:32:29 PM Interpretation: Performing Lab:[address] [phone] Notes/Report: Triglycerides 82 <150 mg/dL Desirable Triglyceride: [...] (Free>4and<10) Reviewed date:03/24/2024 12:31:46 PM Interpretation: Performing Lab:[address] [address] Notes/Report: PSA,Total (Free>4and<10) < 0.10 0.00-4.00 ng/mL [...] between 4.0 and 10.0 ng/mL. PSA methodology: [facility] i Chemiluminescent Microparticle Immunoassay (CMIA) UA ClnCatch+Micro w/rflx Cul t Reviewed date:03/24/2024 12:47:18 PM Interpretation: Performing Lab:[address] [phone] Notes/Report: [id number] Urine, Clean Catch Color Urine Yellow Appearance Urine Clear PH 8.0 5.0-9.0 Glucose Urine UA Negative Negative mg/dL Urine Blood Negative Negative Specific [place] - Urine 1.015 1.005-1.025 Urine Protein Negative Neg-Trace mg/dL Urine Ketones Negative Negative mg/dL Nitrite Urine Negative Negative Leukocyte Esterase Urine Trace Negative RBC Urine 0-2 0-2 /HPF WBC Urine 0-5 0-5 /HPF Squamous Epithelial Cell Urine 0-2 0-2 /HPF Bacteria Urine None Seen None Seen Hyaline Casts Urine 0-2 0-2 /LPF Liver Panel Reviewed date:09/18/2024 04:25:13 PM Interpretation: Performing Lab:[facility], [address] [place] [phone] Notes/Report: Bilirubin Total 0.6 0.0-1.0 mg/dL Bilirubin Direct 0.2 0.0-0.5 mg/dL Aspartate Amino Transferase 26 5-37 U/L Alanine Aminotransferase 21 0-40 U/L Total Protein 6.5 6.5-8.0 g/dL Albumin Level 4.2 3.5-5.0 g/dL Alkaline Phosphatase 85 39-117 U/L Lipid Panel with Reflex Reviewed date:09/18/2024 04:39:57 PM Interpretation: Performing Lab:[address] [phone] Notes/Report: Triglycerides 66 <150 mg/dL Desirable Triglyceride: [...] low results in patients with liver disease. Blood Urea Nitrogen Reviewed date:10/20/2024 04:32:38 PM Interpretation: Performing Lab:[facility], [address] [place] [phone] Notes/Report: Blood Urea Nitrogen 11 9-16 mg/dL Creatinine Reviewed date:10/20/2024 04:32:46 PM Interpretation: Performing Lab:[facility], [address] [place] [phone] Notes/Report: Creatinine 0.58 0.5-1.4 mg/dL Estimated Glomerular Filt Rate > 60 Chronic Kidney Disease: Estimated GFR < 60 mL/min/1.73m2 Severe Kidney Disease: Estimated GFR < 15 mL/min/1.73m2 Occult Blood, Stool, Guaiac Reviewed date:03/28/2024 10:26:17 AM Interpretation:Negative Performing Lab: Notes/Report: Negative Occult Blood, Stool, Guaiac Neg Hold Gold Reviewed date:09/18/2024 02:27:00 PM Interpretation: Performing Lab:[facility], [address] [place] [phone] Notes/Report: Hold Gold See Note Specimen held untested for 24 hours; Call to request Chemistry testing. CT abdomen pelvis w con Reviewed date:11/04/2024 12:40:02 PM Interpretation: Performing Lab: Notes/Report: [address] [address] [address] Scan Report Signed Patient: Myla Hernandez MR#: [id number] : 1940 Acct:[id number] Age/Sex: 84 / M ADM Date: 10/30/24 Loc: HO.CT Attending Dr: Quinten Han MD Ordering Physician: Quinten Han MD Date of Service: 10/30/24 Procedure(s): CT abdomen pelvis w IV con Accession Number(s): [id number] cc: Quinten Han MD Report Number: [id number]: Total DLP = 646.00 mGy-cm EXAMINATION: CT ABDOMEN AND PELVIS WITH CONTRAST CLINICAL INFORMATION: Nonspecific mesenteric adenitis COMPARISON: June 2021 TECHNIQUE: Multidetector volumetric images were obtained from the superior aspect of the liver through the pubic symphysis following administration 85 mL of Omnipaque 350 intravenous contrast. Sagittal and coronal reformatted images were obtained on the technologist's workstation. Oral contrast: [address] examination was performed using dose optimization techniques as appropriate, variously including the following: *Automated exposure control *Adjustment of mA and/or kV according to patient size (this includes techniques or standardized protocols for targeted exams where dose is matched to indication/reason for exam; i.e. extremities or head) *Use of iterative reconstruction technique DLP: 646 mGY*cm FINDINGS: LUNG BASES: The visualized lung bases are unremarkable. LIVER, GALLBLADDER, AND BILIARY TREE: The liver is normal in size, shape, and attenuation. No focal hepatic lesion or biliary ductal dilatation is present. The gallbladder is unremarkable with no evidence of radiopaque gallstones, gallbladder wall thickening, or obvious pericholecystic inflammatory changes. PANCREAS: Unremarkable. SPLEEN: Unremarkable. ADRENAL GLANDS: Unremarkable. KIDNEYS AND URETERS: Renal cortical thinning is present in the posterior lower right kidney with adjacent fat stranding. The cortical thinning is stable in the fat stranding is slightly decreased. There are new linear calcifications within the fat stranding likely related to a remote percutaneous procedure. Focal scarring and fat stranding has been present since at least 2018. BLADDER: Unremarkable. GASTROINTESTINAL TRACT: There is a 5 cm focal outpouching along the lateral margin of the proximal descending duodenum consistent with a duodenal diverticulum. Pseudodiverticula are present in the descending and sigmoid colon. The appendix is within normal limits. Again noted are changes consistent with a missing mesentery through the central. The region associated with the SMA vascular territory. There are a few shoddy lymph nodes. This has been present since CT performed August 13, 2016. The degree of fat stranding is slightly increased. There is also trace ascites which is increased. ABDOMINAL WALL: No significant hernia is appreciated. LYMPH NODES: No adenopathy. VASCULAR: Moderate atherosclerotic desiccation are present in the aorta and iliac arteries as well as mesenteric arteries, most pronounced in the SMA PELVIC VISCERA: Metallic beads are present superficial to the prostate, possibly related to prior radiation treatment. OSSEOUS STRUCTURES: Moderate degenerative disc disease and facet arthropathy is noted in the lower thoracic and lumbar spine. Sclerotic lesion in the posterior left L3 vertebral body and pedicle is stable. Coarsened trabeculation in the central and left L5 vertebral body likely represents a vertebral hemangioma. CT/CT abdomen pelvis w IV con IMPRESSION: Katt mesentery: Nonspecific stranding in the mesentery along the SMA distribution appears slightly increased since CT in 2017. There is also increased trace ascites. The etiology of the abnormality and interval change is of uncertain significance. 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 Stable sclerotic lesion in the L3 vertebral body. Stable cortical scarring in the lower right kidney with adjacent perinephric fat stranding suggestive of a prior procedure. Fleischner guidelines were followed. Electronically signed by: Domingo Whittington MD 10/30/2024 05:42 PM EDT RP Dictated By: Domingo Whittington MD Signed By: <Electronically signed by Domingo Whittington MD in OV> 10/30/24 1742 DD/ 1625 TD/TT: 10/30/24 1651 Washhouse Worker: [place] [id number] CT Scan Report Signed Patient: Yong Hernandez MR#: [id number] : 1940 Acct:[id number] Age/Sex: 84 / M ADM Date: 10/30/24 Loc: HO.CT Attending Dr: Quinten Han MD Ordering Physician: Quinten Han MD Date of Service: 10/30/24 Procedure(s): CT abd omen pelvis w IV con Accession Number(s): [id number] cc: Quinten Han MD Report Number: [id number]: Total DLP = 646.00 mGy-cm EXAMINATION: CT ABDOMEN AND PELVI S WITH CONTRAST CLINICAL INFORMATION: Nonspecific mesenter ic adenitis COMPARISON: June 2021 TECHNIQUE: Multidetector volume tric images were obtained from the superior aspect of the liver through the pubic symphysis following administration 85 mL of Omnipaque 350 intravenous contrast. Sagittal and coronal reformatted images were obtained on the technologist's workstation. Oral contrast: [address] examination was performed using dose optimization techniques as appropriate, various ly including the following: *Automated exposure control *Adjustment of mA an d/or kV according to patient size (this includes techniques or standardized protocols for targeted exams where dose is matched to indication/reason for exam; i.e. extremities or head) *Use of iterative reconstruction technique DLP: 646 mGY*cm FINDINGS: LUNG BASES: The visualized lung bases are unremarkable. LIVER, GALLBLADDER, AND BILIARY TREE: The liver is normal in size, shape, and attenuati on. No focal hepatic lesion or biliary ductal dilatation is presen t. The gallbladder is unremarkable with no evidence of radiopaque gallst ones, gallbladder wall thickening, or obvious pericholecystic inflammatory changes. PANCREAS: Unremarkable. SPLEEN: Unremarkable. ADRENAL GLANDS: Unremarkable. KIDNEYS AND URETERS: Renal cortical thinning is present in the posterior lower righ t kidney with adjacent fat stranding. The cortical thinning is stable i n the fat stranding is slightly decreased. There are new linear calcifications within the fat stranding likely related to a remote percutan eous procedure. Focal scarring and fat stranding has been present sin ce at least 2019. BLADDER: Unremarkable. GASTROINTESTINAL TRACT: There is a 5 cm foca l outpouching along the lateral margin of the proximal descending duodenum consistent with a duodenal diverticulum. Pseudodiverticula ar e present in the descending and sigmoid colon. The appendix is with in normal limits. Again noted are kapoor ges consistent with a missing mesentery through the central. The region associated with the SMA vascular territory. There are a few shoddy lym ph nodes. This has been present since CT performed August 13, 2016. The d egree of fat stranding is slightly increased. There is also trace ascites which is increased. ABDOMINAL WALL: No significant hernia is appreciated. LYMPH NODES: No adenopathy. VASCULAR: Moderate atherosclerotic desiccation are present in the aorta and iliac arteries a s well as mesenteric arteries, most pronounced in the SMA PELVIC VISCERA: [place] llic beads are present superficial to the prostate, possibly related to prior radiation treatment. OSSEOUS STRUCTURES: Moderate degenerative disc disease and facet arthropathy is noted in the lower thoracic and lumbar spine. Sclerotic lesion in the posterior left L3 vertebral body and pedicle is stable. Coarsened trabeculat ion in the central and left L5 vertebral body likely represents a vertebral hemangioma. C T/CT abdomen pelvis w IV con IMPRESSION: Katt mesentery: Nonspecific stranding in the mesentery along the SMA distribution appears slightly increased since CT in 2017. There is also increased trace asci jeremi. The etiology of the abnormality and interval change is of uncerta in significance. 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 Stable sclerotic les ion in the L3 vertebral body. Stable cortical scar ring in the lower right kidney with adjacent perinephric fat stra nding suggestive of a prior procedure. Fleischner guideline s were followed. Electronically rosales d by: Domingo Whittington MD 10/30/2024 05:42 PM EDT RP Dictated By: Domingo Whittington MD Signed By: <Electronically signed by Domingo Whittington MD in OV> 10/30/24 1742 DD/ 1625 TD/TT: 10/30/24 1651 Washhouse Worker: XR hand RT min 3V Reviewed date:11/11/2024 12:23:19 PM Interpretation: Performing Lab: Notes/Report: [facility] [address] [place] [address] XRay Report Signed Patient: Myla Hernandez MR#: [id number] : 1940 Acct:[id number] Age/Sex: 84 / M ADM Date: 11/11/24 Loc: HO.HMGCX Attending Dr: Stefani Packer PA-C Ordering Physician: STEFANI PACKER Date of Service: 11/11/24 Procedure(s): XR hand RT min 3V Accession Number(s): [id number] cc: Quinten Han MD; STEFANI PACKER EXAMINATION: XR HAND 3 OR MORE VIEWS RIGHT HISTORY: M79.641 - Pain in right hand COMPARISON: Comparison is made with the prior examination dated 11/05/2020. FINDINGS: Three views of the right hand are submitted. The bones are osteopenic. There is no fracture or dislocation. There is osteoarthritis of the interphalangeal joint of the thumb, the DIP joints of the remaining fingers, and the 1st carpometacarpal joint, with joint space narrowing and osteophyte formation. The soft tissues are unremarkable. XR/XR hand RT min 3V IMPRESSION: Osteopenia. 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 Electronically signed by: Mike Quinonez MD 11/11/2024 11:26 AM EDT RP Dictated By: Mike Quinonez MD Signed By: <Electronically signed by Mike Quinonez MD in OV> 11/11/24 1126 DD/ 1114 TD/TT: 11/11/24 1117 Washhouse Worker: [facility] [address] [place] [address] [place] [address] XRay Report Signed Patient: Yong Hernandez MR#: [id number] : 1940 Acct:[id number] Age/Sex: 84 / M ADM Date: 11/11/24 Loc: HO.HMGCX Attending Dr: Mel BELTRÁNC Ordering Physician: STEFANI PACKER Date of Service: 11/11/24 Procedure(s): XR lea d RT min 3V Accession Number(s): [id number] cc: Quinten Han MD; STEFANI PACKER EXAMINATION: XR HAND 3 OR MORE VIEWS RIGHT HISTORY: M79.641 - P ain in right hand COMPARISON: Comparis on is made with the prior examination dated 11/05/2020. FINDINGS: Three views of the r ight hand are submitted. The bones are osteopenic. There is no fracture or dislocation. There is osteoarthritis of the interphalangeal join t of the thumb, the DIP joints of the remaining fingers, and the 1st carpometacarpal joint, with joint space narrowing and osteophyte forma tion. The soft tissues are unremarkable. X R/XR hand RT min 3V IMPRESSION: Osteopenia. 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 Electronically rosales d by: Mike Quinonez MD 11/11/2024 11:26 AM EDT RP Dictated By: Mike Quionnez MD Signed By: <Electronically signed by Mike Quinonez MD in OV> 11/11/24 1126 DD/ TD/TT: 11/11/24 1117 Washhouse Worker: Reason For Referral Reason Sciatica of right si de Diagnosis 1 Sciatica of right si de (M54.31) Referral Organization Quinten Han MD Referring Provider First Name Quinten Referring Provider Last Name Guille Referring Provider Speciality Internal edicine Referred Provider Mak Ordonez am Referred Provider Specialty Pain Medicin e General Notes Kamilah Hugo 10:15:15 AM EST > [place] office [phone] Annette 04/01/2024 02:23:45 PM EST > info faxed [phone] Annette 04/15/2024 10:37:45 AM EST > called [...] wishes to go there Referral Priority Routine Reason Hand arthritis carlos luate for cortisone injections Diagnosis 1 Hand arthritis (M19. 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.0) Referral Organization Quinten Han MD Referring Provider First Name Quinten Referring Provider Last Name Guille Referring Provider Speciality Internal edicine Referred Provider Anthony Pearce Referred Provider Specialty Surgery General Notes Kamilah Hugo 0 11/06/2024 10:54:32 AM >referral info sent, Kamilah Hugo 11/14/2024 09:16:17 AM >called patient with info and mailed Referral Priority Routine Referral Appointment Date 01/06/2025 Medications Medication SIG (Take, Route, Frequency, Duration) Notes Start Date End Date Status Hydrocortisone Elias-Pramoxine 2.5-1 % 1 application as needed Externally 2 times a day for 14 days 04/21/2019 Not-Taking Clobetasol Propionate 0.05 % 1 applicati on to affected area Externally Twice a day for 90 days Not-Taking Finasteride 5 1 tablet Orally Once a day Not-Taking hydroCHLOROthiazide 25 MG TAKE ONE TABLE T BY MOUTH EVERY DAY Active Bicalutamide 50 MG 1 tablet Orally Once a day Not-Taking amLODIPine Besylate 5 MG TAKE ONE TABLET BY MOUTH EVERY DAY Active Aspir-Low 81 MG 1 tablet Orally Once a day for 30 day(s) Active Atorvastatin Calcium 20 MG TAKE ONE TABL ET BY MOUTH EVERY DAY for 90 Active Senna 30 MG Orally Active Pregabalin 150 MG TAKE ONE CAPSULE BY MOUTH TWICE A DAY for 90 08/01/2024 Active Tamsulosin HCl 0.4 MG TAKE 1 CAPSULE ONC E DAILY 30 MINUTES AFTER THE SAME MEAL EACH DAY Active Immunizations Vaccine Route Administration Date Status Comme nts DECLINED, FLU Unknown 03/10/2013 Administered Fluarix Quadrivalent IM Intramuscular 03/08/2017 Administe red PPSV23 (Pnemovax) IM Intramuscular 04/12/2017 Administered Shingrix IM Intramuscular 07/26/2017 Administered pt was given the vaccine at [facility] in [place]. Influenza High Dose IM Intramuscular 03/07/2018 Administer ed Prevnar 13 IM Intramuscular 08/12/2018 Administered Shingrix IM Intramuscular 09/24/2017 Administered pt was given the vaccine at [facility] in [place]. 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) Active confirmed Problem 072007790 Mild aortic sten osis (I35.0) Active confirmed Problem 287502653 Renal cancer, unspecified laterality (C64.9) Active confirmed Problem 24242138 Carpal tunnel sy ndrome of right wrist (G56.01) Active confirmed Problem 55053775 Oropharyngeal dysphagia (R13.12) Active confirmed Problem 84113566 Meralgia paraesthetica, 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) Active confirmed Problem 12799130 Sciatica of righ t side (M54.31) Active confirmed Problem 237411349 Pure hypercholesterolemia (E78.00) Active confirmed Problem 186733283 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) Active confirmed Problem 56781577 Hypercholesterol emia (E78.00) Active confirmed Problem 5446994546603812 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) Active confirmed Problem 674231029 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) Active confirmed Problem Computed tomography result abnormal (243263757) Abnormal CAT scan (R93.89) Active confirmed Vital Signs Blood pressure diastolic 60 mm Hg 11/06/2024 pablo ght is down 6 pounds since 09-25-24 Height 64 in 11/06/2024 weight is down 6 pounds since 09-25-24 Blood pressure systolic 102 mm Hg 11/06/2024 weig ht is down 6 pounds since 09-25-24 Weight 191 lbs 11/06/2024 weight is down 6 pounds since 09-25-24 BMI 32.78 kg/m2 11/06/2024 weight is down 6 pounds since 09-25-24 Encounters Encounter Location Date Provider Diagnosis Quinten Han MD [address] [place] [id number] 01/28/2024 Quinten Han Encounter for immuni zation Z23 Quinten Han MD [address] [place] [id number] 03/24/2024 Quinten Han Essential hypertensi on I10 ; Prostatism N40.0 ; Pure hypercholesterolemia E78.00 and Hypercholesterolemia E78.00 Quinten Han MD [address] [place] [id number] 09/18/2024 Quinten Han Pure hypercholestero lemia E78.00 Quinten Han MD [address] [place] [id number] 10/20/2024 Quinten Han Essential hypertensi on I10 Quinten Han MD [address] [place] [id number] 03/28/2024 Quinten Han Prostate cancer C61 ; Sciatica of right side M54.31 ; Mild aortic stenosis I35.0 ; Essential hypertension I10 ; Pure hypercholesterolemia E78.00 ; Depression screening Z13.31 and Colon cancer screening Z12.11 Quinten Han MD [address] [place] [address] Drive [address] [place] [id number] 09/25/2024 Quinten Han Back pain M54.9 ; Pr ostate cancer C61 ; 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 and Pure hypercholesterolemia E78.00 Quinten Han MD [address] [place] [address] Drive [address] [place] [id number] 11/06/2024 Quinten Han Essential hypertensi on I10 and 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 Quinten Han MD [address] [place] [address] Drive [address] [place] [id number] 11/03/2024 Quinten Han Assessments Encounter Date Diagnosis (ICD Code) Assessment Notes Treatment Notes Treatment Clinical Notes Section Notes 01/28/2024 Encounter for immunization (ICD-10 - Z23) 03/24/2024 Essential hypertensi on (ICD-10 - I10) 03/24/2024 Prostatism (ICD-10 - N40.0) 09/18/2024 Pure hypercholesterolemia (ICD-10 - E78.00) 10/20/2024 Essential hypertensi on (ICD-10 - I10) 03/28/2024 Prostate cancer (ICD -10 - C61) no sign of recurrence, will continue to monitor 03/28/2024 Sciatica of right si de (ICD-10 - M54.31) needs to go back to dr walter. got frustrated with waiting and left his appointment 09/25/2024 Back pain (ICD-10 - M54.9) need notes from [facility] 09/25/2024 Prostate cancer (ICD -10 - C61) seen by oncology and no sigh of recurrence 11/06/2024 Essential hypertensi on (ICD-10 - I10) doing well, will continue current regiment 11/06/2024 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 send copy of ct with consult repeat ct abd and pelvis in one year with contrast 03/24/2024 Pure hypercholesterolemia (ICD-10 - E78.00) 03/28/2024 Mild aortic stenosis (ICD-10 - I35.0) followed by dr haque. 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) do ct in [facility], pending diagnostic testing 03/24/2024 Hypercholesterolemia (ICD-10 - E78.00) 03/28/2024 Essential hypertensi on (ICD-10 - I10) stable, will continue current regiment 09/25/2024 Pure hypercholesterolemia (ICD-10 - E78.00) at goal, will continue current regiment 03/28/2024 Pure hypercholesterolemia (ICD-10 - E78.00) stable, will continue current regiment 03/28/2024 Depression screening (ICD-10 - Z13.31) negative screen 03/28/2024 Colon cancer screeni ng (ICD-10 - Z12.11) guaiac negative Plan Of Treatment Pending Test Test Name Order Date HEPATIC FUNCTION PANEL 11/23/2011 BUN/CREATININE RATIO 11/23/2011 CREATININE 11/23/2011 CT ABD & PELVIS WITH CONTRAST 09/25/2024 MRI LUMBAR SPINE NO CONTRAST 12/12/2022 XR CHEST 2 VIEW PA & LAT 01/31/2021 US ABD 12/12/2022 ECHO 12/05/2012 NM bone scan whole body 05/30/2021 NM bone scan whole body 06/20/2021 US carotid duplex BI 02/02/2022 Future Test Test Name Order Date CT ABD & PELVIS WWO CONTRAST 07/26/2020 Next Appt Details Provider Name:Quinten Marcos ier, 01/13/2025 02:00:00 PM, [address] [place] [address], [address], [place], [phone], Provider Name:Quinten Marcos ier, 03/23/2025 07:30:00 AM, [address] [place] [address], [address], [place], [id number], Provider Name:Quinten Marcos ier, 03/30/2025 09:30:00 AM, [address] [place] [address], [address], [place], [phone], Insurance Providers Payer Name Payer Address Payer Phone Subscriber Number Group Number Insured Name Patient Relationship to Insured Coverage Start Date Coverage End Date MEDICARE [employer] [address] [place] [address] [id number] MYLA HERNANDEZ Self - patient is the insured [address] [place] [address] [address] [place], [place] [phone] [id number] MYLA HERNANDEZ Self - patient is the insured Medical (General) History Medical History History ICD Code biopsy of prostate over 5 years on bical utamide which is cassodex colonoscopy in past. Colonos copy done 03/24/2013 - no further testing required per Dr. Keller. Colonoscopy 06/20/21 no more
--- OUTSIDE RECORDS SUMMARY | 2024-12-31 12:56 | XMS_ITS | Clinical Summary ---
Author Organization [facility] Address [address] [id number] Care Team Providers Care Rubber Stamp Dies Inspector Name Role Phone Quinten Han MD Primary Care Provider [phone] Allergies No known active allergies Medications Medication [...] mg total) by mouth daily. 0 Active [place]-3 Fatty Acids (FISH OIL PO) Take by [...] age to complete this topic Care Teams Rubber Stamp Dies Inspector Relationship Specialty Start Date End Date Quinten Han MD [address] [place] [address] Drive [address] [place] [address] PCP - General Internal Medicine 10/19/16
--- OUTSIDE RECORDS SUMMARY | 2024-12-31 12:56 | XMS_ITS | Patient Health Record ---
Author Organization [facility] Address [address] [place] [address] Care Team Providers Care Construction Millwright Name Role Phone Quinten Han MD Primary Care Provider Mike Wallace Unavailable [phone] Allergies No Known Allergies Reason For Referral [...] Problem Status W/U Status Risk Notes Problem 1250989 Helicobacter pylori (H. 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 confirmed Problem Rectal discomfor t (K62.89) Active confirmed Problem Diverticulosis of colon (377757989) Diverticulosis of colon (K57.30) Active confirmed Vital Signs Temperature 97.5 degrees Fahrenheit 01/03/2024 Blood pressure diastolic 00 mm Hg 01/03/2024 Height 64 in 01/03/2024 Blood pressure systolic 000 mm Hg 01/03/2024 Weight 194 lbs 01/03/2024 BMI 33.30 kg/m2 01/03/2024 Encounters Encounter Location Date Provider Diagnosis [facility] [address] [place] [address] 01/03/2024 Mike Keller Rectal discomfort K62.89 Assessments [...] Date MEDICARE OF [place] [address] [place] [address] [phone] [id number] RUSS HERNANDEZ Self - patient is the insured [facility] [address] [place] [address] [phone] [id number] RUSS HERNANDEZ Self - patient is the insured Medical (General) History Medical History History ICD Code HTN Denies W[place],DM,CVA,Lung disease,renal dise ase BPH--he describes a possible prostate bi opsy in the past Hyperlipidemia Right 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 Raman Caballero() and Dr. Ku(Oncology)-- he has apparently had a negative workup for metastatic disease, including a PET-CT scan--he had cryosurgery with IR at [facility] in 04/2014--describes a CT scan in [...]
== END 2024-12-31 12:40 | disposition home or self-care (01) ==
PROVIDERS: PCP Internal Medicine; Referring Provider Neurological Surgery; Visit Provider Psychiatry & Neurology Neurology
DX: M54.16 Radiculopathy, lumbar region (principal); G62.9 Polyneuropathy, unspecified; G57.12 Meralgia paresthetica, left lower limb
CPT/HCPCS: 99205

== ENCOUNTER → 2024-12-31 12:13 | Outpatient (BNVA) | payer MEDICARE, SELFPAY | PROVIDERS: PCP Internal Medicine; Referring Provider Neurological Surgery; Visit Provider Psychiatry & Neurology Neurology | DX: M54.16 Radiculopathy, lumbar region (principal); G62.9 Polyneuropathy, unspecified; G57.12 Meralgia paresthetica, left lower limb | CPT/HCPCS: 99202 ==

== ENCOUNTER 2025-01-06 11:16 | Outpatient (AMB) | payer MEDICARE, SELFPAY ==
--- NOTE | 2025-01-06 11:31 | MHC.OFFVIS ---
Vital Signs 01/06/25 11:40 Height 5 ft 4 in Weight 193 lb BMI 33.1 BP 136/64 Blood Pressure Location Lt brachial Position Sitting Pulse 70 Intake Visit Reasons: Mesenteric adenitis Intake Note: Patient is seen in office for evaluation of mesenteric adenitis. Pt c/o: admits to feeling full at all times, bloated, uncomfortable around the belly, gets up to 4 times at night due to discomfort, had CT scan done Newsstand Vendor Required: No Accompanied by: Self / Same As Patient Allergies No Known Allergies (No Known Allergies*) Allergy (Verified 01/06/25 11:39) HPI Comments Details: 84-year-old male patient presenting for evaluation of complaints of abdominal bloating and discomfort. This has developed over the last several months and seems to be increasing in severity. He reports that his appetite is markedly decreased but he denies any nausea or vomiting. He also denies diarrhea or constipation. The pain wakes him up in the middle of the night sometimes 3-4 times nightly. Workup with a CT abdomen and pelvis revealed a 5 cm focal outpouching along the lateral margin of the proximal descending duodenum consistent with a duodenal diverticulum. Diverticulum were also identified in the descending and sigmoid colon. Katt mesentery changes were noted in the central abdomen with a few shotty lymph nodes. This was previously noted in his CT of 2017. The degree of fat stranding appeared slightly increased since this study. In addition trace ascites is noted to have increased. 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 Review of Systems Const All systems reviewed & are unremarkable except as noted in HPI and below Physical Exam Vital Signs: Last Vital Signs Pulse 70 01/06/25 11:40 BP 136/64 01/06/25 11:40 BMI result Body Mass Index 33.1 Const General: cooperative and no acute distress Nutritional Appearance: well nourished Orientation/consciousness: patient oriented x3 Limitations: no limitations HEENT Head: Yes normocephalic and Yes atraumatic Ears: hearing grossly normal bilaterally Resp Effort & Inspection: normal respiratory effort, no audible wheezes, no cough and no respiratory distress Cardio Jugular venous distension: no JVD GI Inspection: Yes normal to inspection and No Abdominal wall edema Palpation (GI): Soft to palpation, nontender, no guarding and not rigid Percussion: Yes normal to percussion Auscultation: normal bowel sounds Skin Other: Warm, dry, no rash Neuro General: patient oriented x3 Extrem General: Yes no clubbing, cyanosis or edema Assessment & Plan Assessment & Plan (1) 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 Although the certainly could be biopsied surgically I recommended he 1st be evaluated by Gastroenterology to see if this is actually necessary. Patient has been previously been evaluated by Dr. Keller for colonoscopies he will therefore be referred to his office for further evaluation. Further surgical evaluation based on Dr. Keller's recommendations. 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
[2025-01-06 11:40] VITALS: BP 136/64; PULSE 70; BMI 33.1
--- OUTSIDE RECORDS SUMMARY | 2025-01-06 12:51 | XMS_ITS | Clinical Summary ---
Author Organization [facility] Address [address] [place] [address] Phone Care Team Providers Care Manager Cable Name Role Phone Quinten Han MD Primary Care Provider [phone] Medications amLODIPine (NORVASC) 5 mg tablet Take [...] Date Diagnosed Date Malignant neoplasm of prostate ([facility] V24, CMS /HCC V28) 08/08/2024 Lumbar spondylosis 12/20/2023 Overview (04/16/2024): [...] every morning. He has been seen at [facility] pain management, is s/p right L5 TFE, L5-S1 JANNIE, but did not see relief with either injection. He states they are talking to him about spinal cord stimulator trial, he is not sure if he wants to try it. Patient had MRI lumbar spine 07/30/2023 at [facility] that showed multilevel degenerative changes, I [...] Description 02/09/2025 10:00 AM EDT Office Visit [facility] Hematology Oncology [address] [place] [address] Pia Quinones, DO [address] [place] [address] Health Maintenance Due Date Last Done Comments [...] age to complete this topic Insurance MEDICARE [facility] PL[facility] Care Teams Manager Cable Relationship Specialty Start Date End Date Quinten Han MD [address] [place] [address] [address] [place], [place] [phone] PCP - General Internal Medicine 10/19/16
--- OUTSIDE RECORDS SUMMARY | 2025-01-06 12:51 | XMS_ITS | Clinical Summary ---
Author Organization [facility] Address [address] [id number] Care Team Providers Care Audiology Assistant Name Role Phone Quinten Han MD Primary Care Provider [phone] Allergies No known active allergies Medications Medication [...] mg total) by mouth daily. 0 Active [place]-3 Fatty Acids (FISH OIL PO) Take by [...] age to complete this topic Care Teams Audiology Assistant Relationship Specialty Start Date End Date Quinten Han MD [address] [place] [address] Drive [address] [place] [address] PCP - General Internal Medicine 10/19/16
== END 2025-01-06 12:37 | disposition home or self-care (01) ==
LOC: HO.HGS 11:17
PROVIDERS: PCP Internal Medicine; Visit Provider Surgery
DX: K65.4 Sclerosing mesenteritis (principal)
CPT/HCPCS: 99204

== ENCOUNTER → 2025-01-06 11:16 | Outpatient (BNVA) | payer MEDICARE, SELFPAY | PROVIDERS: PCP Internal Medicine; Visit Provider Surgery | DX: K65.4 Sclerosing mesenteritis (principal) | CPT/HCPCS: 99202 ==

== ENCOUNTER 2025-01-07 08:58 | Outpatient (AMB) | payer MEDICARE, OTHER, SELFPAY ==
--- OUTSIDE RECORDS SUMMARY | 2024-09-18 03:30 | XMS_ITS ---
Author Organization Quinten Han MD Address [address] [place], [place] [id number] Care Team Providers Care Search And Rescue Officer Name Role Phone Quinten Han Primary Care Provider Results Component Value Reference Range Notes Liver Panel Reviewed date:09/18/2024 04:25:13 PM Interpretation: Performing Lab:[facility], [address] [place] [phone] Notes/Report: Bilirubin Total 0.6 0.0-1.0 mg/dL Bilirubin Direct 0.2 0.0-0.5 mg/dL Aspartate Amino Transferase 26 5-37 U/L Alanine Aminotransferase 21 0-40 U/L Total Protein 6.5 6.5-8.0 g/dL Albumin Level 4.2 3.5-5.0 g/dL Alkaline Phosphatase 85 39-117 U/L Lipid Panel with Reflex Reviewed date:09/18/2024 04:39:57 PM Interpretation: Performing Lab:[facility], [address] [place] [address] Notes/Report: Triglycerides 66 <150 mg/dL Desirable Triglyceride: [...] Date Provider Diagnosis Quinten Han MD [address] [place] [address] [place] [id number] 09/18/2024 Quinten Han Pure hypercholestero lemia E78.00 Assessments Encounter Date Diagnosis (ICD Code) Assessment Notes Treatment Notes Treatment Clinical Notes Section Notes 09/18/2024 Pure hypercholesterolemia (ICD-10 - E78.00) Plan Of Treatment Next Appt Details Provider Name:Quinten rocha, 01/13/2025 02:00:00 PM, [address] [place] [address], [address], [phone], Provider Name:Quinten rocha, 03/23/2025 07:30:00 AM, [address] [place] [address], [address], [phone], Provider Name:Quinten rocha, 03/30/2025 09:30:00 AM, [address] [place] [address], [address], [phone], Progress Notes * RUSS CASTREJON MDOB: 2 (84 yo M)Acc No.[id number]:09/18/2024 Progress Note Patient: C OSTA, EGIDIO M Provider: Rachel Han MD :1940 A ge:84 Y S ex:Male Date:09/18/2024 Address:[id number] Subjective: * Chief Complaints: * 1 . [...] 0 09/18/2024 Generated for Katelyn buchanan/Elida/Jakeitting on: 0 01/07/2025 09:35 AM EDT
--- OUTSIDE RECORDS SUMMARY | 2024-09-25 05:00 | XMS_ITS ---
Author Organization Quinten Han MD Address [address] [place], [place] [phone] Care Team Providers Care Hadoop Admin Name Role Phone Quinten Han Primary Care [...] Date Provider Diagnosis Quinten Han MD 10 [facility] [address] [place] [phone] 09/25/2024 Quinten Han Back pain M54.9 ; Pr ostate cancer C61 ; 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 and Pure hypercholesterolemia E78.00 Assessments Encounter Date Diagnosis (ICD Code) Assessment Notes Treatment Notes Treatment Clinical Notes Section Notes 09/25/2024 Back pain (ICD-10 - M54.9) [place] [facility] [place] 09/25/2024 Prostate cancer (ICD -10 - C61) seen by oncology and no sigh of recurrence 09/25/2024 Mesenteric adenitis (ICD-10 - I88.0) do ct in [facility], pending diagnostic testing 09/25/2024 Pure hypercholesterolemia (ICD-10 [...] Assessment Notes Back pain [place] [facility] Prostate cancer seen by oncology and no sigh of recurrence Mesenteric adenitis do ct in [facility], pendin g diagnostic testing Pure hypercholesterolemia at goal, will continue current regiment Pending Test Test Name Order Date CT ABD & PELVIS WITH CONTRAST 09/25/2024 Next Appt Details Follow Up: after cat scan, Tamie coyle: Provider Name:Quinten rocha, 01/13/2025 02:00:00 PM, [address] [facility], [address], [place], [place], [phone], Provider Name:Quinten Marcos ier, 03/23/2025 07:30:00 AM, [address] [facility], [address], [place], [place], [phone], Provider Name:Quinten Marcos ier, 03/30/2025 09:30:00 AM, [address] [facility], [address], [place], [place], [phone], Progress Notes * RUSS CASTREJON MDOB: 2 (84 yo M)Acc No.[id number]:09/25/2024 Progress Notes Patient: RUSS DIXON Provider: Rachel Han MD :1940 A ge:84 Y S ex:Male Date:09/25/2024 Address:[address] [place] [address] [place], [id number] Subjective: * Chief Complaints: * 6 month * HPI: S ymptom(s): patient is a 84 yo male here for 6 month follow up visit/ went to see spinal pa/ when standing for a long time gets pain and numbness in thigh/ has a little discomfort of the bladder area. * ROS: G eneral/Constitutional: Denies Sw[place] hills. D enies F atigue. D enies [...] PELVIS WITH CONTRAST Notes: do ct in [facility], pending diagnostic testing??4.?Pure hypercholesterolemia? Continue Atorvastatin Calcium Tablet, 20 MG, TAKE ONE TABLET BY MOUTH EVERY DAY.?? Notes: at goal, will continue current regiment?? * Procedure Codes: * Follow Up: a fter cat scan * * Sign off status: Completed true * Provider: Rachel Han MD Date: 0 09/25/2024 Generated for Katelyn buchanan/Elida/Jakeitting on: 0 01/07/2025 09:35 AM EDT History and Physical Notes * [...]
--- OUTSIDE RECORDS SUMMARY | 2024-10-20 03:45 | XMS_ITS ---
Author Organization Quinten Han MD Address [address] [place], [place] [phone] Care Team Providers Care Instructor [employer] Name Role Phone Quinten Han Primary Care Provider Results Component Value Reference Range Notes Blood Urea Nitrogen Reviewed date:10/20/2024 04:32:38 PM Interpretation: Performing Lab:[facility], [address] [place] [phone] Notes/Report: Blood Urea Nitrogen 11 9-16 mg/dL Creatinine Reviewed date:10/20/2024 04:32:46 PM Interpretation: Performing Lab:[facility], [address] [place] [phone] Notes/Report: Creatinine 0.58 0.5-1.4 mg/dL Estimated Glomerular Filt Rate > 60 Chronic Kidney Disease: Estimated GFR < 60 mL/min/1.73m2 Severe Kidney Disease: Estimated GFR < 15 mL/min/1.73m2 REASON FOR VISIT BUN and Creatinine for Ct scan abd booked at [facility] 10-30-24 at 2pm Encounters Encounter Location Date Provider Diagnosis Quinten Han MD [address] [place] [address] [place] [phone] 10/20/2024 Quinten Han Essential hypertension I10 Assessments Encounter Date Diagnosis (ICD Code) Assessment Notes Treatment Notes Treatment Clinical Notes Section Notes 10/20/2024 Essential hypertension (ICD-10 - I10) Plan Of Treatment Next Appt Details Provider Name:Quinten rocha, 01/13/2025 02:00:00 PM, [address] [place] [address], Suite [facility], [place], [place], [phone], Provider Name:Quinten rocha, 03/23/2025 07:30:00 AM, [address] [place] [address], Suite [facility], [place], [place], [phone], Provider Name:Quinten rocha, 03/30/2025 09:30:00 AM, [address] [place] [address], Suite [facility], [place], [place], [phone], Progress Notes * RUSS CASTREJON MDOB: 2 (84 yo M)Acc No.[id number]:10/20/2024 Progress Note Patient: RUSS DIXON Provider: Rachel Han MD :1940 A ge:84 Y S ex:Male Date:10/20/2024 Address:[address] [place] [address] Swathi BENTLEY [id number] Subjective: * Chief Complaints: * 1 . BUN and Creatinine for Ct scan abd booked at [facility] 10-30-24 at 2pm. * Medical History: Objective: [...] MD Date: 0 10/20/2024 Generated for Katelyn buchanan/Elida/Chang on: 0 01/07/2025 09:35 AM EDT
--- OUTSIDE RECORDS SUMMARY | 2024-11-03 06:43 | XMS_ITS ---
Author Organization Quinten Han MD Address [address] [place] [phone] Care Team Providers Care Regrind Mill Operator Name Role Phone Quinten Han Primary Care Provider Encounters Encounter Location Date Provider Diagnosis Quinten Han MD 10 [facility] [address] [place] [phone] 11/03/2024 Quinten Han Plan Of Treatment Next Appt Details Provider Name:Quinten rocha, 01/13/2025 02:00:00 PM, [address] [place] [address], [address], [phone], Provider Name:Quinten rocha, 03/23/2025 07:30:00 AM, [address] [place] [address], [address] [place] [address] [place], [phone], Provider Name:Quinten rocha, 03/30/2025 09:30:00 AM, [address] [facility] [address], [address], [place], [place], [phone], Progress Notes * RUSS CASTREJON MDOB: 2 (84 yo M)Acc No.[id number]:11/03/2024 Patient: Swathi SHAYYNYDIA HookerLORENZA Seymour :1940 A ge:84 Y S ex:Male Address:[address] [place], [place] [address], [phone] * true * Date: Generated for Katelyn buchanan/Elida/eTransmitting on: 0 01/07/2025 09:35 AM EDT
--- OUTSIDE RECORDS SUMMARY | 2024-11-06 06:30 | XMS_ITS ---
Author Organization Quinten Han MD Address [address] [place], [place] [phone] Care Team Providers Care Icu Nurse Name Role Phone Quinten Han Primary Care Provider [phone] Allergies Allergen (clinical drug ingredient) Drug/Non Drug [...] kg/m2 11/06/2024 weight is down 6 pounds [facility] e 09-25-24 Encounters Encounter Location Date Provider Diagnosis Quinten Han MD [address] [place] [address] [place] [phone] 11/06/2024 Quinten Han Essential hypertension I10 and [...] Next Appt Details Provider Name:Quinten Marcos ier, 01/13/2025 02:00:00 PM, [address] [place] [address], [address] [place] [address], [phone], Provider Name:Quinten Marcos ier, 03/23/2025 07:30:00 AM, [address] [place] [address], [address] [place] [address], [phone], Provider Name:Quinten Marcos ier, 03/30/2025 09:30:00 AM, [address] [place] [address], [address] [place] [address], [id number], Progress Notes * RUSS CASTREJON MDOB: 2 (84 yo M)Acc No.[id number]:11/06/2024 Patient: RUSS DIXON Provider: Rachel Han MD :1940 A ge:84 Y S ex:Male Date:11/06/2024 Address:[address] [place] [address] Swathi BENTLEY [id number] Subjective: * Chief Complaints: * C BACK [...] true * Provider: Rachel Han MD Date: 11/06/2024 Generated for Katelyn buchanan/Elida/Jakeitting on: 01/07/2025 09:36 AM EDT History and Physical Notes * [...]
--- NOTE | 2025-01-07 09:28 | A.OFFVIS_ITS ---
Vital Signs 01/07/25 09:29 Height 5 ft 4 in Weight 193 lb BMI 33.1 Intake Visit Reasons: New prob-RT hand pain OA Intake Note: Myla 84 yr old right hand dominant male who is retired, presents today for a new problem visit for his right hand O.A pain. States his pain is mainly on middle and ring finger. States pain comes on randomly through the day, pain radiates into his palm area. States the middle finger is the worse. He has tried injections in the past with good relief. Last injection was more than 3 years ago. Denies numbness or tingling. Patient is interested in discussing injections. No injury. Allergies No Known Allergies (No Known Allergies*) Allergy (Verified 01/07/25 09:35) HPI HPI New prob-RT hand pain OA: Details: Myla is an 84 year old right hand dominant man who presents with complaints of right hand pain. He complains of pain primarily in his middle finger. He says this is at the volar base of his finger, intermittent throughout the day, and occasionally radiates into his palm. He denies any numbness or tingling. He reports a Hx of finger locking in the past, and says his middle finger locks occasionally at home. He has a Hx of hand OA & has received steroid injections several years ago by Rheumatology, with good relief. 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 Review of Systems Const All systems reviewed & are unremarkable except as noted in HPI and below Physical Exam Vital Signs: BMI result Body Mass Index 33.1 Const General: cooperative, healthy appearing and no acute distress Orientation/consciousness: patient oriented x3 HEENT Head: Yes normocephalic and Yes atraumatic Eyes EOM: EOMs intact bilaterally Resp Effort & Inspection: normal respiratory effort and able to speak in complete sentences Cardio Jugular venous distension: no JVD Skin General skin exam: turgor normal Rashes: no rashes Neuro General: patient oriented x3 Extrem Other: Evaluation of Right Upper Extremity: The patient is alert, oriented, and in no acute distress Neuro: Median, Ulnar, Radial nerves motor and sensory intact and sensation is normal to the tips of all digits Vascular: Cap refill brisk ROM: He can make a fist and extend all his digits, with mild stiffness No locking or catching today Tender over the middle finger a1 oumar of the right middle finger Skin: No lacerations or abrasions. General: No Ecchymosis. No Erythema or evidence of infection. Radiographs: 3 views of the right hand from 11/11/24 were reviewed by me today in clinic. They show no fractures or dislocations. There are arthritic changes in multiple DIP joints & basal joint arthritis with joint space narrowing & osteophyte formation. Psych Appearance: grossly normal Affect: normal affect Attitude: cooperative Office Procedures AMB Fracture Care Details: No fracture, injection Fracture Billing Code: Fracture Billing Code Assessment & Plan Assessment & Plan (1) Trigger middle finger of right hand: Code(s): M65.331 - Trigger finger, right middle finger Category: Medical Plan Assessment & Plan: 1. Right middle finger trigger finger No locking today in clinic This is his chief complaint today I educated him about this condition I discussed operative and non-operative treatment options The patient would like to proceed with an injection Injection #1: The risks and benefits of a steroid injection including but not limited to risk of damage to blood vessels, nerves, tendons, infection, skin bleaching, failure to improve symptoms, increased pain, and possible need for further injections or other intervention were discussed with the patient and the patient wishes to pr oceed with the steroid injection. Once consent was obtained, I sterilely prepped the area over the A1 oumar of the flexor tendon sheath of the Right middle finger. I then injected the flexor tendon sheath with a combination of 1 mL of dexamethasone (4mg/ml), and 1% lidocaine. The patient tolerated the procedure well with no complications. If the patient continues to have locking and catching 4-6 weeks following this injection, they may call to schedule appointment to discuss alternative treatment options Follow-up prn 2. Right basal joint arthritis 3. 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 Coding Level of Care Code New Pt Level 3 (01178) Diagnoses Trigger middle finger of right hand M65.331 CPT Codes Fracture Care - Fracture Billing Code: Fracture Billing Code ([id number])
[2025-01-07 09:29] VITALS: BMI 33.1
--- OUTSIDE RECORDS SUMMARY | 2025-01-07 09:35 | XMS_ITS | Clinical Summary ---
Author Organization [facility] Address [address] [place] [address] Phone Care Team Providers Care Karate Black Belt Name Role Phone Quinten Han MD Primary Care Provider [phone] Medications amLODIPine (NORVASC) 5 mg tablet Take [...] Date Diagnosed Date Malignant neoplasm of prostate ([facility] V24, CMS /HCC V28) 08/08/2024 Lumbar spondylosis [...] every morning. He has been seen at [facility] pain management, is s/p right L5 TFE, L5-S1 JANNIE, but did not see relief with either injection. He states they are talking to him about spinal cord stimulator trial, he is not sure if he wants to try it. Patient had MRI lumbar spine 07/30/2023 at [facility] that showed multilevel degenerative changes, I did [...] Description 02/09/2025 10:00 AM EDT Office Visit [facility] Hematology Oncology [address] [place] [address] Pia Quinones, DO [address] [place] [address] Health Maintenance Due Date Last Done Comments [...] topic Insurance MEDICARE [facility] PL[facility] Care Teams Karate Black Belt Relationship Specialty Start Date End Date Quinten Han MD [address] [place] [address] [address] [place], [place] [phone] PCP - General Internal Medicine 10/19/16
--- OUTSIDE RECORDS SUMMARY | 2025-01-07 09:36 | XMS_ITS | Patient Health Record ---
Author Organization Quinten Han MD Address [address] [place], [place] [id number] Care Team Providers Care Pig Lead Melter Helper Name Role Phone Quinten Han Primary Care Provider Allergies Allergen (clinical drug ingredient) Drug/Non Drug Allergy documented on EMR Reaction Allergy Type Onset Date Status ibuprofen Ibuprofen hallucinating Drug Allergy Act eddie Results Component Value Reference Range Notes Complete Blood Count Auto Di ff Reviewed date:03/24/2024 12:32:57 PM Interpretation: Performing Lab:[facility], [address] [place] [phone] Notes/Report: White Blood Count 6.3 4.8-10.8 X10*3/uL [...] NRBC Abs Auto 0.000 0.0-0.012 X10*3/uL Comprehensive [place]. Panel Fa st Reviewed date:03/24/2024 12:32:05 PM Interpretation: Performing Lab:[facility], [address] [place] [phone] Notes/Report: Sodium 143 135-145 mmol/L Potassium 3.4 [...] Panel Reviewed date:03/24/2024 12:32:29 PM Interpretation: Performing Lab:[address] [address] Notes/Report: Triglycerides 82 <150 mg/dL Desirable Triglyceride: [...] (Free>4and<10) Reviewed date:03/24/2024 12:31:46 PM Interpretation: Performing Lab:[address] [address] Notes/Report: PSA,Total (Free>4and<10) < 0.10 0.00-4.00 ng/mL [...] between 4.0 and 10.0 ng/mL. PSA methodology: [employer] i Chemiluminescent Microparticle Immunoassay (CMIA) UA ClnCatch+Micro w/rflx Cul t Reviewed date:03/24/2024 12:47:18 PM Interpretation: Performing Lab:[address] [address] Notes/Report: [id number] Urine, Clean Catch Color Urine Yellow Appearance Urine Clear PH 8.0 5.0-9.0 Glucose Urine UA Negative Negative mg/dL Urine Blood Negative Negative Specific [place] - Urine 1.015 1.005-1.025 Urine Protein Negative Neg-Trace mg/dL Urine Ketones Negative Negative mg/dL Nitrite Urine Negative Negative Leukocyte Esterase Urine Trace Negative RBC Urine 0-2 0-2 /HPF WBC Urine 0-5 0-5 /HPF Squamous Epithelial Cell Urine 0-2 0-2 /HPF Bacteria Urine None Seen None Seen Hyaline Casts Urine 0-2 0-2 /LPF Liver Panel Reviewed date:09/18/2024 04:25:13 PM Interpretation: Performing Lab:[facility], [address] [place] [phone] Notes/Report: Bilirubin Total 0.6 0.0-1.0 mg/dL Bilirubin Direct 0.2 0.0-0.5 mg/dL Aspartate Amino Transferase 26 5-37 U/L Alanine Aminotransferase 21 0-40 U/L Total Protein 6.5 6.5-8.0 g/dL Albumin Level 4.2 3.5-5.0 g/dL Alkaline Phosphatase 85 39-117 U/L Lipid Panel with Reflex Reviewed date:09/18/2024 04:39:57 PM Interpretation: Performing Lab:[address] [address] Notes/Report: Triglycerides 66 <150 mg/dL Desirable Triglyceride: [...] Nitrogen Reviewed date:10/20/2024 04:32:38 PM Interpretation: Performing Lab:[facility], [address] [place] [phone] Notes/Report: Blood Urea Nitrogen 11 9-16 mg/dL Creatinine Reviewed date:10/20/2024 04:32:46 PM Interpretation: Performing Lab:[facility], [address] [place] [address] Notes/Report: Creatinine 0.58 0.5-1.4 mg/dL Estimated Glomerular Filt Rate > 60 Chronic Kidney Disease: Estimated GFR < 60 mL/min/1.73m2 Severe Kidney Disease: Estimated GFR < 15 mL/min/1.73m2 Occult Blood, Stool, Guaiac Reviewed date:03/28/2024 10:26:17 AM Interpretation:Negative Performing Lab: Notes/Report: Negative Occult Blood, Stool, Guaiac Neg Hold Gold Reviewed date:09/18/2024 02:27:00 PM Interpretation: Performing Lab:[facility], [address] [place] [phone] Notes/Report: Hold Gold See Note Specimen held untested for 24 hours; Call to request Chemistry testing. CT abdomen pelvis w con Reviewed date:11/04/2024 12:40:02 PM Interpretation: Performing Lab: Notes/Report: [address] [address] [address] Scan Report Signed Patient: Myla Hernandez MR#: [id number] : 1940 Acct:[id number] Age/Sex: 84 / M ADM Date: 10/30/24 Loc: HO.CT Attending Dr: Quinten Han MD Ordering Physician: Quinten Han MD Date of Service: 10/30/24 Procedure(s): CT abdomen pelvis w IV con Accession Number(s): [id number] cc: Quinten Han MD Report Number: [id number]: Total DLP = 646.00 mGy-cm EXAMINATION: CT [...] 10/30/24 1742 DD/ 1625 TD/TT: 10/30/24 1651 Screw Machine Tool Setter: [place] [address] [address] Scan Report Signed Patient: Yong Hernandez MR#: [id number] : 1940 Acct:[id number] Age/Sex: 84 / M ADM Date: 10/30/24 Loc: HO.CT Attending Dr: Quinten Han MD Ordering Physician: Quinten Han MD Date of Service: 10/30/24 Procedure(s): CT abd omen pelvis w IV con Accession Number(s): [id number] cc: Quinten Han MD Report Number: [id number] [...] most pronounced in the SMA PELVIC VISCERA: [place] llic beads are present superficial to the [...] 10/30/24 1742 DD/ 1625 TD/TT: 10/30/24 1651 Screw Machine Tool Setter: XR hand RT min 3V Reviewed date:11/11/2024 12:23:19 PM Interpretation: Performing Lab: Notes/Report: [facility] [address] [address] XRay Report Signed Patient: Myla Hernandez MR#: [id number] : 1940 Acct:[id number] Age/Sex: 84 / M ADM Date: 11/11/24 Loc: HO.HMGCX Attending Dr: Stefani Packer PA-C Ordering Physician: STEFANI PACKER Date of Service: 11/11/24 Procedure(s): XR hand RT min 3V Accession Number(s): [id number] cc: Quinten Han MD; STEFANI PACKER EXAMINATION: [...] 11/11/24 1126 DD/ 1114 TD/TT: 11/11/24 1117 Screw Machine Tool Setter: [facility] [address] [place] [address] [place] [address] XRay Report Signed Patient: Yong Hernandez MR#: [id number] : 1940 Acct:[id number] Age/Sex: 84 / M ADM Date: 11/11/24 Loc: HO.HMGCX Attending Dr: Mel BELTRÁNC Ordering Physician: STEFANI PACKER Date of Service: 11/11/24 Procedure(s): XR lea d RT min 3V Accession Number(s): [id number] cc: Quinten Han MD; STEFANI PACKER EXAMINATION: [...] OV> 11/11/24 1126 DD/ TD/TT: 11/11/24 1117 Screw Machine Tool Setter: Reason For Referral Reason Sciatica of right si de Diagnosis 1 Sciatica of right si de (M54.31) Referral Organization Quinten Han MD Referring Provider First Name Quinten Referring Provider Last Name Guille Referring Provider Speciality Internal edicine Referred Provider Mak Ordonez am Referred Provider Specialty Pain Medicin e General Notes Kamilah Hugo 10:15:15 AM EST > [place] office [phone] Annette 04/01/2024 02:23:45 PM EST > info faxed [phone] Annette 04/15/2024 10:37:45 AM EST > called [...] Administered pt was given the vaccine at [facility] in [place]. Influenza High Dose IM Intramuscular 03/07/2018 Administer ed Prevnar 13 IM Intramuscular 08/12/2018 Administered Shingrix IM Intramuscular 09/24/2017 Administered pt was given the vaccine at [facility] in [place]. 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) Active confirmed Problem 822735220 Mild aortic sten osis (I35.0) Active confirmed Problem 262294415 Renal cancer, unspecified laterality (C64.9) Active confirmed Problem 66806354 Carpal tunnel sy ndrome of right wrist (G56.01) Active confirmed Problem 02271013 Oropharyngeal dysphagia (R13.12) Active confirmed Problem 81351170 Meralgia paraesthetica, 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) Active confirmed Problem 58963014 Sciatica of righ t side (M54.31) Active confirmed Problem 301205349 Pure hypercholesterolemia (E78.00) Active confirmed Problem 477005338 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) Active confirmed Problem 31752031 Hypercholesterol emia (E78.00) Active confirmed Problem 8178710368801041 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) Active confirmed Problem 903761519 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) Active confirmed Problem Computed tomography result abnormal (860010703) Abnormal CAT scan (R93.89) Active confirmed Vital [...] Quinten Han MD [address] [place] [id number] 01/28/2024 Quinten Han Encounter for immuni zation Z23 Quinten Han MD [address] [place] [id number] 03/24/2024 Quinten Han Essential hypertensi on I10 ; Prostatism N40.0 ; Pure hypercholesterolemia E78.00 and Hypercholesterolemia E78.00 Quinten Han MD [address] [place] [id number] 09/18/2024 Quinten Han Pure hypercholestero lemia E78.00 Quinten Han MD [address] [place] [id number] 10/20/2024 Quinten Han Essential hypertensi on I10 Quinten Han MD [address] [place] [id number] 03/28/2024 Quinten Han Prostate cancer C61 ; Sciatica of right side M54.31 ; Mild aortic stenosis I35.0 ; Essential hypertension I10 ; Pure hypercholesterolemia E78.00 ; Depression screening Z13.31 and Colon cancer screening Z12.11 Quinten Han MD [address] [place] [address] Drive [address] [place] [id number] 09/25/2024 Quinten Han Back pain M54.9 ; Pr ostate cancer C61 ; 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 and Pure hypercholesterolemia E78.00 Quinten Han MD [address] [place] [address] Drive [address] [place] [id number] 11/06/2024 Quinten Han Essential hypertensi on I10 and 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 Quinten Han MD [address] [place] [address] Drive [address] [place] [id number] 11/03/2024 Quinten Han Assessments Encounter Date Diagnosis [...] pain (ICD-10 - M54.9) need notes from [facility] neurosurgery 09/25/2024 Prostate cancer (ICD -10 - [...] adenitis (ICD-10 - I88.0) do ct in [facility], pending diagnostic testing 03/24/2024 Hypercholesterolemia (ICD-10 - [...] Provider Name:Quinten Marcos ier, 01/13/2025 02:00:00 PM, [address] [place] [address], [address], [place], [phone], Provider Name:Quinten Marcos ier, 03/23/2025 07:30:00 AM, [address] [place] [address], [address], [place], [phone], Provider Name:Quinten Marcos ier, 03/30/2025 09:30:00 AM, [address] [place] [address], [address], [place], [phone], Insurance Providers Payer Name Payer Address Payer Phone Subscriber Number Group Number Insured Name Patient Relationship to Insured Coverage Start Date Coverage End Date [employer] [address] [place] [address] [id number] MYLA HERNANDEZ Self - patient is the insured [address] [place] [address] [address] [place], [place] [id number] MYLA HERNANDEZ Self - patient is the insured Medical (General) History Medical History History ICD Code biopsy of prostate over 5 years on bical utamide which is cassodex colonoscopy in past. Colonos copy done 03/24/2013 - no further testing required per Dr. Keller. Colonoscopy 06/20/21 no more
--- OUTSIDE RECORDS SUMMARY | 2025-01-07 09:36 | XMS_ITS | Clinical Summary ---
Author Organization [facility] Address [address] [phone] Care Team Providers Care Senior Microsoft Net Developer Name Role Phone Quinten Han MD Primary Care Provider [phone] Allergies No known active allergies Medications Medication [...] mg total) by mouth daily. 0 Active Mcleod-3 Fatty Acids (FISH OIL PO) Take by [...] age to complete this topic Care Teams Senior [employer] Net Developer Relationship Specialty Start Date End Date Quinten Han MD [address] [place] [address] Drive [address] [place] [address] PCP - General Internal Medicine 10/19/16
--- OUTSIDE RECORDS SUMMARY | 2025-01-07 09:36 | XMS_ITS | Patient Health Record ---
Author Organization [facility] Address [address] [place] [address] Care Team Providers Care Machine Pie Maker Name Role Phone Quinten Han MD Primary Care Provider Mike Wallace Unavailable [phone] Allergies No Known Allergies Reason For Referral [...] Problem Status W/U Status Risk Notes Problem 2634832 Helicobacter pylori (H. 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) Active confirmed Problem Rectal discomfor t (K62.89) Active confirmed Problem Diverticulosis of colon (867506360) Diverticulosis of colon (K57.30) Active confirmed Plan Of Treatment Pending Test Test Name [...] Date MEDICARE OF [place] [address] [place] [address] [id number] RUSS CASTREJON Self - patient is the insured [facility] [employer] [facility] [address] [place] [address] [id number] RUSS CASTREJON Self - patient is the insured Medical (General) History Medical History History ICD Code HTN Denies MS,DM,CVA,Lung disease,renal dise ase BPH--he describes a possible prostate bi opsy in the past Hyperlipidemia Right 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 Raman Caballero() and Dr. Ku(Oncology)-- he has apparently had a negative workup for metastatic disease, including a PET-CT scan--he had cryosurgery with IR at [facility] in 04/2014--describes a CT scan in 12/2014 [...]
== END 2025-01-07 10:16 | disposition home or self-care (01) ==
LOC: HO.HOS 08:59
PROVIDERS: Visit Provider Orthopaedic Surgery
DX: M65.331 Trigger finger, right middle finger (principal)
CPT/HCPCS: 20550; 99203

== ENCOUNTER → 2025-01-07 08:58 | Outpatient (BNVA) | payer MEDICARE, OTHER, SELFPAY | PROVIDERS: Visit Provider Orthopaedic Surgery | DX: M65.331 Trigger finger, right middle finger (principal) | CPT/HCPCS: 20550; 99202; J1100; J2003 ==

== ENCOUNTER 2025-03-19 09:58 | Outpatient (AMB) | payer MEDICARE, SELFPAY ==
--- OUTSIDE RECORDS SUMMARY | 2023-11-01 10:21 | XMS_ITS ---
Author Organization Quinten Han MD Address [address] [place] [phone] Care Team Providers Care Lithograph Press Operator Tinware Name Role Phone Quinten Han Primary Care Provider REASON FOR VISIT RF Atorvastin Medications Medication SIG (Take, Route, Frequency, Duration) Notes Start Date End Date Status Atorvastatin Calcium 20 MG 1 tablet Oral ly Once a day for 90 days Active Encounters Encounter Location Date Provider Diagnosis Quinten Han MD [address] [place] [phone] 11/01/2023 Quinten Han Pure hypercholestero lemia E78.00 Assessments Encounter Date Diagnosis (ICD Code) Assessment Notes Treatment Notes Treatment Clinical Notes Section Notes 11/01/2023 Pure hypercholesterolemia (ICD-10 - E78.00) Plan Of Treatment Medication Medication Name Sig Start Date Stop Date Notes Atorvastatin Calcium 20 MG 1 tablet Oral ly Once a day for 90 days Next Appt Details Provider Name:Quinten Marcos ier, 03/23/2025 07:30:00 AM, [address], [address], [place], [place], [phone], Provider Name:Quinten Marcos ier, 03/30/2025 01:00:00 PM, [address], [address], [place], [place], [phone], Progress Notes * RUSS CASTREJON MDOB: 2 (83 yo M)Acc No.[id number]:11/01/2023 Patient: Swathi PALACIOS RUSS Seymour :1940 A ge:83 Y S ex:Male Address:[address] [place], [place] [address], [phone] * Refills Refill Atorvastatin Calcium Tablet, 20 MG, Orally, 90 Tablet, 1 tablet, Once a day, 90 days, Refills=4 * true * Date: Generated for Katelyn buchanan/Elida/eTyusufsmitting on: 05/19/2024 11:55 AM EST
--- OUTSIDE RECORDS SUMMARY | 2024-01-28 03:45 | XMS_ITS ---
Author Organization Quinten Han MD Address [address] [place] [phone] Care Team Providers Care Recycling Tech Name Role Phone Quinten Han Primary Care Provider REASON FOR VISIT HDF Immunizations Vaccine Route Administration Date Status Comme nts Influenza High Dose IM Intramuscular 01/28/2024 Administer ed Encounters Encounter Location Date Provider Diagnosis Quinten Han MD [address] [place] [phone] 01/28/2024 Quinten Han Encounter for immunization Z23 Assessments Encounter Date Diagnosis (ICD Code) Assessment Notes Treatment Notes Treatment Clinical Notes Section Notes 01/28/2024 Encounter for immunization (ICD-10 - Z23) Plan Of Treatment Next Appt Details Provider Name:Quinten rocha, 03/23/2025 07:30:00 AM, [address], [address] [place] [address], [phone], Provider Name:Quinten Marcos ier, 03/30/2025 01:00:00 PM, [address], [address], [place], [phone], Progress Notes * RUSS CASTREJON MDOB: 2 (85 yo M)Acc No.[id number]:01/28/2024 Progress Note Patient: RUSS DIXON Provider: Rachel Han MD :1940 A ge:83 Y S ex:Male Date:01/28/2024 Address:[address] [place] [address] [id number] Subjective: * Chief Complaints: * 1 . HDF. * Medical History: Objective: * Vitals: Assessment: * Assessment: 1. E ncounter for immunization - Z23 (Primary) Plan: * Treatment: * Immunizations: Influenza High Dose : 0.5 mL (Dose No:1) (Route: Intramuscular) given by Cassidy Ramos , Office Staff on Left Deltoid * Procedure Codes: 9 0662 FLU VACC PRSV FREE INC ANTIG, G0008 ADMN FLU VAC NO FEE SCHED SAME DAY * * The named appointment provid er may or may not be the originator of this progress note, and it is not deemed complete until electronically signed by the appointment provider. Sign off status: Pending * Provider: Rachel Han MD Date: 0 01/28/2024 Generated for Katelyn buchanan/Elida/Dariosmitting on: 1 05/19/2024 11:55 AM EST
--- OUTSIDE RECORDS SUMMARY | 2024-03-24 02:45 | XMS_ITS ---
Author Organization Quinten Han MD Address [address] [place], [place] [phone] Care Team Providers Care Core Cleaner Name Role Phone Quinten Han Primary Care Provider [phone] Results Component Value Reference Range Notes Complete Blood Count Auto Di ff Reviewed date:03/24/2024 12:32:57 PM Interpretation: Performing Lab:[facility], [address] [place] [phone] Notes/Report: White Blood Count 6.3 4.8-10.8 X10*3/uL [...] NRBC Abs Auto 0.000 0.0-0.012 X10*3/uL Comprehensive [place]. Panel Fa st Reviewed date:03/24/2024 12:32:05 PM Interpretation: Performing Lab:[facility], [address] [place] [phone] Notes/Report: Sodium 143 135-145 mmol/L Potassium 3.4 [...] Panel Reviewed date:03/24/2024 12:32:29 PM Interpretation: Performing Lab:[facility], [address] [place] [phone] Notes/Report: Triglycerides 82 <150 mg/dL Desirable Triglyceride: [...] (Free>4and<10) Reviewed date:03/24/2024 12:31:46 PM Interpretation: Performing Lab:[facility], [address] [place] [phone] Notes/Report: PSA,Total (Free>4and<10) < 0.10 0.00-4.00 ng/mL [...] t Reviewed date:03/24/2024 12:47:18 PM Interpretation: Performing Lab:[facility], [address] [place] [address] Notes/Report: [id number] Urine, Clean Catch Color Urine Yellow Appearance Urine Clear PH 8.0 5.0-9.0 Glucose Urine UA Negative Negative mg/dL Urine Blood Negative Negative Specific [place] - Urine 1.015 1.005-1.025 Urine Protein Negative [...] Location Date Provider Diagnosis Quinten Han MD [address] [place] [phone] 03/24/2024 Quinten Han Essential hypertensi on I10 [...] Details Provider Name:Quinten rocha, 03/23/2025 07:30:00 AM, [address] [place] [address], [address], [phone], Provider Name:Quinten rocha, 03/30/2025 01:00:00 PM, [address] [place] [address], [address], [phone], Progress Notes * RUSS CASTREJON MDOB: 2 (85 yo M)Acc No.[id number]:03/24/2024 Progress Note Patient: RUSS DIXON Provider: Rachel Han MD :1940 A ge:84 Y S ex:Male Date:03/24/2024 Address:[id number] Subjective: * Chief Complaints: * 1 . [...] - 03/24/2024 07:45 AM) L AB: Comprehensive [place]. Panel Fast (Collection Date & Time - [...] - 03/24/2024 07:45 AM) L AB: Comprehensive [place]. Panel Fast (Collection Date & Time - [...] - 03/24/2024 07:45 AM) L AB: Comprehensive [place]. Panel Fast (Collection Date & Time - 03/24/2024 07:45 AM) * Procedure Codes: 3 6415 VENIPUNCT, ROUTINE* * * The named appointment provid er may or may not be the originator of this progress note, and it is not deemed complete until electronically signed by the appointment provider. Sign off status: Pending * Provider: Rachel Han MD Date: 05/24/2023 Generated for Katelyn buchanan/Elida/Chang on: 05/19/2024 11:55 AM EST
--- OUTSIDE RECORDS SUMMARY | 2024-03-28 04:30 | XMS_ITS ---
Author Organization Quinten Han MD Address [address] [place], [place] [id number] Care Team Providers Care Assembler Gold Frame Name Role Phone Quinten Han Primary Care Provider Allergies Allergen (clinical drug ingredient) Drug/Non Drug Allergy documented on EMR Reaction Allergy Type Onset Date Status ibuprofen Ibuprofen hallucinating Drug Allergy Act eddie Results Component Value Reference Range Notes Occult Blood, Stool, Guaiac Reviewed date:03/28/2024 10:26:17 AM Interpretation:Negative Performing Lab: Notes/Report: Negative Occult Blood, Stool, Guaiac Neg Reason For Referral Reason Sciatica of right si de Diagnosis 1 Sciatica of right si de (M54.31) Referral Organization Quinten Han MD Referring Provider First Name Quinten Referring Provider Last Name Guille Referring Provider Speciality Internal M edicine Referred Provider Mak Ordonez am Referred Provider Specialty Pain Medicin e General Notes Oanh,Kamilah 10:15:15 AM EST > [place] office [phone] Kamilah Hugo 04/01/2024 02:23:45 PM EST > info faxed [phone] Annette 04/15/2024 10:37:45 AM EST > called pain med patient [facility] needs to call for his assesment then he needs to call with his appt. Patient will be calling to make his own appt , Kamilah Hugo 04/24/2024 12:59:18 PM EST > spoke with office patient still has not called info refaxed to Oanh Annette 06/06/2024 02:47:45 PM > spoke with patient he no longer wishes to go there Referral Priority Routine REASON FOR VISIT comp visit Medications Medication SIG (Take, Route, Frequency, Duration) Notes Start Date End Date Status Finasteride 5 1 tablet Orally Once a day Not-Taking Bicalutamide 50 MG 1 tablet Orally Once a day Not-Taking Hydrocortisone Elias-Pramoxine 2.5-1 % 1 application as needed Externally 2 times a day for 14 days 04/21/2019 Not-Taking Clobetasol Propionate 0.05 % 1 applicati on to affected area Externally Twice a day for 90 days Not-Taking Pregabalin 150 MG TAKE ONE CAPSULE BY MOUTH TWICE A DAY for 90 12/19/2023 Active Senna 30 MG Orally Active amLODIPine Besylate 5 MG TAKE ONE TABLET BY MOUTH EVERY DAY for 90 Active Atorvastatin Calcium 20 MG TAKE ONE TABL ET BY MOUTH EVERY DAY for 90 Active Tamsulosin HCl 0.4 MG TAKE 1 CAPSULE ONC E DAILY 30 MINUTES AFTER THE SAME MEAL EACH DAY Active hydroCHLOROthiazide 25 MG TAKE ONE TABLE T BY MOUTH ONCE DAILY for 90 Active Aspir-Low 81 MG 1 tablet Orally Once a day for 30 day(s) Active Social History Tobacco Use: Social History Observation Description Date Details (start date - stop date) Never Smoker NA - NA Tobacco Use/Smoking Question Answer Notes Patient is a nonsmoker Additional Findings: Tobacco Non-User Cu rrent non-smoker, currently using no form of tobacco Alcohol Screen Question Answer Notes Did you have a drink contain ing alcohol in the past year? Yes How often did you have a dri nk containing alcohol in the past year? Monthly or less (1 point) How many drinks did you have on a typical day when you were drinking in the past year? 1 or 2 drinks (0 point) How often did you have 6 or more drinks on one occasion in the past year? Never (0 point) Points 1 Interpretation Negative Section Notes: Cigar occasionally Problems Problem Type SNOMED Code ICD Code Onset Dates Problem Status W/U Status Risk Notes Problem [id number] Mild aortic stenosis (I35.0) Active confirmed Vital Signs Blood pressure systolic 110 mm Hg 03/28/20 24 Blood pressure diastolic 74 mm Hg 024 Height 64 in 03/28/2024 Weight 197 lbs 03/28/2024 BMI 33.81 kg/m2 03/28/2024 Encounters Encounter Location Date Provider Diagnosis Quinten Han MD [address] [facility] [address] [place], [place] [id number] 03/28/2024 Quinten Han Prostate cancer C61 ; Sciatica of right side M54.31 ; Mild aortic stenosis I35.0 ; Essential hypertension I10 ; Pure hypercholesterolemia E78.00 ; Depression screening Z13.31 and Colon cancer screening Z12.11 Assessments Encounter Date Diagnosis (ICD Code) Assessment Notes Treatment Notes Treatment Clinical Notes Section Notes 03/28/2024 Prostate cancer (ICD -10 - C61) no sign of recurrence, will continue to monitor 03/28/2024 Sciatica of right si de (ICD-10 - M54.31) needs to go back to dr walter. got frustrated with waiting and left his appointment 03/28/2024 Mild aortic stenosis (ICD-10 - I35.0) followed by dr carpenter. is mild 03/28/2024 Essential hypertensi on (ICD-10 - I10) stable, will continue current regiment 03/28/2024 Pure hypercholesterolemia (ICD-10 - E78.00) stable, will continue current regiment 03/28/2024 Depression screening (ICD-10 - Z13.31) negative screen 03/28/2024 Colon cancer screeni ng (ICD-10 - Z12.11) guaiac negative Plan Of Treatment Treatment Notes Assessment Notes Prostate cancer no sign of recurrenc e, will continue to monitor Sciatica of right side needs to go back to dr walter. got frustrated with waiting and left his appointment Mild aortic stenosis followed by dr amber magallon. is mild Essential hypertension stable, will cont inue current regiment Pure hypercholesterolemia stable, will c ontinue current regiment Depression screening negative screen Colon cancer screening guaiac negative Referrals Referral Date Details 03/28/2024 03/28/2024, Sciatica of right side, Mak Ordonez Next Appt Details Follow Up: 6 Months, Reason: Provider Name:Quinten Marcos ier, 03/23/2025 07:30:00 AM, [address] [facility], [address], [place], [place], [id number], Provider Name:Quinten Marcos ier, 03/30/2025 01:00:00 PM, [address] [place] [address], [address], [place], [place], [phone], Progress Notes * RUSS CASTREJON MDOB: 2 (84 yo M)Acc No.[id number]:03/28/2024 Patient: RUSS DIXON Provider: Rachel Han MD :1940 A ge:84 Y S ex:Male Date:03/28/2024 Address:[address] [place], [place] [address] [id number] Subjective: * Chief Complaints: * C omp visit * HPI: D epression Screening: PHQ-9 L ittle interest or pleasure in doing things N ot at all, F eeling down, depressed, or hopeless N ot at all, T rouble falling or staying asleep, or sleeping too much N ot at all, F eeling tired or having little energy N ot at all, P oor appetite or overeating N ot at all, F eeling bad about yourself or that you are a failure, or have let yourself or your family down N ot at all, T rouble concentrating on things, such as reading the newspaper or watching television N ot at all, M oving or speaking so slowly that other people could have noticed; or the opposite, being so fidgety or restless that you have been moving around a lot more than usual N ot at all, T houghts that you would be better off or of hurting yourself in some way N ot at all, T otal Score 0 . I nterpretation and Intervention D epression Screening Findings N egative, F ollow-Up for Depression : review of PHQ-9 found negative result, no follow-up needed. patient is a 84 yo male here for review of recent labs and follow up pf chronic issues, has burning sensation in legs and had injections with no help. C ommunication Needs: Communication Needs D oes the patient have a hearing impairment N o, D oes the patient have a vision impairment? Y es, I f yes, what is the vision impairment? G lasses, D oes the patient have a cognition impairment? N o. F all Risk: History H ave you had any falls with injury in the past year? N o, H ave you had two or more falls in the past year? N o. S BRIA Questions: SDOH Questions I n the past year have you been worried about losing housing? N o, I n the past year have you or any family members you live with been unable to get any of the following when it was really needed? Check all that apply: N one. * ROS: G eneral/Constitutional: Patient denies c hills , fatigue , fever , headache. C hange in appetite d enies. C hills d enies. F ever d enies. O phthalmologic: Blurred vision d enies. D ischarge d enies. P ain d enies. E NT: Patient denies d ecreased sense of smell , any loss of taste , sore throat. D ecreased hearing d enies. S ore throat d enies. S wollen glands d enies. E ndocrine: Cold intolerance d enies. E xcessive thirst d enies. H eat intolerance d enies. W eight loss d enies. R espiratory: Cough d enies. S hortness of breath at rest d enies. S hortness of breath with exertion d enies. W heezing d enies. C ardiovascular: Chest pain at rest d enies. C hest pain with exertion?denies. I rregular heartbeat d enies. S hortness of breath d enies. ? G astrointestinal: Abdominal pain d enies. C hange in bowel habits d enies. D iarrhea d enies. N ausea d enies. R ectal bleeding d enies. V omiting d enies . G enitourinary: Blood in urine d enies. D ifficulty urinating d enies. F requent urination d enies. M usculoskeletal: Patient denies m uscle aches. P ainful joints d enies. W eakness d enies. P eripheral Vascular: Patient denies r ed and blue toes. S kin: Dry skin d enies. I tching d enies. D enies?Mole(s), changes in moles, new moles or any lesions of concern. D enies P hotosensitivity. R kristi d enies. N eurologic: Dizziness d enies. F ainting d enies. H eadache?denies. * Medical History: * Surgical History: * Hospitalization/Major Diagno stic Procedure: * Family History: F ather: 68 yrs. M other: 81 yrs. 5 brother(s) , 2 sister(s) . .? Father- lung cancer Mother-Natural causes 1 brother-48- Cancer, Denies mental health/substance abuse family history, No pertinent family medical history, No pertinent family medical history. * Social History: T obacco Use: T obacco Use/Smoking P atient is a n onsmoker, A dditional Findings: Tobacco Non-User C urrent non-smoker, currently using no form of tobacco. D rugs/Alcohol: A lcohol Screen D id you have a drink containing alcohol in the past year? Y es, H ow often did you have a drink containing alcohol in the past year? M onthly or less (1 point), H ow many drinks did you have on a typical day when you were drinking in the past year? 1 or 2 drinks (0 point), H ow often did you have 6 or more drinks on one occasion in the past year? N ever (0 point), P oints 1 , I nterpretation N egative. M iscellaneous: C affeine: yes, frequency:, 1-2 cups per day. Children: yes. Exercise: yes, walks a couple times a week, 2 miles. Home smoke detector use: yes. Housing: renting. Living with: significant other. Marital status: single. Pets: none. no Travel outside of the [place]. C igar occasionally. * Medications: T akingAspir-Low 81 MG Tablet Delayed Release 1 tablet Orally Once a daySenna 30 MG Miscellaneous Orally Tamsulosin HCl 0.4 MG Capsule TAKE 1 CAPSULE ONCE DAILY 30 MINUTES AFTER THE SAME MEAL EACH DAY hydroCHLOROthiazide 25 MG Tablet TAKE ONE TABLET BY MOUTH ONCE DAILY amLODIPine Besylate 5 MG Tablet TAKE ONE TABLET BY MOUTH EVERY DAY Atorvastatin Calcium 20 MG Tablet TAKE ONE TABLET BY MOUTH EVERY DAY Pregabalin 150 MG Capsule TAKE ONE CAPSULE BY MOUTH TWICE A DAY Taking Aspir-Low 81 MG Tablet Delayed Release 1 tablet Orally Once a dayTaking Senna 30 MG Miscellaneous Orally Taking Tamsulosin HCl 0.4 MG Capsule TAKE 1 CAPSULE ONCE DAILY 30 MINUTES AFTER THE SAME MEAL EACH DAY Taking hydroCHLOROthiazide 25 MG Tablet TAKE ONE TABLET BY MOUTH ONCE DAILY Taking amLODIPine Besylate 5 MG Tablet TAKE ONE TABLET BY MOUTH EVERY DAY Taking Atorvastatin Calcium 20 MG Tablet TAKE ONE TABLET BY MOUTH EVERY DAY Taking Pregabalin 150 MG Capsule TAKE ONE CAPSULE BY MOUTH TWICE A DAY Not-Taking/PRNHydrocortisone Elias-Pramoxine 2.5-1 % Cream 1 application as needed Externally 2 times a dayClobetasol Propionate 0.05 % Gel 1 application to affected area Externally Twice a dayFinasteride 5 Tablet 1 tablet Orally Once a dayBicalutamide 50 MG Tablet 1 tablet Orally Once a dayMedication List reviewed and reconciled with the patientNot-Taking/PRN Hydrocortisone Elias-Pramoxine 2.5-1 % Cream 1 application as needed Externally 2 times a dayNot-Taking/PRN Clobetasol Propionate 0.05 % Gel 1 application to affected area Externally Twice a dayNot-Taking/PRN Finasteride 5 Tablet 1 tablet Orally Once a dayNot-Taking/PRN Bicalutamide 50 MG Tablet 1 tablet Orally Once a dayMedication List reviewed and reconciled with the patient * Allergies: I buprofen: hallucinatingyes[Allergies Verified] Objective: * Vitals: H t: 64, Wt:197, BMI:33.81, BP:110/74, Wt-k.36. * P ast Orders: L ab:Lipid Panel (Order Date - 03/24/2024) (Collection Date - 03/24/2024) Value Reference Range Triglycerides 82 <150 - mg/dL Cholesterol 144 <200 - mg/dL LDL Cholesterol Calculated 78 <100 - mg/dL HDL Cholesterol 50 >40 - mg/dL L ab:PSA,Total (Free>4and<10) (Order Date - 03/24/2024) (Collection Date - 03/24/2024) Value Reference Range PSA,Total (Free>4and<10) < 0.10 0.00-4.00 - ng/ mL L ab:UA ClnCatch+Micro w/rflx Cult (Order Date - 03/24/2024) (Collection Date - 03/24/2024) Value Reference Range Color Urine Yellow - Appearance Urine Clear - PH 8.0 5.0-9.0 - Glucose Urine UA Negative Negative - mg/dL Urine Blood Negative Negative - Specific [place] - Urine 1.015 1.005-1.025 - Urine Protein Negative Neg-Trace - mg/dL Urine Ketones Negative Negative - mg/dL Nitrite Urine Negative Negative - Leukocyte Esterase Urine Trace A Negative - RBC Urine 0-2 0-2 - /HPF WBC Urine 0-5 0-5 - /HPF Squamous Epithelial Cell Urine 0-2 0-2 - /HP F Bacteria Urine None Seen None Seen - Hyaline Casts Urine 0-2 0-2 - /LPF L ab:Complete Blood Count Auto Diff (Order Date - 03/24/2024) (Collection Date - 03/24/2024) Value Reference Range White Blood Count 6.3 4.8-10.8 - X10*3/uL Red Blood Count 4.71 4.60-5.80 - X10*6/uL Hemoglobin 13.7 L 14.0-18.0 - g/dl Hematocrit 43.4 42.0-52.0 - % Mean Corpuscular Volume 92.1 80.0-98.0 - fL Mean Corpuscular Hemoglobin 29.1 27.0-33.0 - pg Mean Corpuscular HGB Conc 31.6 31.0-36.0 - g/ dl Red Cell Distribution Width 14.2 11.0-16.0 - % Platelet Count 197 160-400 - X10*3/uL Mean Platelet Volume 11.2 9.4-12.4 - fL Neutrophils Percent Auto 64.2 45-73 - % Imm Gran Pct Auto 0.3 0.0-0.4 - % Lymphocytes Percent Auto 24.4 20-40 - % Monocytes Percent Auto 8.1 2-11 - % Eosinophils Percent Auto 2.4 0-4 - % Basophils Percent Auto 0.6 0-2 - % NRBC Pct Auto 0.0 0.0-0.2 - /100WBC Neutrophils Absolute Auto 4.1 2.0-8.3 - x10* 3/uL Imm Gran Abs Auto 0.02 0.00-0.03 - X10*3/uL Lymphocytes Absolute Auto 1.5 1.2-4.9 - X10* 3/uL Monocytes Absolute Auto 0.5 0.1-1.2 - X10*3/ uL Eosinophils Absolute Auto 0.2 0.0-0.4 - X10* 3/uL Basophils Absolute Auto 0.0 0.0-0.2 - X10*3/ uL NRBC Abs Auto 0.000 0.0-0.012 - X10*3/uL L ab:Comprehensive [place]. Panel Fast (Order Date - 03/24/2024) (Collection Date - 03/24/2024) Value Reference Range Sodium 143 135-145 - mmol/L Bilirubin Total 0.6 0.0-1.0 - mg/dL Aspartate Amino Transferase 24 5-37 - U/L Alanine Aminotransferase 16 0-40 - U/L Total Protein 6.2 L 6.5-8.0 - g/dL Albumin Level 3.9 3.5-5.0 - g/dL Alkaline Phosphatase 83 39-117 - U/L Potassium 3.4 3.3-5.1 - mmol/L Chloride 100 96-108 - mmol/L Carbon Dioxide 36 H 22-29 - mmol/L Anion Gap 10 L 12-20 - Blood Urea Nitrogen 8 L 9-16 - mg/dL Creatinine 0.73 0.5-1.4 - mg/dL Estimated Glomerular Filt Rate > 60 - Glucose Fasting 125 H 60-99 - mg/dL Calcium 8.9 8.4-10.2 - mg/dL * Examination: G eneral Examination: GENERAL APPEARANCE: w ell developed, well nourished, in no acute distress. HEAD: n ormocephalic, atraumatic. EYES: p upils equal, round, reactive to light and accommodation, sclera non-icteric. EARS: n ormal. ORAL CAVITY: m ucosa moist. THROAT: c lear. NECK/THYROID: n yonathan supple, full range of motion, no cervical lymphadenopathy, no bruits. SKIN: w arm and dry, no suspicious lesions. HEART: r egular rate and rhythm, S1, S2 normal, no murmurs.? LUNGS: c lear to auscultation bilaterally. ABDOMEN: s oft, nontender, nondistended, bowel sounds present, normal, no organomegaly , no masses palpable. RECTAL EXAM: n ormal tone, no external hemorrhoids, no masses palpable, prostate normal, stool guaiac negative. MALE GENITOURINARY: u ncircumcised , no testicular mass , testes descended bilaterally. EXTREMITIES: n o clubbing, cyanosis, or edema. NEUROLOGIC: n onfocal, motor strength normal upper and lower extremities, sensory exam intact. Assessment: * Assessment: 1. P rostate cancer - C61 (Primary) 2 . S ciatica of right side - M54.31 3 . M ild aortic stenosis - I35.0 4 . E ssential hypertension - I10 5 . P ure hypercholesterolemia - E78.00 6 . D epression screening - Z13.31 7 . C olon cancer screening - Z12.11 Plan: * Treatment: 2. S ciatica of right side Notes: needs to go back to dr walter. got frustrated with waiting and left his appointment ? Referral To:[facility] Reason:Sciatica of right side 3. M ild aortic stenosis Notes: followed by dr carpenter. is mild 4. E ssential hypertension Notes: stable, will continue current regiment 5. P ure hypercholesterolemia Notes: stable, will continue current regiment 6. D epression screening Notes: negative screen 7. C olon cancer screening L AB: Occult Blood, Stool, Guaiac N egative Value Reference Range O ccult Blood, Stool, Guaiac Neg Notes: guaiac negative?? * Procedure Codes: 8 2270 TEST FOR BLOOD, FECES * Preventive Medicine: Counseling: C are goal follow-up plan: C ounseling for abnormal BMI provided?Yes, Nhung hodgson Normal BMI Follow-up Rachel kunz encouragement to exercise. * Follow Up: 6 Months * * Sign off status: Completed true * Provider: Rachel Han MD Date: 05/28/2023 Generated for Katelyn buchanan/Elida/Chang on: 05/19/2024 11:54 AM EST History and Physical Notes * HPI (History of Present Illness) Category Sub-Category Detail Notes Category Not es Depression Screening PHQ-9 Little inte rest or pleasure in doing things: Not at all patient is a 84 yo male here for review of recent labs and follow up pf chronic issues, has burning sensation in legs and had injections with no help Feeling down, depressed, or hopeless: No t at all Trouble falling or staying asleep, or sl eeping too much: Not at all Feeling tired or having little energy: N ot at all Poor appetite or overeating: Not at all Feeling bad about yourself o r that you are a failure, or have let yourself or your family down: Not at all Trouble concentrating on thi ngs, such as reading the newspaper or watching television: Not at all Moving or speaking so slowly that other people could have noticed; or the opposite, being so fidgety or restless that you have been moving around a lot more than usual: Not at all Thoughts that you would be b jerad off or of hurting yourself in some way: Not at all Total Score: 0 Interpretation and Intervention Depression Glynn winter Findings: Negative Follow-Up for Depression: : review of PH Q-9 found negative result, no follow-up needed SDOH Questions SDOH Questions In the past year have you been worried about losing housing?: No In the past year have you or any family members you live with been unable to get any of the following when it was really needed? Check all that apply:: None Fall Risk History Have you had any falls with injury i n the past year?: No Have you had two or more falls in the st year?: No Communication Needs Communication Needs Does the patient have a hearing impairment: No Does the patient have a vision impairmen t?: Yes If yes, what is the vision impairment?: Glasses Does the patient have a cognition impair ment?: No Examination Category Sub-Category Detail Notes Category Not es General Examination GENERAL APPEARANCE: well dev eloped, well nourished, in no acute distress HEAD: normocephalic, atrau matic EYES: pupils equal, round, reactive to light and accommodation, sclera non-icteric EARS: normal THROAT: clear NECK/THYROID: neck supple, full ra nge of motion, no cervical lymphadenopathy, no bruits HEART: regular rate and rhy thm, S1, S2 normal, no murmurs LUNGS: clear to auscultatio n bilaterally ABDOMEN: soft, nontender, non distended, bowel sounds present, normal, no organomegaly , no masses palpable NEUROLOGIC: nonfocal, motor stre ngth normal upper and lower extremities, sensory exam intact SKIN: warm and dry, no aparna picious lesions EXTREMITIES: no clubbing, cyanosi s, or edema MALE GENITOURINARY: uncircumcised , no t esticular mass , testes descended bilaterally RECTAL EXAM: normal tone, no exte rnal hemorrhoids, no masses palpable, prostate normal, stool guaiac negative ORAL CAVITY: mucosa moist Consultation Request Notes Referral Date Referring Provider Referred Provider Not es 03/28/2024 Quinten Han Syed M. Khurram S ciatica of right side
--- OUTSIDE RECORDS SUMMARY | 2024-09-18 02:30 | XMS_ITS ---
Author Organization Quinten Han MD Address [address] [place], [place] [id number] Care Team Providers Care Show Host Name Role Phone Quinten Han Primary Care Provider Results Component Value Reference Range Notes Liver Panel Reviewed date:09/18/2024 04:25:13 PM Interpretation: Performing Lab:[facility], [address] [place] [phone] Notes/Report: Bilirubin Total 0.6 0.0-1.0 mg/dL Bilirubin Direct 0.2 0.0-0.5 mg/dL Aspartate Amino Transferase 26 5-37 U/L Alanine Aminotransferase 21 0-40 U/L Total Protein 6.5 6.5-8.0 g/dL Albumin Level 4.2 3.5-5.0 g/dL Alkaline Phosphatase 85 39-117 U/L Lipid Panel with Reflex Reviewed date:09/18/2024 04:39:57 PM Interpretation: Performing Lab:[facility], [address] [place] [address] Notes/Report: Triglycerides 66 <150 mg/dL Desirable Triglyceride: less than 150 mg/dL Borderline High Triglyceride 150-199 mg/dL High Triglyceride: 200-499 mg/dL Very High Triglyceride: greater than or equal to 5OO mg/dL Cholesterol 163 <200 mg/dL Desirable Cholesterol: less than 200 mg/dL Borderline High Cholesterol: 200-239 mg/dL High Cholesterol: greater than 239 mg/dL LDL Cholesterol Calculated 94 <100 mg/dL Desirable LDL: less than 100 mg/dL Near Optimal/Above Optimal LDL: 110-129 mg/dL Borderline High LDL: 130-159 mg/dL High LDL: 160-189 mg/dL Very High LDL: greater than or equal to 190 mg/dL HDL Cholesterol 56 >40 mg/dL Desirable HDL: greater than 40 mg/dL Note: This HDL assay may give artificially low results in patients with liver disease. REASON FOR VISIT fasting lipids Encounters Encounter Location Date Provider Diagnosis Quinten Han MD [address] [place] [address] [place] [phone] 09/18/2024 Quinten Han Pure hypercholestero lemia E78.00 Assessments Encounter Date Diagnosis (ICD Code) Assessment Notes Treatment Notes Treatment Clinical Notes Section Notes 09/18/2024 Pure hypercholesterolemia (ICD-10 - E78.00) Plan Of Treatment Next Appt Details Provider Name:Quinten rocha, 03/23/2025 07:30:00 AM, [address] [place] [address], [address], [phone], Provider Name:Quinten rocha, 03/30/2025 01:00:00 PM, [address] [place] [address], [address], [phone], Progress Notes * RUSS CASTREJON MDOB: 2 (85 yo M)Acc No.[id number]:09/18/2024 Progress Note Patient: NYDIA DIXONRICHARDRadha Seymour Provider: Rachel Han MD :1940 A ge:84 Y S ex:Male Date:09/18/2024 Address:[place], [id number] Subjective: * Chief Complaints: * 1 . Fasting lipids. * Medical History: Objective: * Vitals: Assessment: * Assessment: 1. P ure hypercholesterolemia - E78.00 (Primary) Plan: * Treatment: * Procedure Codes: 3 6415 VENIPUNCT, ROUTINE* * * The named appointment provid er may or may not be the originator of this progress note, and it is not deemed complete until electronically signed by the appointment provider. Sign off status: Pending * Provider: Rachel Han MD Date: 0 09/18/2024 Generated for Katelyn buchanan/Elida/Jakeitting on: 1 05/19/2024 11:55 AM EST
--- OUTSIDE RECORDS SUMMARY | 2024-09-25 04:00 | XMS_ITS ---
Author Organization Quinten Han MD Address [address] [place], [place] [phone] Care Team Providers Care Apprentice Technician Name Role Phone Quinten Han Primary [...] Date Provider Diagnosis Quinten Han MD 10 [facility] [address] [place] [phone] 09/25/2024 Quinten Han Back pain M54.9 ; Pr ostate cancer C61 ; 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 and Pure hypercholesterolemia E78.00 Assessments Encounter Date Diagnosis (ICD Code) Assessment Notes Treatment Notes Treatment Clinical Notes Section Notes 09/25/2024 Back pain (ICD-10 - M54.9) need [place] [facility] 09/25/2024 Prostate cancer (ICD -10 - C61) seen by oncology and no sigh of recurrence 09/25/2024 Mesenteric adenitis (ICD-10 - I88.0) [place] [facility] [place] 09/25/2024 Pure hypercholesterolemia (ICD-10 [...] Assessment Notes Back pain need notes [place] [facility] Prostate cancer seen by oncology and no sigh of recurrence Mesenteric adenitis [place] [facility] [place] Pure hypercholesterolemia at goal, will continue current regiment Pending Test Test Name Order Date CT ABD & PELVIS WITH CONTRAST 09/25/2024 Next Appt Details Follow Up: after cat scan, Tamie coyle: Provider Name:Quinten rocha, 03/23/2025 07:30:00 AM, [address], [address], [place], [place], [phone], Provider Name:Quinten Marcos ier, 03/30/2025 01:00:00 PM, [address], [address], [place], [place], [phone], Progress Notes * RUSS CASTREJON MDOB: 2 (84 yo M)Acc No.[id number]:09/25/2024 Progress Notes Patient: RUSS DIXON Provider: Rachel Han MD :1940 A ge:84 Y S ex:Male Date:09/25/2024 [facility] [facility] [id number] Subjective: * Chief Complaints: * 6 month [...] PELVIS WITH CONTRAST Notes: [place] [facility] [place]??4.?Pure hypercholesterolemia? Continue Atorvastatin Calcium Tablet, 20 MG, TAKE ONE TABLET BY MOUTH EVERY DAY.?? Notes: at goal, will continue current regiment?? * Procedure Codes: * Follow Up: a fter cat scan * * Sign off status: Completed true * Provider: Rachel Han MD Date: 0 09/25/2024 Generated for Katelyn buchanan/Elida/eTransmitting on: 05/19/2024 11:54 AM EST History and [...]
--- OUTSIDE RECORDS SUMMARY | 2024-10-20 02:45 | XMS_ITS ---
Author Organization Quinten Han MD Address [address] [place], [place] [phone] Care Team Providers Care Leacher Name Role Phone Quinten Han Primary Care Provider Results Component Value Reference Range Notes Blood Urea Nitrogen Reviewed date:10/20/2024 04:32:38 PM Interpretation: Performing Lab:[facility], [address] [place] [phone] Notes/Report: Blood Urea Nitrogen 11 9-16 mg/dL Creatinine Reviewed date:10/20/2024 04:32:46 PM Interpretation: Performing Lab:[facility], [address] [place] [phone] Notes/Report: Creatinine 0.58 0.5-1.4 mg/dL Estimated Glomerular Filt Rate > 60 Chronic Kidney Disease: Estimated GFR < 60 mL/min/1.73m2 Severe Kidney Disease: Estimated GFR < 15 mL/min/1.73m2 REASON FOR VISIT BUN and Creatinine for Ct scan abd booked at [facility] 10-30-24 at 2pm Encounters Encounter Location Date Provider Diagnosis Quinten Han MD [address] [place], [place] [phone] 10/20/2024 Quinten Han Essential hypertension I10 Assessments Encounter Date Diagnosis (ICD Code) Assessment Notes Treatment Notes Treatment Clinical Notes Section Notes 10/20/2024 Essential hypertension (ICD-10 - I10) Plan Of Treatment Next Appt Details Provider Name:Quinten rocha, 03/23/2025 07:30:00 AM, [address], [address], [place], [place], [phone], Provider Name:Quinten rocha, 03/30/2025 01:00:00 PM, [address] [place] [address], [address], [place], [place], [phone], Progress Notes * RUSS CASTREJON MDOB: 2 (85 yo M)Acc No.[id number]:10/20/2024 Progress Note Patient: RUSS DIXON Provider: Rachel Han MD :1940 A ge:84 Y S ex:Male Date:10/20/2024 Address:[address] [place], [place] [address]SwathiPOY SIPPI, [id number] Subjective: * Chief Complaints: * 1 . BUN and Creatinine for Ct scan abd booked at [facility] 10-30-24 at 2pm. * Medical History: Objective: [...] MD Date: 0 10/20/2024 Generated for Katelyn buchanan/Elida/eTransmitting on: 1 05/19/2024 11:54 AM EST
--- OUTSIDE RECORDS SUMMARY | 2024-11-03 05:43 | XMS_ITS ---
Author Organization Quinten Han MD Address [address] [place] [phone] Care Team Providers Care Internal Affairs Investigator Name Role Phone Quinten Han Primary Care Provider [phone] Encounters Encounter Location Date Provider Diagnosis Quinten Han MD 10 [facility] [address] [place] [phone] 11/03/2024 Quinten Han Plan Of Treatment Next Appt Details Provider Name:Quinten Marcos ier, 03/23/2025 07:30:00 AM, [address] [place] [address], [address] [place], [phone], Provider Name:Quinten Marcos ieetta, 03/30/2025 01:00:00 PM, [address] [place] [address], [address] [place], [phone], Progress Notes * RUSS CASTREJON MDOB: 2 (84 yo M)Acc No.[id number]:11/03/2024 Patient: NYDIA DIXONLORENZA Seymour :1940 A ge:84 Y S ex:Male Address:[address] [place] [address] [place], [phone] * true * Date: Generated for Katelyn buchanan/Elida/Dariosmitting on: 05/19/2024 11:55 AM EST
--- OUTSIDE RECORDS SUMMARY | 2024-11-06 05:30 | XMS_ITS ---
Author Organization Quinten Han MD Address [address] [place], [place] [phone] Care Team Providers Care Promotions Executive Name Role Phone Quinten Han Primary Care [...] kg/m2 11/06/2024 weight is down 6 pounds [facility] e 09-25-24 Encounters Encounter Location Date Provider Diagnosis Quinten Han MD [address] [place] [address] [place] [phone] 11/06/2024 Quinten Han Essential hypertension I10 and [...] Anthony Pearce Next Appt Details Provider Name:Quinten Marcos ier, 03/23/2025 07:30:00 AM, [address] [place] [address], [address], [place], [place], [phone], Provider Name:Quinten Marcos ier, 03/30/2025 01:00:00 PM, [address] [place] [address], [address], [place], [place], [phone], Progress Notes * RUSS CASTREJON MDOB: 2 (84 yo M)Acc No.[id number]:11/06/2024 Patient: RUSS DIXON Provider: Rachel Han MD :1940 A ge:84 Y S ex:Male Date:11/06/2024 Address:[address] [place], [place] [id number] Subjective: * Chief Complaints: * C BACK [...] MD Date: 0 11/06/2024 Generated for Katelyn buchanan/Elida/Jakeitting on: 1 05/19/2024 11:54 AM EST History and Physical [...] Referring Provider Referred Provider Not es 11/06/2024 Bombardier, Quinten Noel, Salima Hand a rthritis evaluate for cortisone injections 11/06/2024 Quinten Han, Anthony canchola adenitis
--- OUTSIDE RECORDS SUMMARY | 2025-01-13 04:15 | XMS_ITS ---
Author Organization Quinten Han MD Address [address] [place], [place] [phone] Care Team Providers Care Appraiser Land Name Role Phone Quinten Han Primary Care [...] Location Date Provider Diagnosis Quinten Han MD [address] [place] [address] [place] [phone] 01/13/2025 Quinten Han Preop examination Z01.818 and [...] upcoming surgery Next Appt Details Provider Name:Quinten rocha, 03/23/2025 07:30:00 AM, [address] [place] [address], Suite [facility], [place], [place], [phone], Provider Name:Quinten rocha, 03/30/2025 01:00:00 PM, [address] [place] [address], [address], [phone], Progress Notes * RUSS CASTREJON MDOB: 2 (84 yo M)Acc No.[id number]:01/13/2025 Patient: RUSS DIXON Provider: Rachel Han MD :1940 A ge:84 Y S ex:Male Date:01/13/2025 Address:[address] [place], [id number] Subjective: * Chief Complaints: * C ataract- Pre Op, Dr. Moore scheduled for 9-89-66dlkpwgt until after surgery for HDF * HPI: S ymptom(s): patient is a 84 yo male here for pre-op clearance visit prior to planned cataract surgery with Dr Moore/ saw dr miller one week ago and he said he should see a gi. is going to see dr monge. * ROS: G eneral/Constitutional: Denies [place]. D enies F atigue. D enies F ever. D enies H eadache. E NT: Denies S ore throat. R espiratory: Jonathan Echevarria ough. Faina enies S hortness of breath at rest. [...] MD Date: 0 01/13/2025 Generated for Katelyn buchanan/Faxing/eTransmitting on: 1 05/19/2024 11:55 AM EST History and Physical Notes * [...]
--- NOTE | 2025-03-19 10:11 | MHC.OFFVIS ---
Vital Signs 03/19/25 10:15 Height 5 ft 4 in Weight 190 lb BMI 32.6 Intake Visit Reasons: OV- Follow up for Lumbar spondylosis Intake Note: Myla is a 85 year old male who presents today as a follow up for his Lumbar spondylosis. At today's visit he states that since last visit 09/26/23 he is still having the lower back pain that radiates into the right thigh. He noted that he is having numbness and tingling that radiates into the right leg. He noted that he did attend Pain Management and currently has an appointment next week with [facility]. Allergies No Known Allergies (No Known Allergies*) Allergy (Verified 01/07/25 09:35) Medication List - Last Reconciled 03/19/25 by Rosemary Hernandez MD amlodipine 5 mg PO DAILY aspirin (Adult Aspirin Regimen) 81 mg PO DAILY atorvastatin 20 mg PO DAILY hydrochlorothiazide 25 mg PO DAILY pregabalin 150 mg PO TID 30 days sennosides (senna) 8.6 mg PO BEDTIME tamsulosin 0.4 mg PO DAILY timolol maleate 0.5% 1 drp ophthalmic (eye) DAILY HPI Comments Details: 4-5 years of burning sensation, starts on ankle, goes up proximally. Feels ants in the morning, especially on the thigh. Socks are very uncomfortable. Right worse than left. He did see Dr. Whalen, vascular, 4 years ago, feels that the burning worsened after. He thinks he had an angiogram done, no blockage seen. Had seen Dr. Whalen after for follow up. Also saw another vascular surgeon, less than a year ago. Denies claudication. The sensation is worse when he is seated. Back pain towards end of the day. Does not worsen gait. Improved with walking. MRI 2022 did not show any significant spinal stenosis. He is already on lyrica 200mg BID. He has history of aortic stenosis, on ASA and statin. He did see Rheumatology in the past for hand pain, mildly positive RF. He confirms that he has history of prostate CA. He says he's been checked this year oncology at [facility]. He confirms that there was a spot in his back and that was checked before . EMG and MRI as below. He has seen [facility] of neuro spine, they did not think his symptoms are all attributable to lumbar spine. He has tried injections under Dr. Ordonez: 10/25/23: Transforaminal epidural steroid injection, Right L5: No relief 08/30/23: Interlaminar epidural steroid injection, L5-S1, right parasaggital: No relief On last visit with pain management, trial of spinal cord stimulator was discussed. There was another appointment but Pain Management cancelled on the telehealth per patient report. Back pain is the same. Walks like penguin in the morning, then gets better throughout the day. Has learned to live with the pain. 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 Patient was appropriately conversant and oriented. Good historian. MSK: No specific abnormalities found on inspection of the spine and all extremities. Tender on lumbar facets and paraspinals. Nontender SI joints or GT. Lumbar ROM was limited extension especially with pain. Bilateral hip, knee and ankle ROM WNL. No ligamentous laxity or crepitance. No increased effusion. Straight-leg raising test negative. FABERE test positive bilateral. Strength is 5/5 in all muscle groups tested. No increased tone noted. Neurological: Neurologic examination of the upper and lower extremities was nonfocal with intact sensation, muscle stretch reflexes and without focal motor deficits . Jeong?s negative bilaterally. Babinski was down going bilaterally. Clonus was negative. Gait is non-antalgic without loss of balance. No footdrop. Results Reviewed Results Reviewed: EMG by me 07/04/23 FINDINGS: Right peroneal nerve showed normal distal latency, very small amplitude and slowed distal conduction velocity. No conduction block across fibular neck. Right tibial nerve although normal, showed smaller amplitude compared to left. Surals were present and symmetric. Concentric needle EMG was performed in selected muscles of the bilateral lower extremity and lumbar paraspinals. Study revealed Signs of electric abnormalities as shown in the table below. Right mg showed increased duration and amplitude. IMPRESSION: 1. This is an abnormal study. 2. There is electrodiagnostic findings suggestive for right chronic L5-S1 radiculopathy. 3. There is no electrodiagnostic evidence for focal entrapment neuropathy, lumbosacral plexopathy, or peripheral neuropathy. MRI 07/30/23 EXAMINATION: MR LUMBAR SPINE WITHOUT CONTRAST CLINICAL INFORMATION: 83-year-old with radiculopathy, lumbar region. Evaluate right L5-S1 disc herniation. Self-reported low back pain with burning sensation in legs bilaterally. COMPARISON: 01/05/2023 MRI TECHNIQUE: MRI of the lumbar spine was obtained using routine sequences without contrast. FINDINGS: CORONAL ALIGNMENT: Slight lower lumbar dextrocurvature at L4-L5 and trace thoracolumbar levocurvature stable in appearance. SAGITTAL ALIGNMENT: Slight retrolisthesis at L4-L5 stable in appearance. Trace anterolisthesis at L5-S1 stable in appearance. No spondylolysis. Trace retrolisthesis at L3-L4 is stable. Otherwise normal lumbar alignment. LUMBOSACRAL JUNCTION: Normal. There are 5 ahi-qqe-ngjoioh lumbar-type vertebral bodies. VERTEBRAL BODIES: Stable vertebral body heights. No interval compression fractures. DISC SPACES AND ENDPLATES: Multilevel central Schmorl's nodes between L3-L4 and L4-L5 inclusive similar in appearance to the previous exam with mild to moderate disc volume loss at L4-L5 and intradiscal degenerative signal changes at multiple levels with wnqo-zg-hikgdxzy degrees of anterior marginal spondylosis stable in appearance, most apparent at L4-L5 asymmetric to the left. Schmorl's nodes along the inferior endplates of T12 and T11 are unchanged. Anterior marginal spondylosis at T10-T11, T11-T12 and T12-L1 are stable. SPINAL CANAL: No abnormal developmental findings. BONE MARROW: There are mixed type I and type II degenerative marrow signal changes along the endplates at L3-L4 stable in appearance. There are type II degenerative marrow signal changes seen along the endplates at the levels between L3-L4 and L4-L5 inclusive stable in appearance. Note is made of a 2.8 cm irregularly marginated zone of T1 signal loss on the left side of the L3 vertebral body partially encroaching on the left L3 pedicle stable in appearance from the previous study, consistent with stable metastatic disease from prostate CA. No other suspicious marrow replacing foci are seen. CONUS MEDULLARIS: Terminates at L1-L2. Morphology and signal is normal. INTRADURAL NERVE ROOTS: Within normal limits. L5-S1: Trace anterolisthesis with minor annular bulging stable in appearance. Moderate to severe bilateral facet joint arthrosis with ligamentum flavum thickening is similar to the previous exam. Probable 4 mm synovial cyst arising along the medial aspect of the left facet joint, probably increased in size from previous exam, impinging on the traversing left S1 nerve root on current study. No central canal stenosis. There is moderate left and mild right-sided craniocaudal neural foraminal stenosis, stable in appearance with mild encroachment on the exiting left L5 nerve root unchanged. L4-L5: Mild retrolisthesis, with disc bulging asymmetric to the left and endplate spurring stable in appearance with mild encroachment on the ventral dural sac. Mild to moderate bilateral facet joint arthrosis is stable with ligamentum flavum thickening without significant central spinal canal stenosis. There is narrowing of the left subarticular zone stable in appearance and there is uiil-mn-vqmqyftd bilateral neural foraminal stenosis stable in appearance, with disc bulging abutting the extraforaminal L4 nerve roots bilaterally unchanged. L3-L4: Minor annular bulging stable in appearance. Jhwl-js-tdtuwgax bilateral facet joint arthrosis stable in appearance. No significant canal or neural foraminal stenosis. L2-L3: No significant disc bulge or herniation stable in appearance. Ihmo-ss-izfxesjj facet joint arthropathy right more than left is stable with no significant central canal stenosis. Slight narrowing of the right subarticular recess is stable. Minor foraminal narrowing on the right is stable without neural impingement. L1-L2: Normal annular contour. Mild bilateral facet joint arthrosis stable in appearance. No canal or foraminal stenosis. T12-L1: Normal annular contour. No facet arthrosis, canal or neural foraminal stenosis. PARAVERTEBRAL AND INCLUDED EXTRASPINAL SOFT TISSUES: There is posterior paraspinal and psoas muscle sarcopenia. Otherwise unremarkable. MR/MR lumbar spine wo con IMPRESSION: 1. Stable 2.8 cm zone of marrow replacement involving the left side of the L3 vertebral body consistent with a stable metastatic lesion from prostate CA. 2. Multilevel DDD and spondylosis, largely unchanged in appearance with stable mild degrees of retrolisthesis at L3-L4 and L4-L5 and trace anterolisthesis at L5-S1. 3. Multilevel bilateral facet joint arthrosis largely unchanged in appearance, with disc bulging at L5-S1 and L4-L5 and a probable 4 mm synovial cyst arising along the medial aspect of the left L5-S1 facet joint, increased in size from previous exam, impinging on the traversing left S1 nerve root in the subarticular zone. 4. Teqk-rq-wvxteaad bilateral neural foraminal stenosis at L4-L5 and mild left L5 nerve root impingement unchanged in appearance. Moderate narrowing of the left subarticular zone at L4-L5, stable in appearance and mild narrowing of the right subarticular zone at L2-L3 stable in appearance. 5. Posterior paraspinal and psoas muscle sarcopenia stable in appearance. Assessment & Plan Assessment & Plan (1) Burning sensation of lower extremity: Code(s): R20.8 - Other disturbances of skin sensation Category: Medical (2) Lumbar radiculitis: Comment: 09/14/16 NCV/ EMG shows motor and sensory axonal loss in right peroneal nerve. EMG shows active denervation in the right L4-5 innervated muscles. 01/22/24 NCV/EMG: Axonal neuropathy in the lower extremities, slightly worse compared to the study of 2017. EMG of the right L4-S1 innervated muscles showed chronic neuropathic changes distally Dr. Tucker: 07/04/23 IMPRESSION: 1. This is an abnormal study. 2. There is electrodiagnostic findings suggestive for right chronic L5-S1 radiculopathy. 3. There is no electrodiagnostic evidence for focal entrapment neuropathy, lumbosacral plexopathy, or peripheral neuropathy. 10/24/24 IMPRESSION: 1. This is an abnormal study. 2. 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 3. There is no electrodiagnostic evidence for lumbosacral plexopathy or lumbar radiculopathy. Code(s): M54.16 - Radiculopathy, lumbar region Category: Medical (3) Lumbar disc herniation: Code(s): M51.26 - Other intervertebral disc displacement, lumbar region Category: Medical (4) Lumbar spondylosis: Code(s): M47.816 - Spondylosis without myelopathy or radiculopathy, lumbar region Category: Medical Plan Chronic lower back pain and burning sensation on legs, right worse than left. Lumbar spondylosis/radiculitis versus peripheral neuropathy versus both. Lyrica recently adjusted by PCP, maximum dose. Past lumbar epidural injections did not help at all. Suggested lumbar facet injections with Dr. Garsia for the lower back pain. Patient is willing to try. He has finished physical therapy a few months ago. He tries to be active. Does home exercises at home. Assessment and plan discussed with patient, and patient was agreeable. All questions were answered thoroughly. Follow up with me after injections. Rosemary Hernandez MD, RAO Board Certified, [place] [employer] and Rehabilitation (ABPMR) Board Certified, [place] Board [employer] Electro[employer] (ABEM) Coding Level of Care Code Est Pt Level 4 (50906) Diagnoses Burning sensation of lower extremity R20.8 Lumbar radiculitis M54.16 Lumbar disc herniation M51.26 Lumbar spondylosis M47.816
[2025-03-19 10:15] VITALS: BMI 32.6
--- OUTSIDE RECORDS SUMMARY | 2025-03-19 11:55 | XMS_ITS | Patient Health Record ---
Author Organization [facility] Address [address] [place] [address] Care Team Providers Care Breakfast Bar Attendant Name Role Phone Quinten Han MD Primary Care Provider Mike Wallace Unavailable [phone] Allergies No Known Allergies Reason For Referral No Information Medications Medication SIG (Take, Route, Frequency, Duration) Notes Start Date End Date Status Omeprazole 20 MG 1 capsule Orally Once a day; Duration: 90 days Active Tamsulosin HCl 0.4 MG 1 capsule 30 minut es after the same meal each day Orally Once a day Active Clobetasol Propionate 0.05 % 1 applicati on to affected area Externally Twice a day Active Aspirin 81 81 MG 1 tablet Orally Once a day; Duration: 30 day(s) 01/03/2024 Active Atorvastatin Calcium 10 MG 1 tablet Oral ly Once a day Active Vitamin E Blend 400 UNIT 1 capsule Orall y Once a day; Duration: 30 day(s) 01/03/2024 Active Amlodipine & Diet Manage Prod 5mg Active Fish Oil 1000 MG 1 capsule Orally Three times a day; Duration: 30 day(s) 01/03/2024 Active Tylenol PM Extra Strength Active Pregabalin 150 MG TAKE ONE CAPSULE BY MOUTH TWICE A DAY Oral; Duration: 90 Active Timolol Maleate 0.5 % INSTILL ONE DROP I N EACH EYE TWO TIMES A DAY Ophthalmic; Duration: 60 Active hydroCHLOROthiazide 25 MG TAKE ONE TABLE T BY MOUTH EVERY DAY Oral; Duration: 90 Active Amoxicillin 500 MG 2 tablets Orally BID; Duration: 10 days 12/30/2013 Not-Taking Biaxin 500 MG 1 tablet Orally BID; Duration: 10 days 12/30/2013 Not-Taking Gabapentin 300 MG Oral; Duration: 30 Active Immunizations Vaccine Route Administration Date Status Comme nts Influenza Unknown 11/30/2020 Refused Influenza Unknown 01/03/2024 Refused Problems Problem Type SNOMED Code ICD Code Onset Dates Problem Status W/U Status Risk Notes Problem H. Pylori (19107814) Helicobacter pylori (H. pylori) infection (A04.8) Active confirmed Problem Computed tomography result abnormal (106943012) Abnormal CT scan, colon (R93.3) Active confirmed Problem Chronic gastric ulcer (40996039) Chronic gastric ulcer (K25.7) Active confirmed Problem Abdominal distension symptom (895240862) Fullness of abdomen (R19.8) Active confirmed Problem Nonspecific mesenteric adenitis (952021492) Mesenteric adenitis (I88.0) Active confirmed Problem Rectal pain (89442751) Rectal discomfort (K62.89) Active confirmed Problem Diverticulosis of colon (811838688) Diverticulosis of colon (K57.30) Active confirmed Plan Of Treatment Pending Test Test Name Order Date CHEM 7 PROFILE 05/31/2021 IRON + IBC (FE) 05/31/2021 VITAMIN B12 AND FOLATE 05/31/2021 CBC w DIFF 05/31/2021 CT ABD & PELVIS WITH CONTRAST 05/31/2021 Future Test Test Name Order Date UPPER GI ENDOSCOPY 03/04/2015 COLONOSCOPY 06/14/2021 Next Appt Details Provider Name:Mike Keller , 04/08/2025 03:40:00 PM, [address] [place] [address], [address], [place], [address], Insurance Providers Payer Name Payer Address Payer Phone Subscriber Number Group Number Insured Name Patient Relationship to Insured Coverage Start Date Coverage End Date MEDICARE OF [place] [address] [facility] [place] [address] [phone] [id number] RUSS CASTREJON Self - patient is the insured [facility] [address] [place] [phone] [id number] RUSS CASTREJON Self - patient is the insured Medical (General) History Medical History History ICD Code HTN Denies LA,DM,CVA,Lung disease,renal dise ase BPH--he describes a possible prostate bi opsy in the past Hyperlipidemia Right 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 Raman Caballero() and Dr. Ku(Oncology)-- he has apparently had a negative workup for metastatic disease, including a PET-CT scan--he had cryosurgery with IR at [facility] in 04/2014--describes a CT scan in [...]
--- OUTSIDE RECORDS SUMMARY | 2025-03-19 11:55 | XMS_ITS | Clinical Summary ---
Author Organization [facility] Address [address] [place] [address] Phone Care Team Providers Care Building And Construction Manager Name Role Phone Quinten Han MD Primary Care Provider [phone] Medications amLODIPine (NORVASC) 5 mg tablet Take [...] Date Diagnosed Date Malignant neoplasm of prostate ([facility] V24, CMS /HCC V28) 08/08/2024 Lumbar spondylosis [...] every morning. He has been seen at [facility] pain management, is s/p right L5 TFE, L5-S1 JANNIE, but did not see relief with either injection. He states they are talking to him about spinal cord stimulator trial, he is not sure if he wants to try it. Patient had MRI lumbar spine 07/30/2023 at [facility] that showed multilevel degenerative changes, I did [...] I reviewed imaging with the patient. Mr. Castrejon has bilateral lower leg burning pain, I [...] Encounters Date Type Department Care Team Description 03/12/2025 9:32 AM EST - 03/12/2025 11:59 PM EST Hospital Encounter [facility] CT Scan [address] [place] [address] Prostate cancer ([facility] V24, [facility] V28) Discharge Disposition: Home or Self Care 02/09/2025 10:00 AM EDT Office Visit [facility] Hematology Oncology [address] [place] [address] Pia Quinones DO Prostate cancer ([facility] V24, [facility] V28) (Primary Dx) from Last 3 Months [...] Date Smoking Tobacco: Never Smokeless Tobacco: Never Tobacco Cessation:Counseling Given: Not Answered Alcohol Use Standard Drinks/Week Comments Yes 1 (1 standard drink = 0.6 oz pur e alcohol) Sex and Gender Information Value Date Recorded Sex Assigned at Not on file Legal Sex Male 2:16 PM EST Gender Identity Not on file Sexual Orientation Not on file Obstetrics History Last Filed Vital Signs Vital Sign Reading Time Taken Comments Blood Pressure 124/56 02/09/2025 10:08 AM EDT Pulse 75 02/09/2025 10:08 AM EDT Temperature 36.3 C (97.4 F) 02/09/2025 10:08 AM EDT Respiratory Rate - - Oxygen Saturation 97% 02/09/2025 10:08 AM EDT Inhaled Oxygen Concentration - - Weight 87.1 kg (192 lb) 02/09/2025 10:08 AM EDT Height 162.6 cm (5' 4 ) 02/09/2025 10:08 AM EDT Body Mass Index 32.96 02/09/2025 10:08 AM EDT Plan of Treatment Upcoming Encounters Date Type Department Care Team (Late st Contact Info) Description 08/03/2025 10:00 AM EDT Office Visit [facility] Hematology Oncology [address] [place] [id number] Pia Quinones, DO [address] [place] [address] Health Maintenance Due Date Last Done Comments DTaP,Tdap,and Td Vaccines (1 - Tdap) 1961 RSV Immunization Adult Patients (1 - 1-dose 75+ series) 2017 Cholesterol Screening (Lipid Panel) 04/14/2022 Falls Risk Assessment 04/14/2022 Medicare Annual Wellness Visit 04/14/2022 Social Influencers of Health Screening 04/14/2022 Depression Screening 05/07/2024 COVID-19 Vaccine ( season) 2025 04/07/2021, 08/26/2020, 08/04/2020, Additional history exists Influenza [...] Procedure Name Priority Date/Time Associated Diagnosis Comments CT ABDOMEN PELVIS WO CONTRAST Routine 03/12/2025 10:28 AM EST Prostate cancer (CMS/HCC V24, CMS/HCC V28) CBC WITH AUTO DIFFERENTIAL Routine 02/09/2025 10:41 AM EDT Prostate cancer (CMS/HCC V24, CMS/HCC V28) PROSTATE SPECIFIC ANTIGEN DIAGNOSTIC Routine 02/09/2025 10:41 AM EDT Prostate cancer (CMS/HCC V24, CMS/HCC V28) COMPREHENSIVE METABOLIC PANEL Routine 02/09/2025 10:41 AM EDT Prostate cancer (CMS/HCC V24, CMS/HCC V28) CBC AND DIFFERENTIAL Routine 02/09/2025 10:41 AM EDT Prostate cancer (CMS/HCC V24, CMS/HCC V28) from Last 3 Months Results * CT Abdomen Pelvis wo Contrast (03/12/2025 10:28 AM EST) Anatomical Region Laterality Modality Body Computed Tomogra phy 03/17/2025 2:46 PM EST Impressions 03/17/2025 5:21 PM EST No significant change in the appearance of the abdomen and pelvis. No evidence of metastatic disease. Nonspecific mesenteric fat stranding. Possibilities include mesenteric panniculitis. -------- FINAL REPORT -------- Dictated By: Rafy Martinez Dictated Date: 03/17/2025 14:46 ET Assigned Physician: Rafy Martinez Reviewed and Electronically Signed By: Rafy Martinez Signed Date: 03/17/2025 17:21 ET Workstation ID: [id number] Transcribed By: Self Edit Transcribed Date: 03/17/2025 14:47 ET Narrative 03/17/2025 5:21 PM EST EXAMINATION: CT ABDOMEN/PELVIS WITHOUT IV CONTRAST CLINICAL INFORMATION: History of renal cell carcinoma. History of prostate cancer. COMPARISON: Portions of previous CT 01/05/22 TECHNIQUE: Multidetector CT. Helical examination of the abdomen and pelvis. Imaging performed without IV contrast. Reformatting in the coronal and sagittal planes. DLP: 1434 mGy-cm Dose optimization was performed including the use of low-dose iterative reconstruction technique with automatic exposure control based on patient size. Type of contrast: None Volume of IV contrast: None Volume of contrast discarded: 0 mL FINDINGS: LIVER: The liver is normal in size, shape, and attenuation. No focal hepatic lesion or biliary ductal dilatation is present. No additional liver findings. BILIARY TRACT: No opaque gallstone. No biliary dilation. SPLEEN: Normal size. No focal lesion. PANCREAS: No suspicious abnormality. ADRENAL GLANDS: No suspicious abnormality. KIDNEYS: There is no dilation of the intrarenal collecting system on either side. There is no suspicious change in an area of abnormal attenuation with some internal hyperdensity associated with a cortical defect in the posterior lower right kidney. This could reflect the site of prior partial nephrectomy for ablation. Probable tiny cyst arising from the lateral upper left kidney. There is a punctate nonobstructing upper pole left renal calculus. URINARY BLADDER: The bladder wall is thickened. No discrete mass. PELVIC VISCERA: There are metallic densities perhaps fiducials. No suspicious change. GASTROINTESTINAL TRACT: No localized colonic wall thickening. Large amount of fecal residue in the colon. No suspicious abnormality the stomach. There is a diverticulum in the duodenum. There are some nonspecific mesenteric lymph nodes with surrounding halos of fat stranding. Findings are similar to previous. Possibilities include mesenteric panniculitis. ABDOMINAL WALL: No significant hernia is appreciated. LYMPHOVASCULAR STRUCTURES AND FLUID: There is no abdominal aortic aneurysm. There are no enlarged pelvic or retroperitoneal lymph nodes. There is no significant free intraperitoneal fluid. As described there are nonspecific mesenteric lymph nodes and there is surrounding halo of fat stranding in the mesentery. VISUALIZED LOWER CHEST: Extensive coronary calcifications. Probable calcification in the region of the aortic valve. No suspicious mass or nodule demonstrated. MUSCULOSKELETAL: No new acute or suspicious osseous abnormality. No change in homogeneous increased density in the left and posterior aspect of the L3 vertebra. No change in a probable chondroid lesion in the right intratrochanteric region. Procedure Note Rafy Martinez MD - 03/17/2025 EXAMINATION: CT ABDOMEN/PELVIS WITHOUT IV CONTRAST CLINICAL INFORMATION: History of renal cell carcinoma. History of prostate cancer. COMPARISON: Portions of previous CT 01/05/22 TECHNIQUE: Multidetector CT. Helical examination of the abdomen and pelvis. Imaging performed without IV contrast. Reformatting in the coronal and sagittal planes. DLP: 1434 mGy-cm Dose optimization was performed including the use of low-dose iterativereconstruction technique with automatic exposure control based on patientsize. Type of contrast: None Volume of IV contrast: None Volume of contrast discarded: 0 mL FINDINGS: LIVER: The liver is normal in size, shape, and attenuation. No focalhepatic lesion or biliary ductal dilatation is present. No additionalliver findings. BILIARY TRACT: No opaque gallstone. No biliary dilation. SPLEEN: Normal size. No focal lesion. PANCREAS: No suspicious abnormality. ADRENAL GLANDS: No suspicious abnormality. KIDNEYS: There is no dilation of the intrarenal collecting system oneither side. There is no suspicious change in an area of abnormalattenuation with some internal hyperdensity associated with a corticaldefect in the posterior lower right kidney. This could reflect the site ofprior partial nephrectomy for ablation. Probable tiny cyst arising from the lateral upper left kidney. There is apunctate nonobstructing upper pole left renal calculus. URINARY BLADDER: The bladder wall is thickened. No discrete mass. PELVIC VISCERA: There are metallic densities perhaps fiducials. Nosuspicious change. GASTROINTESTINAL TRACT: No localized colonic wall thickening. Largeamount of fecal residue in the colon. No suspicious abnormality the stomach. There is a diverticulum in theduodenum. There are some nonspecific mesenteric lymph nodes with surrounding halosof fat stranding. Findings are similar to previous. Possibilities includemesenteric panniculitis. ABDOMINAL WALL: No significant hernia is appreciated. LYMPHOVASCULAR STRUCTURES AND FLUID: There is no abdominal aorticaneurysm. There are no enlarged pelvic or retroperitoneal lymph nodes. There is no significant free intraperitoneal fluid. As described there are nonspecific mesenteric lymph nodes and there issurrounding halo of fat stranding in the mesentery. VISUALIZED LOWER CHEST: Extensive coronary calcifications. Probablecalcification in the region of the aortic valve. No suspicious mass ornodule demonstrated. MUSCULOSKELETAL: No new acute or suspicious osseous abnormality. No change in homogeneous increased density in the left and posterioraspect of the L3 vertebra. No change in a probable chondroid lesion in theright intratrochanteric region. IMPRESSION: No significant change in the appearance of the abdomen and pelvis. Noevidence of metastatic disease. Nonspecific mesenteric fat stranding. Possibilities include mesentericpanniculitis. -------- FINAL REPORT -------- Dictated By: Rafy Martinez Dictated Date: 03/17/2025 14:46 ET Assigned Physician: Rafy Martinez Reviewed and Electronically Signed By: Rafy Martinez Signed Date: 03/17/2025 17:21 ET Workstation ID: [id number] Transcribed By: Self Edit Transcribed Date: 03/17/2025 14:47 ET Pia Quinones DO IMG CT PROCEDURES Fin al Result * Prostate specific antigen diagnostic (02/09/2025 10:41 AM EDT) PSA <0.06 0.00 - 4.00 ng/mL LAB CHEMISTRY METHOD 02/09/2025 2:10 PM EDT [facility] Blood Venous blood specimen / Unknown Venipuncture / Unknown 02/09/2025 10:41 AM EDT 02/09/2025 11:40 AM EDT Narrative [facility] - 02/09/2025 2:10 PM EDT The Siemens Advia Centaur Chemiluminescent Immunoassay is used. Results obtained with different assay methods or kits cannot be used interchangeably. Results cannot be interpreted as absolute evidence of the presence or absence of malignant disease. Pia Quinones DO LAB BLOOD ORDERABLES Final Result [facility] [address] [place] [address], * (ABNORMAL) CBC auto differential (02/09/2025 10:41 AM EDT) WBC 6.1 4.8 - 10.8 K/[facility] LAB HEMETOLOGY METHOD 02/09/2025 12:09 PM [facility] RBC 4.50 4.50 - 5.50 M/mcL LAB HEMETOLOGY METHOD 02/09/2025 12:09 PM [facility] Hemoglobin 13.1(L) 13.5 - 17.5 g/dL LAB HEMETOLOGY METHOD 02/09/2025 12:09 PM [facility] Hematocrit 41.3(L) 42.0 - 54.0 % LAB HEMETOLOGY METHOD 02/09/2025 12:09 PM [facility] MCV 91.2 79.0 - 98.0 FL LAB HEMETOLOGY METHOD 02/09/2025 12:09 PM [facility] MCH 28.9 27.0 - 32.0 pcg LAB HEMETOLOGY METHOD 02/09/2025 12:09 PM [facility] MCHC 31.7(L) 32.0 - 37.0 g/dL LAB HEMETOLOGY METHOD 02/09/2025 12:09 [facility] RDW 13.7 11.0 - 15.0 % LAB HEMETOLOGY METHOD 02/09/2025 12:09 [facility] Platelets 195 130 - 400 K/mcL LAB HEMETOLOGY METHOD 02/09/2025 12:09 PM [facility] MPV 11.4(H) 7.0 - 11.0 FL LAB HEMETOLOGY METHOD 02/09/2025 12:09 PM [facility] NRBC 0.0 <1.0 % LAB HEMETOLOGY METHOD 02/09/2025 12:09 PM [facility] NRBC Absolute 0.00 <0.10 K/mcL LAB HEMETOLOGY METHOD 02/09/2025 12:09 PM [facility] Neutrophils Relative 66.3 % LAB HEMETOLOGY METHOD 02/09/2025 12:09 PM [facility] Lymphocytes Relative 20.4 % LAB HEMETOLOGY METHOD 02/09/2025 12:09 PM [facility] Monocytes Relative 9.1 % LAB HEMETOLOGY METHOD 02/09/2025 12:09 PM [facility] Eosinophils Relative 2.9 % LAB HEMETOLOGY METHOD 02/09/2025 12:09 PM [facility] Basophils Relative 0.5 % LAB HEMETOLOGY METHOD 02/09/2025 12:09 PM [facility] Immature Granulocytes Relative 0.8 % LAB HEMETOLOGY METHOD 02/09/2025 12:09 PM [facility] Neutrophils Absolute 4.07 1.50 - 7.00 K/mcL LAB HEMETOLOGY METHOD 02/09/2025 12:09 PM [facility] Lymphocytes Absolute 1.25 1.00 - 5.00 K/mcL LAB HEMETOLOGY METHOD 02/09/2025 12:09 PM [facility] Monocytes Absolute 0.56 0.20 - 1.00 K/mcL LAB HEMETOLOGY METHOD 02/09/2025 12:09 PM [facility] Eosinophils Absolute 0.18 0.00 - 0.50 K/mcL LAB HEMETOLOGY METHOD 02/09/2025 12:09 PM [facility] Basophils Absolute 0.03 0.00 - 0.20 K/mcL LAB HEMETOLOGY METHOD 02/09/2025 12:09 PM [facility] Immature Granulocytes Absolute 0.05(H) 0.00 - 0.03 K/mcL LAB HEMETOLOGY METHOD 02/09/2025 12:09 PM [facility] Blood Venous blood specimen / Unknown Venipuncture / Unknown 02/09/2025 10:41 AM EDT 02/09/2025 11:40 AM EDT us Pia Trudy Quinones DO LAB BLOOD ORDERABLES Final Result [facility] [address] [place] [address], [place] [phone] * (ABNORMAL) Comprehensive metabolic panel (02/09/2025 10:41 AM EDT) Pathologist [facility] Sodium 141 133 - 145 mmol/L LAB CHEMISTRY METHOD 02/09/2025 12:40 PM [facility] Potassium 3.4(L) 3.5 - 5.5 mmol/L LAB CHEMISTRY METHOD 02/09/2025 12:40 PM [facility] Chloride 102 96 - 110 mmol/L LAB CHEMISTRY METHOD 02/09/2025 12:40 PM [facility] CO2 33(H) 21 - 32 mmol/L LAB CHEMISTRY METHOD 02/09/2025 12:40 PM [facility] Anion Gap 6 3 - 11 LAB CHEMISTRY METHOD 02/09/2025 12:40 PM [facility] Glucose 96 70 - 100 mg/dL LAB CHEMISTRY METHOD 02/09/2025 12:40 PM [facility] BUN 8 5 - 25 mg/dL LAB CHEMISTRY METHOD 02/09/2025 12:40 PM [facility] Creatinine 0.62(L) 0.70 - 1.30 mg/dL LAB CHEMISTRY METHOD 02/09/2025 12:40 PM [facility] eGFR 95 >=60 mL/min/1. 73m2 LAB CHEMISTRY METHOD 02/09/2025 12:40 PM [facility] Comment:Calculation based on the Chronic Kidney Disease Epidemiology Collaboration (CKD-EPI) equation refit without adjustment for race. BUN/Creatinine Ratio 12.9 LAB CHEMISTRY METHOD 02/09/2025 12:40 PM [facility] Calcium 9.0 8.5 - 10.5 mg/dL LAB CHEMISTRY METHOD 02/09/2025 12:40 PM EDT [facility] AST (SGOT) 22 10 - 42 unit/L LAB CHEMISTRY METHOD 02/09/2025 12:40 PM EDT [facility] ALT (SGPT) 24 10 - 60 unit/L LAB CHEMISTRY METHOD 02/09/2025 12:40 PM EDT [facility] Alkaline Phosphatase 87 42 - 121 unit/L LAB CHEMISTRY METHOD 02/09/2025 12:40 PM EDT [facility] Total Protein 6.0 6.0 - 8.0 g/dL LAB CHEMISTRY METHOD 02/09/2025 12:40 PM EDT [facility] Albumin 3.4 3.2 - 5.0 g/dL LAB CHEMISTRY METHOD 02/09/2025 12:40 PM EDT [facility] Total Bilirubin 0.5 0.0 - 1.4 mg/dL LAB CHEMISTRY METHOD 02/09/2025 12:40 PM EDT [facility] Blood Venous blood specimen / Unknown Venipuncture / Unknown 02/09/2025 10:41 AM EDT 02/09/2025 11:40 AM EDT us Pia Quinones DO LAB BLOOD ORDERABLES Final Result [facility] [address] [place] [address], from Last 3 Months Insurance MEDICARE [facility] Care Teams Building And Construction Manager Relationship Specialty Start Date End Date Quinten Han MD [address] [place] [id number] PCP - General Internal Medicine 10/19/16
--- OUTSIDE RECORDS SUMMARY | 2025-03-19 11:55 | XMS_ITS | Patient Health Record ---
Author Organization Quinten Han MD Address [address] [place], [place] [id number] Care Team Providers Care Patient Safety Manager Name Role Phone Quinten Han Primary Care Provider Allergies Allergen (clinical drug ingredient) Drug/Non Drug Allergy documented on EMR Reaction Allergy Type Onset Date Status ibuprofen Ibuprofen hallucinating Drug Allergy Act eddie Results Component Value Reference Range Notes Complete Blood Count Auto Di ff Reviewed date:03/24/2024 12:32:57 PM Interpretation: Performing Lab:[facility], [address] [place] [phone] Notes/Report: White Blood Count 6.3 4.8-10.8 X10*3/uL [...] NRBC Abs Auto 0.000 0.0-0.012 X10*3/uL Comprehensive [place]. Panel Fa st Reviewed date:03/24/2024 12:32:05 PM Interpretation: Performing Lab:[facility], [address] [place] [phone] Notes/Report: Sodium 143 135-145 mmol/L Potassium 3.4 [...] Panel Reviewed date:03/24/2024 12:32:29 PM Interpretation: Performing Lab:[address] [phone] Notes/Report: Triglycerides 82 <150 mg/dL Desirable Triglyceride: [...] (Free>4and<10) Reviewed date:03/24/2024 12:31:46 PM Interpretation: Performing Lab:[address] [phone] Notes/Report: PSA,Total (Free>4and<10) < 0.10 0.00-4.00 ng/mL [...] between 4.0 and 10.0 ng/mL. PSA methodology: [employer] i Chemiluminescent Microparticle Immunoassay (CMIA) UA ClnCatch+Micro w/rflx Cul t Reviewed date:03/24/2024 12:47:18 PM Interpretation: Performing Lab:[address] [phone] Notes/Report: [id number] Urine, Clean Catch Color Urine Yellow Appearance Urine Clear PH 8.0 5.0-9.0 Glucose Urine UA Negative Negative mg/dL Urine Blood Negative Negative Specific [place] - Urine 1.015 1.005-1.025 Urine Protein Negative Neg-Trace mg/dL Urine Ketones Negative Negative mg/dL Nitrite Urine Negative Negative Leukocyte Esterase Urine Trace Negative RBC Urine 0-2 0-2 /HPF WBC Urine 0-5 0-5 /HPF Squamous Epithelial Cell Urine 0-2 0-2 /HPF Bacteria Urine None Seen None Seen Hyaline Casts Urine 0-2 0-2 /LPF Liver Panel Reviewed date:09/18/2024 04:25:13 PM Interpretation: Performing Lab:[facility], [address] [place] [phone] Notes/Report: Bilirubin Total 0.6 0.0-1.0 mg/dL Bilirubin Direct 0.2 0.0-0.5 mg/dL Aspartate Amino Transferase 26 5-37 U/L Alanine Aminotransferase 21 0-40 U/L Total Protein 6.5 6.5-8.0 g/dL Albumin Level 4.2 3.5-5.0 g/dL Alkaline Phosphatase 85 39-117 U/L Lipid Panel with Reflex Reviewed date:09/18/2024 04:39:57 PM Interpretation: Performing Lab:[address] [phone] Notes/Report: Triglycerides 66 <150 mg/dL Desirable Triglyceride: [...] Reviewed date:10/20/2024 04:32:38 PM Interpretation: Performing Lab:[facility], [address] [place] [phone] Notes/Report: Blood Urea Nitrogen 11 9-16 mg/dL Creatinine Reviewed date:10/20/2024 04:32:46 PM Interpretation: Performing Lab:[facility], [address] [place] [phone] Notes/Report: Creatinine 0.58 0.5-1.4 mg/dL Estimated Glomerular Filt Rate > 60 Chronic Kidney Disease: Estimated GFR < 60 mL/min/1.73m2 Severe Kidney Disease: Estimated GFR < 15 mL/min/1.73m2 Occult Blood, Stool, Guaiac Reviewed date:03/28/2024 10:26:17 AM Interpretation:Negative Performing Lab: Notes/Report: Negative Occult Blood, Stool, Guaiac Neg Hold Gold Reviewed date:09/18/2024 02:27:00 PM Interpretation: Performing Lab:[facility], [address] [place] [phone] Notes/Report: Hold Gold See Note Specimen held untested for 24 hours; Call to request Chemistry testing. CT abdomen pelvis w con Reviewed date:11/04/2024 12:40:02 PM Interpretation: Performing Lab: Notes/Report: [address] [address] [address] Scan Report Signed Patient: Myla Hernandez MR#: [id number] : 1940 Acct:[id number] Age/Sex: 84 / M ADM Date: 10/30/24 Loc: HO.CT Attending Dr: uQinten Han MD Ordering Physician: Quinten Han MD Date of Service: 10/30/24 Procedure(s): CT abdomen pelvis w IV con Accession Number(s): [id number] cc: Quinten Han MD Report Number: [id number]: Total DLP = 646.00 mGy-cm EXAMINATION: CT [...] 10/30/24 1742 DD/ 1625 TD/TT: 10/30/24 1651 [employer] Ranger: [place] [address] CT Scan Report Signed Patient: Yong Hernandez MR#: [id number] : 1940 Acct:[id number] Age/Sex: 84 / M ADM Date: 10/30/24 Loc: HO.CT Attending Dr: Quinten Han MD Ordering Physician: Quinten Han MD Date of Service: 10/30/24 Procedure(s): CT abd omen pelvis w IV con Accession Number(s): [id number] cc: Quinten Han MD Report Number: [id number] [...] most pronounced in the SMA PELVIC VISCERA: [place] llic beads are present superficial to the [...] 10/30/24 1742 DD/ 1625 TD/TT: 10/30/24 1651 [employer]: XR hand RT min 3V Reviewed date:11/11/2024 12:23:19 PM Interpretation: Performing Lab: Notes/Report: [facility] [address] [place] [address] XRay Report Signed Patient: Myla Hernandez MR#: [id number] : 1940 Acct:[id number] Age/Sex: 84 / M ADM Date: 11/11/24 Loc: HO.HMGCX Attending Dr: Stefani Packer PA-C Ordering Physician: STEFANI PACKER Date of Service: 11/11/24 Procedure(s): XR hand RT min 3V Accession Number(s): [id number] cc: Quinten Han MD; STEFANI PACKER EXAMINATION: [...] 11/11/24 1126 DD/ 1114 TD/TT: 11/11/24 1117 [employer]: [facility] [address] [place] [address] [place] [address] XRay Report Signed Patient: Yong Hernandez MR#: [id number] : 1940 Acct:[id number] Age/Sex: 84 / M ADM Date: 11/11/24 Loc: HO.HMGCX Attending Dr: Mel BELTRÁNC Ordering Physician: STEFANI PACKER Date of Service: 11/11/24 Procedure(s): XR lea d RT min 3V Accession Number(s): [id number] cc: Quinten Han MD; STEFANI PACKER EXAMINATION: [...] OV> 11/11/24 1126 DD/ TD/TT: 11/11/24 1117 [employer]: Reason For Referral Reason Sciatica of right si de Diagnosis 1 Sciatica of right si de (M54.31) Referral Organization Quinten Han MD Referring Provider First Name Quinten Referring Provider Last Name Guille Referring Provider Speciality Internal edicine Referred Provider Mak Ordonez am Referred Provider Specialty Pain Medicin e General Notes Kamilah Hugo 10:15:15 AM EST > [place] office [phone] Annette 04/01/2024 02:23:45 PM EST > info faxed [phone] Annette 04/15/2024 10:37:45 AM EST > called [...] 0 11/06/2024 10:54:32 AM >referral info sent, Beth Hugoette 11/14/2024 09:16:17 AM >called patient with info and mailed Referral Priority Routine Referral Appointment Date 01/06/2025 Medications Medication SIG (Take, Route, Frequency, Duration) Notes Start Date End Date Status Atorvastatin Calcium 20 MG TAKE ONE TABL ET BY MOUTH EVERY DAY for 90 Active amLODIPine Besylate 5 MG TAKE ONE TABLET BY MOUTH EVERY DAY Active Clobetasol Propionate 0.05 % 1 applicati on to affected area Externally Twice a day for 90 days Not-Taking Hydrocortisone Elias-Pramoxine 2.5-1 % 1 application as needed Externally 2 times a day for 14 days 04/21/2019 Not-Taking Bicalutamide 50 MG 1 tablet Orally Once a day Not-Taking Finasteride 5 1 tablet Orally Once a day Not-Taking Senna 30 MG Orally Active Aspir-Low 81 MG 1 tablet Orally Once a day for 30 day(s) Active Tamsulosin HCl 0.4 MG TAKE 1 CAPSULE ONC E DAILY 30 MINUTES AFTER THE SAME MEAL EACH DAY Active Pregabalin 150 MG TAKE ONE CAPSULE BY MOUTH TWICE A DAY for 90 08/01/2024 Active hydroCHLOROthiazide 25 MG TAKE ONE TABLE T BY MOUTH EVERY DAY Active Immunizations Vaccine Route Administration Date Status Comme nts DECLINED, FLU Unknown 03/10/2013 Administered Fluarix Quadrivalent IM Intramuscular 03/08/2017 Administe red PPSV23 (Pnemovax) IM Intramuscular 04/12/2017 Administered Shingrix IM Intramuscular 07/26/2017 Administered pt was given the vaccine at [facility] in [place]. Influenza High Dose IM Intramuscular 03/07/2018 Administer ed Prevnar 13 IM Intramuscular 08/12/2018 Administered Shingrix IM Intramuscular 09/24/2017 Administered pt was given the vaccine at [facility] in [place]. 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) Active confirmed Problem 878798847 Mild aortic sten osis (I35.0) Active confirmed Problem 920408558 Renal cancer, unspecified laterality (C64.9) Active confirmed Problem 94280503 Carpal tunnel sy ndrome of right wrist (G56.01) Active confirmed Problem 94912003 Oropharyngeal dysphagia (R13.12) Active confirmed Problem 31224478 Meralgia paraesthetica, 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) Active confirmed Problem 86344263 Sciatica of righ t side (M54.31) Active confirmed Problem 315847066 Pure hypercholesterolemia (E78.00) Active confirmed Problem 162977618 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) Active confirmed Problem 71813035 Hypercholesterol emia (E78.00) Active confirmed Problem 6524609084855380 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) Active confirmed Problem 150429585 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) Active confirmed Problem Computed tomography result abnormal (065621321) Abnormal CAT scan (R93.89) Active confirmed Vital Signs Blood pressure diastolic 56 mm Hg 01/13/2025 pablo ght is up 2 pounds since 11-06-24 Height 64 in 01/13/2025 weight is up 2 pounds since 11-06-24 Blood pressure systolic 102 mm Hg 01/13/2025 weig ht is up 2 pounds since 11-06-24 Weight 193 lbs 01/13/2025 weight is up 2 pounds since 11-06-24 BMI 33.12 kg/m2 01/13/2025 weight is up 2 pounds since 11-06-24 Encounters Encounter Location Date Provider Diagnosis Quinten Han MD [address] [place] [id number] 03/24/2024 Quinten Han Essential hypertensi on I10 ; Prostatism N40.0 ; Pure hypercholesterolemia E78.00 and Hypercholesterolemia E78.00 Quinten Han MD [address] [place] [id number] 09/18/2024 Quinten Han Pure hypercholestero lemia E78.00 Quinten Han MD [address] [place] [id number] 10/20/2024 Quinten Han Essential hypertensi on I10 Quinten Han MD [address] [place] [id number] 03/28/2024 Quinten Han Prostate cancer C61 ; Sciatica of right side M54.31 ; Mild aortic stenosis I35.0 ; Essential hypertension I10 ; Pure hypercholesterolemia E78.00 ; Depression screening Z13.31 and Colon cancer screening Z12.11 Quinten Han MD [address] [place] [id number] 09/25/2024 Quinten Han Back pain M54.9 ; Pr ostate cancer C61 ; 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 and Pure hypercholesterolemia E78.00 Quinten Han MD [address] [place] [id number] 11/06/2024 Quinten Han Essential hypertensi on I10 and 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 cleared for upcoming surgery 01/13/2025 Age-related cataract of both eyes, unspecified age-related cataract type (ICD-10 - H25.9) 03/24/2024 Pure hypercholesterolemia (ICD-10 - E78.00) 03/28/2024 Mild aortic stenosis (ICD-10 - I35.0) followed by dr haque. 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) [place] ct in [facility], pending diagnostic testing 03/24/2024 Hypercholesterolemia (ICD-10 - [...] CONTRAST 07/26/2020 Next Appt Details Provider Name:Quinten Marcso ier, 03/23/2025 07:30:00 AM, [address] [place] [address], [address], [place], [place], [phone], Provider Name:Quinten montaguer, 03/30/2025 01:00:00 PM, [address] [place] [address], [address], [place], [place], [phone], Insurance Providers Payer Name Payer Address Payer Phone Subscriber Number Group Number Insured Name Patient Relationship to Insured Coverage Start Date Coverage End Date [employer] [address] [place] [address] [id number] MYLA HERNANDEZ Self - patient is the insured 7 [facility] [address] [place] [id number] MYLA HERNANDEZ Self - patient is the insured Medical (General) History Medical History History ICD Code biopsy of prostate over 5 years on bical utamide which is cassodex colonoscopy in past. Colonos copy done 03/24/2013 - no further testing required per Dr. Keller. Colonoscopy 06/20/21 no more
--- OUTSIDE RECORDS SUMMARY | 2025-03-19 11:56 | XMS_ITS | Clinical Summary ---
Author Organization [facility] Address [address] [id number] Care Team Providers Care Meter Record Clerk Name Role Phone Quinten Han MD Primary Care Provider [phone] Allergies No known active allergies Medications Medication [...] mg total) by mouth daily. 0 Active [place]-3 Fatty Acids (FISH OIL PO) Take by [...] age to complete this topic Care Teams Meter Record Clerk Relationship Specialty Start Date End Date Quinten Han MD [address] [place] [address] Drive [address] [place] [address] PCP - General Internal Medicine 10/19/16
== END 2025-03-19 12:07 | disposition home or self-care (01) ==
LOC: HO.HOS 09:59
PROVIDERS: PCP Internal Medicine; Visit Provider Physical Medicine & Rehabilitation
DX: M54.16 Radiculopathy, lumbar region (principal); M51.26 Other intervertebral disc displacement, lumbar region; R20.8 Other disturbances of skin sensation; M47.816 Spondylosis without myelopathy or radiculopathy, lumbar region
CPT/HCPCS: 99214

== ENCOUNTER → 2025-03-19 09:58 | Outpatient (BNVA) | payer MEDICARE, SELFPAY | PROVIDERS: PCP Internal Medicine; Visit Provider Physical Medicine & Rehabilitation | DX: R20.8 Other disturbances of skin sensation (principal); M54.16 Radiculopathy, lumbar region; M51.26 Other intervertebral disc displacement, lumbar region; M47.816 Spondylosis without myelopathy or radiculopathy, lumbar region | CPT/HCPCS: 99212 ==

== ENCOUNTER 2025-03-23 07:30 | Outpatient (REF) | payer MEDICARE, SELFPAY ==
[2025-03-23 11:07] LABS: MANUAL DIFF FLAG NO
[2025-03-23 11:18] LABS: Appearance Urine Clear; Glucose Urine UA Negative (Negative); Hematocrit 44.8 % (42.0-52.0); Hemoglobin 13.9 g/dl (14.0-18.0); Imm Gran Abs Auto 0.04 X10*3/uL (0.00-0.03); Imm Gran Pct Auto 0.6 % (0.0-0.4); Lymphocytes Absolute Auto 1.5 X10*3/uL (1.2-4.9); Mean Corpuscular HGB Conc 31.0 g/dl (31.0-36.0); Mean Corpuscular Hemoglobin 29.3 pg (27.0-33.0); Mean Corpuscular Volume 94.5 fL (80.0-98.0); NRBC Abs Auto 0.000 X10*3/uL (0.0-0.012); NRBC Pct Auto 0.0 /100WBC (0.0-0.2); PH 8.0 (5.0-9.0); Platelet Count 185 X10*3/uL (160-400); Red Blood Count 4.74 X10*6/uL (4.60-5.80); Specific Gravity - Urine 1.015 (1.005-1.025); White Blood Count 6.5 X10*3/uL (4.8-10.8)
[2025-03-23 11:30] LABS: Alanine Aminotransferase 17 U/L (0-40); Albumin Level 4.2 g/dL (3.5-5.0); Alkaline Phosphatase 88 U/L (39-117); Anion Gap 13 (12-20); Aspartate Amino Transferase 23 U/L (5-37); Blood Urea Nitrogen 8 mg/dL (9-16); Calcium 9.0 mg/dL (8.4-10.2); Carbon Dioxide 31 mmol/L (22-29); Chloride 103 mmol/L (96-108); Cholesterol 153 mg/dL (<200); Estimated Glomerular Filt Rate > 60; HDL Cholesterol 52 mg/dL (>40); Potassium 3.7 mmol/L (3.3-5.1); Sodium 143 mmol/L (135-145); Total Protein 6.4 g/dL (6.5-8.0); Triglycerides 87 mg/dL (<150)
[2025-03-23 11:52] LABS: PSA,Total (Free>4and<10) < 0.10 ng/mL (0.00-4.00)
--- OUTSIDE RECORDS SUMMARY | 2025-03-23 23:06 | XMS_ITS | Clinical Summary ---
Author Organization [facility] Address [address] [place] [address] Phone Care Team Providers Care Refund Specialist Name Role Phone Quinten Han MD Primary Care Provider [phone] Medications amLODIPine (NORVASC) 5 mg tablet Take [...] Date Diagnosed Date Malignant neoplasm of prostate ([facility] V24, CMS /HCC V28) 08/08/2024 Lumbar spondylosis [...] every morning. He has been seen at [facility] pain management, is s/p right L5 TFE, L5-S1 JANNIE, but did not see relief with either injection. He states they are talking to him about spinal cord stimulator trial, he is not sure if he wants to try it. Patient had MRI lumbar spine 07/30/2023 at [facility] that showed multilevel degenerative changes, I did [...] - 03/12/2025 11:59 PM EST Hospital Encounter [facility] CT Scan [address] [place] [address] Prostate cancer ([facility] V24, [facility] V28) Discharge Disposition: Home or Self Care 02/09/2025 10:00 AM EDT Office Visit [facility] Hematology Oncology [address] [place] [address] Pia Quinones DO Prostate cancer ([facility] V24, [facility] V28) (Primary Dx) from Last 3 Months [...] Description 08/03/2025 10:00 AM EDT Office Visit [facility] Hematology Oncology [address] [place] [phone] Pia Quinones, DO [address] [place] [address] Health Maintenance Due Date Last Done Comments [...] Signed Date: 03/17/2025 17:21 ET Workstation ID: [id number] Transcribed By: Self Edit Transcribed Date: 03/17/2025 [...] Signed Date: 03/17/2025 17:21 ET Workstation ID: [id number] Transcribed By: Self Edit Transcribed Date: 03/17/2025 14:47 ET Pia Quinones DO IMG CT PROCEDURES Fin al Result * Prostate specific antigen diagnostic (02/09/2025 10:41 AM EDT) PSA <0.06 0.00 - 4.00 ng/mL LAB CHEMISTRY METHOD 02/09/2025 2:10 PM EDT [facility] Blood Venous blood specimen / Unknown Venipuncture / Unknown 02/09/2025 10:41 AM EDT 02/09/2025 11:40 AM EDT Narrative [facility] - 02/09/2025 2:10 PM EDT The Siemens Advia Centaur Chemiluminescent Immunoassay is used. Results obtained with different assay methods or kits cannot be used interchangeably. Results cannot be interpreted as absolute evidence of the presence or absence of malignant disease. Pia Quinones DO LAB BLOOD ORDERABLES Final Result [facility] [address] [place] [address], * (ABNORMAL) CBC auto differential (02/09/2025 10:41 AM EDT) WBC 6.1 4.8 - 10.8 K/[facility] LAB HEMETOLOGY METHOD 02/09/2025 12:[address] [facility] RBC 4.50 4.50 - 5.50 M/mcL LAB HEMETOLOGY METHOD 02/09/2025 12:[address] [facility] Hemoglobin 13.1(L) 13.5 - 17.5 g/dL LAB HEMETOLOGY METHOD 02/09/2025 12:[address] [facility] Hematocrit 41.3(L) 42.0 - 54.0 % LAB HEMETOLOGY METHOD 02/09/2025 12:[address] [facility] MCV 91.2 79.0 - 98.0 FL LAB HEMETOLOGY METHOD 02/09/2025 12:[address] [facility] MCH 28.9 27.0 - 32.0 pcg LAB HEMETOLOGY METHOD 02/09/2025 12:[address] [facility] MCHC 31.7(L) 32.0 - 37.0 g/dL LAB HEMETOLOGY METHOD 02/09/2025 12:09 [facility] RDW 13.7 11.0 - 15.0 % LAB HEMETOLOGY METHOD 02/09/2025 12:09 [facility] Platelets 195 130 - 400 K/mcL LAB HEMETOLOGY METHOD 02/09/2025 12:[address] [facility] MPV 11.4(H) 7.0 - 11.0 FL LAB HEMETOLOGY METHOD 02/09/2025 12:[address] [facility] NRBC 0.0 <1.0 % LAB HEMETOLOGY METHOD 02/09/2025 12:[address] [facility] NRBC Absolute 0.00 <0.10 K/mcL LAB HEMETOLOGY METHOD 02/09/2025 12:[address] [facility] Neutrophils Relative 66.3 % LAB HEMETOLOGY METHOD 02/09/2025 12:[address] [facility] Lymphocytes Relative 20.4 % LAB HEMETOLOGY METHOD 02/09/2025 12:[address] [facility] Monocytes Relative 9.1 % LAB HEMETOLOGY METHOD 02/09/2025 12:[address] [facility] Eosinophils Relative 2.9 % LAB HEMETOLOGY METHOD 02/09/2025 12:[address] [facility] Basophils Relative 0.5 % LAB HEMETOLOGY METHOD 02/09/2025 12:[address] [facility] Immature Granulocytes Relative 0.8 % LAB HEMETOLOGY METHOD 02/09/2025 12:[address] [facility] Neutrophils Absolute 4.07 1.50 - 7.00 K/mcL LAB HEMETOLOGY METHOD 02/09/2025 12:[address] [facility] Lymphocytes Absolute 1.25 1.00 - 5.00 K/mcL LAB HEMETOLOGY METHOD 02/09/2025 12:[address] [facility] Monocytes Absolute 0.56 0.20 - 1.00 K/mcL LAB HEMETOLOGY METHOD 02/09/2025 12:[address] [facility] Eosinophils Absolute 0.18 0.00 - 0.50 K/mcL LAB HEMETOLOGY METHOD 02/09/2025 12:[address] [facility] Basophils Absolute 0.03 0.00 - 0.20 K/mcL LAB HEMETOLOGY METHOD 02/09/2025 12:[address] [facility] Immature Granulocytes Absolute 0.05(H) 0.00 - 0.03 K/mcL LAB HEMETOLOGY METHOD 02/09/2025 12:[address] [facility] Blood Venous blood specimen / Unknown Venipuncture / Unknown 02/09/2025 10:41 AM EDT 02/09/2025 11:40 AM EDT us Pia Trudy Quinones DO LAB BLOOD ORDERABLES Final Result [facility] [address] [place] [address], [place] [phone] * (ABNORMAL) Comprehensive metabolic panel (02/09/2025 10:41 AM EDT) Pathologist [facility] Sodium 141 133 - 145 mmol/L LAB CHEMISTRY METHOD 02/09/2025 12:[address] [facility] Potassium 3.4(L) 3.5 - 5.5 mmol/L LAB CHEMISTRY METHOD 02/09/2025 12:[address] [facility] Chloride 102 96 - 110 mmol/L LAB CHEMISTRY METHOD 02/09/2025 12:[address] [facility] CO2 33(H) 21 - 32 mmol/L LAB CHEMISTRY METHOD 02/09/2025 12:[address] [facility] Anion Gap 6 3 - 11 LAB CHEMISTRY METHOD 02/09/2025 12:[address] [facility] Glucose 96 70 - 100 mg/dL LAB CHEMISTRY METHOD 02/09/2025 12:[address] [facility] BUN 8 5 - 25 mg/dL LAB CHEMISTRY METHOD 02/09/2025 12:[address] [facility] Creatinine 0.62(L) 0.70 - 1.30 mg/dL LAB CHEMISTRY METHOD 02/09/2025 12:[address] [facility] eGFR 95 >=60 mL/min/1. 73m2 LAB CHEMISTRY METHOD 02/09/2025 12:[address] [facility] Comment:Calculation based on the Chronic Kidney Disease Epidemiology Collaboration (CKD-EPI) equation refit without adjustment for race. BUN/Creatinine Ratio 12.9 LAB CHEMISTRY METHOD 02/09/2025 12:[address] [facility] Calcium 9.0 8.5 - 10.5 mg/dL LAB CHEMISTRY METHOD 02/09/2025 12:40 PM EDT [facility] AST (SGOT) 22 10 - 42 unit/L LAB CHEMISTRY METHOD 02/09/2025 12:40 PM EDT [facility] ALT (SGPT) 24 10 - 60 unit/L LAB CHEMISTRY METHOD 02/09/2025 12:40 PM EDT [facility] Alkaline Phosphatase 87 42 - 121 unit/L LAB CHEMISTRY METHOD 02/09/2025 12:40 PM EDT [facility] Total Protein 6.0 6.0 - 8.0 g/dL LAB CHEMISTRY METHOD 02/09/2025 12:40 PM EDT [facility] Albumin 3.4 3.2 - 5.0 g/dL LAB CHEMISTRY METHOD 02/09/2025 12:40 PM EDT [facility] Total Bilirubin 0.5 0.0 - 1.4 mg/dL LAB CHEMISTRY METHOD 02/09/2025 12:40 PM EDT [facility] Blood Venous blood specimen / Unknown Venipuncture / Unknown 02/09/2025 10:41 AM EDT 02/09/2025 11:40 AM EDT us Pia Quinones DO LAB BLOOD ORDERABLES Final Result [facility] [address] [place] [address], from Last 3 Months Insurance MEDICARE [facility] PLAN Care Teams Refund Specialist Relationship Specialty Start Date End Date Quinten Han MD [address] [place] [id number] PCP - General Internal Medicine 10/19/16
== END 2025-03-23 07:31 | disposition home or self-care (01) ==
LOC: HO.LNP 07:30
PROVIDERS: Visit Provider Internal Medicine
DX: N40.0 Benign prostatic hyperplasia without lower urinary tract symptoms (principal); E78.00 Pure hypercholesterolemia, unspecified; I10 Essential (primary) hypertension; Z12.5 Encounter for screening for malignant neoplasm of prostate
CPT/HCPCS: 80053; 80061; 81001; 84153; 85025

== ENCOUNTER 2025-03-25 14:09 | Outpatient (AMB) | payer MEDICARE, SELFPAY ==
--- OUTSIDE RECORDS SUMMARY | 2024-01-28 03:45 | XMS_ITS ---
Author Organization Quinten Han MD Address [address] [place] [phone] Care Team Providers Care Bed Manager Name Role Phone Quinten Han Primary Care Provider [phone] REASON FOR VISIT HDF Immunizations Vaccine Route Administration Date Status Comme nts Influenza High Dose IM Intramuscular 01/28/2024 Administer ed Encounters Encounter Location Date Provider Diagnosis Quinten Han MD [address] [place] [phone] 01/28/2024 Quinten Han Encounter for immunization Z23 Assessments Encounter Date Diagnosis (ICD Code) Assessment Notes Treatment Notes Treatment Clinical Notes Section Notes 01/28/2024 Encounter for immunization (ICD-10 - Z23) Plan Of Treatment Next Appt Details Provider Name:Quinten rocha, 04/28/2025 01:00:00 PM, [address], [address] [place] [address], [phone], Progress Notes * RUSS CASTREJON MDOB: 2 (85 yo M)Acc No.[id number]:01/28/2024 Progress Note Patient: RUSS DIXON Provider: Rachel Han MD :1940 A ge:83 Y S ex:Male Date:01/28/2024 Address:[address] [place], [id number] Subjective: * Chief Complaints: * 1 . [...] MD Date: 0 01/28/2024 Generated for Katelyn buchanan/Elida/Jakeitting on: 05/26/2024 02:35 AM EST
--- OUTSIDE RECORDS SUMMARY | 2024-03-24 02:45 | XMS_ITS ---
Author Organization Quinten Han MD Address [address] [place], [place] [phone] Care Team Providers Care Director Cardiovascular Name Role Phone Quinten Han Primary Care Provider [phone] Results Component Value Reference Range Notes Complete Blood Count Auto Di ff Reviewed date:03/24/2024 12:32:57 PM Interpretation: Performing Lab:[facility], [address] [place] [phone] Notes/Report: White Blood Count 6.3 4.8-10.8 X10*3/uL [...] NRBC Abs Auto 0.000 0.0-0.012 X10*3/uL Comprehensive [place]. Panel Fa st Reviewed date:03/24/2024 12:32:05 PM Interpretation: Performing Lab:[facility], [address] [place] [phone] Notes/Report: Sodium 143 135-145 mmol/L Potassium 3.4 [...] date:03/24/2024 12:32:29 PM Interpretation: Performing Lab:[facility], [address] [place] [phone] Notes/Report: Triglycerides 82 <150 mg/dL Desirable Triglyceride: [...] date:03/24/2024 12:31:46 PM Interpretation: Performing Lab:[facility], [address] [place] [phone] Notes/Report: PSA,Total (Free>4and<10) < 0.10 0.00-4.00 ng/mL [...] 12:47:18 PM Interpretation: Performing Lab:[facility], [address] [place] [address] Notes/Report: [id number] Urine, Clean Catch Color Urine Yellow Appearance Urine Clear PH 8.0 5.0-9.0 Glucose Urine UA Negative Negative mg/dL Urine Blood Negative Negative Specific [place] - Urine 1.015 1.005-1.025 Urine Protein Negative [...] Location Date Provider Diagnosis Quinten Han MD [address] [place] [address] [place] [phone] 03/24/2024 Quinten Han Essential hypertensi on I10 [...] Provider Name:Quinten Marcos ier, 04/28/2025 01:00:00 PM, [address] [place] [address] Drive, [address], [place], [place], [phone], Progress Notes * RUSS CASTREJON MDOB: 2 (85 yo M)Acc No.[id number]:03/24/2024 Progress Note Patient: NYDIA DIXONLORENZA Lion Provider: Rachel Han MD :1940 A ge:84 Y S ex:Male Date:03/24/2024 Address:[address] [place], [place] [address], [id number] Subjective: * Chief Complaints: * 1 . [...] - 03/24/2024 07:45 AM) L AB: Comprehensive [place]. Panel Fast (Collection Date & Time - [...] - 03/24/2024 07:45 AM) L AB: Comprehensive [place]. Panel Fast (Collection Date & Time - [...] - 03/24/2024 07:45 AM) L AB: Comprehensive [place]. Panel Fast (Collection Date & Time - [...] Date: 05/24/2023 Generated for Katelyn buchanan/Elida/Jakeitting on: 05/26/2024 02:36 AM EST
--- OUTSIDE RECORDS SUMMARY | 2024-03-28 04:30 | XMS_ITS ---
Author Organization Quinten Han MD Address [address] [place], [place] [id number] Care Team Providers Care Enrollment Eligibility Representative Name Role Phone Quinten Han Primary Care [...] General Notes Oanh,Kamilah 10:15:15 AM EST > [place] office [phone] Kamilah Hugo 04/01/2024 02:23:45 PM EST > info faxed [phone] Annette 04/15/2024 10:37:45 AM EST > called [...] Problem Status W/U Status Risk Notes Problem [id number] Mild aortic stenosis (I35.0) Active confirmed Vital Signs Blood pressure systolic 110 mm Hg 03/28/20 24 Blood pressure diastolic 74 mm Hg 024 Height 64 in 03/28/2024 Weight 197 lbs 03/28/2024 BMI 33.81 kg/m2 03/28/2024 Encounters Encounter Location Date Provider Diagnosis Quinten Han MD [address] [facility] [address] [place], [place] [id number] 03/28/2024 Quinten Han Prostate cancer C61 ; [...] Provider Name:Quinten Marcos ier, 04/28/2025 01:00:00 PM, [address] [place] [address], [address], [place], [place], [id number], Progress Notes * RUSS CASTREJON MDOB: 2 (84 yo M)Acc No.[id number]:03/28/2024 Patient: Swathi SHAYYROSSY HookerRadha Lion Provider: Rachel Han MD :1940 A ge:84 Y S ex:Male Date:03/28/2024 Address:[address] [place] [address], [id number] Subjective: * Chief Complaints: * C omp [...] mg/dL Urine Blood Negative Negative - Specific [facility] - Urine 1.015 1.005-1.025 - Urine Protein [...] Auto 0.000 0.0-0.012 - X10*3/uL L ab:[facility]prehensive [facility]. Panel Fast (Order Date - 03/24/2024) (Collection [...] Date: 05/28/2023 Generated for Katelyn buchanan/Elida/Chang on: 05/26/2024 02:36 AM EST History and Physical Notes * [...]
--- OUTSIDE RECORDS SUMMARY | 2024-09-18 02:30 | XMS_ITS ---
Author Organization Quinten Han MD Address [address] [place], [place] [phone] Care Team Providers Care Car Repairer Name Role Phone Quinten Han Primary Care Provider Results Component Value Reference Range Notes Liver Panel Reviewed date:09/18/2024 04:25:13 PM Interpretation: Performing Lab:[facility], [address] [place] [phone] Notes/Report: Bilirubin Total 0.6 0.0-1.0 mg/dL Bilirubin Direct 0.2 0.0-0.5 mg/dL Aspartate Amino Transferase 26 5-37 U/L Alanine Aminotransferase 21 0-40 U/L Total Protein 6.5 6.5-8.0 g/dL Albumin Level 4.2 3.5-5.0 g/dL Alkaline Phosphatase 85 39-117 U/L Lipid Panel with Reflex Reviewed date:09/18/2024 04:39:57 PM Interpretation: Performing Lab:[facility], [address] [place] [address] Notes/Report: Triglycerides 66 <150 mg/dL Desirable Triglyceride: [...] Location Date Provider Diagnosis Quinten Han MD [address] [place] [address] [place] [phone] 09/18/2024 Quinten Han Pure hypercholestero lemia E78.00 Assessments Encounter Date Diagnosis (ICD Code) Assessment Notes Treatment Notes Treatment Clinical Notes Section Notes 09/18/2024 Pure hypercholesterolemia (ICD-10 - E78.00) Plan Of Treatment Next Appt Details Provider Name:Quinten Marcos ier, 04/28/2025 01:00:00 PM, [address] [place] [address], Suite [facility], [place], [place], [phone], Progress Notes * RUSS CASTREJON MDOB: 2 (85 yo M)Acc No.[id number]:09/18/2024 Progress Note Patient: Swathi LUCASNhung RUSS Lion Provider: Rachel Han MD :1940 A ge:84 Y S ex:Male Date:09/18/2024 Address:[address] [place] [address] [id number] Subjective: * Chief Complaints: * 1 . [...] 0 09/18/2024 Generated for Katelyn buchanan/Elida/Chang on: 05/26/2024 02:36 AM EST
--- OUTSIDE RECORDS SUMMARY | 2024-09-25 04:00 | XMS_ITS ---
Author Organization Quinten Han MD Address [address] [place], [place] [phone] Care Team Providers Care Tool Grinding Technician Name Role Phone Quinten Han Primary Care Provider Allergies Allergen (clinical drug ingredient) Drug/Non Drug Allergy documented on EMR Reaction Allergy Type Onset Date Status ibuprofen Ibuprofen hallucinating Drug Allergy Act eddie REASON FOR VISIT 6 month Medications Medication SIG (Take, Route, Frequency, Duration) Notes Start Date End Date Status Tamsulosin HCl 0.4 MG TAKE 1 CAPSULE ONC E DAILY 30 MINUTES AFTER THE SAME MEAL EACH DAY Active Bicalutamide 50 MG 1 tablet Orally Once a day Not-Taking Clobetasol Propionate 0.05 % 1 applicati on to affected area Externally Twice a day for 90 days Not-Taking Finasteride 5 1 tablet Orally Once a day Not-Taking Atorvastatin Calcium 20 MG TAKE ONE TABL ET BY MOUTH EVERY DAY Active hydroCHLOROthiazide 25 MG TAKE ONE TABLE T BY MOUTH ONCE DAILY for 90 Active amLODIPine Besylate 5 MG TAKE ONE TABLET BY MOUTH EVERY DAY for 90 Active Senna 30 MG Orally Active Pregabalin 150 MG TAKE ONE CAPSULE BY MOUTH TWICE A DAY for 90 08/01/2024 Active Hydrocortisone Elias-Pramoxine 2.5-1 % 1 application as needed Externally 2 times a day for 14 days 04/21/2019 Not-Taking Aspir-Low 81 MG 1 tablet Orally Once a day for 30 day(s) Active Vital Signs Blood pressure systolic 132 mm Hg 09/26/19 25 Blood pressure diastolic 64 mm Hg 025 Height 64 in 09/25/2024 Weight 197 lbs 09/25/2024 BMI 33.81 kg/m2 09/25/2024 Encounters Encounter Location Date Provider Diagnosis Quinten Han MD 10 [facility] [address] [place] [phone] 09/25/2024 Quinten Han Back pain M54.9 ; Pr ostate cancer C61 ; 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 and Pure hypercholesterolemia E78.00 Assessments Encounter Date Diagnosis (ICD Code) Assessment Notes Treatment Notes Treatment Clinical Notes Section Notes 09/25/2024 Back pain (ICD-10 - M54.9) need notes from [facility] [place] 09/25/2024 Prostate cancer (ICD -10 - C61) seen by oncology and no sigh of recurrence 09/25/2024 Mesenteric adenitis (ICD-10 - I88.0) do ct in [facility] [place], pending diagnostic testing 09/25/2024 Pure hypercholesterolemia (ICD-10 - E78.00) at goal, will continue current regiment Plan Of Treatment Medication Medication Name Sig Start Date Stop Date Notes Tamsulosin HCl 0.4 MG TAKE 1 CAPSULE ONC E DAILY 30 MINUTES AFTER THE SAME MEAL EACH DAY Atorvastatin Calcium 20 MG TAKE ONE TABL ET BY MOUTH EVERY DAY Treatment Notes Assessment Notes Back pain need notes from [facility] [place] [facility] Prostate cancer seen by oncology and no sigh of recurrence Mesenteric adenitis do ct in [facility], pendin g diagnostic testing Pure hypercholesterolemia at goal, will continue current regiment Pending Test Test Name Order Date CT ABD & PELVIS WITH CONTRAST 09/25/2024 Next Appt Details Follow Up: after cat scan, Tamie nettleson: Provider Name:Quinten rocha, 04/28/2025 01:00:00 PM, [address], [address], [place], [place], [phone], Progress Notes * RUSS CASTREJON MDOB: 2 (84 yo M)Acc No.[id number]:09/25/2024 Progress Notes Patient: RUSS DIXON Provider: Rachel Han MD :1940 A ge:84 Y S ex:Male Date:09/25/2024 Address:[address] [id number] Subjective: * Chief Complaints: * 6 month * HPI: S ymptom(s): patient is a 84 yo male here for 6 month follow up visit/ went to see spinal pa/ when standing for a long time gets pain and numbness in thigh/ has a little discomfort of the bladder area. * ROS: G eneral/Constitutional: Denies C hills. D enies F atigue. D enies F ever. D enies H eadache. E NT: Denies S ore throat. R espiratory: Denies C ough. D enies S hortness of breath at rest. D enies S hortness of breath with exertion. G astrointestinal: Denies D iarrhea. D enies N ausea. * Medical History: * Surgical History: * Hospitalization/Major Diagno stic Procedure: * Medications: T akingAspir-Low 81 MG Tablet Delayed Release 1 tablet Orally Once a day Senna 30 MG Miscellaneous Orally Tamsulosin HCl 0.4 [...] Delayed Release 1 tablet Orally Once a day Taking Senna 30 MG Miscellaneous Orally Taking Tamsulosin [...] as needed Externally 2 times a day Clobetasol Propionate 0.05 % Gel 1 application to affected area Externally Twice a day Finasteride 5 Tablet 1 tablet Orally Once a day Bicalutamide 50 MG Tablet 1 tablet Orally Once a day Medication List reviewed and reconciled with the patientNot-Taking/PRN Hydrocortisone Elias-Pramoxine 2.5-1 % Cream 1 application as needed Externally 2 times a day Not-Taking/PRN Clobetasol Propionate 0.05 % Gel 1 application to affected area Externally Twice a day Not-Taking/PRN Finasteride 5 Tablet 1 tablet Orally Once a day Not-Taking/PRN Bicalutamide 50 MG Tablet 1 tablet Orally Once a day Medication List reviewed and reconciled with the patient * Allergies: I buprofen: hallucinatingyes[Allergies Verified] Objective: * Vitals: H t: 64, Wt: 197, BMI:33.81, BP:132/64, Wt-k.36. * P ast Orders: L ab:Liver Panel (Order Date - 09/18/2024) (Collection Date & Time - 09/18/2024 07:30 AM) Value Reference Range Bilirubin Total 0.6 0.0-1.0 - mg/dL Bilirubin Direct 0.2 0.0-0.5 - mg/dL Aspartate Amino Transferase 26 5-37 - U/L Alanine Aminotransferase 21 0-40 - U/L Total Protein 6.5 6.5-8.0 - g/dL Albumin Level 4.2 3.5-5.0 - g/dL Alkaline Phosphatase 85 39-117 - U/L L ab:Lipid Panel with Reflex (Order Date - 09/18/2024) (Collection Date & Time - 09/18/2024 07:30 AM) Value Reference Range Triglycerides 66 <150 - mg/dL Cholesterol 163 <200 - mg/dL LDL Cholesterol Calculated 94 <100 - mg/dL HDL Cholesterol 56 >40 - mg/dL * Examination: G eneral Examination: GENERAL APPEARANCE: a lert, well hydrated, in no distress.? HEAD: n ormocephalic. SKIN: g ood turgor. HEART: r egular rate and rhythm, no murmurs, rubs, gallops.? LUNGS: n o wheezes, rales, rhonchi, good air movement, clear to auscultation bilaterally. ABDOMEN: s oft, nontender, nondistended. ? Assessment: * Assessment: 1. B ack pain - M54.9 (Primary) 2 . P rostate cancer - C61 3 . M esenteric adenitis - I88.0 4 . P ure hypercholesterolemia - E78.00? Plan: * Treatment: 2. P rostate cancer Continue Tamsulosin HCl Capsule, 0.4 MG, TAKE 1 CAPSULE ONCE DAILY 30 MINUTES AFTER THE SAME MEAL EACH DAY. Notes: seen by oncology and no sigh of recurrence 3. M esenteric adenitis I maging: CT ABD & PELVIS WITH CONTRAST Notes: do ct in [facility], pending diagnostic testing??4.?Pure hypercholesterolemia? Continue Atorvastatin Calcium Tablet, 20 MG, TAKE ONE TABLET BY MOUTH EVERY DAY.?? Notes: at goal, will continue current regiment?? * Procedure Codes: * Follow Up: a fter cat scan * * Sign off status: Completed true * Provider: Rachel Han MD Date: 0 09/25/2024 Generated for Katelyn buchanan/Elida/Jakeitting on: 1 05/26/2024 02:35 AM EST History and Physical Notes * HPI (History of Present Illness) Category Sub-Category Detail Notes Category Not es Symptom(s) patient is a 84 yo male here for 6 month follow up visit/ went to see spinal pa/ when standing for a long time gets pain and numbness in thigh/ has a little discomfort of the bladder area Examination Category Sub-Category Detail Notes Category Not es General Examination GENERAL APPEARANCE: alert, w ell hydrated, in no distress HEAD: normocephalic HEART: regular rate and rhy thm, no murmurs, rubs, gallops LUNGS: no wheezes, rales, r honchi, good air movement, clear to auscultation bilaterally ABDOMEN: soft, nontender, non distended SKIN: good turgor
--- OUTSIDE RECORDS SUMMARY | 2024-10-20 02:45 | XMS_ITS ---
Author Organization Quinten Han MD Address [address] [place], [place] [phone] Care Team Providers Care Safety Sitter Name Role Phone Quinten Han Primary Care Provider [phone] Results Component Value Reference Range Notes Blood Urea Nitrogen Reviewed date:10/20/2024 04:32:38 PM Interpretation: Performing Lab:[facility], [address] [place] [phone] Notes/Report: Blood Urea Nitrogen 11 9-16 mg/dL Creatinine Reviewed date:10/20/2024 04:32:46 PM Interpretation: Performing Lab:[facility], [address] [place] [phone] Notes/Report: Creatinine 0.58 0.5-1.4 mg/dL Estimated Glomerular Filt Rate > 60 Chronic Kidney Disease: Estimated GFR < 60 mL/min/1.73m2 Severe Kidney Disease: Estimated GFR < 15 mL/min/1.73m2 REASON FOR VISIT BUN and Creatinine for Ct scan [place]d [place] [facility] [place] Encounters Encounter Location Date Provider Diagnosis Quinten Han MD [address] [place], [place] [phone] 10/20/2024 Quinten Han Essential hypertension I10 Assessments Encounter Date Diagnosis (ICD Code) Assessment Notes Treatment Notes Treatment Clinical Notes Section Notes 10/20/2024 Essential hypertension (ICD-10 - I10) Plan Of Treatment Next Appt Details Provider Name:Quinten Marcos ier, 04/28/2025 01:00:00 PM, [address], [address], [place], [place], [phone], Progress Notes * RUSS CASTREJON MDOB: 2 (85 yo M)Acc No.[id number]:10/20/2024 Progress Note Patient: NYDIA DIXONLORENZA Lion Provider: Rachel Han MD :1940 A ge:84 Y S ex:Male Date:10/20/2024 Address:[address] [place] [address] [place], [id number] Subjective: * Chief Complaints: * 1 . BUN and Creatinine for Ct scan abd [place] [facility] [place] at 2pm. * Medical History: Objective: * Vitals: Assessment: * Assessment: 1. E ssential hypertension - I10 (Primary) Plan: * Treatment: * Procedure Codes: 3 6415 VENIPUNCT, ROUTINE* * * The named appointment provid er may or may not be the originator of this progress note, and it is not deemed complete until electronically signed by the appointment provider. Sign off status: Pending * Provider: Rachel Han MD Date: 0 10/20/2024 Generated for Katelyn buchanan/Elida/Jakeitting on: 05/26/2024 02:35 AM EST
--- OUTSIDE RECORDS SUMMARY | 2024-11-03 05:43 | XMS_ITS ---
Author Organization Quinten Han MD Address [address] [place] [phone] Care Team Providers Care Beauty Therapist Name Role Phone Quinten Han Primary Care Provider [phone] Encounters Encounter Location Date Provider Diagnosis Quinten Han MD [address] [facility] [address] [place] [address] [phone] 11/03/2024 Quinten Han Plan Of Treatment Next Appt Details Provider Name:Quinten Marcos ier, 04/28/2025 01:00:00 PM, [address] [place] [address], [address] [place] [address], [phone], Progress Notes * RUSS CASTREJON MDOB: 2 (84 yo M)Acc No.[id number]:11/03/2024 Patient: RUSS DIXON :1940 A ge:84 Y S ex:Male Address:[address] [place] [address] [place], [phone] * true * Date: Generated for Katelyn buchanan/Elida/Chang on: 05/26/2024 02:36 AM EST
--- OUTSIDE RECORDS SUMMARY | 2024-11-06 05:30 | XMS_ITS ---
Author Organization Quinten Han MD Address [address] [place], [place] [phone] Care Team Providers Care Trim Operator Name Role Phone Quinten Han Primary [...] kg/m2 11/06/2024 weight is down 6 pounds [facility] e 09-25-24 Encounters Encounter Location Date Provider Diagnosis Quinten Han MD [address] [place] [address] [place] [phone] 11/06/2024 Quinten Han Essential hypertension I10 and [...] Details Provider Name:Quinten montaguer, 04/28/2025 01:00:00 PM, [address] [place] [address], [address], [place], [place], [phone], Progress Notes * RUSS CASTREJON MDOB: 2 (84 yo M)Acc No.[id number]:11/06/2024 Patient: RUSS DIXON Provider: Rachel Han MD :1940 A ge:84 Y S ex:Male Date:11/06/2024 Address:[address] [place], [place] [address], [id number] Subjective: * Chief Complaints: * C BACK [...] 11/06/2024 Generated for Katelyn buchanan/Elida/eTransmitting on: 1 05/26/2024 02:36 AM EST History and Physical [...]
--- OUTSIDE RECORDS SUMMARY | 2025-01-13 04:15 | XMS_ITS ---
Author Organization Quinten Han MD Address [address] [place], [place] [phone] Care Team Providers Care Works Manager Name Role Phone Quinten Han Primary [...] Location Date Provider Diagnosis Quinten Han MD [address] [place] [address] [place] [phone] 01/13/2025 Quinten Han Preop examination Z01.818 and [...] Provider Name:Quinten Marcos ier, 04/28/2025 01:00:00 PM, [address] [place] [address] Drive, [address], [place], [place], [phone], Progress Notes * RUSS CASTREJON MDOB: 2 (84 yo M)Acc No.[id number]:01/13/2025 Patient: RUSS DIXON Provider: Rachel Han MD :1940 A ge:84 Y S ex:Male Date:01/13/2025 Address:[place], [id number] Subjective: * Chief Complaints: * C ataract- Pre Op, Dr. Moore scheduled for 5-30-18hhhlvlh until after surgery for HDF * HPI: [...] 0 01/13/2025 Generated for Katelyn buchanan/Elida/Chang on: 05/26/2024 02:37 AM EST History and Physical Notes * [...]
--- OUTSIDE RECORDS SUMMARY | 2025-03-23 02:30 | XMS_ITS ---
Author Organization Quinten Han MD Address [address] [place], [place] [phone] Care Team Providers Care Dance Master Name Role Phone Quinten Han Primary Care Provider Results Component Value Reference Range Notes Complete Blood Count Auto Di ff Reviewed date:03/23/2025 12:45:29 PM Interpretation: Performing Lab:[facility], [address] [place] [phone] Notes/Report: White Blood Count 6.5 4.8-10.8 X10*3/uL Red Blood Count 4.74 4.60-5.80 X10*6/uL Hemoglobin 13.9 14.0-18.0 g/dl Hematocrit 44.8 42.0-52.0 % Mean Corpuscular Volume 94.5 80.0-98.0 fL Mean Corpuscular Hemoglobin 29.3 27.0-33.0 pg Mean Corpuscular HGB Conc 31.0 31.0-36.0 g/dl Red Cell Distribution Width 13.9 11.0-16.0 % Platelet Count 185 160-400 X10*3/uL Mean Platelet Volume 11.7 9.4-12.4 fL Neutrophils Percent Auto 63.9 45-73 % Imm Gran Pct Auto 0.6 0.0-0.4 % Lymphocytes Percent Auto 23.6 20-40 % Monocytes Percent Auto 8.5 2-11 % Eosinophils Percent Auto 2.6 0-4 % Basophils Percent Auto 0.8 0-2 % NRBC Pct Auto 0.0 0.0-0.2 /100WBC Neutrophils Absolute Auto 4.1 2.0-8.3 x10*3/u L Imm Gran Abs Auto 0.04 0.00-0.03 X10*3/uL Lymphocytes Absolute Auto 1.5 1.2-4.9 X10*3/u L Monocytes Absolute Auto 0.6 0.1-1.2 X10*3/uL Eosinophils Absolute Auto 0.2 0.0-0.4 X10*3/u L Basophils Absolute Auto 0.1 0.0-0.2 X10*3/uL NRBC Abs Auto 0.000 0.0-0.012 X10*3/uL Comprehensive [place]. Panel Fa st Reviewed date:03/23/2025 12:58:44 PM Interpretation: Performing Lab:[facility], [address] [place] [phone] Notes/Report: Sodium 143 135-145 mmol/L Potassium 3.7 3.3-5.1 mmol/L Chloride 103 96-108 mmol/L Carbon Dioxide 31 22-29 mmol/L Anion Gap 13 12-20 Blood Urea Nitrogen 8 9-16 mg/dL Creatinine 0.65 0.5-1.4 mg/dL Estimated Glomerular Filt Rate > 60 Chronic Kidney Disease: Estimated GFR < 60 mL/min/1.73m2 Severe Kidney Disease: Estimated GFR < 15 mL/min/1.73m2 Glucose Fasting 140 60-99 mg/dL A fasting glucose of 126 mg/dl or greater on more than one occasion is considered diagnostic of diabetes. Calcium 9.0 8.4-10.2 mg/dL Bilirubin Total 0.6 0.0-1.0 mg/dL Aspartate Amino Transferase 23 5-37 U/L Alanine Aminotransferase 17 0-40 U/L Total Protein 6.4 6.5-8.0 g/dL Albumin Level 4.2 3.5-5.0 g/dL Alkaline Phosphatase 88 39-117 U/L Lipid Panel Reviewed date:03/23/2025 12:45:06 PM Interpretation: Performing Lab:[address] [address] Notes/Report: Triglycerides 87 <150 mg/dL Desirable Triglyceride: less than 150 mg/dL Borderline High Triglyceride 150-199 mg/dL High Triglyceride: 200-499 mg/dL Very High Triglyceride: greater than or equal to 5OO mg/dL Cholesterol 153 <200 mg/dL Desirable Cholesterol: less than 200 mg/dL Borderline High Cholesterol: 200-239 mg/dL High Cholesterol: greater than 239 mg/dL LDL Cholesterol Calculated 84 <100 mg/dL Desirable LDL: less than 100 mg/dL Near Optimal/Above Optimal LDL: 110-129 mg/dL Borderline High LDL: 130-159 mg/dL High LDL: 160-189 mg/dL Very High LDL: greater than or equal to 190 mg/dL HDL Cholesterol 52 >40 mg/dL Desirable HDL: greater than 40 mg/dL Note: This HDL assay may give artificially low results in patients with liver disease. PSA,Total (Free>4and<10) Reviewed date:03/23/2025 12:26:28 PM Interpretation: Performing Lab:[address] [phone] Notes/Report: PSA,Total (Free>4and<10) < 0.10 0.00-4.00 ng/mL [...] between 4.0 and 10.0 ng/mL. PSA methodology: [employer] i Chemiluminescent Microparticle Immunoassay (CMIA) UA ClnCatch+Micro w/rflx Cul t Reviewed date:03/23/2025 12:30:05 PM Interpretation: Performing Lab:[facility], [address] [place] [phone] Notes/Report: Urine, Clean Catch Color Urine Yellow Appearance Urine Clear PH 8.0 5.0-9.0 Glucose Urine UA Negative Negative mg/dL Urine Blood Negative Negative Specific [place] - Urine 1.015 1.005-1.025 Urine Protein Negative Neg-Trace mg/dL Urine Ketones Negative Negative mg/dL Nitrite Urine Negative Negative Leukocyte Esterase Urine Negative Negative RBC Urine 0-2 0-2 /HPF WBC Urine 0-5 0-5 /HPF Squamous Epithelial Cell Urine 0-2 0-2 /HPF Bacteria Urine None Seen None Seen Hyaline Casts Urine 0-2 0-2 /LPF REASON FOR VISIT yearly fasting labs Encounters Encounter Location Date Provider Diagnosis Quinten Han MD [address] [place] [address] [place] [id number] 03/23/2025 Quinten Han Essential hypertensi on I10 ; Pure hypercholesterolemia E78.00 and Prostatism N40.0 Assessments Encounter Date Diagnosis (ICD Code) Assessment Notes Treatment Notes Treatment Clinical Notes Section Notes 03/23/2025 Essential hypertensi on (ICD-10 - I10) 03/23/2025 Pure hypercholesterolemia (ICD-10 - E78.00) 03/23/2025 Prostatism (ICD-10 - N40.0) Plan Of Treatment Next Appt Details Provider Name:Quinten Marcos ier, 04/28/2025 01:00:00 PM, [address] [place] [address], Suite [facility], [place], [place], [phone], Progress Notes * RUSS CASTREJON MDOB: 2 (85 yo M)Acc No.[id number]:03/23/2025 Progress Note Patient: RUSS DIXON Provider: Rachel Han MD :1940 A ge:85 Y S ex:Male Date:03/23/2025 Address:[address] [place] [address] Swathi BENTLEY [phone] Subjective: * Chief Complaints: * 1 . Yearly fasting labs. * Medical History: Objective: * Vitals: Assessment: * Assessment: 1. E ssential hypertension - I10 (Primary) 2 . P ure hypercholesterolemia - E78.00 3 . P rostatism - N40.0 Plan: * Treatment: 2. P ure hypercholesterolemia L AB: Complete Blood Count Auto Diff (Collection Date & Time - 03/23/2025 07:30 AM) L AB: Comprehensive [place]. Panel Fast (Collection Date & Time - 03/23/2025 07:30 AM) L AB: Lipid Panel (Collection Date & Time - 03/23/2025 07:30 AM) L AB: PSA,Total (Free>4and<10) (Collection Date & Time - 03/23/2025 07:30 AM) L AB: UA ClnCatch+Micro w/rflx Cult (Collection Date & Time - 03/23/2025 07:30 AM) 3. P rostatism L AB: Complete Blood Count Auto Diff (Collection Date & Time - 03/23/2025 07:30 AM) L AB: Comprehensive [place]. Panel Fast (Collection Date & Time - 03/23/2025 07:30 AM) L AB: Lipid Panel (Collection Date & Time - 03/23/2025 07:30 AM) L AB: PSA,Total (Free>4and<10) (Collection Date & Time - 03/23/2025 07:30 AM) L AB: UA ClnCatch+Micro w/rflx Cult (Collection Date & Time - 03/23/2025 07:30 AM) * Procedure Codes: 3 6415 VENIPUNCT, ROUTINE* * * The named appointment provid er may or may not be the originator of this progress note, and it is not deemed complete until electronically signed by the appointment provider. Sign off status: Pending * Provider: Rachel Han MD Date: 05/23/2024 Generated for Katelyn buchanan/Elida/Chang on: 05/26/2024 02:36 AM EST
--- NOTE | 2025-03-25 14:09 | A.OFFVIS_ITS ---
Intake Visit Reasons: 3 Months Allergies No Known Allergies (No Known Allergies*) Allergy (Verified 01/07/25 09:35) HPI Comments Details: ?84-year-old man with a history peripheral neuropathy in the last year with burning in right leg and left lateral thigh, on Pregabalin 150mg tid. Had tried Gabapentin before at 900mg bid without help. He has history of prostate cancer who completed radiation therapy in April of 2016. On 06/30/16, he developed fairly sudden onset of right lateral leg pain and paresthesia. Is not aware of any weakness. He has a prickling crawling sensation in the lateral last up to the right leg with itching and numbness. On 08/13/16 he had a cortisone injection which did not help much. He's had an MRI of the lumbar spine which I have reviewed, which showed neural foramina encroachment at L4-5 and L5-S1 from mostly osteophytic impingement and a possible L4-5 right minor disc herniation. Prednisone did not help much. He previously had a lumbar radiculopathy. He is active in walking and gardening. . 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 Difficulty getting to sleep?admits.? Difficulty maintaining sleep?denies? .? Urge to move legs?admits.? Teeth grinding?denies.? Shouting or Kicking during sleep?denies.? Abnormal behavior during sleep?denies.? Excessive sleep?denies.? Snoring?denies.? Daytime sleepiness?denies.? ?? General/Constitutional:? Change in appetite?denies.? Chills?denies.? Fatigue?denies.? Fever?denies .? Weight gain?denies.? Weight loss?admits.? ?? Ophthalmologic:? Blurred vision?denies.? Diminished visual acuity?denies.? ?? ENT:? Stuffiness?denies.? Decreased hearing?denies.? Dry mouth?denies.? Ear pain?denies.? Nosebleed?denies.? Ringing in the ears?denies.? Sinus pain?denies .? Sore throat?denies.? Swollen glands?denies.? ?? Endocrine:? Cold intolerance?denies.? Excessive thirst?denies.? Frequent urination? denies.? Heat intolerance?denies.? ?? Respiratory:? Shortness of breath?denies.? Chest pain?denies.? Cough?denies.? ?? Breast:? Breast lump?denies.? Nipple discharge?denies.? ?? Cardiovascular:? Chest pain at rest?denies.? Chest pain with exertion?denies.? Claudication?denies.? Dizziness?denies.? Fluid accumulation in the legs?denies.? Irregular heartbeat?denies.? Palpitations?denies.? ?? Gastrointestinal:? Abdominal pain?denies.? Constipation?denies.? Diarrhea?denies.? Difficulty swallowing?denies.? Heartburn?denies.? Nausea?denies.? Rectal bleeding?denies.? ?? Hematology:? Easy bruising?denies.? Prolonged bleeding?denies.? ?? Genitourinary:? Frequent urination?denies.? Urgency?denies.? Incontinence?denies.? Erectile Dysfunction?denies.? ?? Musculoskeletal:? Neck pain?denies.? Back pain?admits.? Muscle aches?admits.? Painful joints?admits.? Sciatica?denies.? Weakness?denies.? ?? Podiatric:? Difficulty walking?denies.? Foot numbness?denies.? ?? Neurologic:? Difficulty swallowing?denies.? Balance difficulty?denies.? Coordination? normal.? Difficulty speaking?denies.? Dizziness?denies.? Fainting?denies.? Gait abnormality?denies.? Headache?denies.? Loss of strength?denies.? Loss of use of extremity?denies.? Low back pain?denies.? Memory loss?denies.? Seizures?denies.? Tics?denies.? Tingling/Numbness?right leg.? Transient loss of vision?denies.? Tremor?denies.? ?? Psychiatric:? Anxiety?admits.? Auditory/visual hallucinations?denies.? Delusions?denies .? Depressed mood?denies.? Stressors?denies.? Substance abuse?denies.? Suicidal thoughts?denies.? ?? Physical Exam Neuro Other: Mini Mental Status Exam: ? Level of Consciousness:?Alert.? Orientation:?Knows correct year, month, date, day and season,?Knows correct city, county and state. Knows correct location and floor.? Registration:?Able to register 3 objects.? Attention:?Serial 7's performed accurately.? Recall:?Able to recall 3 out of 3 objects.? Language:?Normal spontaneous speech, fluency, repetition,naming, comprehension, reading and writing.? Total Score ?30/30.? General Examination: ? GENERAL APPEARANCE:?normal,?in no acute distress.? HEAD:?normocephalic,?atraumatic.? EYES:?sclera non-icteric,?conjunctiva clear.? EARS:?auditory canal clear,?tympanic membrane intact, clear.? NOSE:?no lesions.? ORAL CAVITY:?gums normal,?mucosa moist,?no lesions.? THROAT:?clear.? NECK/THYROID:?no cervical lymphadenopathy,?thyroid normal,?neck supple, full range of motion,?no carotid bruit.? SKIN:?no rashes,?no significant birthmarks.? HEART:?S1, S2 normal,?no murmurs.? LUNGS:?clear anteriorly and posteriorly.? CHEST:?no gross rib deformity,?clear to auscultation.? BACK:?normal exam of spine.? EXTREMITIES:?no edema.? PERIPHERAL PULSES:?normal.? PSYCH:?alert, oriented,?cognitive function intact,?cooperative with exam. ? Neurological: ? Abnormal neurological findings:?right tib ant , evertors, EDB, EHL are 4/ 5.? Mental Status:?alert and oriented X 3,?Normal attention, orientation, memory and affect.? Cranial Nerves:?Pupils are equal, round and reactive to light. Fundoscopy shows normal disc bilaterally. External occular muscles are intact. Visual escalante are full, no ptosis. Face is symmetrical, no facial weakness or droop. Facial sensations are normal. Tongue protrudes in midline. Palate elevates symmetrically. Shoulder shrugging is normal..? Motor Examination:?Normal muscle tone, bulk and strength,?No atrophy or fasciculations,?No drift of the extended upper extremities,?Deep tendon reflexes are 2+ with absent AJs?,?Plantars are flexor?.? Straight Leg Raising:?90 degrees.? Sensory Exam:?Normal light touch, temperature, pinprick, vibration and joint-position sensations?,?Minimal impairment of vibration in right big toe.Rhomberg sign is absent.? Coordination:?no ataxia,?no titubation,?mdbefb-[id number], pxmf-riif-fzye test and rapid alternating movements were normal.? Gait Exam:?Within normal limits.? Cerebellar Signs:?Ofsflv-db-asrp and bwrf-hy-vmxy is normal,?no dysdiadochokinesia?.? Extrapyramidal System:?No tremor, rigidity with normal facial expressions,?No bradykinesia, no bradyphrenia. Normal arm swing and posture. No propulsion or retropulsion.? Speech:?Normal,?no dysphasia or dysarthria..? Assessment & Plan Assessment & Plan (1) Lumbar radiculitis: Comment: 09/14/16 NCV/ EMG shows motor and sensory axonal loss in right peroneal nerve. EMG shows active denervation in the right L4-5 innervated muscles. 01/22/24 NCV/EMG: Axonal neuropathy in the lower extremities, slightly worse compared to the study of 2017. EMG of the right L4-S1 innervated muscles showed chronic neuropathic changes distally Dr. Tucker: 07/04/23 IMPRESSION: 1. This is an abnormal study. 2. There is electrodiagnostic findings suggestive for right chronic L5-S1 radiculopathy. 3. There is no electrodiagnostic evidence for focal entrapment neuropathy, lumbosacral plexopathy, or peripheral neuropathy. 10/24/24 IMPRESSION: 1. This is an abnormal study. 2. 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 3. There is no electrodiagnostic evidence for lumbosacral plexopathy or lumbar radiculopathy. Code(s): M54.16 - Radiculopathy, lumbar region Category: Medical (2) Peripheral neuropathy: Code(s): G62.9 - Polyneuropathy, unspecified Category: Medical (3) Meralgia paresthetica of left side: Code(s): G57.12 - Meralgia paresthetica, left lower limb Category: Medical Plan Continue Pregabalin 450mg a day ( 150 in am and 300mg hs). Discussed Amitriptyline 10mg hs as an add on . Because of potential side effects he ram sdecided to stay on Pregabalin alone. Coding Level of Care Code Est Pt Level 4 (88588) Diagnoses Lumbar radiculitis M54.16 Peripheral neuropathy G62.9 Meralgia paresthetica of left side G57.12
--- OUTSIDE RECORDS SUMMARY | 2025-03-26 02:36 | XMS_ITS | Patient Health Record ---
Author Organization Quinten Han MD Address [address] [place], [place] [id number] Care Team Providers Care Dog Catcher Name Role Phone Quinten Han Primary Care Provider [phone] Allergies Allergen (clinical drug ingredient) Drug/Non Drug Allergy documented on EMR Reaction Allergy Type Onset Date Status ibuprofen Ibuprofen hallucinating Drug Allergy Act eddie Results Component Value Reference Range Notes Liver Panel Reviewed date:09/18/2024 04:25:13 PM Interpretation: Performing Lab:[facility], [address] [place] [phone] Notes/Report: Bilirubin Total 0.6 0.0-1.0 mg/dL Bilirubin Direct 0.2 0.0-0.5 mg/dL Aspartate Amino Transferase 26 5-37 U/L Alanine Aminotransferase 21 0-40 U/L Total Protein 6.5 6.5-8.0 g/dL Albumin Level 4.2 3.5-5.0 g/dL Alkaline Phosphatase 85 39-117 U/L Lipid Panel with Reflex Reviewed date:09/18/2024 04:39:57 PM Interpretation: Performing Lab:[address] [address] Notes/Report: Triglycerides 66 <150 mg/dL Desirable Triglyceride: [...] Nitrogen Reviewed date:10/20/2024 04:32:38 PM Interpretation: Performing Lab:[facility], [address] [place] [phone] Notes/Report: Blood Urea Nitrogen 11 9-16 mg/dL Creatinine Reviewed date:10/20/2024 04:32:46 PM Interpretation: Performing Lab:[facility], [address] [place] [phone] Notes/Report: Creatinine 0.58 0.5-1.4 mg/dL Estimated Glomerular Filt Rate > 60 Chronic Kidney Disease: Estimated GFR < 60 mL/min/1.73m2 Severe Kidney Disease: Estimated GFR < 15 mL/min/1.73m2 Complete Blood Count Auto Di ff Reviewed date:03/23/2025 12:45:29 PM Interpretation: Performing Lab:[facility], [address] [place] [phone] Notes/Report: White Blood Count 6.5 4.8-10.8 X10*3/uL [...] 4.1 2.0-8.3 x10*3/uL Imm Gran Abs Auto 0.04 0.00-0.03 X10*3/uL Lymphocytes Absolute Auto 1.5 1.2-4.9 X10*3/uL Monocytes Absolute Auto 0.6 0.1-1.2 X10*3/uL Eosinophils Absolute Auto 0.2 0.0-0.4 X10*3/uL Basophils Absolute Auto 0.1 0.0-0.2 X10*3/uL NRBC Abs Auto 0.000 0.0-0.012 X10*3/uL Comprehensive [place]. Panel Fa st Reviewed date:03/23/2025 12:58:44 PM Interpretation: Performing Lab:[facility], [address] [place] [phone] Notes/Report: Sodium 143 135-145 mmol/L Potassium 3.7 [...] Panel Reviewed date:03/23/2025 12:45:06 PM Interpretation: Performing Lab:[facility], [address] [place] [phone] Notes/Report: Triglycerides 87 <150 mg/dL Desirable Triglyceride: [...] (Free>4and<10) Reviewed date:03/23/2025 12:26:28 PM Interpretation: Performing Lab:[facility], [address] [place] [phone] Notes/Report: PSA,Total (Free>4and<10) < 0.10 0.00-4.00 ng/mL [...] t Reviewed date:03/23/2025 12:30:05 PM Interpretation: Performing Lab:[facility], [address] [place] [address] Notes/Report: Urine, Clean Catch Color Urine Yellow Appearance Urine Clear PH 8.0 5.0-9.0 Glucose Urine UA Negative Negative mg/dL Urine Blood Negative Negative Specific [place] - Urine 1.015 1.005-1.025 Urine Protein Negative [...] Gold Reviewed date:09/18/2024 02:27:00 PM Interpretation: Performing Lab:[facility], [address] [place] [phone] Notes/Report: [place] See Note Specimen held untested for 24 hours; Call to request Chemistry testing. 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 Iron Worker Helper: [place] [address] [address] Scan Report Signed Patient: Yong Hernandez MR#: [id number] : 1940 Acct:[id number] Age/Sex: 84 / M ADM Date: 10/30/24 Loc: HO.CT Attending Dr: Quinten Han MD Ordering Physician: Quinten Han MD Date of Service: 10/30/24 Procedure(s): CT abd omen pelvis w IV con Accession Number(s): [id number] cc: Quinten Han MD Report Number: [id number] [...] most pronounced in the SMA PELVIC VISCERA: [place] llic beads are present superficial to the [...] 10/30/24 1742 DD/ 1625 TD/TT: 10/30/24 1651 Ornamental Iron Worker Helper: XR hand RT min 3V Reviewed date:11/11/2024 12:23:19 PM Interpretation: Performing Lab: Notes/Report: [facility] [address] [address] XRay Report Signed Patient: Myla Hernandez MR#: [id number] : 1940 Acct:[id number] Age/Sex: 84 / M ADM Date: 11/11/24 Loc: HO.HMGCX Attending Dr: Stefani Packer PA-C Ordering Physician: STEFANI PACKER Date of Service: 11/11/24 Procedure(s): XR hand RT min 3V Accession Number(s): [id number] cc: Quinten Han MD; STEFANI PACKER EXAMINATION: [...] 11/11/24 1126 DD/ 1114 TD/TT: 11/11/24 1117 Ornamental Iron Worker Helper: [facility] Adult Primary Care [address] [place] [address] [place] [address] XRay Report Signed Patient: Yong Hernandez MR#: [id number] : 1940 Acct:[id number] Age/Sex: 84 / M ADM Date: 11/11/24 Loc: .HMGCX Attending Dr: Mel Packer PA-C Ordering Physician: STEFANI PACKRE Date of Service: 11/11/24 Procedure(s): XR lea d RT min 3V Accession Number(s): [id number] cc: Quinten Han MD; STEFANI PACKER EXAMINATION: [...] 11/11/24 1126 DD/ 1114 TD/TT: 11/11/24 1117 Ornamental Iron Worker Helper: Reason For Referral Reason Sciatica of right si de Diagnosis 1 Sciatica of right si de (M54.31) Referral Organization Quinten Han MD Referring Provider First Name Quinten Referring Provider Last Name Guille Referring Provider Speciality Internal edicine Referred Provider Mak Ordonez Referred Provider Specialty Pain Medicin e General Notes Kamilah Hugo 10:15:15 AM EST > [place] office [phone] Annette 04/01/2024 02:23:45 PM EST > info faxed [phone] Annette 04/15/2024 10:37:45 AM EST > called [...] Administered pt was given the vaccine at [facility] in [place]. Influenza High Dose IM Intramuscular 03/07/2018 Administer ed Prevnar 13 IM Intramuscular 08/12/2018 Administered Shingrix IM Intramuscular 09/24/2017 Administered pt was given the vaccine at [facility] in [place]. 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) Active confirmed Problem 387936258 Mild aortic sten osis (I35.0) Active confirmed Problem 364244737 Renal cancer, unspecified laterality (C64.9) Active confirmed Problem 28710312 Carpal tunnel sy ndrome of right wrist (G56.01) Active confirmed Problem 11755344 Oropharyngeal dysphagia (R13.12) Active confirmed Problem 65846343 Meralgia paraesthetica, 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) Active confirmed Problem 79837197 Sciatica of righ t side (M54.31) Active confirmed Problem 788898460 Pure hypercholesterolemia (E78.00) Active confirmed Problem 847606084 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) Active confirmed Problem 86704371 Hypercholesterol emia (E78.00) Active confirmed Problem 3864780910171994 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) Active confirmed Problem 380308866 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) Active confirmed Problem Computed tomography result abnormal (857141782) Abnormal CAT scan (R93.89) Active confirmed Vital [...] Quinten Han MD [address] [place] [id number] 09/18/2024 Quinten Han Pure hypercholestero lemia E78.00 Quinten Han MD [address] [place] [id number] 10/20/2024 Quinten Han Essential hypertensi on I10 Quinten Han MD [address] [place] [address] [id number] 03/23/2025 Quinten Han Essential hypertensi on I10 ; Pure hypercholesterolemia E78.00 and Prostatism N40.0 Quinten Han MD [address] [place] [id number] 03/28/2024 Quinten Han Prostate cancer C61 ; Sciatica of right side M54.31 ; Mild aortic stenosis I35.0 ; Essential hypertension I10 ; Pure hypercholesterolemia E78.00 ; Depression screening Z13.31 and Colon cancer screening Z12.11 Quinten Han MD [address] [place] [id number] 09/25/2024 Quinten Han Back pain M54.9 ; Pr ostate cancer C61 ; 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 and Pure hypercholesterolemia E78.00 Quinten Han MD [address] [place] [address] [id number] 11/06/2024 Quinten Han Essential hypertensi on I10 and 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 Quinten Han MD [address] [place] [address] [id number] 01/13/2025 Quinten Han Preop examination Z0 1.818 and Age-related cataract of both eyes, unspecified age-related cataract type H25.9 Quinten Han MD [address] [place] [id number] 11/03/2024 Quinten Han Assessments Encounter Date Diagnosis (ICD Code) Assessment Notes Treatment Notes Treatment Clinical Notes Section Notes 09/18/2024 Pure hypercholesterolemia (ICD-10 - E78.00) 10/20/2024 Essential hypertensi on (ICD-10 - I10) 03/23/2025 Essential hypertensi on (ICD-10 - I10) 03/28/2024 Prostate cancer (ICD -10 - C61) no sign of recurrence, will continue to monitor 03/28/2024 Sciatica of right si de (ICD-10 - M54.31) needs to go back to dr walter. got frustrated with waiting and left his appointment 09/25/2024 Back pain (ICD-10 - M54.9) need notes from 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 send copy of ct with consult repeat ct abd and pelvis in one year with contrast 01/13/2025 Preop examination (ICD-10 - Z01.818) patient healthy. cleared for upcoming surgery 01/13/2025 Age-related cataract of both eyes, unspecified age-related cataract type (ICD-10 - H25.9) 03/23/2025 Pure hypercholesterolemia (ICD-10 - E78.00) 03/28/2024 Mild aortic stenosis (ICD-10 - I35.0) followed by dr haque. 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) do ct in [facility], pending diagnostic testing 03/23/2025 Prostatism (ICD-10 - N40.0) 03/28/2024 Essential hypertensi on (ICD-10 - I10) [...] Name:Quinten Marcos ier, 04/28/2025 01:00:00 PM, [address], [address], [place], [place], [id number], Insurance Providers Payer Name Payer Address Payer Phone Subscriber Number Group Number Insured Name Patient Relationship to Insured Coverage Start Date Coverage End Date MEDICARE [employer] [place] [place] [address] [id number] MYLA HERNANDEZ Self - patient is the insured 7 [facility] [address] [place], [place] [phone] [id number] MYLA HERNANDEZ Self - patient is the insured Medical (General) History Medical History History ICD Code biopsy of prostate over 5 years on bical utamide which is cassodex colonoscopy in past. Colonos copy done 03/24/2013 - no further testing required per Dr. Keller. Colonoscopy 06/20/21 no more
--- OUTSIDE RECORDS SUMMARY | 2025-03-26 02:37 | XMS_ITS | Clinical Summary ---
Author Organization [facility] Address [address] [id number] Care Team Providers Care Weight Caller Name Role Phone Quinten Han MD Primary Care Provider [phone] Allergies No known active allergies Medications Medication [...] mg total) by mouth daily. 0 Active [place]-3 Fatty Acids (FISH OIL PO) Take by [...] age to complete this topic Care Teams Weight Caller Relationship Specialty Start Date End Date Quinten Han MD [address] [place] [address] Drive [address] [place] [address] PCP - General Internal Medicine 10/19/16
--- OUTSIDE RECORDS SUMMARY | 2025-03-26 02:37 | XMS_ITS | Patient Health Record ---
Author Organization [facility] Address [address] [place] [address] Care Team Providers Care Sludge Control Attendant Name Role Phone Quinten Han MD Primary Care Provider Mike Wallace [phone] Allergies No Known Allergies Reason For Referral No Information Medications Medication SIG (Take, Route, Frequency, Duration) Notes Start Date End Date Status Omeprazole 20 MG Capsule Delayed Release 1 capsule Orally Once a day; Duration: 90 days Active Tamsulosin HCl 0.4 MG Capsule 1 capsule 30 minutes after the same meal each day Orally Once a day Active Clobetasol Propionate 0.05 % Gel 1 application to affected area Externally Twice a day Active Aspirin 81 81 MG Tablet Delayed Release 1 tablet Orally Once a day; Duration: 30 day(s) 01/03/2024 Active Atorvastatin Calcium 10 MG Tablet 1 tablet Orally Once a day Active Vitamin E Blend 400 UNIT Capsule 1 capsule Orally Once a day; Duration: 30 day(s) 01/03/2024 Active Amlodipine & Diet Manage Prod 5mg Active Fish Oil 1000 MG Capsule 1 capsule Orall y Three times a day; Duration: 30 day(s) 01/03/2024 Active Tylenol PM Extra Strength Active Pregabalin 150 MG Capsule TAKE ONE CAPSU LE BY MOUTH TWICE A DAY Oral; Duration: 90 Active Timolol Maleate 0.5 % Solution INSTILL ONE DROP IN EACH EYE TWO TIMES A DAY Ophthalmic; Duration: 60 Active hydroCHLOROthiazide 25 MG Tablet TAKE ONE TABLET BY MOUTH EVERY DAY Oral; Duration: 90 Active Amoxicillin 500 MG Tablet 2 tablets Oral ly BID; Duration: 10 days 12/30/2013 Not-Taking/GA N Biaxin 500 MG Tablet 1 tablet Orally BID; Duration: 10 days 12/30/2013 Not-Taking/GA N Gabapentin 300 MG Capsule Oral; Duration: 30 Active Immunizations Vaccine Route Administration Date Status Comme nts Influenza Unknown 11/30/2020 Refused Influenza Unknown 01/03/2024 Refused Social History Social History Additional Details Category Social Info Options Details Miscellaneous: Marital status: Occupation: Retired, but wor ks at [employer] from August-February. Section Notes: Smokes a cigar occasionally; 1 wine QD and 2-3 Scotches QD. He was born in [place] and came here when he was 19 years old. 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 Smokes a cigar occasionally; 1 wine QD--he has eliminated his Scotch He was born in [place] and came here when he was 19 years old. 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 Smokes a cigar occasionally; 1 wine QD--he has eliminated his Scotch He was born in [place] and came here when he was 19 years old. 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 Smokes a cigar occasionally; 1 wine QD--he has eliminated his Scotch He was born in [place] and came here when he was 19 years old. 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 Smokes a cigar occasionally; 1 wine QD--he has eliminated his Scotch He was born in [place] and came here when he was 19 years old. 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 Smokes a cigar occasionally; 2 glasses of wine QD, and 2-3 [employer] a few times a week He was born in [place] and came here when he was 19 years old. 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 Smokes a cigar occasionally; 2 glasses of wine QD, and 2-3 [employer] a few times a week He was born in [place] and came here when he was 19 years old. 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 Problems Problem Type SNOMED Code ICD Code Onset Dates Problem Status W/U Status Risk Notes Problem H. Pylori (00105260) Helicobacter pylori (H. 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) Active confirmed Problem Rectal pain (37021352) Rectal discomfort (K62.89) Active confirmed Problem Diverticulosis of colon (356851267) Diverticulosis of colon (K57.30) Active confirmed Plan Of Treatment Pending Test Test Name Order Date CHEM 7 PROFILE 05/31/2021 IRON + IBC (FE) 05/31/2021 VITAMIN B12 AND FOLATE 05/31/2021 CBC w DIFF 05/31/2021 CT ABD & PELVIS WITH CONTRAST 05/31/2021 Future Test Test Name Order Date UPPER GI ENDOSCOPY 03/04/2015 COLONOSCOPY 06/14/2021 Next Appt Details Provider Name:Mike Seymour Krishna , 04/08/2025 03:40:00 PM, [address] [place] [address], [address], [place], [address], Insurance Providers Payer Name Payer Address Payer Phone Subscriber Number Group Number Insured Name Patient Relationship to Insured Coverage Start Date Coverage End Date MEDICARE OF [place] [address] [place] [address] [phone] [id number] RUSS CASTREJON Self - patient is the insured [facility] [address] [place] [phone] [id number] RUSS CASTREJON Self - patient is the insured Medical (General) History Medical History History ICD Code HTN Denies PR,DM,CVA,Lung disease,renal dise ase BPH--he describes a possible prostate bi opsy in the past Hyperlipidemia Right 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 Raman Caballero() and Dr. Ku(Oncology)-- he has apparently had a negative workup for metastatic disease, including a PET-CT scan--he had cryosurgery with IR at [facility] in 04/2014--describes a CT scan in [...]
== END 2025-03-25 14:25 | disposition home or self-care (01) ==
LOC: HO.HSM 14:09
PROVIDERS: PCP Internal Medicine; Visit Provider Psychiatry & Neurology Neurology
DX: M54.16 Radiculopathy, lumbar region (principal); G62.9 Polyneuropathy, unspecified; G57.12 Meralgia paresthetica, left lower limb
CPT/HCPCS: 99214

== ENCOUNTER → 2025-03-25 14:09 | Outpatient (BNVA) | payer MEDICARE, SELFPAY | PROVIDERS: PCP Internal Medicine; Visit Provider Psychiatry & Neurology Neurology | DX: M54.16 Radiculopathy, lumbar region (principal); G62.9 Polyneuropathy, unspecified | CPT/HCPCS: 99212 ==

== ENCOUNTER 2025-04-14 15:28 | Outpatient (AMB) | payer MEDICARE, SELFPAY ==
--- OUTSIDE RECORDS SUMMARY | 2024-01-28 03:45 | XMS_ITS ---
Author Organization Quinten Han MD Address [address] [place] [phone] Care Team Providers Care Wig Sales Consultant Name Role Phone Quinten Han Primary Care Provider REASON FOR VISIT HDF Immunizations Vaccine Route Administration Date Status Comme nts Influenza High Dose IM Intramuscular 01/28/2024 Administer ed Encounters Encounter Location Date Provider Diagnosis Quinten Han MD [address] [place] [phone] 01/28/2024 Quinten Han Encounter for immunization Z23 Assessments Encounter Date Diagnosis (ICD Code) Assessment Notes Treatment Notes Treatment Clinical Notes Section Notes 01/28/2024 Encounter for immunization (ICD-10 - Z23) Plan Of Treatment Next Appt Details Provider Name:Quinten rocha, 04/28/2025 01:00:00 PM, [address], [address] [place] [address], [phone], Progress Notes * RUSS CASTREJON MDOB: 2 (85 yo M)Acc No.[id number]:01/28/2024 Progress Note Patient: RUSS DIXON Provider: Rachel Han MD :1940 A ge:83 Y S ex:Male Date:01/28/2024 Address:[address] [place], [id number] Subjective: * Chief Complaints: * 1 . [...] 0 01/28/2024 Generated for Katelyn buchanan/Elida/Jakeitting on: 1 06/15/2024 10:11 PM EST
--- OUTSIDE RECORDS SUMMARY | 2024-03-24 02:45 | XMS_ITS ---
Author Organization Quinten Han MD Address [address] [place], [place] [phone] Care Team Providers Care Field Training Manager Name Role Phone Quinten Han Primary Care Provider [phone] Results Component Value Reference Range Notes Complete Blood Count Auto Di ff Reviewed date:03/24/2024 12:32:57 PM Interpretation: Performing Lab:[facility], [address] [place] [phone] Notes/Report: White Blood Count 6.3 4.8-10.8 X10*3/uL Red Blood Count 4.71 4.60-5.80 X10*6/uL Hemoglobin 13.7 14.0-18.0 g/dl Hematocrit 43.4 42.0-52.0 % Mean Corpuscular Volume 92.1 80.0-98.0 fL Mean Corpuscular Hemoglobin 29.1 27.0-33.0 pg Mean Corpuscular HGB Conc 31.6 31.0-36.0 g/dl Red Cell Distribution Width 14.2 11.0-16.0 % Platelet Count 197 160-400 X10*3/uL Mean Platelet Volume 11.2 9.4-12.4 fL Neutrophils Percent Auto 64.2 45-73 % Imm Gran Pct Auto 0.3 0.0-0.4 % Lymphocytes Percent Auto 24.4 20-40 % Monocytes Percent Auto 8.1 2-11 % Eosinophils Percent Auto 2.4 0-4 % Basophils Percent Auto 0.6 0-2 % NRBC Pct Auto 0.0 0.0-0.2 /100WBC Neutrophils Absolute Auto 4.1 2.0-8.3 x10*3/u L Imm Gran Abs Auto 0.02 0.00-0.03 X10*3/uL Lymphocytes Absolute Auto 1.5 1.2-4.9 X10*3/u L Monocytes Absolute Auto 0.5 0.1-1.2 X10*3/uL Eosinophils Absolute Auto 0.2 0.0-0.4 X10*3/u L Basophils Absolute Auto 0.0 0.0-0.2 X10*3/uL NRBC Abs Auto 0.000 0.0-0.012 X10*3/uL Comprehensive [place]. Panel Fa st Reviewed date:03/24/2024 12:32:05 PM Interpretation: Performing Lab:[facility], [address] [place] [phone] Notes/Report: Sodium 143 135-145 mmol/L Potassium 3.4 3.3-5.1 mmol/L Chloride 100 96-108 mmol/L Carbon Dioxide 36 22-29 mmol/L Anion Gap 10 12-20 Blood Urea Nitrogen 8 9-16 mg/dL Creatinine 0.73 0.5-1.4 mg/dL Estimated Glomerular Filt Rate > 60 Chronic Kidney Disease: Estimated GFR < 60 mL/min/1.73m2 Severe Kidney Disease: Estimated GFR < 15 mL/min/1.73m2 Glucose Fasting 125 60-99 mg/dL A fasting glucose from 100-125 mg/dl is considered impaired (pre-diabetes). Calcium 8.9 8.4-10.2 mg/dL Bilirubin Total 0.6 0.0-1.0 mg/dL Aspartate Amino Transferase 24 5-37 U/L Alanine Aminotransferase 16 0-40 U/L Total Protein 6.2 6.5-8.0 g/dL Albumin Level 3.9 3.5-5.0 g/dL Alkaline Phosphatase 83 39-117 U/L Lipid Panel Reviewed date:03/24/2024 12:32:29 PM Interpretation: Performing Lab:[facility], [address] [place] [phone] Notes/Report: Triglycerides 82 <150 mg/dL Desirable Triglyceride: less than 150 mg/dL Borderline High Triglyceride 150-199 mg/dL High Triglyceride: 200-499 mg/dL Very High Triglyceride: greater than or equal to 5OO mg/dL Cholesterol 144 <200 mg/dL Desirable Cholesterol: less than 200 mg/dL Borderline High Cholesterol: 200-239 mg/dL High Cholesterol: greater than 239 mg/dL LDL Cholesterol Calculated 78 <100 mg/dL Desirable LDL: less than 100 mg/dL Near Optimal/Above Optimal LDL: 110-129 mg/dL Borderline High LDL: 130-159 mg/dL High LDL: 160-189 mg/dL Very High LDL: greater than or equal to 190 mg/dL HDL Cholesterol 50 >40 mg/dL Desirable HDL: greater than 40 mg/dL Note: This HDL assay may give artificially low results in patients with liver disease. PSA,Total (Free>4and<10) Reviewed date:03/24/2024 12:31:46 PM Interpretation: Performing Lab:[facility], [address] [place] [phone] Notes/Report: PSA,Total (Free>4and<10) < 0.10 0.00-4.00 ng/mL A Free PSA was not performed: The percentage of Free PSA can be used to enhance the differentiation of prostate cancer from benign prostatic disease in subjects whose PSA levels are between 4.0 and 10.0 ng/mL. For subjects whose PSA levels are below 4.0 or above 10.0 ng/mL, the risk of prostate cancer is determined on the basis of the PSA alone. Therefore the % Free PSA is recommended only for those subjects whose PSA levels are between 4.0 and 10.0 ng/mL. PSA methodology: Richardson Alinity i Chemiluminescent Microparticle Immunoassay (CMIA) UA ClnCatch+Micro w/rflx Cul t Reviewed date:03/24/2024 12:47:18 PM Interpretation: Performing Lab:[facility], [address] [place] [phone] Notes/Report: [id number] Urine, Clean Catch Color Urine Yellow Appearance Urine Clear PH 8.0 5.0-9.0 Glucose Urine UA Negative Negative mg/dL Urine Blood Negative Negative Specific [place] - Urine 1.015 1.005-1.025 Urine Protein Negative Neg-Trace mg/dL Urine Ketones Negative Negative mg/dL Nitrite Urine Negative Negative Leukocyte Esterase Urine Trace Negative RBC Urine 0-2 0-2 /HPF WBC Urine 0-5 0-5 /HPF Squamous Epithelial Cell Urine 0-2 0-2 /HPF Bacteria Urine None Seen None Seen Hyaline Casts Urine 0-2 0-2 /LPF REASON FOR VISIT yearly fasting labs Encounters Encounter Location Date Provider Diagnosis Quinten Han MD [address] [place] [address] [place] [phone] 03/24/2024 Quinten Han Essential hypertensi on I10 ; Prostatism N40.0 ; Pure hypercholesterolemia E78.00 and Hypercholesterolemia E78.00 Assessments Encounter Date Diagnosis (ICD Code) Assessment Notes Treatment Notes Treatment Clinical Notes Section Notes 03/24/2024 Essential hypertensi on (ICD-10 - I10) 03/24/2024 Prostatism (ICD-10 - N40.0) 03/24/2024 Pure hypercholesterolemia (ICD-10 - E78.00) 03/24/2024 Hypercholesterolemia (ICD-10 - E78.00) Plan Of Treatment Next Appt Details Provider Name:Quinten Marcos ier, 04/28/2025 01:00:00 PM, [address] [place] [address] Drive, [address], [place], [place], [phone], Progress Notes * RUSS CASTREJON MDOB: 2 (85 yo M)Acc No.[id number]:03/24/2024 Progress Note Patient: NYDIA DIXONLORENZA Lion Provider: Rachel Han MD :1940 A ge:84 Y S ex:Male Date:03/24/2024 Address:[address] [place], [place] [address], [id number] Subjective: * Chief Complaints: * 1 . Yearly fasting labs. * Medical History: Objective: * Vitals: Assessment: * Assessment: 1. E ssential hypertension - I10 (Primary) 2 . P rostatism - N40.0 ? 3 . P ure hypercholesterolemia - E78.00 4 . H ypercholesterolemia - E78.00 Plan: * Treatment: 2. P rostatism L AB: Complete Blood Count Auto Diff (Collection Date & Time - 03/24/2024 07:45 AM) L AB: Comprehensive [place]. Panel Fast (Collection Date & Time - 03/24/2024 07:45 AM) L AB: Lipid Panel (Collection Date & Time - 03/24/2024 07:45 AM) L AB: PSA,Total (Free>4and<10) (Collection Date & Time - 03/24/2024 07:45 AM) L AB: UA ClnCatch+Micro w/rflx Cult (Collection Date & Time - 03/24/2024 07:45 AM) 3. P ure hypercholesterolemia L AB: Complete Blood Count Auto Diff (Collection Date & Time - 03/24/2024 07:45 AM) L AB: Comprehensive [place]. Panel Fast (Collection Date & Time - 03/24/2024 07:45 AM) L AB: Lipid Panel (Collection Date & Time - 03/24/2024 07:45 AM) L AB: PSA,Total (Free>4and<10) (Collection Date & Time - 03/24/2024 07:45 AM) L AB: UA ClnCatch+Micro w/rflx Cult (Collection Date & Time - 03/24/2024 07:45 AM) 4. H ypercholesterolemia L AB: Complete Blood Count Auto Diff (Collection Date & Time - 03/24/2024 07:45 AM) L AB: Comprehensive [place]. Panel Fast (Collection Date & Time - 03/24/2024 07:45 AM) * Procedure Codes: 3 6415 VENIPUNCT, ROUTINE* * * The named appointment provid er may or may not be the originator of this progress note, and it is not deemed complete until electronically signed by the appointment provider. Sign off status: Pending * Provider: Rachel Han MD Date: 05/24/2023 Generated for Katelyn buchanan/Elida/Jakeitting on: 06/15/2024 10:13 PM EST
--- OUTSIDE RECORDS SUMMARY | 2024-03-28 04:30 | XMS_ITS ---
Author Organization Quinten Han MD Address [address] [place], [place] [id number] Care Team Providers Care C Web Developer Name Role Phone Quinten Han Primary Care [...] General Notes Oanh,Kamilah 10:15:15 AM EST > [place] office [phone] Kamilah Hugo 04/01/2024 02:23:45 PM EST > info faxed [phone] Annette 04/15/2024 10:37:45 AM EST > called [...] Problem Status W/U Status Risk Notes Problem [id number] Mild aortic stenosis (I35.0) Active confirmed Vital Signs Blood pressure systolic 110 mm Hg 03/28/20 24 Blood pressure diastolic 74 mm Hg 024 Height 64 in 03/28/2024 Weight 197 lbs 03/28/2024 BMI 33.81 kg/m2 03/28/2024 Encounters Encounter Location Date Provider Diagnosis Quinten Han MD [address] [facility] [address] [place], [place] [phone] 03/28/2024 Quinten Han Prostate cancer C61 ; [...] 6 Months, Reason: Provider Name:Quinten Marcos ier, 04/28/2025 01:00:00 PM, [address] [place] [address], [address], [place], [place], [phone], Progress Notes * RUSS CASTREJON MDOB: 2 (84 yo M)Acc No.[id number]:03/28/2024 Patient: Swathi SHAYYROSSY HookerRadha Lion Provider: Rachel Han MD :1940 A ge:84 Y S ex:Male Date:03/28/2024 Address:[address] [place] [address], [id number] Subjective: * Chief Complaints: * C omp [...] mg/dL Urine Blood Negative Negative - Specific [place] - Urine 1.015 1.005-1.025 - Urine Protein [...] Auto 0.000 0.0-0.012 - X10*3/uL L ab:Comprehensive [place]. Panel Fast (Order Date - 03/24/2024) (Collection [...] plan: C ounseling for abnormal BMI provided?Yes, A gokul Normal BMI Follow-up G iving encouragement to exercise. * Follow Up: 6 Months * * Sign off status: Completed true * Provider: Rachel Han MD Date: 05/28/2023 Generated for Katelyn buchanan/Elida/Chang on: 06/15/2024 10:09 PM EST History and Physical Notes * HPI [...] had two or more falls in the year?: No Communication Needs Communication Needs Does [...] Referral Date Referring Provider Referred Provider Not bereket 03/28/2024 Quinten Han Syed M. Khurram S ciatica of right side
--- OUTSIDE RECORDS SUMMARY | 2024-09-18 02:30 | XMS_ITS ---
Author Organization Quinten Han MD Address [address] [place], [place] [phone] Care Team Providers Care Bird Sitter Name Role Phone Quinten Han Primary Care Provider Results Component Value Reference Range Notes Liver Panel Reviewed date:09/18/2024 04:25:13 PM Interpretation: Performing Lab:[facility], [address] [place] [phone] Notes/Report: Bilirubin Total 0.6 0.0-1.0 mg/dL Bilirubin Direct 0.2 0.0-0.5 mg/dL Aspartate Amino Transferase 26 5-37 U/L Alanine Aminotransferase 21 0-40 U/L Total Protein 6.5 6.5-8.0 g/dL Albumin Level 4.2 3.5-5.0 g/dL Alkaline Phosphatase 85 39-117 U/L Lipid Panel with Reflex Reviewed date:09/18/2024 04:39:57 PM Interpretation: Performing Lab:[facility], [address] [place] [address] Notes/Report: Triglycerides 66 <150 mg/dL Desirable Triglyceride: [...] Date Provider Diagnosis Quinten Han MD [address] [place] [address] [place] [phone] 09/18/2024 Quinten Han Pure hypercholestero lemia E78.00 Assessments Encounter Date Diagnosis (ICD Code) Assessment Notes Treatment Notes Treatment Clinical Notes Section Notes 09/18/2024 Pure hypercholesterolemia (ICD-10 - E78.00) Plan Of Treatment Next Appt Details Provider Name:Quinten Marcos ier, 04/28/2025 01:00:00 PM, [address] [place] [address], Suite [facility], [place], [place], [phone], Progress Notes * RUSS CASTREJON MDOB: 2 (85 yo M)Acc No.[id number]:09/18/2024 Progress Note Patient: Swathi LUCASNhung RUSS Lion Provider: Rachel Han MD :1940 A ge:84 Y S ex:Male Date:09/18/2024 Address:[address] [place] [address] [id number] Subjective: * Chief Complaints: * 1 . [...] MD Date: 0 09/18/2024 Generated for Katelyn buchanan/Elida/Chang on: 1 06/15/2024 10:11 PM EST
--- OUTSIDE RECORDS SUMMARY | 2024-09-25 04:00 | XMS_ITS ---
Author Organization Quinten Han MD Address [address] [place], [place] [phone] Care Team Providers Care Senior Accounting Analyst Name Role Phone Quinten Han Primary [...] Date Provider Diagnosis Quinten Han MD 10 [facility] [address] [place] [phone] 09/25/2024 Quinten Han Back pain M54.9 ; Pr ostate cancer C61 ; 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 and Pure hypercholesterolemia E78.00 Assessments Encounter Date Diagnosis (ICD Code) Assessment Notes Treatment Notes Treatment Clinical Notes Section Notes 09/25/2024 Back pain (ICD-10 - M54.9) [place] [facility] [place] 09/25/2024 Prostate cancer (ICD -10 - C61) seen by oncology and no sigh of recurrence 09/25/2024 Mesenteric adenitis (ICD-10 - I88.0) do ct in [facility], pending diagnostic testing 09/25/2024 Pure hypercholesterolemia (ICD-10 [...] Assessment Notes Back pain [place] [facility] Prostate cancer seen by oncology and no sigh of recurrence Mesenteric adenitis do ct in [facility], pendin g diagnostic testing Pure hypercholesterolemia at goal, will continue current regiment Pending Test Test Name Order Date CT ABD & PELVIS WITH CONTRAST 09/25/2024 Next Appt Details Follow Up: after cat scan, Tamie nettleson: Provider Name:Quinten rocha, 04/28/2025 01:00:00 PM, [address], [address], [place], [place], [phone], Progress Notes * RUSS CASTREJON MDOB: 2 (84 yo M)Acc No.[id number]:09/25/2024 Progress Notes Patient: RUSS DIXON Provider: Rachel Han MD :1940 A ge:84 Y S ex:Male Date:09/25/2024 Address:[address] [place] [id number] Subjective: * Chief Complaints: * 6 month [...] PELVIS WITH CONTRAST Notes: do ct in [facility], pending diagnostic testing??4.?Pure hypercholesterolemia? Continue Atorvastatin Calcium Tablet, 20 MG, TAKE ONE TABLET BY MOUTH EVERY DAY.?? Notes: at goal, will continue current regiment?? * Procedure Codes: * Follow Up: a fter cat scan * * Sign off status: Completed true * Provider: Rachel Han MD Date: 0 09/25/2024 Generated for Katelyn buchanan/Elida/Jakeitting on: 1 06/15/2024 10:08 PM EST History and Physical Notes * [...]
--- OUTSIDE RECORDS SUMMARY | 2024-10-20 02:45 | XMS_ITS ---
Author Organization Quinten Han MD Address [address] [place], [place] [phone] Care Team Providers Care Telecommunication Lines Repairer Name Role Phone Quinten Han Primary Care Provider [phone] Results Component Value Reference Range Notes Blood Urea Nitrogen Reviewed date:10/20/2024 04:32:38 PM Interpretation: Performing Lab:[facility], [address] [place] [phone] Notes/Report: Blood Urea Nitrogen 11 9-16 mg/dL Creatinine Reviewed date:10/20/2024 04:32:46 PM Interpretation: Performing Lab:[facility], [address] [place] [phone] Notes/Report: Creatinine 0.58 0.5-1.4 mg/dL Estimated Glomerular Filt Rate > 60 Chronic Kidney Disease: Estimated GFR < 60 mL/min/1.73m2 Severe Kidney Disease: Estimated GFR < 15 mL/min/1.73m2 REASON FOR VISIT BUN and Creatinine for Ct scan abd booked at [facility] at 2pm Encounters Encounter Location Date Provider Diagnosis Quinten Han MD [address] [place], [place] [phone] 10/20/2024 Quinten Han Essential hypertension I10 Assessments Encounter Date Diagnosis (ICD Code) Assessment Notes Treatment Notes Treatment Clinical Notes Section Notes 10/20/2024 Essential hypertension (ICD-10 - I10) Plan Of Treatment Next Appt Details Provider Name:Quinten Marcos ier, 04/28/2025 01:00:00 PM, [address], [address], [place], [place], [phone], Progress Notes * RUSS CASTREJON MDOB: 2 (85 yo M)Acc No.[id number]:10/20/2024 Progress Note Patient: NYDIA DIXONLORENZA Lion Provider: Rachel Han MD :1940 A ge:84 Y S ex:Male Date:10/20/2024 Address:[address] [place] [address] [place], [id number] Subjective: * Chief Complaints: * 1 . BUN and Creatinine for Ct scan abd booked at [facility] 10-30-24 at 2pm. * Medical History: Objective: [...] 0 10/20/2024 Generated for Katelyn buchanan/Elida/Jakeitting on: 1 06/15/2024 10:08 PM EST
--- OUTSIDE RECORDS SUMMARY | 2024-11-03 05:43 | XMS_ITS ---
Author Organization Quinten Han MD Address [address] [place] [phone] Care Team Providers Care Pouncer Machine Name Role Phone Quinten Han Primary Care Provider Encounters Encounter Location Date Provider Diagnosis Quinten Han MD [address] [facility] [address] [place] [phone] 11/03/2024 Quinten Han Plan Of Treatment Next Appt Details Provider Name:Quinten Marcos ier, 04/28/2025 01:00:00 PM, [address] [place] [address], [address] [place] [address], [phone], Progress Notes * RUSS CASTREJON MDOB: 2 (84 yo M)Acc No.[id number]:11/03/2024 Patient: RUSS DIXON :1940 A ge:84 Y S ex:Male Address:[address] [place] [address] [place], [phone] * true * Date: Generated for Katelyn buchanan/Elida/Chang on: 06/15/2024 10:12 PM EST
--- OUTSIDE RECORDS SUMMARY | 2024-11-06 05:30 | XMS_ITS ---
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) Referral Organization Quinten Han MD Referring Provider First Name Quinten Referring Provider Last Name Guille Referring Provider Speciality Internal M edicine Referred Provider Anthony Pearce Referred Provider Specialty Surgery General Notes Oanh Kamilah 0 11/06/2024 10:54:32 AM >referral info sent, Kamilah Hugo 11/14/2024 09:16:17 AM >called patient with info and mailed Referral Priority Routine Referral Appointment Date 01/06/[address] CBACK CT SCAN Medications Medication SIG (Take, Route, Frequency, Duration) Notes Start Date End Date Status hydroCHLOROthiazide 25 MG TAKE ONE TABLE T BY MOUTH EVERY DAY Active Bicalutamide 50 MG 1 tablet Orally Once a day Not-Taking amLODIPine Besylate 5 MG TAKE ONE TABLET BY MOUTH EVERY DAY Active Aspir-Low 81 MG 1 tablet Orally Once a day for 30 day(s) Active Senna 30 MG Orally Active Hydrocortisone Elias-Pramoxine 2.5-1 % 1 application as needed Externally 2 times a day for 14 days 04/21/2019 Not-Taking Clobetasol Propionate 0.05 % 1 applicati on to affected area Externally Twice a day for 90 days Not-Taking Finasteride 5 1 tablet Orally Once a day Not-Taking Tamsulosin HCl 0.4 MG TAKE 1 CAPSULE ONC E DAILY 30 MINUTES AFTER THE SAME MEAL EACH DAY Active Atorvastatin Calcium 20 MG TAKE ONE TABL ET BY MOUTH EVERY DAY Active Pregabalin 150 MG TAKE ONE CAPSULE BY MOUTH TWICE A DAY for 90 08/01/2024 Active Vital Signs Blood pressure systolic 102 mm Hg 11/07/19 25 Blood pressure diastolic 60 mm Hg 025 Height 64 in 11/06/2024 Weight 191 lbs 11/06/2024 BMI 32.78 kg/m2 11/06/2024 weight is down 6 pounds [facility] e 09-25-24 Encounters Encounter Location Date Provider Diagnosis Quinten Han MD [address] [place] [address] [place] [phone] 11/06/2024 Quinten Han Essential hypertension I10 and 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 Assessments Encounter Date Diagnosis (ICD Code) Assessment Notes Treatment Notes Treatment Clinical Notes Section Notes 11/06/2024 Essential hypertension (ICD-10 - I10) doing well, will continue current regiment 11/06/2024 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 send copy of ct with consult repeat ct abd and pelvis in one year with contrast Plan Of Treatment Medication Medication Name Sig Start Date Stop Date Notes hydroCHLOROthiazide 25 MG TAKE ONE TABLE T BY MOUTH EVERY DAY amLODIPine Besylate 5 MG TAKE ONE TABLET BY MOUTH EVERY DAY Treatment Notes Assessment Notes Essential hypertension doing well, will continue current regiment Mesenteric adenitis discussed results of CT scan with patient, referral to dr miller. send copy of ct with consult repeat ct abd and pelvis in one year with contrast Referrals Referral Date Details 11/06/2024 11/06/2024, Hand art hritis evaluate for cortisone injections, Salima Noel 11/06/2024 11/06/2024, mesenter ic adenitis, Anthony Pearce Next Appt Details Provider Name:Quinten montaguer, 04/28/2025 01:00:00 PM, [address] [place] [address], [address], [place], [place], [phone], Progress Notes * RUSS CASTREJON MDOB: 2 (84 yo M)Acc No.[id number]:11/06/2024 Patient: RUSS DIXON Provider: Rachel Han MD :1940 A ge:84 Y S ex:Male Date:11/06/2024 Address:[address] [place], [place] [address], [id number] Subjective: * Chief Complaints: * C BACK CT SCAN * HPI: S ymptom(s): patient is a 84 yo male here to discuss recent CT scan. * ROS: G eneral/Constitutional: Denies C hills. [...] a day Senna 30 MG Miscellaneous Orally Pregabalin 150 MG Capsule TAKE ONE CAPSULE BY MOUTH TWICE A DAY Tamsulosin HCl 0.4 MG Capsule TAKE 1 CAPSULE ONCE DAILY 30 MINUTES AFTER THE SAME MEAL EACH DAY Atorvastatin Calcium 20 MG Tablet TAKE ONE TABLET BY MOUTH EVERY DAY hydroCHLOROthiazide 25 MG Tablet TAKE ONE TABLET BY MOUTH EVERY DAY amLODIPine Besylate 5 MG Tablet TAKE ONE TABLET BY MOUTH EVERY DAY Taking Aspir-Low 81 MG Tablet Delayed Release 1 tablet Orally Once a day Taking Senna 30 MG Miscellaneous Orally Taking Pregabalin 150 MG Capsule TAKE ONE CAPSULE BY MOUTH TWICE A DAY Taking Tamsulosin HCl 0.4 MG Capsule TAKE 1 CAPSULE ONCE DAILY 30 MINUTES AFTER THE SAME MEAL EACH DAY Taking Atorvastatin Calcium 20 MG Tablet TAKE ONE TABLET BY MOUTH EVERY DAY Taking hydroCHLOROthiazide 25 MG Tablet TAKE ONE TABLET BY MOUTH EVERY DAY Taking amLODIPine Besylate 5 MG Tablet TAKE ONE TABLET BY MOUTH EVERY DAY Not-Taking/PRNHydrocortisone Elias-Pramoxine 2.5-1 % Cream 1 [...] Objective: * Vitals: H t: 64, Wt: 191, BMI:32.78, BP:102/60, Wt-k.64. weight is down 6 pounds since 09-25-24. * Examination: G eneral Examination: GENERAL APPEARANCE: a lert, well hydrated, in no distress.? HEAD: n ormocephalic. SKIN: g ood turgor. HEART: r egular rate and rhythm, no murmurs, rubs, gallops.? LUNGS: n o wheezes, rales, rhonchi, good air movement, clear to auscultation bilaterally. ABDOMEN: s oft, nontender, nondistended, no rebound tenderness. Assessment: * Assessment: 1. E ssential hypertension - I10 (Primary) 2 . M esenteric adenitis - I88.0? Plan: * Treatment: 2. M esenteric adenitis Notes: discussed results of CT scan with patient, referral to dr miller. send copy of ct with consult repeat ct abd and pelvis in one year with contrast ? Referral To:Anthony Pearce Surgery Reason:mesenteric adenitis 3. O thers Referral To:Salima Noel Hand Surgery Reason:Hand arthritis evaluate for cortisone injections * Procedure Codes: * * Sign off status: Completed true * Provider: Rachel Han MD Date: 0 11/06/2024 Generated for Katelyn buchanan/Elida/eTransmitting on: 1 06/15/2024 10:10 PM EST History and Physical Notes * HPI (History of Present Illness) Category Sub-Category Detail Notes Category Not es Symptom(s) patient is a 84 yo male here to discuss recent CT scan Examination Category Sub-Category Detail Notes Category Not es General Examination GENERAL APPEARANCE: alert, w ell hydrated, in no distress HEAD: normocephalic HEART: regular rate and rhy thm, no murmurs, rubs, gallops LUNGS: no wheezes, rales, r honchi, good air movement, clear to auscultation bilaterally ABDOMEN: soft, nontender, non distended, no rebound tenderness SKIN: good turgor Consultation Request Notes Referral Date Referring Provider Referred Provider Not es 11/06/2024 Quinten Han Allison Hand a rthritis evaluate for cortisone injections 11/06/2024 Quinten Han John mesenteri c adenitis
--- OUTSIDE RECORDS SUMMARY | 2025-01-13 04:15 | XMS_ITS ---
Author Organization Quinten Han MD Address [address] [place], [place] [phone] Care Team Providers Care Nurse Private Duty Name Role Phone Quinten Han Primary Care Provider [phone] Allergies Allergen (clinical drug ingredient) Drug/Non Drug Allergy documented on EMR Reaction Allergy Type Onset Date Status ibuprofen Ibuprofen hallucinating Drug Allergy Act eddie REASON FOR VISIT Cataract- Pre Op, Dr. Moore scheduled for 01-19-25, waiting until after surgery for HDF Medications Medication SIG (Take, Route, Frequency, Duration) Notes Start Date End Date Status Atorvastatin Calcium 20 MG TAKE ONE TABL ET BY MOUTH EVERY DAY for 90 Active Clobetasol Propionate 0.05 % 1 applicati on to affected area Externally Twice a day for 90 days Not-Taking Hydrocortisone Elias-Pramoxine 2.5-1 % 1 application as needed Externally 2 times a day for 14 days 04/21/2019 Not-Taking Bicalutamide 50 MG 1 tablet Orally Once a day Not-Taking Finasteride 5 1 tablet Orally Once a day Not-Taking amLODIPine Besylate 5 MG TAKE ONE TABLET BY MOUTH EVERY DAY Active Senna 30 MG Orally Active Tamsulosin HCl 0.4 MG TAKE 1 CAPSULE ONC E DAILY 30 MINUTES AFTER THE SAME MEAL EACH DAY Active Pregabalin 150 MG TAKE ONE CAPSULE BY MOUTH TWICE A DAY for 90 08/01/2024 Active hydroCHLOROthiazide 25 MG TAKE ONE TABLE T BY MOUTH EVERY DAY Active Aspir-Low 81 MG 1 tablet Orally Once a day for 30 day(s) Active Vital Signs Blood pressure systolic 102 mm Hg 01/14/20 25 Blood pressure diastolic 56 mm Hg 025 Height 64 in 01/13/2025 Weight 193 lbs 01/13/2025 BMI 33.12 kg/m2 01/13/2025 weight is up 2 pounds since 11-06-24 Encounters Encounter Location Date Provider Diagnosis Quinten Han MD [address] [place] [address] [place] [id number] 01/13/2025 Quinten Han Preop examination Z01.818 and Age-related cataract of both eyes, unspecified age-related cataract type H25.9 Assessments Encounter Date Diagnosis (ICD Code) Assessment Notes Treatment Notes Treatment Clinical Notes Section Notes 01/13/2025 Preop examination (ICD-10 - Z01.818) patient healthy. cleared for upcoming surgery 01/13/2025 Age-related cataract of both eyes, unspecified age-related cataract type (ICD-10 - H25.9) Plan Of Treatment Treatment Notes Assessment Notes Preop examination patient healthy. meño ared for upcoming surgery Next Appt Details Provider Name:Quinten Marcos ier, 04/28/2025 01:00:00 PM, [address] [place] [address] Drive, [address], [place], [place], [phone], Progress Notes * RUSS CASTREJON MDOB: 2 (84 yo M)Acc No.[id number]:01/13/2025 Patient: RUSS DIXON Provider: Rachel Han MD :1940 A ge:84 Y S ex:Male Date:01/13/2025 Address:[place], [id number] Subjective: * Chief Complaints: * C ataract- Pre Op, Dr. Moore scheduled for 7-95-38pwzpxfe until after surgery for HDF * HPI: S ymptom(s): patient is a 84 yo male here for pre-op clearance visit prior to planned cataract surgery with Dr Moore/ saw dr miller one week ago and he said he should see a gi. is going to see dr monge. * ROS: G eneral/Constitutional: Denies C hills. [...] Objective: * Vitals: H t: 64, Wt: 193, BMI:33.12, BP:102/56, Wt-k.54. weight is up 2 pounds since 11-06-24. * Examination: G eneral Examination: GENERAL APPEARANCE: a lert, well hydrated, in no distress.? HEAD: n ormocephalic. EYES: e xtraocular movement full and smooth. EARS: B OTH EARS, normal. THROAT: p harynx normal. NECK/THYROID: n yonathan supple, no carotid bruit. SKIN: n o rashes. HEART: n o murmurs, rubs, gallops, regular rate and rhythm.? LUNGS: n o wheezes, rales, rhonchi, good air movement, clear to auscultation bilaterally. ABDOMEN: s oft, nontender, nondistended. EXTREMITIES: n o edema. Assessment: * Assessment: 1. A ge-related cataract of both eyes, unspecified age-related cataract type - H25.9 (Primary)? 2. P reop examination - Z01.818 Plan: * Treatment: * Procedure Codes: * * Sign off status: Completed true * Provider: Rachel Han MD Date: 0 01/13/2025 Generated for Katelyn buchanan/Elida/Chang on: 06/15/2024 10:13 PM EST History and Physical Notes * HPI (History of Present Illness) Category Sub-Category Detail Notes Category Not es Symptom(s) patient is a 84 yo male here for pre-op clearance visit prior to planned cataract surgery with Dr Moore/ saw dr miller one week ago and he said he should see a gi. is going to see dr monge Examination Category Sub-Category Detail Notes Category Not es General Examination GENERAL APPEARANCE: alert, w ell hydrated, in no distress HEAD: normocephalic EYES: extraocular movement full and smooth EARS: BOTH EARS, normal THROAT: pharynx normal NECK/THYROID: neck supple, no dodge tid bruit HEART: no murmurs, rubs, ga llops, regular rate and rhythm LUNGS: no wheezes, rales, r honchi, good air movement, clear to auscultation bilaterally ABDOMEN: soft, nontender, non distended SKIN: no rashes EXTREMITIES: no edema
--- OUTSIDE RECORDS SUMMARY | 2025-03-23 02:30 | XMS_ITS ---
Author Organization Quinten Han MD Address [address] [place], [place] [phone] Care Team Providers Care Quality Compliance Manager Name Role Phone Quinten Han Primary Care Provider Results Component Value Reference Range Notes Complete Blood Count Auto Di ff Reviewed date:03/23/2025 12:45:29 PM Interpretation: Performing Lab:[facility], [address] [place] [phone] Notes/Report: White Blood Count 6.5 4.8-10.8 X10*3/uL [...] NRBC Abs Auto 0.000 0.0-0.012 X10*3/uL Comprehensive [place]. Panel Fa st Reviewed date:03/23/2025 12:58:44 PM Interpretation: Performing Lab:[facility], [address] [place] [phone] Notes/Report: Sodium 143 135-145 mmol/L Potassium 3.7 [...] Panel Reviewed date:03/23/2025 12:45:06 PM Interpretation: Performing Lab:[address] [phone] Notes/Report: Triglycerides 87 <150 mg/dL Desirable Triglyceride: [...] (Free>4and<10) Reviewed date:03/23/2025 12:26:28 PM Interpretation: Performing Lab:[address] [phone] Notes/Report: PSA,Total (Free>4and<10) < 0.10 0.00-4.00 ng/mL [...] between 4.0 and 10.0 ng/mL. PSA methodology: [employer] i Chemiluminescent Microparticle Immunoassay (CMIA) UA ClnCatch+Micro w/rflx Cul t Reviewed date:03/23/2025 12:30:05 PM Interpretation: Performing Lab:[facility], [address] [place] [phone] Notes/Report: Urine, Clean Catch Color Urine Yellow Appearance Urine Clear PH 8.0 5.0-9.0 Glucose Urine UA Negative Negative mg/dL Urine Blood Negative Negative Specific [place] - Urine 1.015 1.005-1.025 Urine Protein Negative [...] Location Date Provider Diagnosis Quinten Han MD [address] [place] [address] [place] [id number] 03/23/2025 Quinten Han Essential hypertensi on I10 ; Pure hypercholesterolemia E78.00 and Prostatism N40.0 Assessments Encounter Date Diagnosis (ICD Code) Assessment Notes Treatment Notes Treatment Clinical Notes Section Notes 03/23/2025 Essential hypertensi on (ICD-10 - I10) 03/23/2025 Pure hypercholesterolemia (ICD-10 - E78.00) 03/23/2025 Prostatism (ICD-10 - N40.0) Plan Of Treatment Next Appt Details Provider Name:Quinten Marcos ier, 04/28/2025 01:00:00 PM, [address] [place] [address], Suite [facility], [place], [place], [phone], Progress Notes * RUSS CASTREJON MDOB: 2 (85 yo M)Acc No.[id number]:03/23/2025 Progress Note Patient: RUSS DIXON Provider: Rachel Han MD :1940 A ge:85 Y S ex:Male Date:03/23/2025 Address:[address] [place] [address] Swathi BENTLEY [phone] Subjective: * Chief Complaints: * 1 . [...] - 03/23/2025 07:30 AM) L AB: Comprehensive [place]. Panel Fast (Collection Date & Time - [...] - 03/23/2025 07:30 AM) L AB: Comprehensive [place]. Panel Fast (Collection Date & Time - [...] Pending * Provider: Rachel Han MD Date: 1 05/23/2024 Generated for Katelyn buchanan/Elida/Chang on: 06/15/2024 10:11 PM EST
--- OUTSIDE RECORDS SUMMARY | 2025-04-08 10:40 | XMS_ITS ---
Author Organization [facility] Address [address] [place] [address] Care Team Providers Care Assistant Professor In Family Studies Name Role Phone Quinten Han MD Primary Care Provider Mike Wallace [phone] REASON FOR VISIT Patient presents today for Medications Medication SIG (Take, Route, Frequency, Duration) Notes Start Date End Date Status Pregabalin 150 MG Capsule TAKE ONE CAPSU LE BY MOUTH TWICE A DAY Oral; Duration: 90 Active hydroCHLOROthiazide 25 MG Tablet TAKE ONE TABLET BY MOUTH EVERY DAY Oral; Duration: 90 Active Omeprazole 20 MG Capsule Delayed Release 1 capsule Orally Once a day; Duration: 90 days Active Atorvastatin Calcium 10 MG Tablet 1 tablet Orally Once a day Active Amlodipine & Diet Manage Prod 5mg Active Tylenol PM Extra Strength Active Tamsulosin HCl 0.4 MG Capsule 1 capsule 30 minutes after the same meal each day Orally Once a day Active Aspirin 81 81 MG Tablet Delayed Release 1 tablet Orally Once a day; Duration: 30 day(s) 01/03/2024 Active Amoxicillin 500 MG Tablet 2 tablets Oral ly BID; Duration: 10 days 12/30/2013 Not-Taking/PRN Biaxin 500 MG Tablet 1 tablet Orally BID; Duration: 10 days 12/30/2013 Not-Taking/PRN Social History Social History Additional Details Category Social Info Options Details Miscellaneous: Marital status: Occupation: Retired, but wor ks at [employer] from August-February- -now completely retired Section Notes: Smokes a cigar occasionally; 2 glasses of wine QD, and 2-3 [employer]bons at the [employer] a few times a week He was born in [place] and came here when he was 19 years old. 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 You can ask the [facility] Oncologist, Dr. Quinones, about the Mesenteric Adenitis and if it needs a biopsy. I will try to speak with her as well. Myla Peng appears quite well from a clinical standpoint. While the mesenteric adenitis remains on his most recent CT scan, he does not appear to be having any worrisome systemic symptoms to suggest an underlying neoplasm at this time. While there may be some slight changes in the area of the mesenteric adenitis on the most recent CT scan, they do not seem to be appreciably different as compared to previous CT scans dating back as far as 2017. I advised him that I think having him undergo a biopsy of the mesenteric adenitis might be of low yield, but we also reviewed that an underlying neoplasm such as lymphoma could not be definitively ruled out unless a biopsy was done. As such, I advised him that I would try to get a hold of his most recent CT scan report done at [facility] from last month and review that with his oncologist, Dr. Quinones. I advised him that I would be inclined to leave it up to her as to whether or not a biopsy would be beneficial for him. In regard to his overall GI symptoms I advised him that he does not seem to have anything particularly new in that regard nor anything worrisome. Given the otherwise negative CT scan in that regard as well as a negative colonoscopy in 2021, I advised him that I do not think needs any particular workup from a GI standpoint at this time. I have not given him a follow-up appointment at this time but will try to review things with his oncologist and be in touch with him as needed. I did advise him to contact me in the interim if he has any problems or questions I can be of assistance with. Myla was comfortable with this plan. Thank you again for allowing me to participate in Myla's care. I shall continue to keep you advised of his progress. 04/08/2025 Fullness of abdomen (ICD-10 - R19.8) EOverall, Myla appears quite well from a clinical standpoint. While the mesenteric adenitis remains on his most recent CT scan, he does not appear to be having any worrisome systemic symptoms to suggest an underlying neoplasm at this time. While there may be some slight changes in the area of the mesenteric adenitis on the most recent CT scan, they do not seem to be appreciably different as compared to previous CT scans dating back as far as 2017. I advised him that I think having him undergo a biopsy of the mesenteric adenitis might be of low yield, but we also reviewed that an underlying neoplasm such as lymphoma could not be definitively ruled out unless a biopsy was done. As such, I advised him that I would try to get a hold of his most recent CT scan report done at [facility] from last month and review that with his oncologist, Dr. Quinones. I advised him that I would be inclined to leave it up to her as to whether or not a biopsy would be beneficial for him. In regard to his overall GI symptoms I advised him that he does not seem to have anything particularly new in that regard nor anything worrisome. Given the otherwise negative CT scan in that regard as well as a negative colonoscopy in 2021, I advised him that I do not think needs any particular workup from a GI standpoint at this time. I have not given him a follow-up appointment at this time but will try to review things with his oncologist and be in touch with him as needed. I did advise him to contact me in the interim if he has any problems or questions I can be of assistance with. Myla was comfortable with this plan. Thank you again for allowing me to participate in Myla's care. I shall continue to keep you advised of his progress. 04/08/2025 Bloating (ICD-10 - R14.0) EOverall, Myla appears quite well from a clinical standpoint. While the mesenteric adenitis remains on his most recent CT scan, he does not appear to be having any worrisome systemic symptoms to suggest an underlying neoplasm at this time. While there may be some slight changes in the area of the mesenteric adenitis on the most recent CT scan, they do not seem to be appreciably different as compared to previous CT scans dating back as far as 2016. I advised him that I think having him undergo a biopsy of the mesenteric adenitis might be of low yield, but we also reviewed that an underlying neoplasm such as lymphoma could not be definitively ruled out unless a biopsy was done. As such, I advised him that I would try to get a hold of his most recent CT scan report done at [facility] from last month and review that with his oncologist, Dr. Quinones. I advised him that I would be inclined to leave it up to her as to whether or not a biopsy would be beneficial for him. In regard to his overall GI symptoms I advised him that he does not seem to have anything particularly new in that regard nor anything worrisome. Given the otherwise negative CT scan in that regard as well as a negative colonoscopy in 2021, I advised him that I do not think needs any particular workup from a GI standpoint at this time. I have not given him a follow-up appointment at this time but will try to review things with his oncologist and be in touch with him as needed. I did advise him to contact me in the interim if he has any problems or questions I can be of assistance with. Myla was comfortable with this plan. Thank you again for allowing me to participate in Jacobs care. I shall continue to keep you advised of his progress. Plan Of Treatment Treatment Notes Assessment Notes Mesenteric adenitis I will get a copy of your CT scan from [facility] in 03/2025. You can ask the [facility] Oncologist, Dr. Quinnoes, about the Mesenteric Adenitis and if it needs a biopsy. I will try to speak with her as well. 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 I last saw Myla in December 2023. At that time he was having some transient rectal discomfort that was felt to be related to possibly some urinary symptoms in relation to an enlarged prostate and/or a perianal fissure. Those symptoms did resolve. He did have a negative colonoscopy in 2021 other than the finding of a small tubular adenoma. 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 He has also had a longstanding history of intermittent abdominal complaints consisting of some bloating and some lower abdominal discomfort. Despite this he has continued to eat very well and has not lost any weight. He does remain overweight. He describes that the lower abdominal discomfort is beneath the umbilicus and he feels it is related to his excess weight in that area. He denies any significant heartburn or dysphagia. He denies any nausea, vomiting, nor early satiety. He denies any signs of jaundice, fevers, night sweats, particular change in bowel habits, hematochezia, nor melena. He did see Dr. Pearce in January for evaluation of the mesenteric adenitis and potential need for biopsy. Dr. Pearce thought it would be best for him to be evaluated by me to see if a biopsy of the mesenteric adenitis was required, as well as to review his current GI complaints of the abdominal discomfort and bloating. His most recent CT scan report that I have available from October of this year describes the known mesenteric adenitis with perhaps some increased fat stranding in that area and trace ascites. He does have some mild lymphadenopathy in that area but overall things do not seem appreciably different than back in 2017. There was no sign of any recurrence of the previous right renal carcinoma. Laboratories in March revealed a hemoglobin of 13.9 with a normal MCV, white blood cell count of 6.5 with a normal differential, normal chemistries and renal function, and normal LFTs. He does advise me that he was seen about a month or so ago by his oncologist at [facility], Dr. Quinones. He describes that she had him undergo a CT scan at that time but he has not heard the results as yet. Progress Notes * MYLA CASTREJON MDOB: [birth year] (85 yo M)Acc No.[id number]:04/08/2025 Progress Notes Patient: MYLA DIXON Provider: Tamie Keller MD :1940 A ge:85 Y S ex:Male Date:04/08/2025 Address:[address] [place], [place] [address], [id number] Pcp:Quinten Han MD Subjective: * Chief Complaints: * Cristopher godfrey presents today for * HPI: i ncontinence: I saw Myla in the office today for evaluation of his known mesenteric adenitis and some abdominal discomfort. I last saw Myla in December 2023. At that time he was having some transient rectal discomfort that was felt to be related to possibly some urinary symptoms in relation to an enlarged prostate and/or a perianal fissure. Those symptoms did resolve. He did have a negative colonoscopy in 2021 other than the finding of a small tubular adenoma. 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 He has also had a longstanding history of intermittent abdominal complaints consisting of some bloating and some lower abdominal discomfort. Despite this he has continued to eat very well and has not lost any weight. He does remain overweight. He describes that the lower abdominal discomfort is beneath the umbilicus and he feels it is related to his excess weight in that area. He denies any significant heartburn or dysphagia. He denies any nausea, vomiting, nor early satiety. He denies any signs of jaundice, fevers, night sweats, particular change in bowel habits, hematochezia, nor melena. He did see Dr. Pearce in January for evaluation of the mesenteric adenitis and potential need for biopsy. Dr. Pearce thought it would be best for him to be evaluated by me to see if a biopsy of the mesenteric adenitis was required, as well as to review his current GI complaints of the abdominal discomfort and bloating. His most recent CT scan report that I have available from October of this year describes the known mesenteric adenitis with perhaps some increased fat stranding in that area and trace ascites. He does have some mild lymphadenopathy in that area but overall things do not seem appreciably different than back in 2017. There was no sign of any recurrence of the previous right renal carcinoma. Laboratories in March revealed a hemoglobin of 13.9 with a normal MCV, white blood cell count of 6.5 with a normal differential, normal chemistries and renal function, and normal LFTs. He does advise me that he was seen about a month or so ago by his oncologist at [facility], Dr. Quinones. He describes that she had him undergo a CT scan at that time but he has not heard the results as yet. * Medical History: HTN Denies UT,DM,CVA,Lung disease,renal disease BPH- he describes a possible prostate biopsy in the past Hyperlipidemia Right Renal mass-bx with carcinoma in 09/2013- diagnosed with renal mass on CT in 08/2013- seeing Dr. Raman Caballero() and Dr. Ku(Oncology)- he has apparently had a negative workup for metastatic disease, including a PET-CT scan- he had cryosurgery with IR at [facility] in 04/2014- describes a CT scan in 12/2014 as looking OK - abnormal bone scan in the spine- had a negative biopsy after that Negative colonoscopy in 03/2013 for eval. of Heme + stool EGD in 12/2013- small hiatal hernia, gastric ulcer, gastritis, H.pylori- treated with Omeprazole, Biaxin, and Amoxicillen A F/U EGD in 2014 was negative for ulcer and H.pylori Mesenteric adenitis described on CAT scans in 2016, 2018, and 2020- - but there were no pathologically enlarged lymph nodes and no changes on the serial CT scans Colonoscopy in 06/2021 revealed only a small tubular adenoma and internal hemorrhoids Medical History Verified * Surgical History: Broken leg with pins -right Kidney biopsy Surgical History verified. * Hospitalization/Major Diagno stic Procedure: No Hospitalization Documented. Hospitalization Verified. * Family History: F ather: , diagnosed with HTN (hypertension). M other: . F amily History Verified.. No family history of colon cancer or liver cancer. * Social History: T obacco Use: T obacco Use/Smoking A re you a: nonsmoker. D rugs/Alcohol: A lcohol Screen P oints: 9, Interpretation: Positive. M iscellaneous: M arital status: . Occupation: Retired, but works at [employer] from August-February- -now completely retired. Social History Verified. S mokes a cigar occasionally; 2 glasses of wine QD, and 2-3 [employer] [employer] a few times a week He was born in [place] and came here when he was 19 years old. 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 * Medications: T akingTylenol PM Extra Strength Amlodipine & Diet Manage Prod 5mg Atorvastatin Calcium 10 MG Tablet 1 tablet Orally Once a day Tamsulosin HCl 0.4 MG Capsule 1 capsule 30 minutes after the same meal each day Orally Once a day Omeprazole 20 MG Capsule Delayed Release 1 capsule Orally Once a day hydroCHLOROthiazide 25 MG Tablet TAKE ONE TABLET BY MOUTH EVERY DAY Oral Pregabalin 150 MG Capsule TAKE ONE CAPSULE BY MOUTH TWICE A DAY Oral Aspirin 81 81 MG Tablet Delayed Release 1 tablet Orally Once a day Taking Tylenol PM Extra Strength Taking Amlodipine & Diet Manage Prod 5mg Taking Atorvastatin Calcium 10 MG Tablet 1 tablet Orally Once a day Taking Tamsulosin HCl 0.4 MG Capsule 1 capsule 30 minutes after the same meal each day Orally Once a day Taking Omeprazole 20 MG Capsule Delayed Release 1 capsule Orally Once a day Taking hydroCHLOROthiazide 25 MG Tablet TAKE ONE TABLET BY MOUTH EVERY DAY Oral Taking Pregabalin 150 MG Capsule TAKE ONE CAPSULE BY MOUTH TWICE A DAY Oral Taking Aspirin 81 81 MG Tablet Delayed Release 1 tablet Orally Once a day Not-Taking/PRNBiaxin 500 MG Tablet 1 tablet Orally BID Amoxicillin 500 MG Tablet 2 tablets Orally BID Not-Taking/PRN Biaxin 500 MG Tablet 1 tablet Orally BID Not-Taking/PRN Amoxicillin 500 MG Tablet 2 tablets Orally BID DiscontinuedClobetasol Propionate 0.05 % Gel 1 application to affected area Externally Twice a day Gabapentin 300 MG Capsule Oral Timolol Maleate 0.5 % Solution INSTILL ONE DROP IN EACH EYE TWO TIMES A DAY Ophthalmic Fish Oil 1000 MG Capsule 1 capsule Orally Three times a day Vitamin E Blend 400 UNIT Capsule 1 capsule Orally Once a day Medication List reviewed and reconciled with the patientDiscontinued Clobetasol Propionate 0.05 % Gel 1 application to affected area Externally Twice a day Discontinued Gabapentin 300 MG Capsule Oral Discontinued Timolol Maleate 0.5 % Solution INSTILL ONE DROP IN EACH EYE TWO TIMES A DAY Ophthalmic Discontinued Fish Oil 1000 MG Capsule 1 capsule Orally Three times a day Discontinued Vitamin E Blend 400 UNIT Capsule 1 capsule Orally Once a day Medication List reviewed and reconciled with the patient * Allergies: y esAllergies Verified. Objective: * Vitals: W t:190lbs, Ht: 64 in, BMI:32.61Index, BP:001/01mm Hg, Temp:98.0F, Ht-cm: 162.56 cm, Wt-k.18 kg. Assessment: * Assessment: 1. M esenteric adenitis - I88.0 (Primary) 2 . F ullness of abdomen - R19.8? 3. B loating - R14.0 E Overall, Myla appears quite well from a clinical standpoint. While the mesenteric adenitis remains on his most recent CT scan, he does not appear to be having any worrisome systemic symptoms to suggest an underlying neoplasm at this time. While there may be some slight changes in the area of the mesenteric adenitis on the most recent CT scan, they do not seem to be appreciably different as compared to previous CT scans dating back as far as 2017. I advised him that I think having him undergo a biopsy of the mesenteric adenitis might be of low yield, but we also reviewed that an underlying neoplasm such as lymphoma could not be definitively ruled out unless a biopsy was done. As such, I advised him that I would try to get a hold of his most recent CT scan report done at [facility] from last month and review that with his oncologist, Dr. Quinones. I advised him that I would be inclined to leave it up to her as to whether or not a biopsy would be beneficial for him. In regard to his overall GI symptoms I advised him that he does not seem to have anything particularly new in that regard nor anything worrisome. Given the otherwise negative CT scan in that regard as well as a negative colonoscopy in 2021, I advised him that I do not think needs any particular workup from a GI standpoint at this time. I have not given him a follow-up appointment at this time but will try to review things with his oncologist and be in touch with him as needed. I did advise him to contact me in the interim if he has any problems or questions I can be of assistance with. Myla was comfortable with this plan. Thank you again for allowing me to participate in Myla's care. I shall continue to keep you advised of his progress. Plan: * Treatment: * Preventive Medicine: Counseling: C are goal follow-up plan: A gokul Normal BMI Follow-up D ietary management education, guidance, and counseling, B UT management provided Y es. Screenings: F all Risk Screening F all Risk Assessment: N o falls in the past year, S creening: N o falls in the past year, P olga of Care: N ot documented, no reason specified. * Follow Up: p rn Billing Information: * Procedure Codes: * The named appointment provid er may or may not be the originator of this progress note, and it is not deemed complete until electronically signed by the appointment provider. Sign off status: Pending * Provider: Tamie Keller MD Date: 06/09/2024 Generated for Katelyn buchanan/Elida/Jakeitting on: 06/15/2024 10:12 PM EST
--- NOTE | 2025-04-14 15:41 | MHC.OFFVIS ---
Intake Visit Reasons: OV - Right Middle Trigger Finger s/p injection Intake Note: Myla 85 yr old right hand dominant male presents today s/p right middle finger trigger injection done with Dr Noel on 01/07/25. States the injection did give some relief but wore off. He reports that he would like to discuss surgical intervention. Allergies No Known Allergies (No Known Allergies*) Allergy (Verified 01/07/25 09:35) HPI HPI OV - Right Middle Trigger Finger s/p injection: Details: Myla is an 85 year old right hand dominant man who returns to discuss his right middle trigger finger, S/p injection on 01/07/25 He complains of pain primarily in his middle finger. He says this is at the volar base of his finger, intermittent throughout the day, and occasionally radiates into his palm. He says he occasionally still has locking of the middle finger, but this is not as common as prior to his injection. He also complains of new numbness & tingling in his hands. Symptoms intermittent, but daily, worse at night. He says he has a Hx of bilateral carpal tunnel releases in ~2018, with good relief following surgery He has a Hx of hand OA & has received steroid injections several years ago by Rheumatology, with good relief. 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 They show no fractures or dislocations. There are arthritic changes in multiple DIP joints & basal joint arthritis with joint space narrowing & osteophyte formation. Assessment & Plan Assessment & Plan (1) Trigger middle finger of right hand: Code(s): M65.331 - Trigger finger, right middle finger Category: Medical (2) Numbness and tingling in both hands: Code(s): R20.0 - Anesthesia of skin; R20.2 - Paresthesia of skin Category: Medical (3) Contracture of joint of finger of right hand: Comment: Code(s): M24.541 - Contracture, right hand Category: Medical Plan Assessment & Plan: 1. Right middle finger trigger finger, S/P injection Date of injection: 01/07/25 2. Right middle finger PIP joint flexion contracture I educated him about this condition I discussed operative and non-operative treatment options The patient would like to proceed with surgery The risks and benefits of operative treatment were discussed with the patient and the patient wishes to proceed with surgery. These risks include, but are not limited to risk of damage to blood vessels, nerves, tendons, infection, recurrence, incomplete relief of preoperative symptoms, persistent pain, possible need for further surgery and the risks associated with regional blocks and anesthesia. The plan is to take the patient to the operating room sometime in the next few weeks for the following procedures: 1. Right middle finger trigger release, under local 2. Right middle finger PIP joint manipulation, under local All of the preoperative paperwork including the consent was reviewed today. All the patient's questions were answered. The patient understands that they will be contacted by our rn mds coordinator soon to schedule this procedure He denies Diabetes, blood thinners, asthma, heart, lung, kidney issues 3. Bilateral hand numbness In the median nerve distribution Symptoms intermittent, but daily, worse at night hx of bilateral carpal tunnel release done in ~2018 Normal sensation following surgery I ordered a NCS to assess for peripheral nerve compression He will follow up when completed for review 4. Right basal joint arthritis 5. Right hand OA In multiple DIP joints I educated him about these conditions I discussed activity modification, they should limit or avoid any heavy or repetitive pinching or gripping activities He should work on ROM exercises, and avoid any gripping or strengthening activities I discussed the use of assistive devices for daily activity Please note that greater than 30 minutes was spent with this patient going over the history, evaluating the patient and radiographs, formulating possible treatment options, discussing them with the patient, and documenting the visit. Scribed for Salima Noel MD by Chino Ayala, front office medical assistant, on 04/14/25 at 4:00 PM, EST. Coding Level of Care Code Est Pt Level 4 (85973) Diagnoses Trigger middle finger of right hand M65.331 Numbness and tingling in both hands R20.0; R20.2 Contracture of joint of finger of right hand M24.541
--- OUTSIDE RECORDS SUMMARY | 2025-04-14 22:09 | XMS_ITS | Patient Health Record ---
Author Organization Quinten Han MD Address [address] [place], [place] [address] Care Team Providers Care Tag Press Operator Name Role Phone Quinten Han Primary Care Provider Allergies Allergen (clinical drug ingredient) Drug/Non Drug Allergy documented on EMR Reaction Allergy Type Onset Date Status ibuprofen Ibuprofen hallucinating Drug Allergy Act eddie Results Component Value Reference Range Notes Liver Panel Reviewed date:09/18/2024 04:25:13 PM Interpretation: Performing Lab:[facility], [address] [place] [phone] Notes/Report: Bilirubin Total 0.6 0.0-1.0 mg/dL Bilirubin Direct 0.2 0.0-0.5 mg/dL Aspartate Amino Transferase 26 5-37 U/L Alanine Aminotransferase 21 0-40 U/L Total Protein 6.5 6.5-8.0 g/dL Albumin Level 4.2 3.5-5.0 g/dL Alkaline Phosphatase 85 39-117 U/L Lipid Panel with Reflex Reviewed date:09/18/2024 04:39:57 PM Interpretation: Performing Lab:[address] [phone] Notes/Report: Triglycerides 66 <150 mg/dL Desirable Triglyceride: [...] Nitrogen Reviewed date:10/20/2024 04:32:38 PM Interpretation: Performing Lab:[facility], [address] [place] [phone] Notes/Report: Blood Urea Nitrogen 11 9-16 mg/dL Creatinine Reviewed date:10/20/2024 04:32:46 PM Interpretation: Performing Lab:[facility], [address] [place] [phone] Notes/Report: Creatinine 0.58 0.5-1.4 mg/dL Estimated Glomerular Filt Rate > 60 Chronic Kidney Disease: Estimated GFR < 60 mL/min/1.73m2 Severe Kidney Disease: Estimated GFR < 15 mL/min/1.73m2 Complete Blood Count Auto Di ff Reviewed date:03/23/2025 12:45:29 PM Interpretation: Performing Lab:[facility], [address] [place] [phone] Notes/Report: White Blood Count 6.5 4.8-10.8 X10*3/uL [...] NRBC Abs Auto 0.000 0.0-0.012 X10*3/uL Comprehensive Bath. Panel Fa st Reviewed date:03/23/2025 12:58:44 PM Interpretation: Performing Lab:[facility], [address] [place] [phone] Notes/Report: Sodium 143 135-145 mmol/L Potassium 3.7 [...] Panel Reviewed date:03/23/2025 12:45:06 PM Interpretation: Performing Lab:[facility], [address] [place] [phone] Notes/Report: Triglycerides 87 <150 mg/dL Desirable Triglyceride: [...] (Free>4and<10) Reviewed date:03/23/2025 12:26:28 PM Interpretation: Performing Lab:[facility], [address] [place] [phone] Notes/Report: PSA,Total (Free>4and<10) < 0.10 0.00-4.00 ng/mL [...] t Reviewed date:03/23/2025 12:30:05 PM Interpretation: Performing Lab:[facility], [address] [place] [phone] Notes/Report: Urine, Clean Catch Color Urine Yellow Appearance Urine Clear PH 8.0 5.0-9.0 Glucose Urine UA Negative Negative mg/dL Urine Blood Negative Negative Specific Franklin - Urine 1.015 1.005-1.025 Urine Protein Negative Neg-Trace mg/dL Urine Ketones Negative Negative mg/dL Nitrite Urine Negative Negative Leukocyte Esterase Urine Negative Negative RBC Urine 0-2 0-2 /HPF WBC Urine 0-5 0-5 /HPF Squamous Epithelial Cell Urine 0-2 0-2 /HPF Bacteria Urine None Seen None Seen Hyaline Casts Urine 0-2 0-2 /LPF Hold Gold Reviewed date:09/18/2024 02:27:00 PM Interpretation: Performing Lab:[facility], [address] [place] [phone] Notes/Report: Hold Gold See Note Specimen held untested for 24 hours; Call to request Chemistry testing. CT abdomen pelvis w con Reviewed date:11/04/2024 12:40:02 PM Interpretation: Performing Lab: Notes/Report: [address] [address] [address] Scan Report Signed Patient: Myla Hernandez MR#: [id number] : 1940 Acct:[id number] Age/Sex: 84 / M ADM Date: 10/30/24 Loc: HO.CT Attending Dr: Quinten Han MD Ordering Physician: Quinten Han MD Date of Service: 10/30/24 Procedure(s): CT abdomen pelvis w IV con Accession Number(s): [id number] cc: Quintne Han MD Report Number: [id number]: Total DLP = 646.00 mGy-cm EXAMINATION: CT [...] Domingo Whittington MD 10/30/2024 05:42 PM EDT Dictated By: Domingo Whittington MD Signed By: <Electronically signed by Domingo Whittington MD in OV> 10/30/24 1742 DD/ 1625 TD/TT: 10/30/24 1651 [employer] Teacher: [place] [address] [place] Scan Report Signed Patient: Yong Hernandez MR#: [id number] : 1940 Acct:[id number] Age/Sex: 84 / M ADM Date: 10/30/24 Loc: .CT Attending Dr: Quinten Han MD Ordering Physician: Quinten Han MD Date of Service: 10/30/24 Procedure(s): CT abd omen pelvis w IV con Accession Number(s): [id number] cc: Quinten Han MD Report Number: [id number] [...] most pronounced in the SMA PELVIC VISCERA: Bath llic beads are present superficial to the [...] 10/30/24 1742 DD/ 1625 TD/TT: 10/30/24 1651 [employer] Teacher: XR hand RT min 3V Reviewed date:11/11/2024 12:23:19 PM Interpretation: Performing Lab: Notes/Report: [facility] [place] [address] [place] [address] XRay Report Signed Patient: Myla Hernandez MR#: [id number] : 1940 Acct:[id number] Age/Sex: 84 / M ADM Date: 11/11/24 Loc: HO.HMGCX Attending Dr: Stefani Packer PA-C Ordering Physician: STEFANI PACKER Date of Service: 11/11/24 Procedure(s): XR hand RT min 3V Accession Number(s): [id number] cc: Quinten Han MD; STEFANI PACKER EXAMINATION: [...] 11/11/24 1126 DD/ 1114 TD/TT: 11/11/24 1117 [employer] Teacher: [facility] [address] [place] [address] [place] [address] XRay Report Signed Patient: Yong Hernandez MR#: [id number] : 1940 Acct:[id number] Age/Sex: 84 / M ADM Date: 11/11/24 Loc: .HMGCX Attending Dr: Mel Packer PA-C Ordering Physician: STEFANI PACKER Date of Service: 11/11/24 Procedure(s): XR lea d RT min 3V Accession Number(s): [id number] cc: Quinten Han MD; STEFANI PACKER EXAMINATION: [...] 11/11/24 1126 DD/ 1114 TD/TT: 11/11/24 1117 [employer] Teacher: Reason For Referral Reason Hand arthritis carlos [...] the vaccine at [facility] in [place]. Influenza High Dose IM Intramuscular 03/07/2018 Administer ed Prevnar 13 IM Intramuscular 08/12/2018 Administered Shingrix IM Intramuscular 09/24/2017 Administered pt was given the vaccine at [facility] in [place]. 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) Active confirmed Problem 050462718 Mild aortic sten osis (I35.0) Active confirmed Problem 673323966 Renal cancer, unspecified laterality (C64.9) Active confirmed Problem 85142197 Carpal tunnel sy ndrome of right wrist (G56.01) Active confirmed Problem 73788585 Oropharyngeal dysphagia (R13.12) Active confirmed Problem 35289071 Meralgia paraesthetica, 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) Active confirmed Problem 77259774 Sciatica of righ t side (M54.31) Active confirmed Problem 488742885 Pure hypercholesterolemia (E78.00) Active confirmed Problem 085064141 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) Active confirmed Problem 54015194 Hypercholesterol emia (E78.00) Active confirmed Problem 8356378478971597 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) Active confirmed Problem 114467955 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) Active confirmed Problem Computed tomography result abnormal (404731030) Abnormal CAT scan (R93.89) Active confirmed Vital [...] Date Provider Diagnosis Quinten Han MD [address] [place], [place] [phone] 09/18/2024 Quinten Bombardier Pure hypercholestero lemia E78.00 Quinten Han MD [address] [place] [id number] 10/20/2024 Quinten Han Essential hypertensi on I10 Quinten Han MD [address] [place] [id number] 03/23/2025 Quinten Han Essential hypertensi on I10 ; Pure hypercholesterolemia E78.00 and Prostatism N40.0 Quinten Han MD [address] [place] [id number] 09/25/2024 Quinten Han Back pain M54.9 ; Pr ostate cancer C61 ; 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 and Pure hypercholesterolemia E78.00 Quinten Han MD [address] [place] [id number] 11/06/2024 Quinten Han Essential hypertensi on I10 and 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 Quinten Han MD [address] [place] [id number] 01/13/2025 Quinten Han Preop examination Z0 1.818 and Age-related cataract of both eyes, unspecified age-related cataract type H25.[address] MD [address] [place] [id number] 11/03/2024 Quinten Han Assessments Encounter Date Diagnosis (ICD Code) Assessment Notes Treatment Notes Treatment Clinical Notes Section Notes 09/18/2024 Pure hypercholesterolemia (ICD-10 - E78.00) 10/20/2024 Essential hypertensi on (ICD-10 - I10) 03/23/2025 Essential hypertensi on (ICD-10 - I10) 09/25/2024 Back pain (ICD-10 - M54.9) need notes from [facility] 09/25/2024 Prostate cancer (ICD -10 - [...] H25.9) 03/23/2025 Pure hypercholesterolemia (ICD-10 - E78.00) 09/25/2024 Mesenteric adenitis (ICD-10 - I88.0) do ct in [facility], pending diagnostic testing 03/23/2025 Prostatism (ICD-10 - N40.0) 09/25/2024 Pure hypercholesterolemia (ICD-10 - E78.00) at goal, will continue current regiment Plan Of Treatment Pending Test Test Name [...] Name:Quinten Marcos ier, 04/28/2025 01:00:00 PM, [address] [facility], [address], [place], [place], [id number], Insurance Providers Payer Name Payer Address Payer Phone Subscriber Number Group Number Insured Name Patient Relationship to Insured Coverage Start Date Coverage End Date MEDICARE NHIC [address] [place] [address] [id number] MYLA HERNANDEZ Self - patient is the insured [address] [facility] [address] [place], [place] [id number] MYLA HERNANDEZ Self - patient is the insured Medical (General) History Medical History History ICD Code biopsy of prostate over 5 years on bical utamide which is cassodex colonoscopy in past. Colonos copy done 03/24/2013 - no further testing required per Dr. Keller. Colonoscopy 06/20/21 no more
--- OUTSIDE RECORDS SUMMARY | 2025-04-14 22:10 | XMS_ITS | Encounter Summary ---
Author Organization [facility] Address [address] [place] [address] Care Team Providers Care Anesthesiology Fellow Name Role Phone Quinten Han MD Primary Care Provider [phone] Encounter Details Date Type Department Care Team (Late st Contact Info) Description 04/14/2025 Telephone [facility] Hematology Oncology [address] [place] [phone] Pia Quinones DO [address] [place] [address] Social History Tobacco Use Types Packs/Day Years Used Date Smoking Tobacco: Never Smokeless Tobacco: Never Alcohol Use Standard Drinks/Week Comments Yes 1 (1 standard drink = 0.6 oz pur e alcohol) Sex and Gender Information Value Date Recorded Sex Assigned at Not on file Legal Sex Male 2:16 PM EST Gender Identity Not on file Sexual Orientation Not on file documented as of this encounter Progress Notes * Pia Quinones DO - 04/14/2025 4:[address] scan reviewed. No evidence of metastatic prostate cancer. There is nonspecific stranding of the mesenteric fat which is typically benign unless you have symptoms. Last time I saw the patient he had no abdominal pain or vomiting. Please evaluate if he has any GI symptoms. Typically if there is inflammation here this would not be related to an oncology diagnosis and I would recommend follow-up with PCP or GI I have not received anything from the GI office please reach out to them to see if you can find a note so we can connect. * Karma De La Vega MA - 04/14/2025 3:52 PM EST Images from the original note were not included. CT shows no evidence of metastatic disease. Pt is scheduled for OV with you 08/03/25. Is there a need for sooner OV? * Brenda Perez - 04/14/2025 10:59 AM EST Pt stopped in the office he has not heard results of CT scan Pt saw a GI doctor he wants the pt to follow up with you Please call pt Dr Keller sent us a note on computer per pt He just not sure where to go from here documented in this encounter Plan of Treatment Upcoming Encounters Date Type Department Care Team (Late st Contact Info) Description 08/03/2025 10:00 AM EDT Office Visit [facility] Hematology Oncology [address] [place] [phone] Pia Quinones DO [address] [place] [address] documented as of this encounter Visit Diagnoses Not on filedocumented in this encounter Care Teams Anesthesiology Fellow Relationship Specialty Start Date End Date Quinten Han MD [address] [place] [address] [address] [place] [address] PCP - General Internal Medicine 10/19/16 documented as of this encounter
--- OUTSIDE RECORDS SUMMARY | 2025-04-14 22:11 | XMS_ITS | Patient Health Record ---
Author Organization [facility] Address [address] [place] [id number] Care Team Providers Care Hand Edge Bander Name Role Phone Quinten Han MD Primary Care Provider Mike Wallace Unavailable [phone] Allergies No Known Allergies Reason For Referral No Information Medications Medication SIG (Take, Route, Frequency, Duration) Notes Start Date End Date Status Atorvastatin Calcium 10 MG Tablet 1 tablet Orally Once a day Active Amlodipine & Diet Manage Prod 5mg Active Aspirin 81 81 MG Tablet Delayed [...] each day Orally Once a day Active Amoxicillin 500 MG Tablet 2 tablets Oral ly BID; Duration: 10 days 12/30/2013 Not-Taking/PRN Biaxin 500 MG Tablet 1 tablet Orally BID; Duration: 10 days 12/30/2013 Not-Taking/PRN Immunizations Vaccine Route Administration Date Status Comme nts Influenza Unknown 11/30/2020 Refused Influenza Unknown 01/03/2024 Refused Social History Social History Additional Details Category Social Info Options Details Miscellaneous: Marital status: Occupation: Retired, but wor ks at [employer] from August-February- -now completely retired Section Notes: Smokes a cigar occasionally; 1 wine QD and 2-3 Scotches QD. He was born in [place] and came here when he was 19 years old. 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 Smokes a cigar occasionally; 1 wine QD--he has eliminated his Scotch He was born in [place] and came here when he was 19 years old. 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 Smokes a cigar occasionally; 1 wine QD--he has eliminated his Scotch He was born in [place] and came here when he was 19 years old. 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 Smokes a cigar occasionally; 1 wine QD--he has eliminated his Scotch He was born in [place] and came here when he was 19 years old. 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 Smokes a cigar occasionally; 1 wine QD--he has eliminated his Scotch He was born in [place] and came here when he was 19 years old. 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 Smokes a cigar occasionally; 2 glasses of wine QD, and 2-3 [employer] at the [employer] a few times a week He was born in [place] and came here when he was 19 years old. 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 Smokes a cigar occasionally; 2 glasses of wine QD, and 2-3 [employer] at [employer] a few times a week He was born in [place] and came here when he was 19 years old. 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 Smokes a cigar occasionally; 2 glasses of wine QD, and 2-3 [employer] at the [employer] a few times a week He was born in [place] and came here when he was 19 years old. 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 Problems Problem Type SNOMED Code ICD Code Onset Dates Problem Status W/U Status Risk Notes Problem Flatulence, eructation and gas pain (724030521) Bloating (R14.0) Active confirmed Problem H. Pylori (23818834) Helicobacter pylori (H. 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) Active confirmed Problem Rectal pain (52654427) Rectal discomfort (K62.89) Active confirmed Problem Diverticulosis of colon (384237896) Diverticulosis of colon (K57.30) Active confirmed Vital Signs Temperature 98.0 degrees Fahrenheit 04/08/2025 Blood pressure diastolic 01 mm Hg 04/08/2025 Height 64 in 04/08/2025 Blood pressure systolic 001 mm Hg 04/08/2025 Weight 190 lbs 04/08/2025 BMI 32.61 kg/m2 04/08/2025 Encounters Encounter Location Date Provider Diagnosis [facility] [address] [place] [address] 04/08/2025 Mike Keller 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 ; Fullness of abdomen R19.8 and Bloating R14.0 Assessments Encounter Date Diagnosis (ICD Code) Assessment Notes Treatment Notes Treatment Clinical Notes Section Notes 04/08/2025 Fullness of abdomen (ICD-10 - R19.8) Myla Peng appears quite well from a [...] most recent CT scan report done at [facility] from last month and review that with [...] keep you advised of his progress. 04/08/2025 Mesenteric adenitis (ICD-10 - I88.0) I will get a copy of your CT scan from [facility] in 03/2025. You can ask the [facility] Oncologist, Dr. Quinones, about the Mesenteric Adenitis and if it needs a biopsy. I will try to speak with her as well. EOverall, Myla appears quite well from a [...] most recent CT scan report done at [facility] from last month and review that with [...] most recent CT scan report done at [facility] from last month and review that with [...] advised of his progress. Plan Of Treatment Pending Test Test Name [...] Date MEDICARE OF [place] [address] [place] [address] [id number] MYLA CASTREJON Self - patient is the insured [facility] [address] [place] [phone] [id number] MYLA CASTREJON Self - patient is the insured Medical (General) History Medical History History ICD Code HTN Denies ME,DM,CVA,Lung disease,renal dise ase BPH- he describes a possible prostate bi opsy in the past Hyperlipidemia Right Renal mass-bx with car cinoma in 09/2013- diagnosed with renal mass on CT in 08/2013- seeing Dr. Raman Caballero() and Dr. Ku(Oncology)- he has apparently had a negative workup for metastatic disease, including a PET-CT scan- he had cryosurgery with IR at [facility] in 04/2014- describes a CT scan in 12/2014 as looking OK - abnormal bone scan in the spine- had a negative biopsy after that Negative colonoscopy in 03/2013 for eval . of Heme + stool EGD in 12/2013- [...]
--- OUTSIDE RECORDS SUMMARY | 2025-04-14 22:11 | XMS_ITS | Clinical Summary ---
Author Organization [facility] Address [address] [place] [address] Phone Care Team Providers Care Outsole Cutter Machine Name Role Phone Quinten Han MD Primary Care Provider [phone] Medications amLODIPine (NORVASC) 5 mg tablet Take [...] Date Diagnosed Date Malignant neoplasm of prostate 08/08/2024 Lumbar spondylosis 12/20/2023 Overview (04/16/2024): Last [...] every morning. He has been seen at [facility] pain management, is s/p right L5 TFE, L5-S1 JANNIE, but did not see relief with either injection. He states they are talking to him about spinal cord stimulator trial, he is not sure if he wants to try it. Patient had MRI lumbar spine 07/30/2023 at [facility] that showed multilevel degenerative changes, I did [...] Encounters Date Type Department Care Team Description 04/14/2025 Telephone [facility] Hematology Oncology [address] [place] [address] Pia Quinones DO 03/12/2025 9:32 AM EST - 03/12/2025 11:59 PM EST Hospital Encounter [facility] CT Scan [address] [place] [address] Prostate cancer ([facility] V24, [facility] V28) Discharge Disposition: Home or Self Care 02/09/2025 10:00 AM EDT Office Visit [facility] Hematology Oncology [address] [place] [address] Pia Quinones DO Prostate cancer ([facility] V24, [facility] V28) (Primary Dx) from Last 3 Months [...] on file Sexual Orientation Not on file Last Filed Vital Signs [...] Description 08/03/2025 10:00 AM EDT Office Visit [facility] Hematology Oncology [address] [place] [phone] Pia Quinones, DO [address] [place] [address] Health Maintenance Due Date Last Done Comments [...] Routine 02/09/2025 10:41 AM EDT Prostate cancer ([facility]/HCC V24, [facility]/HCC V28) COMPREHENSIVE METABOLIC PANEL Routine 02/09/2025 10:41 AM EDT Prostate cancer ([facility]/HCC V24, [facility]/HCC V28) CBC AND DIFFERENTIAL Routine [...] Signed Date: 03/17/2025 17:21 ET Workstation ID: [id number] Transcribed By: Self Edit Transcribed Date: 03/17/2025 [...] Signed Date: 03/17/2025 17:21 ET Workstation ID: [id number] Transcribed By: Self Edit Transcribed Date: 03/17/2025 14:47 ET Pia Quinones DO IMG CT PROCEDURES Fin al Result * Prostate specific antigen diagnostic (02/09/2025 10:41 AM EDT) PSA <0.06 0.00 - 4.00 ng/mL LAB CHEMISTRY METHOD 02/09/2025 2:[address] [facility] Blood Venous blood specimen / Unknown Venipuncture / Unknown 02/09/2025 10:41 AM EDT 02/09/2025 11:[address] [facility] - 02/09/2025 2:10 PM EDT The Siemens Advia Centaur Chemiluminescent Immunoassay is used. Results obtained with different assay methods or kits cannot be used interchangeably. Results cannot be interpreted as absolute evidence of the presence or absence of malignant disease. Pia Quinones DO LAB BLOOD ORDERABLES Final Result [facility] [address] [place] [address], [place] [phone] * (ABNORMAL) CBC auto differential (02/09/2025 10:41 AM EDT) [facility] WBC 6.1 4.8 - 10.8 K/mcL LAB HEMETOLOGY METHOD 02/09/2025 12:09 PM [facility] RBC 4.50 4.50 - 5.50 M/mcL LAB HEMETOLOGY METHOD 02/09/2025 12:09 PM [facility] Hemoglobin 13.1(L) 13.5 - 17.5 g/dL LAB HEMETOLOGY METHOD 02/09/2025 12:09 PM [facility] Hematocrit 41.3(L) 42.0 - 54.0 % LAB HEMETOLOGY METHOD 02/09/2025 12:09 PM [facility] MCV 91.2 79.0 - 98.0 FL LAB HEMETOLOGY METHOD 02/09/2025 12:09 PM [facility] MCH 28.9 27.0 - 32.0 pcg LAB HEMETOLOGY METHOD 02/09/2025 12:09 PM [facility] MCHC 31.7(L) 32.0 - 37.0 g/dL LAB HEMETOLOGY METHOD 02/09/2025 12:09 PM [facility] RDW 13.7 11.0 - 15.0 % LAB HEMETOLOGY METHOD 02/09/2025 12:09 PM [facility] Platelets 195 130 - 400 K/mcL LAB HEMETOLOGY METHOD 02/09/2025 12:09 PM [facility] MPV 11.4(H) 7.0 - 11.0 FL LAB HEMETOLOGY METHOD 02/09/2025 12:09 PM [facility] NRBC 0.0 <1.0 % LAB HEMETOLOGY METHOD 02/09/2025 12:09 PM [facility] NRBC Absolute 0.00 <0.10 K/mcL LAB HEMETOLOGY METHOD 02/09/2025 12:09 PM [facility] Neutrophils Relative 66.3 % LAB HEMETOLOGY METHOD 02/09/2025 12:09 PM [facility] Lymphocytes Relative 20.4 % LAB HEMETOLOGY METHOD 02/09/2025 12:09 PM [facility] Monocytes Relative 9.1 % LAB HEMETOLOGY METHOD 02/09/2025 12:09 PM [facility] Eosinophils Relative 2.9 % LAB HEMETOLOGY METHOD 02/09/2025 12:09 PM [facility] Basophils Relative 0.5 % LAB HEMETOLOGY METHOD 02/09/2025 12:09 PM [facility] Immature Granulocytes Relative 0.8 % LAB HEMETOLOGY METHOD 02/09/2025 12:09 PM [facility] Neutrophils Absolute 4.07 1.50 - 7.00 K/mcL LAB HEMETOLOGY METHOD 02/09/2025 12:09 PM [facility] Lymphocytes Absolute 1.25 1.00 - 5.00 K/mcL LAB HEMETOLOGY METHOD 02/09/2025 12:09 PM [facility] Monocytes Absolute 0.56 0.20 - 1.00 K/mcL LAB HEMETOLOGY METHOD 02/09/2025 12:09 PM [facility] Eosinophils Absolute 0.18 0.00 - 0.50 K/mcL LAB HEMETOLOGY METHOD 02/09/2025 12:09 PM [facility] Basophils Absolute 0.03 0.00 - 0.20 K/mcL LAB HEMETOLOGY METHOD 02/09/2025 12:09 PM [facility] Immature Granulocytes Absolute 0.05(H) 0.00 - 0.03 K/mcL LAB HEMETOLOGY METHOD 02/09/2025 12:09 PM EDT [facility] Blood Venous blood specimen / Unknown Venipuncture / Unknown 02/09/2025 10:41 AM EDT 02/09/2025 11:40 AM EDT Pia Jenningsuliffe DO LAB BLOOD ORDERABLES Final Result [facility] [address] [place] [address], * (ABNORMAL) Comprehensive metabolic panel (02/09/2025 10:41 AM EDT) Sodium 141 133 - 145 mmol/L LAB CHEMISTRY METHOD 02/09/2025 12:40 PM [facility] Potassium 3.4(L) 3.5 - 5.5 mmol/L LAB CHEMISTRY METHOD 02/09/2025 12:40 PM [facility] Chloride 102 96 - 110 mmol/L LAB CHEMISTRY METHOD 02/09/2025 12:40 PM [facility] CO2 33(H) 21 - 32 mmol/L LAB CHEMISTRY METHOD 02/09/2025 12:40 PM [facility] Anion Gap 6 3 - 11 LAB CHEMISTRY METHOD 02/09/2025 12:40 PM [facility] Glucose 96 70 - 100 mg/dL LAB CHEMISTRY METHOD 02/09/2025 12:40 PM [facility] BUN 8 5 - 25 mg/dL LAB CHEMISTRY METHOD 02/09/2025 12:40 PM [facility] Creatinine 0.62(L) 0.70 - 1.30 mg/dL LAB CHEMISTRY METHOD 02/09/2025 12:40 PM [facility] eGFR 95 >=60 mL/min/1. 73m2 LAB CHEMISTRY METHOD 02/09/2025 12:40 PM [facility] Comment:Calculation based on the Chronic Kidney Disease Epidemiology Collaboration (CKD-EPI) equation refit without adjustment for race. BUN/Creatinine Ratio 12.9 LAB CHEMISTRY METHOD 02/09/2025 12:[address] [facility] Calcium 9.0 8.5 - 10.5 mg/dL LAB CHEMISTRY METHOD 02/09/2025 12:40 PM [facility] AST (SGOT) 22 10 - 42 unit/L LAB CHEMISTRY METHOD 02/09/2025 12:40 PM [facility] ALT (SGPT) 24 10 - 60 unit/L LAB CHEMISTRY METHOD 02/09/2025 12:40 PM [facility] Alkaline Phosphatase 87 42 - 121 unit/L LAB CHEMISTRY METHOD 02/09/2025 12:40 PM [facility] Total Protein 6.0 6.0 - 8.0 g/dL LAB CHEMISTRY METHOD 02/09/2025 12:40 PM [facility] Albumin 3.4 3.2 - 5.0 g/dL LAB CHEMISTRY METHOD 02/09/2025 12:40 PM [facility] Total Bilirubin 0.5 0.0 - 1.4 mg/dL LAB CHEMISTRY METHOD 02/09/2025 12:40 PM [facility] Blood Venous blood specimen / Unknown Venipuncture / Unknown 02/09/2025 10:41 AM EDT 02/09/2025 11:40 AM EDT us Pia Quinones DO LAB BLOOD ORDERABLES Final Result [facility] [address] [place] [address], from Last 3 Months Insurance MEDICARE [facility] Care Teams Outsole Cutter Machine Relationship Specialty Start Date End Date Quinten Han MD [address] [place] [address] [place] [id number] PCP - General Internal Medicine 10/19/16
--- OUTSIDE RECORDS SUMMARY | 2025-04-14 22:14 | XMS_ITS | Clinical Summary ---
Author Organization [facility] Prior to 10/04/24 Address [address] [place] [address] Care Team Providers Care Enamel Cracker Name Role Phone Quinten Han MD Primary Care Provider [phone] Allergies No known active allergies Medications Medication [...] mg total) by mouth daily. 0 Active Wilmot-3 Fatty Acids (FISH OIL PO) Take by [...] age to complete this topic Care Teams Enamel Cracker Relationship Specialty Start Date End Date Quinten Han MD [address] [place] [address] PCP - General Internal Medicine 10/19/16
== END 2025-04-14 16:28 | disposition home or self-care (01) ==
LOC: HO.HOS 15:29
PROVIDERS: PCP Internal Medicine; Visit Provider Orthopaedic Surgery
DX: M65.331 Trigger finger, right middle finger (principal); R20.0 Anesthesia of skin; R20.2 Paresthesia of skin; M24.541 Contracture, right hand
CPT/HCPCS: 99214

== ENCOUNTER → 2025-04-14 15:28 | Outpatient (BNVA) | payer MEDICARE, SELFPAY | PROVIDERS: PCP Internal Medicine; Visit Provider Orthopaedic Surgery | DX: M65.331 Trigger finger, right middle finger (principal); R20.0 Anesthesia of skin; R20.2 Paresthesia of skin; M24.541 Contracture, right hand | CPT/HCPCS: 99212 ==